=== PATIENT | male | born 1970 | race Caucasian/White ===

== ENCOUNTER 2018-01-17 14:01 | Outpatient (REF) | payer MEDICARE, MEDICAID, SELFPAY ==
[2018-01-17 21:27] LABS: HCT 41.9 % (40.0-50.0); HGB 14.5 g/dL (13.5-17.5); Mean Corp. HGB Concentration 34.6 g/dL (32.0-36.0); Mean Corpuscular Hemoglobin 31.3 pg (27.0-33.0); Mean Corpuscular Volume 90.5 fL (80-95); Mean Platelet Volume 11.3 fL (8.0-11.0); RBC 4.63 m/cumm (4.50-6.00); RBC Distribution Width 14.4 % (11.8-14.1)
[2018-01-17 21:39] LABS: ALT 39 U/L (12-78); AST 28 U/L (15-37); Albumin 3.8 g/dL (3.4-5.0); Alkaline Phosphatase 84 U/L (46-116); Anion Gap 8.8 mmol/L (3-11); BUN 12 mg/dL (7-18); Bilirubin, Total 0.7 mg/dL (0.2-1.0); CO2 27.2 mmol/L (21.0-32.0); CREATININE 0.74 mg/dL (0.70-1.30); Calcium 8.6 mg/dL (8.5-10.1); Chloride 101 mmol/L (98-107); Glucose 116 mg/dL (70-100); Potassium 3.8 mmol/L (3.5-5.1); Sodium 137 mmol/L (136-145); TSH (W/Ref FT4) 3.82 uIU/mL (0.358-3.74); Total Protein 7.3 g/dL (6.4-8.2)
[2018-01-17 21:53] LABS: Platelet Count 34 x1000/uL (130-400)
[2018-01-17 21:56] LABS: FREE T4 0.81 ng/dL (0.76-1.46)
[2018-01-21 11:59] LABS: Hepatitis C Ab w Rflx HCV PCR Reactive (NEGAT)
[2018-01-22 13:52] LABS: HCV RNA Detection Quantitative Undetected IU/mL (UNDECT)
== END 2018-01-17 14:21 ==
LOC: NCHCN 14:01
PROVIDERS: PCP Family Medicine; Visit Provider Family Medicine
DX: E03.9 Hypothyroidism, unspecified (principal); E11.9 Type 2 diabetes mellitus without complications; I10 Essential (primary) hypertension; K74.60 Unspecified cirrhosis of liver; B19.20 Unspecified viral hepatitis C without hepatic coma
CPT/HCPCS: 80053; 85027; 86803; 84439; 84443; 87522

== ENCOUNTER 2018-07-11 15:41 | Outpatient (CLI) | payer MEDICARE, MEDICAID, SELFPAY ==
[2018-07-11 15:59] LABS: Abs Immature Grans 0.01 k/cumm (0.0-0.09); Absolute Basophil Count 0.02 k/cumm (0.0-0.2); Absolute Eosinophil Count 0.09 k/cumm (0.0-0.7); Absolute Lymphocyte Count 0.63 k/cumm (1.2-3.4); Absolute Monocyte Count 0.34 k/cumm (0.11-0.7); Basophils % 0.4; Eosinophils % 1.8; HCT 40.5 % (40.0-50.0); Immature Grans % 0.2; Lymphocytes % 12.6; Mean Corpuscular Hemoglobin 32.6 pg (27.0-33.0); Mean Platelet Volume 10.2 fL (8.0-11.0); Monocytes % 6.8; Neutrophils % 78.2; RBC Distribution Width 13.8 % (11.8-14.1); White Blood Cell Count 4.99 k/cumm (4.4-10.8)
--- NOTE | 2018-07-11 16:06 | DI.RAD_ITS ---
SYMPTOM/DIAGNOSIS: NOCTURNAL DYSPNEA, R06.09 PA AND LATERAL CHEST: Comparison is made with 11/14/16. The heart size is normal. The lungs show mild underlying fibrotic changes. No focal infiltrate, effusion or pulmonary edema is seen. No mass or adenopathy is visible. The spine is unremarkable. IMPRESSION: No acute abnormality.
[2018-07-11 16:19] LABS: Platelet Count 45 x1000/uL (130-400)
[2018-07-11 16:32] LABS: D-Dimer 423 ng/mlFEU (<500)
[2018-07-11 17:13] LABS: NT-proBNP 15 pg/mL
== END 2018-07-11 16:01 ==
PROVIDERS: PCP Family Medicine; Visit Provider Nurse Practitioner
DX: R06.09 Other forms of dyspnea (principal)
CPT/HCPCS: 36415; 71046; 83880; 85025; 85379

== ENCOUNTER 2018-08-15 08:26 | Outpatient (REF) | payer MEDICARE, MEDICAID, SELFPAY ==
[2018-08-15 13:21] LABS: ALT 54 U/L (12-78); AST 35 U/L (15-37); Albumin 3.8 g/dL (3.4-5.0); Alkaline Phosphatase 74 U/L (46-116); Anion Gap 8.4 mmol/L (3-11); BUN 9 mg/dL (7-18); Bilirubin, Total 0.8 mg/dL (0.2-1.0); CO2 29.6 mmol/L (21.0-32.0); CREATININE 0.64 mg/dL (0.70-1.30); Calcium 8.6 mg/dL (8.5-10.1); Chloride 102 mmol/L (98-107); Glucose 124 mg/dL (70-100); Potassium 4.1 mmol/L (3.5-5.1); Sodium 140 mmol/L (136-145); TSH (W/Ref FT4) 1.41 uIU/mL (0.358-3.74); Total Protein 7.4 g/dL (6.4-8.2)
[2018-08-15 13:32] LABS: Cholesterol 131 mg/dL (50-200); HDL Cholesterol 48 mg/dL (40-60); LDL CHOLESTEROL 75 mg/dL (<100); Triglyceride 32 mg/dL (30-150)
[2018-08-15 13:38] LABS: Hemoglobin A1C 5.1 % (4.5-6.2)
== END 2018-08-15 08:46 ==
LOC: NCHCN 08:26
PROVIDERS: PCP Family Medicine; Visit Provider Family Medicine
DX: E78.5 Hyperlipidemia, unspecified (principal); E11.9 Type 2 diabetes mellitus without complications; D69.6 Thrombocytopenia, unspecified; I10 Essential (primary) hypertension; B19.20 Unspecified viral hepatitis C without hepatic coma; E03.9 Hypothyroidism, unspecified
CPT/HCPCS: 80053; 80061; 83721; 83036; 84443

== ENCOUNTER 2018-11-23 19:37 | Inpatient (IN) | payer MEDICARE, MEDICAID, SELFPAY ==
[2018-11-23] VITALS (19 sets, daily range): BP systolic 117–168; BP diastolic 75–98; PULSE 60–78; RESP 11–35; TEMP 36.8; O2SAT 90–97
--- NOTE | 2018-11-23 19:41 | NUR.NOTE ---
Nursing Note: pt states that im here for schizophrenia pt is visibly intoxicated and states that he is currently having hallucinations states that he has thought about killing himself however currently has no plan
--- NOTE | 2018-11-23 20:07 | W.ED.GENAD ---
Discharge Plan Disposition Patient Disposition: [facility] INPATIENT Condition: Stable Discharge Details Chief Complaint: Suicide-Atempt Clinical Impression: Alcoholic ketoacidosis, Suicidal ideations, Alcohol intoxication Admit Date/Time: 11/23/18 23:17 Admit Provider: Elvin Ríos Attending Provider: Elvin Ríos Primary Care Provider: Soraya Tomas ED Provider: Camila Sandoval Discharge Data Discharge Date/Time-TO BE ENTERED AT DEPARTURE: 11/24/18 00:40 Medical Decision Making 48yo M w/ a h/o depression, previous suicidal ideation, schizophrenia presents intoxicated with suicidal ideation and hallucinations. CPSO ordered. D/w Khadijah from [facility] who evaluated pt at bedside - pt clearly intoxicated but able to answer questions - will reassess after more sober. Pt denies suicidal ideation upon my evaluation but is clearly intoxicated and while reassess once more sober. 2200 --patient complained of chest pain and cramping in his right hand. Appears likely consistent with anxiety as he is nervous about his right hand cramping. Denies any weakness or numbness more complaining of pain, appears likely consistent with a muscle cramp. EKG done at bedside and unremarkable. Stat chest x-ray negative. Stat troponin done and negative. Patient placed on the monitor and hemodynamically stable. Labs reviewed and note stable platelet count at 67, which is much improved compared to baseline. Sodium 127. Bicarb 17.8. Anion gap 15.2. Glucose 116. UDS notes benzos. Alcohol 319. Appears likely c/w alcoholic ketoacidosis. Will give liter of D5 NS at 125cc/hr. Discussed with mental health and they will likely not reevaluate until patient alcohol level is 0. Discussed that patient could likely be evaluated once under the legal limit which would be approximately 9 hours which is approximately at 0530am. Will admit pt to floor overnight for reassessment of labs and reevaluation by mental health in the am. 2310 -- d/w hospitalist - accepts pt for admission. Pt hemodynamically stable and no acute complaints. Medical Records Medical records reviewed: Yes I reviewed the patient's medical records. Imaging Data Radiologic Study: Radiologist's impression: XR Chest, 1 View EXAM DATE/TIME: 11/23/2018 9:42 PM CLINICAL HISTORY: 48 years old, male; Chest pain; Type not specified; Additional info: R/O acute disease TECHNIQUE: Imaging protocol: XR of the chest, 1 view. COMPARISON: CR XR CHEST 2V PA LATERAL 11/07/2018 15:58 FINDINGS: Lungs: Unremarkable. No consolidation. Pleural space: Unremarkable. No pleural effusion. No pneumothorax. Heart/Mediastinum: Unremarkable. No cardiomegaly. Bones/joints: Unremarkable. Other findings: EKG wires overlie the chest. IMPRESSION: No acute cardiopulmonary findings. Lab Data Lab results reviewed: Yes I reviewed the patient's lab results. Laboratory Tests Range/Units 11/23/18 11/23/18 11/23/18 20:25 20:25 20:25 WBC (4.4-10.8) k/cumm 9.57 RBC (4.50-6.00) m/cumm 5.43 Hgb (13.5-17.5) g/dL 17.6 H Hct (40.0-50.0) % 46.6 MCV (80-95) fL 85.8 MCH (27.0-33.0) pg 32.4 MCHC (32.0-36.0) g/dL 37.8 H RDW (11.8-14.1) % 13.5 Plt Count (130-400) x1000/uL 67 L MPV (8.0-11.0) fL 9.6 Immature Gran % 0.2 Neutrophils % 83.4 Lymphocytes % 9.3 Monocytes % 5.0 Eosinophils % 2.0 Basophils % 0.1 Absolute Neutrophils (1.2-6.7) k/cumm 7.98 H Absolute Lymphocytes (1.2-3.4) k/cumm 0.89 L Absolute Monocytes (0.11-0.7) k/cumm 0.48 Absolute Eosinophils (0.0-0.7) k/cumm 0.19 Absolute Basophils (0.0-0.2) k/cumm 0.01 Sodium (136-145) mmol/L 127 L Potassium (3.5-5.1) mmol/L 4.0 Chloride (98-107) mmol/L 94 L Carbon Dioxide (21.0-32.0) mmol/L 17.8 L Anion Gap (3-11) mmol/L 15.2 H BUN (7-18) mg/dL 8 Creatinine (0.70-1.30) mg/dL 0.48 L Estimated GFR/1.73 m2 (mL/min/1.73m2) >= 60.00 Glucose (70-100) mg/dL 116 H Calcium (8.5-10.1) mg/dL 8.2 L Troponin I (0.00-0.06) ng/mL < 0.05 Urine Opiates Screen (Negative) Urine Methadone Screen (Negative) Ur Barbiturates Screen (Negative) Ur Tricyclics Screen (Negative) Ur Amphetamines Screen (Negative) U Benzodiazepines Scrn (Negative) Urine Cocaine Screen (Negative) Ur THC Screen (Negative) Ethyl Alcohol (<3) mg/dL 319.2 Range/Units 11/23/18 21:05 WBC (4.4-10.8) k/cumm RBC (4.50-6.00) m/cumm Hgb (13.5-17.5) g/dL Hct (40.0-50.0) % MCV (80-95) fL MCH (27.0-33.0) pg MCHC (32.0-36.0) g/dL RDW (11.8-14.1) % Plt Count (130-400) x1000/uL MPV (8.0-11.0) fL Immature Gran % Neutrophils % Lymphocytes % Monocytes % Eosinophils % Basophils % Absolute Neutrophils (1.2-6.7) k/cumm Absolute Lymphocytes (1.2-3.4) k/cumm Absolute Monocytes (0.11-0.7) k/cumm Absolute Eosinophils (0.0-0.7) k/cumm Absolute Basophils (0.0-0.2) k/cumm Sodium (136-145) mmol/L Potassium (3.5-5.1) mmol/L Chloride (98-107) mmol/L Carbon Dioxide (21.0-32.0) mmol/L Anion Gap (3-11) mmol/L BUN (7-18) mg/dL Creatinine (0.70-1.30) mg/dL Estimated GFR/1.73 m2 (mL/min/1.73m2) Glucose (70-100) mg/dL Calcium (8.5-10.1) mg/dL Troponin I (0.00-0.06) ng/mL Urine Opiates Screen (Negative) Negative Urine Methadone Screen (Negative) Negative Ur Barbiturates Screen (Negative) Negative Ur Tricyclics Screen (Negative) Negative Ur Amphetamines Screen (Negative) Negative U Benzodiazepines Scrn (Negative) Positive Urine Cocaine Screen (Negative) Negative Ur THC Screen (Negative) Negative Ethyl Alcohol (<3) mg/dL ECG Data Attestation: I personally reviewed and interpreted this ECG (s) as follows: Interpretation: Rate of 70, sinus, no acute ST-T wave ischemic changes. QTc 412. QRS 95. HPI General Mode of arrival: ambulatory. Date/Time Provider Initiated Documentation: 11/23/18 19:59. Limitations to Documentation: no limitations. Information obtained by: patient. HPI Narrative: Pt is a 48yo M w/ a h/o schizophrenia, diabetes, hypothyroidism, anxiety, depression, previous suicide attempt who presents with suicidal ideation. Pt states he has felt depressed for the past 3 years which has been becoming progressively worse. Pt does not answer all my questions and has significant delays in answering. When asked if he is still suicidal, he nods his head no. He states his previous suicide attempt was when he thought about injecting clorox in his veins. He has a h/o previous heroin abuse but has not used for several years. He states he drank four 24 oz beers today. He denies a h/o regular alcohol use and states he last drank years ago. Triage note also stated pt was having hallucinations of voices telling him how to kill himself but he will not talk about this to me. He will not talk about whether he had a plan. Per staff, pt's bag had several knives in it. Pt denies any acute medical complaints. Related Data Home Medications Medication Instructions Recorded Confirmed bupropion HCl [Wellbutrin SR] 200 mg PO BID 07/22/16 10/16/16 cholecalciferol (vitamin D3) 1,000 units PO DAILY 07/22/16 11/24/18 fluticasone propion-salmeterol 1 ea INHALATION BID 07/22/16 11/24/18 [Advair Diskus] levothyroxine 50 mcg PO DAILY 07/22/16 11/24/18 metformin [Glucophage] 1,000 mg PO BID 07/22/16 10/16/16 omeprazole 20 mg PO DAILY 07/22/16 10/16/16 propranolol 20 mg PO BID 07/22/16 11/24/18 trazodone 300 mg PO HS PRN 07/22/16 11/24/18 fluoride (sodium) [Prevident 5000] 100 ml DENTAL DAILY script 05/29/17 07/11/17 lurasidone [Latuda] 80 mg PO DAILY 05/29/17 alprazolam [Xanax] 1 mg PO BID PRN MDD 2 07/11/17 11/24/18 diclofenac sodium 4 gm TOPICAL QID PRN 30 Days #100 07/30/17 gm lidocaine 1 adh.patch TOPICAL DAILY PRN 30 08/29/17 11/24/18 Days #30 patch vilazodone [Viibryd] 20 mg PO DAILY 11/24/18 11/24/18 zolpidem [Ambien] 10 mg PO QHS PRN 11/24/18 11/24/18 Allergies Allergy/AdvReac Type Severity Reaction Status Date / Time No Known Allergies Allergy Unverified 11/23/18 19:51 General Stated Complaint: Suicide-Atempt MANISH: 3 Review of Systems Review of Systems All systems reviewed & are unremarkable except as noted in HPI and below Constitutional Reports as per HPI, Denies chills and Denies fever(s) Eyes Denies blurry vision ENT Denies dizziness, Denies sore throat and Denies throat swelling Cardiovascular Denies chest pain and Denies dyspnea Respiratory Denies cough and Denies dyspnea Gastrointestinal Denies abdominal pain, Denies diarrhea and Denies vomiting Genitourinary Denies hematuria and Denies dysuria Musculoskeletal Denies back pain and Denies numbness Integumentary/Breasts Denies lesions and Denies rash Neurologic Denies dizziness, Denies focal weakness and Denies numbness Psychiatric Reports suicidal ideation Allergic/Immunologic Denies throat swelling [facility] Medical History (Updated 11/24/18 @ 04:51 by Elvin Ríos) Cirrhosis Depression Diabetes Esophageal varices HCV infection (Chronic) Heroin addiction Hypothyroid Lumbar spondylosis Sleep apnea Suicidal ideations Surgical History EGD - MAC Social History Smoking/Tobacco Use Status: Current every day Tobacco Type: cigarettes Alcohol Intake: current Alcohol Intake frequency: 3 or more drinks per day Alcohol type: beer Drug use: Never Exam Const General: cooperative, no acute distress and intoxicated appearing [facility] Head: normal to inspection Face and sinus: normal facial exam Eyes General: appearance normal, both eyes and all related structures Pupils: PERRL EOM: EOM intact bilaterally Neck Neck: normal visual inspection and No submandibular swelling Lymphatic: no lymphadenopathy noted Chest Chest: normal inspection of the chest and no tenderness Resp Effort & Inspection: normal respiratory effort and able to speak in complete sentences Auscultation: clear to auscultation bilaterally Cardio Rate: regular rate Rhythm: regular rhythm GI Inspection: normal to inspection Palpation: soft, not firm, not rigid and nontender Auscultation: normal bowel sounds Skin General skin exam: no rashes or lesions noted Neuro General: awake, oriented x3, moves all extremities and no focal motor deficits Cognition: normal cognition Speech: speech normal Motor: muscle tone normal throughout Sensory Exam: no sensory deficits noted Extrem General: normal to inspection, full ROM, normal capillary refill, no calf tenderness bilaterally and no edema Psych Appearance: grossly normal Mental Status: mental status grossly normal Speech and Movement: speech and movement normal and slurred speech (c/w alcohol intoxication) Affect: indifferent Course Vital Signs Temperature 98.2 F 11/23/18 19:43 Pulse 78 11/23/18 19:43 Respiratory Rate 17 11/23/18 19:43 Blood Pressure 168/98 H 11/23/18 19:43 Pulse Oximetry 95 11/23/18 19:43 Temperature 98.2 F 11/23/18 19:43 Temperature Source Skin 11/23/18 19:43 Pulse 78 11/23/18 19:43 Respiratory Rate 17 11/23/18 19:43 Respiratory Effort 11/23/18 19:47 Blood Pressure 168/98 H 11/23/18 19:43 Blood Pressure Position Sitting 11/23/18 19:43 Pulse Oximetry 95 11/23/18 19:43 Oxygen Delivery Method Room Air 11/23/18 19:43 Oxygen Flow Rate 0 11/23/18 19:43 Pain Level 0 11/23/18 19:43
--- NOTE | 2018-11-23 20:48 | NUR.NOTE ---
Nursing Note: report and patient hand off given to maxine WESTBROOK
[2018-11-23 20:49] LABS: Abs Immature Grans 0.02 k/cumm (0.0-0.09); Absolute Basophil Count 0.01 k/cumm (0.0-0.2); Absolute Eosinophil Count 0.19 k/cumm (0.0-0.7); Absolute Lymphocyte Count 0.89 k/cumm (1.2-3.4); Absolute Monocyte Count 0.48 k/cumm (0.11-0.7); Absolute Neutrophil Count 7.98 k/cumm (1.2-6.7); Basophils % 0.1; HCT 46.6 % (40.0-50.0); HGB 17.6 g/dL (13.5-17.5); Immature Grans % 0.2; Lymphocytes % 9.3; Mean Corp. HGB Concentration 37.8 g/dL (32.0-36.0); Mean Corpuscular Volume 85.8 fL (80-95); Mean Platelet Volume 9.6 fL (8.0-11.0); Neutrophils % 83.4; RBC 5.43 m/cumm (4.50-6.00); RBC Distribution Width 13.5 % (11.8-14.1); White Blood Cell Count 9.57 k/cumm (4.4-10.8)
[2018-11-23 21:07] LABS: Anion Gap 15.2 mmol/L (3-11); BUN 8 mg/dL (7-18); CO2 17.8 mmol/L (21.0-32.0); CREATININE 0.48 mg/dL (0.70-1.30); Calcium 8.2 mg/dL (8.5-10.1); Chloride 94 mmol/L (98-107); ETHANOL BLOOD 319.2 mg/dL (<3); Glucose 116 mg/dL (70-100); Sodium 127 mmol/L (136-145)
[2018-11-23 21:25] LABS: Mean Corpuscular Hemoglobin 32.4 pg (27.0-33.0)
[2018-11-23 21:26] LABS: Platelet Count 67 x1000/uL (130-400)
[2018-11-23 21:39] LABS: *AMPHETAMINES SCREEN URINE Negative (Negative); *BARBITURATES SCREEN URINE Negative (Negative); *BENZODIAZEPINES SCREEN URINE POSITIVE (Negative); Cannabinoids THC Negative (Negative); Cocaine Screen,Urine Negative (Negative); METHADONE URINE SCREEN Negative (Negative); OPIATES URINE SCREEN Negative (Negative)
[2018-11-23 21:40] LABS: Tricyclic Antidepressants Negative (Negative)
--- NOTE | 2018-11-23 21:42 | DI.RAD_ITS ---
SYMPTOM/DIAGNOSIS: CHEST PAIN, R/O ACUTE DISEASE CHEST X-RAY: Portable AP view. Comparison is 07/11/18 Heart size and pulmonary vasculature are within normal limits. The lungs are clear. No effusions or pneumothoraces are identified. No acute osseous abnormalities identified. IMPRESSION: No acute pulmonary process.
[2018-11-23 22:08] LABS: Troponin I < 0.05 ng/mL (0.00-0.06)
--- NOTE | 2018-11-23 22:41 | DI.VRAD_ITS ---
EXAM: XR Chest, 1 View EXAM DATE/TIME: 11/23/2018 9:42 PM CLINICAL HISTORY: 48 years old, male; Chest pain; Type not specified; Additional info: R/O acute disease TECHNIQUE: Imaging protocol: XR of the chest, 1 view. COMPARISON: CR XR CHEST 2V PA LATERAL 11/07/2018 15:58 FINDINGS: Lungs: Unremarkable. No consolidation. Pleural space: Unremarkable. No pleural effusion. No pneumothorax. Heart/Mediastinum: Unremarkable. No cardiomegaly. Bones/joints: Unremarkable. Other findings: EKG wires overlie the chest. IMPRESSION: No acute cardiopulmonary findings. Dictated and Authenticated by: Kaitlyn Kline MD. Ordering:MONICA Jensen MD
--- NOTE | 2018-11-23 23:13 | PDOC.MHCN ---
Date of service: 11/23/18 Time of Service: 20:18 Mental Health Crisis Note Presenting Issue How did you arrive at the ED and why did you come: Client called mom (Graciela), earlier in the day, he stated that he had bought a gun, and was going to end his own life, then he hung up the phone. Mom called [employer]EARCH ASSISTANT PROFESSOR and the state police were notified. Mom notified RESEARCH ASSISTANT PROFESSOR that client was found, and that he was going to stay in a hotel room ([facility], room 205). mom also shred that a family friend (Martin) was going to keep an eye on him. Later this evening client was brought into the ER, with police escort. During client's assessment they shared that they wanted to end it. Precipitating Factors Client shared their suicidal thoughts, explaining that he puts a smile on his face so, everyone thinks he is fine but, he is not fine. Client shared that they have been experiencing visual hallucinations, that make it difficult to function effectively as if they feel that they're always being watched. Client reported that the people in his hallucinations approach him with the intent to scare him. Shortly after scaring him they pop out of his view. Client stated that he believes there is a spider (scary tarantula) in the fely, that is trying to control his mind. He shared that in large groups he feels that the people are trying to control him. He stated that with everything going on for him, coupled with his dad's insistence to help him work, it's too much, and he cant take it anymore. Disposition BEHAVIOR: When this process description writer entered the ER room, client appeared to smell of alcohol and had slurred speech. Client was willing to engage in assessment and did so, appropriately. Client immediately shared that they were not above the legal drinking limit (.08) and that they could test him if they wanted to (Test me, I drank but, I am under the minimal levels. When questions around medication adherence, last administration of medication, or drinking was the topic, client refused to engage. EYE CONTACT: Client engaged in direct eye contact but, several times, stared at the floor when the questions appeared to over whelm him or when client shared information about his hallucinations being present. MOOD: Client was cooperative when explaining what was going on for him but, appeared to be overwhelmed and significantly depressed. Client made hand gestures signifying he wanted to kill himself. Examples: he used his right hand in the formation of a gun, pointed into his neck, as well as, using his right hand in the formation of a knife, waving it over his left wrist, mimicking cutting his wrist. AFFECT: Client appeared reserved and shared that they felt helpless, worried and scared. APPETITE: Client did not share. SLEEP(trouble falling/staying asleep: Client shared that last night he had 4 hours of sleep, as he is always worried about his hallucinations (people watching him and behind him). He stated that he hasn't slept much recently. Plan Client had significantly high blood alcohol levels (.30), when client's blood alcohol levels reach 0, he will be reassessed. Client will be monitored by medical staff and reassessed in the morning, at 7:30 AM, by RESEARCH ASSISTANT PROFESSOR. Provisional Diagnosis Depression Signature Clinician's Name/Title: Khadijah Camilo
[2018-11-23] MEDS: DEXTROSE 5%-0.9% SALINE 1,000 ML 125 ML IV (23:38)
--- NOTE | 2018-11-23 23:47 | W.PM.HP.N ---
Date of service: 11/23/18 Time of Service: 23:47 Assessment and Plan (1) Suicidal ideations: Current visit: No Status: Acute This is a 48-year-old gentleman with chronic psychiatric disease, questionable medical compliance and polysubstance abuse who came to the ED because of suicidal ideation. He is intoxicated and had some electrolyte abnormalities associated with acute alcohol intoxication. This will be treated with IV fluid resuscitation with patient be placed on CIWA protocol and mental health consultation in the morning when the patient can be interviewed with psychiatric reevaluation when he is not intoxicated. He does have a history of depression, which is ill-defined and schizophrenia. We will continue his chronic psychiatric medications as best we can ascertain from the most recent list. (2) Depression: Current visit: No Status: None Continue psychiatric medications as ascertained from the most recent list brought in by mental health. Follow-up with mental health consultation in the morning to hopefully review and update medication list and make safe plan for suicidal ideation. Patient is not actively admitting to suicidal ideation but is chaotic. He is having complaints of atypical chest discomfort this will be followed up with trending troponins and observe with telemetry during his hospital stay. This most likely is associate with anxiety which is part of his depression. He has no complaints of chest pain when I examined him. Qualifiers: Depression Type: other depression Qualified Code(s): F32.89 - Other specified depressive episodes (3) Alcohol intoxication: Current visit: Yes Status: Acute IV hydration and CIWA protocol while in the hospital. Patient will be continued on her usual dose of Xanax 1 mg twice a day. Qualifiers: Complication of substance-induced condition: with unspecified complication Qualified Code(s): F10.929 - Alcohol use, unspecified with intoxication, unspecified (4) Electrolyte and fluid disorder: Current visit: Yes Status: Acute Secondary to alcohol intoxication with IV hydration and supplement as needed. Watch for alcohol withdrawal. Patient has a protuberant abdomen but does not appear to have ascites associated with his cirrhosis at this time. He is seeing GI for this problem. (5) Cirrhosis: Current visit: No Status: None Continue propranolol and observe for complications during this hospital stay. Patient chronically does see GI and is on propanolol twice a day from the specialist. This will be continued. There are function will be followed up in the morning. Qualifiers: Ascites presence: without ascites Hepatic cirrhosis type: unspecified hepatic cirrhosis Qualified Code(s): K74.60 - Unspecified cirrhosis of liver History of Present Illness Chief Complaint: Suicidal ideation with acute alcoholic intoxication, chest pain Narrative: This 48-year-old gentleman who has chronic psychological and medical problems with questionable compliance with medical therapy. He does see GI and is prescribed propanolol with a history of chronic hep C and probable alcoholic cirrhosis. He also sees psychiatry with double Haldol being given along with more recent medication list found and updated. He chronically does take Xanax and sleeping aids with Ambien and trazodone. He appears to be on new regimen of antidepressants recently. Once again compliance is questionable with patient not supposed to be on alcohol and presenting intoxicated. He stated that he was having suicidal ideation but when requested he denied suicidal ideation. With his acute alcohol intoxication mental health could not evaluate him and will do this in the morning. Because of his alcohol intake he appears to have mild alcoholic ketoacidosis and will be IV hydrated overnight. He does have a history of diabetes but is not on treatment for this with this we monitored while in the hospital. He is a smoker and is requesting NicoDerm which will be given. He also will be given nebulizer treatments in the hospital with chronic inhalers prescribed as an outpatient but questionably taken. Patient in conversation is loud, has tangential thought processes but is not actively hallucinating by history. He does seem to give a fairly accurate history and general but not with details. Review of systems obtained as allowed with the patient once again scattered in conversation. Pertinent review of systems negative for any GI complaints though he is gaining weight over the abdomen and he does not have any peripheral edema. He does have a cough with his continued smoking. He is having chest discomfort but with no radiation or associated symptoms. He will have his troponins trended and be kept on telemetry while in the hospital though this chest pain appears atypical and mostly associate with anxiety. During interview and review the patient with physical he did have slightly slurred speech and smell of alcohol. He is a full code. Review of Systems Review of Systems 13 point review of systems otherwise unrevealing or as per HPI and stable with patient being questionable historian. FORMERLY [facility], [facility] Medical History (Updated 11/24/18 @ 04:51 by Elvin Ríos) Cirrhosis Depression Diabetes Esophageal varices HCV infection (Chronic) Heroin addiction Hypothyroid Lumbar spondylosis Sleep apnea Suicidal ideations Surgical History EGD - MAC Social History Smoking/Tobacco Use Status: Current every day Tobacco Type: cigarettes Alcohol Intake: current Alcohol Intake frequency: 3 or more drinks per day Alcohol type: beer Drug use: Never Meds Home Medications Medication Instructions Recorded Confirmed Type bupropion HCl [Wellbutrin SR] 200 mg PO BID 07/22/16 10/16/16 History cholecalciferol (vitamin D3) 1,000 units PO DAILY 07/22/16 11/24/18 History fluticasone propion-salmeterol 1 ea INHALATION BID 07/22/16 11/24/18 History [Advair Diskus] levothyroxine 50 mcg PO DAILY 07/22/16 11/24/18 History metformin [Glucophage] 1,000 mg PO BID 07/22/16 10/16/16 History omeprazole 20 mg PO DAILY 07/22/16 10/16/16 History propranolol 20 mg PO BID 07/22/16 11/24/18 History trazodone 300 mg PO HS 07/22/16 11/24/18 History fluoride (sodium) [Prevident 5000] 100 ml DENTAL DAILY script 05/29/17 07/11/17 History lurasidone [Latuda] 80 mg PO DAILY 05/29/17 History Oxygen 2 l NS 07/04/17 Clinic alprazolam [Xanax] 1 mg PO HS 07/11/17 11/24/18 History diclofenac sodium 4 gm TOPICAL QID PRN 30 Days #100 07/30/17 History gm lidocaine 1 adh.patch TOPICAL DAILY PRN 30 08/29/17 11/24/18 History Days #30 patch vilazodone [Viibryd] 20 mg PO DAILY 11/24/18 11/24/18 History zolpidem [Ambien] 10 mg PO QHS PRN 11/24/18 11/24/18 History Allergies Allergy/AdvReac Type Severity Reaction Status Date / Time No Known Allergies Allergy Unverified 11/23/18 19:51 Exam Narrative Exam Narrative: General: Patient appears appropriate for age, appears intoxicated with strong smell of alcohol and rapid/pressured speech with wandering of conversation. He appears to be alert and oriented at least to person and place. He is in no acute distress. HEENT: Normocephalic with eyes revealing pupils equal reactive light symmetrically, extraocular movement intact and sclera anicteric. External ears and nose normal. Oropharynx with dry oral mucosa, strong alcohol smell of breath and fair dentition. Neck: Supple without JVD. Lungs: Fair aeration with bronchovesicular breath sounds bilaterally and no focalizing rales or rhonchi. No increased expiratory phase or expiratory wheeze. Heart: Regular rate and rhythm without murmurs or gallops appreciated. Back: Stooped posture with no CVA tenderness. Abdomen: Obese contour, soft and tender to palpation over right upper quadrant with palpable firm sharp liver edge 7 cm below right costal margin. No palpable splenomegaly. No other focal palpable tenderness or masses. No rebound or tympany. Bowel sounds positive in all quadrants. Genitalia/Rectal: Not examined. Extremities: Trace, nonpitting edema lower extremities with no clubbing or cyanosis. Peripheral pulses intact with good capillary refill. Skin: Pale, warm and dry. No rashes. Neuro: Cranial nerves II through XII grossly intact. No focalizing motor deficits. No tremor. Sensory grossly intact. No Babinski's. No asterixis. Reflexes are physiologic and symmetrical. Results Imaging Imaging Studies: EXAM: XR Chest, 1 View EXAM DATE/TIME: 11/23/2018 9:42 PM CLINICAL HISTORY: 48 years old, male; Chest pain; Type not specified; Additional info: R/O acute disease TECHNIQUE: Imaging protocol: XR of the chest, 1 view. COMPARISON: CR XR CHEST 2V PA LATERAL 11/07/2018 15:58 FINDINGS: Lungs: Unremarkable. No consolidation. Pleural space: Unremarkable. No pleural effusion. No pneumothorax. Heart/Mediastinum: Unremarkable. No cardiomegaly. Bones/joints: Unremarkable. Other findings: EKG wires overlie the chest. IMPRESSION: No acute cardiopulmonary findings. Dictated and Authenticated by: Kaitlyn Kline MD. Labs : 11/23/18 20:25 11/23/18 20:25 Laboratory Results - last 24 hr 11/23/18 11/23/18 11/23/18 20:25 20:25 20:25 WBC 9.57 RBC 5.43 Hgb 17.6 H Hct 46.6 MCV 85.8 MCH 32.4 MCHC 37.8 H RDW 13.5 Plt Count 67 L MPV 9.6 Immature Gran % 0.2 Neutrophils % 83.4 Lymphocytes % 9.3 Monocytes % 5.0 Eosinophils % 2.0 Basophils % 0.1 Absolute Neutrophils 7.98 H Absolute Lymphocytes 0.89 L Absolute Monocytes 0.48 Absolute Eosinophils 0.19 Absolute Basophils 0.01 Sodium 127 L Potassium 4.0 Chloride 94 L Carbon Dioxide 17.8 L Anion Gap 15.2 H BUN 8 Creatinine 0.48 L Estimated GFR/1.73 m2 >= 60.00 Glucose 116 H Calcium 8.2 L Troponin I < 0.05 Urine Opiates Screen Urine Methadone Screen Ur Barbiturates Screen Ur Tricyclics Screen Ur Amphetamines Screen U Benzodiazepines Scrn Urine Cocaine Screen Ur THC Screen Ethyl Alcohol 319.2 11/23/18 21:05 WBC RBC Hgb Hct MCV MCH MCHC RDW Plt Count MPV Immature Gran % Neutrophils % Lymphocytes % Monocytes % Eosinophils % Basophils % Absolute Neutrophils Absolute Lymphocytes Absolute Monocytes Absolute Eosinophils Absolute Basophils Sodium Potassium Chloride Carbon Dioxide Anion Gap BUN Creatinine Estimated GFR/1.73 m2 Glucose Calcium Troponin I Urine Opiates Screen Negative Urine Methadone Screen Negative Ur Barbiturates Screen Negative Ur Tricyclics Screen Negative Ur Amphetamines Screen Negative U Benzodiazepines Scrn Positive Urine Cocaine Screen Negative Ur THC Screen Negative Ethyl Alcohol Last Vital Signs Temp 36.8 C 11/23/18 19:43 Pulse 62 11/23/18 23:30 Resp 18 11/23/18 23:30 BP 118/80 11/23/18 23:30 Pulse Ox 90 L 11/23/18 23:30
[2018-11-24] VITALS (19 sets, daily range): BP systolic 121–145; BP diastolic 67–85; PULSE 60–78; RESP 1–21; TEMP 35.9–37.6; O2SAT 93–97
[2018-11-24] MEDS: Normal Saline 1,000 ML 150 ML IV ×2 (00:50→07:32)
[2018-11-24] MEDS: Pantoprazole 40 MG VIAL IVP ×2 (01:59→08:06)
[2018-11-24] MEDS: LORazepam 1 MG TAB PO/SL ×3 (02:00→14:19)
[2018-11-24] MEDS: Normal Saline Flush 10 ML SYR IVP ×3 (02:07→14:54)
[2018-11-24] MEDS: ALPRAZolam 0.5 MG TAB 1 MG PO ×2 (03:29→08:06)
[2018-11-24 03:59] LABS: Troponin I < 0.05 ng/mL (0.00-0.06)
[2018-11-24] MEDS: Albuterol/Ipratropium 3 ML UPD VIAL UPD ×2 (07:04→12:45)
[2018-11-24] MEDS: Levothyroxine 50 MCG TAB PO (07:20)
[2018-11-24] MEDS: Propranolol 40 MG TAB 20 MG PO (08:06)
[2018-11-24] MEDS: Folic Acid 1 MG TAB PO (08:07)
[2018-11-24] MEDS: Thiamine 100 MG TAB PO (08:07)
[2018-11-24] MEDS: Multivitamin TAB 1 TAB PO (08:07)
[2018-11-24 08:08] LABS: ALT 38 U/L (12-78); AST 27 U/L (15-37); Albumin 3.4 g/dL (3.4-5.0); Alkaline Phosphatase 69 U/L (46-116); Anion Gap 14.9 mmol/L (3-11); BUN 6 mg/dL (7-18); Bilirubin, Total 1.3 mg/dL (0.2-1.0); CO2 20.1 mmol/L (21.0-32.0); CREATININE 0.59 mg/dL (0.70-1.30); Chloride 96 mmol/L (98-107); Glucose 216 mg/dL (70-100); Potassium 3.8 mmol/L (3.5-5.1); Sodium 131 mmol/L (136-145); Total Protein 7.1 g/dL (6.4-8.2)
[2018-11-24 08:18] LABS: HCT 41.5 % (40.0-50.0); HGB 15.3 g/dL (13.5-17.5); Mean Corp. HGB Concentration 36.9 g/dL (32.0-36.0); Mean Corpuscular Hemoglobin 32.3 pg (27.0-33.0); Mean Corpuscular Volume 87.7 fL (80-95); Mean Platelet Volume 10.3 fL (8.0-11.0); RBC 4.73 m/cumm (4.50-6.00); RBC Distribution Width 13.6 % (11.8-14.1); White Blood Cell Count 4.24 k/cumm (4.4-10.8)
[2018-11-24 08:23] LABS: PHOSPHORUS 3.2 mg/dL (2.6-4.7); Platelet Count 49 x1000/uL (130-400)
[2018-11-24 08:32] LABS: Magnesium 1.6 mg/dL (1.8-2.4); TSH (W/Ref FT4) 1.95 uIU/mL (0.36-3.74)
[2018-11-24 08:33] LABS: Troponin I < 0.05 ng/mL (0.00-0.06)
--- NOTE | 2018-11-24 08:38 | PDOC.MHCN ---
Date of service: 11/24/18 Time of Service: 07:30 Mental Health Crisis Note Presenting Issue How did you arrive at the ED and why did you come: Client arrived via police transport. Client reported to Graciela Dove (mom) earlier in the day, that he had bought a gun and was going to kill him self. Upon arrival, client presented with slurred speech and smelled of alcohol. Client's blood alcohol levels were .3, which is over the legal limit. Client continued to state that he wanted to end it all. Client also shared that he was having hallucinations. Precipitating Factors Client stated that he doesn't want to harm himself, that he was just overwhelmed last night, with his parents demands to help out around the house. Client shared that he doesn't want to go home, as he feels that this is cyclical situation and living with his parents, makes things much worse, it triggers him. Client shared that he still experiences hallucinations but, that they are easier to cope with this morning, after his blood alcohol levels have gone down. Client would prefer to go to a place where he can stabilize his current situation, as he has not been taking his medication as prescribed. He shared that he has not been taking his Viibryd 20mg, in a while, and was concerned that having that dose might adversely affect him. He has asked that this dose be reduced so that he can slowly build back up to the previous dose. Disposition BEHAVIOR: Client appeared to be tired and calm and he was cooperative. EYE CONTACT: Client maintained appropriate eye contact. MOOD: Client appeared to be calm, cooperative and prepared for the next steps to help him getting better -goal directed. AFFECT: Normal expansive. APPETITE: He shared that he was hungry and prepared to eat breakfast. SLEEP(trouble falling/staying asleep: Client shared that he slept little and was still tired. Plan Client would like to find a bed, that will help support him in getting back on track, and find an alternative living arrangement, as he shared that he felt the current living arrangement is triggering. Provisional Diagnosis Alcohol intoxication, HCV infection, Depression, Cirrhosis, Electrolyte and fluid disorder, Spondylosis of lumbar region without myelopathy or radiculopathy, Depression, Suicidal ideation, Diabetes mellitus type 2 in obese. Signature Clinician's Name/Title: Khadijah Mckee-Bolivar -LOOPING MACHINE OPERATOR nurse case management/on-call
[2018-11-24] MEDS: Acetaminophen 325 MG TAB PO (08:43)
[2018-11-24] MEDS: Insulin Aspart 300 UNITS/3 ML PEN SC (08:44)
[2018-11-24] MEDS: MAGNESIUM SULFATE 2 GM/50 ML BAG IVPB (12:12)
--- NOTE | 2018-11-24 12:41 | PDOC.MHCN_ITS ---
Date of service: 11/24/18 Time of Service: 11:30 Mental Health Crisis Note Presenting Issue How did you arrive at the ED and why did you come: Client arrived at the ER after stating, to his mom over the phone, that he had bought a gun, and was going to kill himself. Client arrived at [facility] via police escort. Client's blood work revealed a alcohol level of .3. Client shared that he was experiencing hallucinations during the assessment and wanted to end it all. Precipitating Factors Client stated that he is not feeling suicidal, today. He shared that he was just overwhelmed with family dynamics, coupled with his mental health. That he has no intent to harm himself and that he is ready to get the help he needs to make himself better. He doesn't want to return to his parent's home. Disposition BEHAVIOR: Conscientious, logical, and cooperative. EYE CONTACT: Maintained appropriate eye contact. MOOD: Calm, friendly, and hopeful. AFFECT: Normal Expansive SLEEP(trouble falling/staying asleep: Tired having trouble sleeping for longer durations but, has been napping intermittently. Plan Client is to be discharged to a hospital diversion crisis bed ([facility]), in [place], [place]. Provisional Diagnosis Alcohol intoxication, HCV infection, Depression, Cirrhosis, Electrolyte and fluid disorder, Spondylosis of lumbar region without myelopathy or radiculopathy, Depression, Suicidal ideation, Diabetes mellitus type 2 in obese. Signature Clinician's Name/Title: Khadijah Cullen employment evaluator/case manager/ Crisis on-call
--- NOTE | 2018-11-24 13:10 | W.PM.DS.N ---
Date of service: 11/24/18 Time of Service: 13:11 DS: Diagnosis Discharge Diagnosis (1) Suicidal ideations: Status: Acute (2) Depression: Status: None (3) Alcohol intoxication: Start date: 11/24/18 Start time: 13:11 Status: Acute Asessment and Plan: Will be transported to Care bed. [facility] is here and they have a bed available (4) Electrolyte and fluid disorder: Start date: 11/24/18 Start time: 13:11 Status: Acute Asessment and Plan: Mag of 1.6 repleted. (5) Cirrhosis: Status: None Discharge Plan Disposition Patient Disposition: OTHER Condition: Stable Discharge Details Chief Complaint: Suicide-Atempt Clinical Impression: Alcoholic ketoacidosis, Suicidal ideations, Alcohol intoxication Reason For Visit: SUICIDE IDEATION, ACUTE INTOXICATION, CIRRHOSIS AL Admit Date/Time: 11/23/18 23:17 Admit Provider: Elvin Ríos Attending Provider: Elvin Ríos Primary Care Provider: Soraya Tomas ED Provider: Camila Sandoval Hospital Course Hospital Course: This 48-year-old gentleman who has chronic psychological and medical problems with questionable compliance with medical therapy. He does see GI and is prescribed propanolol with a history of chronic hep C and probable alcoholic cirrhosis. He also sees psychiatry with double Haldol being given along with more recent medication list found and updated. He chronically does take Xanax and sleeping aids with Ambien and trazodone. He appears to be on new regimen of antidepressants recently. Once again compliance is questionable with patient is not supposed to be on alcohol and presenting intoxicated. He stated that he was having suicidal ideation but when requested he denied suicidal ideation. With his acute alcohol intoxication mental health could not evaluate him and will do this in the morning. Because of his alcohol intake he appears to have mild alcoholic ketoacidosis and will be IV hydrated overnight. He does have a history of diabetes but is not on treatment for this with this we monitored while in the hospital. He is a smoker and is requesting NicoDerm which will be given. He also will be given nebulizer treatments in the hospital with chronic inhalers prescribed as an outpatient but questionably taken. Patient in conversation is loud, has tangential thought processes but is not actively hallucinating by history. He does seem to give a fairly accurate history and general but not with details. Review of systems obtained as allowed with the patient once again scattered in conversation. Pertinent review of systems negative for any GI complaints though he is gaining weight over the abdomen and he does not have any peripheral edema. He does have a cough with his continued smoking. During interview and review the patient with physical he did have slightly slurred speech and smell of alcohol. He is a full code. During hospital course he was evaluated by mental health and is not having any thoughts of SI or HI. He will be transported to care bed. His mag was low at 1.6 and repleted with 2 grams only recieving half the infusion, so then received 800 mg po. He is compliant with care. Denies CP, SOB, n/v/d. Home Meds and New Rx's Prescriptions: New Viibryd 40 mg Tablet 10 mg PO DAILY Qty: 30 RF: 0 Continued fluoride (sodium) [PreviDent 5000 Dry Mouth] 100 ML gel 100 ml Dental DAILY RF: 0 Latuda 80 MG tablet 80 mg PO DAILY RF: 0 diclofenac sodium 100 GM gel 4 gm Topical QID PRN30 Days Qty: 100 RF: 11 lidocaine 1 EACH adhesive patch,medicated 1 adh.patch Topical DAILY PRN30 Days Qty: 30 RF: 11 alprazolam [Xanax] 1 MG tablet 1 mg PO BID MDD 2 PRN (Reason: anxiety) RF: 0 fluticasone propion-salmeterol [Advair Diskus] 1 EACH blister with device 1 ea Inhalation BID RF: 0 trazodone 50 MG tablet 300 mg PO HS PRNRF: 0 propranolol 40 MG tablet 20 mg PO BID RF: 0 metformin [Glucophage] 1,000 MG tablet 1,000 mg PO BID RF: 0 levothyroxine 125 MCG tablet 50 mcg PO DAILY RF: 0 omeprazole 20 MG capsule,delayed release(DR/EC) 20 mg PO DAILY RF: 0 bupropion HCl [Wellbutrin SR] 200 MG tablet extended release 12 hr 200 mg PO BID RF: 0 cholecalciferol (vitamin D3) 1,000 UNITS tablet 1,000 units PO DAILY RF: 0 zolpidem [Ambien] 10 mg Tablet 10 mg PO QHS PRNRF: 0 Discontinued Viibryd 20 mg Tablet 20 mg PO DAILY RF: 0 No Action oxygen 2 l NS RF: 0 Discharge Instructions Instructions: Depression (GEN), Suicide Prevention for Adults (GEN) Additional Instructions: STOP DRINKING ALCOHOL. It is not safe to consume with many of your medications. Follow up with your PCP in 1 week If you have any thoughts of harming yourself seek medical attention immediately Seek medical attention if you have Shortness of breath, chest pain, hallucinations. Activity:: Activity as Tolerated Equipment/Supplies:: No Equipment Needed Diet:: As Tolerated Discharge Orders Discharge Orders: Discharge Order (Routine); Ordered 11/24/18 Ordered By: Elise Sy Exam [facility] Head: normal to inspection Face and sinus: normal facial exam Eyes Sclera: sclerae normal Pupils: PERRL Neck Neck: normal visual inspection Lymphatic: no lymphadenopathy noted and no lymphedema noted Chest Chest: normal inspection of the chest Resp Effort & Inspection: normal respiratory effort Auscultation: clear to auscultation bilaterally Cardio Jugular venous pressure: no JVD Rate: regular rate Rhythm: regular rhythm Heart Sounds: S1 normal and S2 normal GI Inspection: normal to inspection Auscultation: normal bowel sounds Back/Spine/Pelvis Back: no CVA tenderness Skin General skin exam: no rashes or lesions noted Lesions: no lesions Hair: normal Nails: normal Neuro General: alert, awake and oriented x3 Extrem General: normal to inspection and full ROM DS: Data Vitals/I&O Vitals and I&O: Vital Signs Temperature 36.7 C 11/24/18 12:00 Temperature Source Tympanic 11/24/18 12:00 Pulse 64 11/24/18 12:00 Pulse Rhythm Regular 11/24/18 00:55 Pulse 65 11/24/18 00:10 Respiratory Rate 18 11/24/18 12:00 Respiratory Effort 11/24/18 00:55 Respiratory Depth Normal 11/24/18 00:55 Respiratory Pattern Normal 11/24/18 00:55 Blood Pressure 137/82 11/24/18 12:00 Blood Pressure Mean 92 11/24/18 00:00 Blood Pressure Position Sitting 11/23/18 19:43 Pulse Oximetry 94 L 11/24/18 12:00 Oxygen Delivery Method Room Air 11/24/18 12:00 Oxygen Flow Rate 0 11/24/18 12:00 Pain Level 2 11/24/18 12:00 Intake & Output 11/23/18 11/24/18 11/24/18 23:59 11:59 23:59 Intake Total 2850 / 2850 Balance 2850 / 2850 Weight 220 kg 220 kg Intake: IV 1150 / 1150 Oral 1700 / 1700 Other: Comment very large void x 1 Voiding Methods Toilet Completed studies during hospitalization [Text1]: EXAM: XR Chest, 1 View EXAM DATE/TIME: 11/23/2018 9:42 PM CLINICAL HISTORY: 48 years old, male; Chest pain; Type not specified; Additional info: R/O acute disease TECHNIQUE: Imaging protocol: XR of the chest, 1 view. COMPARISON: CR XR CHEST 2V PA LATERAL 11/07/2018 15:58 FINDINGS: Lungs: Unremarkable. No consolidation. Pleural space: Unremarkable. No pleural effusion. No pneumothorax. Heart/Mediastinum: Unremarkable. No cardiomegaly. Bones/joints: Unremarkable. Other findings: EKG wires overlie the chest. IMPRESSION: No acute cardiopulmonary findings. Dictated and Authenticated by: Kaitlyn Kline MD. Ordering:MONICA Jensen MD Labs on day of discharge: Labs from last 24 hours 11/24/18 11/24/18 11/24/18 07:15 07:15 07:15 WBC 4.24 L D RBC 4.73 Hgb 15.3 D Hct 41.5 MCV 87.7 MCH 32.3 MCHC 36.9 H RDW 13.6 Plt Count 49 L MPV 10.3 Immature Gran % Neutrophils % Lymphocytes % Monocytes % Eosinophils % Basophils % Absolute Neutrophils Absolute Lymphocytes Absolute Monocytes Absolute Eosinophils Absolute Basophils Sodium Potassium Chloride Carbon Dioxide Anion Gap BUN Creatinine Estimated GFR/1.73 m2 Glucose Calcium Phosphorus 3.2 Magnesium 1.6 L Total Bilirubin AST ALT Alkaline Phosphatase Troponin I < 0.05 Total Protein Albumin TSH 1.95 Urine Opiates Screen Urine Methadone Screen Ur Barbiturates Screen Ur Tricyclics Screen Ur Amphetamines Screen U Benzodiazepines Scrn Urine Cocaine Screen Ur THC Screen Ethyl Alcohol 11/24/18 11/24/18 11/23/18 06:15 03:30 21:05 WBC RBC Hgb Hct MCV MCH MCHC RDW Plt Count MPV Immature Gran % Neutrophils % Lymphocytes % Monocytes % Eosinophils % Basophils % Absolute Neutrophils Absolute Lymphocytes Absolute Monocytes Absolute Eosinophils Absolute Basophils Sodium 131 L Potassium 3.8 Chloride 96 L Carbon Dioxide 20.1 L Anion Gap 14.9 H BUN 6 L Creatinine 0.59 L Estimated GFR/1.73 m2 >= 60.00 Glucose 216 H D Calcium 8.0 L Phosphorus Magnesium Total Bilirubin 1.3 H AST 27 ALT 38 Alkaline Phosphatase 69 Troponin I < 0.05 Total Protein 7.1 Albumin 3.4 TSH Urine Opiates Screen Negative Urine Methadone Screen Negative Ur Barbiturates Screen Negative Ur Tricyclics Screen Negative Ur Amphetamines Screen Negative U Benzodiazepines Scrn Positive Urine Cocaine Screen Negative Ur THC Screen Negative Ethyl Alcohol 11/23/18 11/23/18 11/23/18 20:25 20:25 20:25 WBC 9.57 RBC 5.43 Hgb 17.6 H Hct 46.6 MCV 85.8 MCH 32.4 MCHC 37.8 H RDW 13.5 Plt Count 67 L MPV 9.6 Immature Gran % 0.2 Neutrophils % 83.4 Lymphocytes % 9.3 Monocytes % 5.0 Eosinophils % 2.0 Basophils % 0.1 Absolute Neutrophils 7.98 H Absolute Lymphocytes 0.89 L Absolute Monocytes 0.48 Absolute Eosinophils 0.19 Absolute Basophils 0.01 Sodium 127 L Potassium 4.0 Chloride 94 L Carbon Dioxide 17.8 L Anion Gap 15.2 H BUN 8 Creatinine 0.48 L Estimated GFR/1.73 m2 >= 60.00 Glucose 116 H Calcium 8.2 L Phosphorus Magnesium Total Bilirubin AST ALT Alkaline Phosphatase Troponin I < 0.05 Total Protein Albumin TSH Urine Opiates Screen Urine Methadone Screen Ur Barbiturates Screen Ur Tricyclics Screen Ur Amphetamines Screen U Benzodiazepines Scrn Urine Cocaine Screen Ur THC Screen Ethyl Alcohol 319.2 PFSH Medical History (Updated 11/24/18 @ 04:51 by Elvin Ríos) Cirrhosis Depression Diabetes Esophageal varices HCV infection (Chronic) Heroin addiction Hypothyroid Lumbar spondylosis Sleep apnea Suicidal ideations Surgical History EGD - MAC Social History Smoking/Tobacco Use Status: Current every day Tobacco Type: cigarettes Alcohol Intake: current Alcohol Intake frequency: 3 or more drinks per day Alcohol type: beer Drug use: Never
[2018-11-24] MEDS: Budesonide/Formoterol 160/4.5 6 GM 60 PUFF INH IH (13:13)
[2018-11-24] MEDS: Magnesium Oxide 400 MG TAB 800 MG PO (13:31)
--- NOTE | 2018-11-24 19:17 | PDOC.CMDIS ---
- If Service Date Differs Date of service: 11/24/18 Time of Service: 19:17 LACE Index Scoring Tool - Questions: Length of Stay (in days): 1 Acuity (Admit via E.D.?): Yes Comorbidities: Diabetes w/o Complication, Liver or Renal Disease E.D. Visits: 1 - Answers: Total Score: 10 Risk of Readmission: High Risk Care Management Discharge Reason for Hospitalization: suicidal ideation Discharge Plan: Won will be discharged to a hospital diversion crisis bed (Care bed) in [place], [place]He will follow up with his [employer] supports in the community. Patient/Family Education Needs: Discharge plan, limitations, follow up plan. - MH Services (Omit if N/A) Current MH Services: [employer] [facility] Referred to Internal [facility] (ED embedded) showcase maker?: Yes
== END 2018-11-24 16:00 | disposition other institution (70) | DRG 881 ==
LOC: ER 23:36 → MS 11-24 00:45
PROVIDERS: Admitting Provider Family Medicine; Emergency Provider Physician Assistant; PCP Family Medicine; Visit Provider Internal Medicine
DX: F32.9 Major depressive disorder, single episode, unspecified (principal); R45.851 Suicidal ideations; F10.220 Alcohol dependence with intoxication, uncomplicated; K70.30 Alcoholic cirrhosis of liver without ascites; F19.10 Other psychoactive substance abuse, uncomplicated; Y90.8 Blood alcohol level of 240 mg/100 ml or more; E87.8 Other disorders of electrolyte and fluid balance, not elsewhere classified; B19.20 Unspecified viral hepatitis C without hepatic coma; F17.210 Nicotine dependence, cigarettes, uncomplicated; F20.9 Schizophrenia, unspecified; E03.9 Hypothyroidism, unspecified
CPT/HCPCS: 36415; 80048; 80053; 80307; 85027; 93005; 94640; 96360; 99223; 99239; 99285; 71045; 80320; 83735; 84100; 84443; 84484; 85025; 93010; J7042; J7620

== ENCOUNTER 2019-03-30 12:44 | Emergency (ER) | payer MEDICARE, MEDICAID, SELFPAY ==
[2019-03-30 12:47] VITALS: BP 137/88; PULSE 70; RESP 16; TEMP 36.3; O2SAT 98
--- NOTE | 2019-03-30 12:54 | ED.GENADUL_ITS ---
Discharge Plan Disposition Patient Disposition: HOME Condition: Improving Discharge Details Chief Complaint: RespSymp Clinical Impression: Acute bronchitis, Conjunctivitis Primary Care Provider: Soraya Tomas ED Provider: Camila Sandoval Home Meds and New Rx's Prescriptions: New prednisone 50 mg tablet 50 mg PO DAILY 5 Days Qty: 5 RF: 0 amoxicillin-pot clavulanate [Augmentin] 875-125 mg tablet 1 tab PO BID 7 Days Qty: 14 RF: 0 benzonatate [Tessalon Perles] 100 mg capsule 100 mg PO BID PRN (Reason: cough) Qty: 10 RF: 0 Continued fluoride (sodium) [PreviDent 5000 Dry Mouth] 100 ML gel 10 ml Dental DAILY RF: 0 Latuda 80 MG tablet 80 mg PO DAILY RF: 0 alprazolam [Xanax] 1 MG tablet 1 mg PO BID MDD 2 PRN (Reason: anxiety) RF: 0 propranolol 40 MG tablet 40 mg PO BID RF: 0 cholecalciferol (vitamin D3) 1,000 UNITS tablet 1,000 units PO DAILY RF: 0 zolpidem [Ambien] 10 mg Tablet 10 mg PO QHS PRNRF: 0 trazodone 300 mg Tablet 600 mg PO QHS PRNRF: 0 albuterol sulfate [Ventolin HFA] 90 mcg/actuation Hfa Aerosol Inhaler 2 puff INHALATION QID PRNRF: 0 Atrovent HFA 17 mcg/actuation Hfa Aerosol Inhaler 2 puff INHALATION QID PRNRF: 0 Symbicort 160-4.5 mcg/actuation Hfa Aerosol Inhaler 2 puff INHALATION BID RF: 0 levothyroxine 50 mcg Capsule 50 mcg PO DAILY RF: 0 benzonatate [Tessalon Perles] 100 mg Capsule 100 mg PO TID PRNRF: 0 Discharge Instructions Instructions: Acute Bronchitis (ED), Conjunctivitis (ED) Additional Instructions: Use your albuterol inhaler as needed and directed. Take the Tessalon Perles as needed directed for cough. Use the erythromycin ointment both eyes 4 times daily for the next 4 days. Drink plenty fluids get plenty of rest. Take the steroids until finished. If you have no relief or worsening of symptoms in the next few days, start the antibiotics. Follow-up with your primary care doctor within the next week for reevaluation. Return to the emergency department if you develop any worsening or new concerning symptoms. Discharge Data Discharge Date/Time-TO BE ENTERED AT DEPARTURE: 03/30/19 14:45 Discharge Physician: Camila Sandoval Medical Decision Making [id number] -- 48-year-old male with a history of cirrhosis, alcohol abuse, hepatitis C, depression, diabetes, former heroin addiction, esophageal varices, schizophrenia presents with dry cough, sore throat, chest tightness, and shortness of breath for the past 6 days. Patient states he has not taken any treatment for this because he does not have any money. Patient does smoke cigarettes but states he has not smoked for the past few days. His chart states that he drinks greater than 3 alcoholic drinks daily but states he has not had a drink in the past 6 months. His medication list notes that he had a prescription for Tessalon Perles filled on 03/25 but he did not initially disclose this. He also stated that he did not have an albuterol inhaler but he has a prescription for Ventolin filled on 03/06 with 3 refills. He also complained of bilateral eye redness now with yellow crusting for the past few days. Denies any known injury. Does not wear contacts. Afebrile. Patient appears nontoxic. Normal vitals. Bilateral yellow crusting to the eyes with minimal conjunctival injection. Normal ENT exam. Expiratory and expiratory wheezing. Presentation likely consistent with acute bronchitis. As patient has no complaint of fever, no tachycardia, and no localized area of diminished breath sounds, do not see an indication for chest x-ray to rule out pneumonia patient is agreeable. We will give a DuoNeb, p.o. prednisone and erythromycin ointment for eyes. 1340 -- Pt admits to some relief but is requesting another neb treatment. Breath sounds improved. Will give another neb. Discussed with patient that his symptoms are likely viral due to acute bronchitis but due to his history of smoking, can evolve into a bacterial infection. Patient has 3 refills on his Ventolin inhalers. 1430 --patient symptoms significantly improved after second neb treatment and he is requesting to go home. He is advised to follow-up with his primary care doctor for reevaluation and to return here with any concerns. We will send with a prescription for steroids as well as the erythromycin ointment. Advised that if his symptoms do not improve over the next 2 days, to start the antibiotics. HPI General Mode of arrival: ambulatory . Date/Time Provider Initiated Documentation: 03/30/19 12:50 . Limitations to Documentation: no limitations . Information obtained by: patient . History of Present Illness 48 year old M presents to the emergency department with the chief complaint of cough, sore throat, chest tightness, shortness of breath, Patient started experiencing this day(s) (6) and it has been constant. No relieving factors improve symptom(s), No exacerbating factors reported . Patient notes cough and shortness of breath; denies fever/chills, loss of appetite, rash, seizure, syncope and weakness. Patient did receive the following treatments prior to arrival, none Related Data Home Medications Medication Instructions Recorded Confirmed cholecalciferol (vitamin D3) 1,000 units PO DAILY 07/22/16 03/30/19 propranolol 40 mg PO BID 07/22/16 03/30/19 Latuda 80 mg PO DAILY 05/29/17 03/30/19 fluoride (sodium) [PreviDent 5000 10 ml DENTAL DAILY script 05/29/17 03/30/19 Dry Mouth] alprazolam [Xanax] 1 mg PO BID PRN MDD 2 07/11/17 03/30/19 zolpidem [Ambien] 10 mg PO QHS PRN 11/24/18 03/30/19 Atrovent HFA 2 puff INHALATION QID PRN 03/30/19 03/30/19 Symbicort 2 puff INHALATION BID 03/30/19 03/30/19 albuterol sulfate [Ventolin HFA] 2 puff INHALATION QID PRN 03/30/19 03/30/19 amoxicillin-pot clavulanate 1 tab PO BID 7 Days #14 tab 03/30/19 [Augmentin] benzonatate [Tessalon Perles] 100 mg PO BID PRN #10 cap 03/30/19 benzonatate [Tessalon Perles] 100 mg PO TID PRN 03/30/19 03/30/19 levothyroxine 50 mcg PO DAILY 03/30/19 03/30/19 prednisone 50 mg PO DAILY 5 Days #5 tab 03/30/19 trazodone 600 mg PO QHS PRN 03/30/19 03/30/19 Previous Rx's Medication Instructions Recorded amoxicillin-pot clavulanate 1 tab PO BID 7 Days #14 tab 03/30/19 [Augmentin] benzonatate [Tessalon Perles] 100 mg PO BID PRN #10 cap 03/30/19 prednisone 50 mg PO DAILY 5 Days #5 tab 03/30/19 Allergies Allergy/AdvReac Type Severity Reaction Status Date / Time No Known Allergies Allergy Unverified 03/30/19 12:49 General Stated Complaint: RespSymp MANISH: 3 Review of Systems All systems reviewed & are unremarkable except as noted in HPI and below Constitutional Constitutional: Reports as per HPI, Denies chills and Denies fever(s) Eyes Eyes: Denies blurry vision ENT Ears, Nose, Mouth, and Throat: Denies dizziness, Denies sore throat and Denies throat swelling Cardiovascular Cardiovascular: Reports chest pain and Reports dyspnea Respiratory Respiratory: Reports cough and Reports dyspnea Gastrointestinal Gastrointestinal: Denies abdominal pain, Denies diarrhea and Denies vomiting Genitourinary Genitourinary: Denies hematuria and Denies dysuria Musculoskeletal Musculoskeletal: Denies back pain and Denies numbness Integumentary/Breasts Skin/Breast: Denies lesions and Denies rash Neurologic Neurologic: Denies dizziness, Denies focal weakness and Denies numbness Allergic/Immunologic Allergic/Immunologic: Denies throat swelling PFSH Medical History Cirrhosis Depression Diabetes Esophageal varices HCV infection (Chronic) Heroin addiction Hypothyroid Lumbar spondylosis Sleep apnea Suicidal ideations Surgical History EGD - MAC Social History Smoking/Tobacco Use Status: Current-Occasional Tobacco Type: cigarettes Alcohol Intake: current Alcohol Intake frequency: 3 or more drinks per day Alcohol type: beer Drug use: Current Sobriety Do you feel safe at home: Yes Do you feel safe in your relationship?: Yes Exam Const General: cooperative and no acute distress HENMT Head: normal to inspection Ears: hearing grossly normal bilaterally, external ears normal and TM's normal bilaterally General nose exam: external nose normal Mouth: oral mucosae normal Throat: posterior oropharynx normal Eyes General: appearance normal, both eyes and all related structures Neck Neck: normal visual inspection Resp Effort & Inspection: normal respiratory effort and able to speak in complete sentences Auscultation: rhonchi upper bilaterally and lower bilaterally and wheezes expiratory wheezes and inspiratory wheezes Cardio Rate: regular rate Rhythm: regular rhythm Skin General skin exam: no rashes or lesions noted Neuro General: alert, awake and oriented x3 Motor: muscle tone normal throughout Extrem General: normal to inspection and full ROM Psych Appearance: grossly normal Affect: normal affect Course Vital Signs Vital signs: Vital Signs Temperature 97.3 F L 03/30/19 12:47 Pulse 70 03/30/19 12:47 Respiratory Rate 16 03/30/19 12:47 Blood Pressure 137/88 03/30/19 12:47 Pulse Oximetry 98 03/30/19 12:47 Temperature 97.3 F L 03/30/19 12:47 Temperature Source Skin 03/30/19 12:47 Pulse 70 03/30/19 12:47 Respiratory Rate 16 03/30/19 12:47 Respiratory Effort Non-Labored 03/30/19 12:51 Blood Pressure 137/88 03/30/19 12:47 Pulse Oximetry 98 03/30/19 12:47 Pain Level 8 03/30/19 12:47
[2019-03-30 13:14] VITALS: RESP 4
[2019-03-30] MEDS: predniSONE 20 MG TAB 60 MG PO (13:14)
[2019-03-30] MEDS: Albuterol/Ipratropium 3 ML UPD VIAL UPD ×2 (13:14→14:03)
[2019-03-30] MEDS: Erythromycin Ophth Oint 3.5 GM TUBE OU (13:15)
[2019-03-30 13:44] VITALS: PULSE 80; RESP 15; RESP 4; O2SAT 98
[2019-03-30 14:03] VITALS: RESP 4
[2019-03-30 14:25] VITALS: PULSE 70; RESP 15; RESP 4; O2SAT 96
[2019-03-30 14:47] VITALS: BP 132/55; PULSE 70; RESP 15; TEMP 36.3; O2SAT 96
== END 2019-03-30 14:45 | disposition home or self-care (01) ==
PROVIDERS: Emergency Provider Physician Assistant; PCP Family Medicine
DX: J20.9 Acute bronchitis, unspecified (principal); H10.33 Unspecified acute conjunctivitis, bilateral; E11.9 Type 2 diabetes mellitus without complications; F17.210 Nicotine dependence, cigarettes, uncomplicated
CPT/HCPCS: 94640; 99284; 99283; J7512; J7620

== ENCOUNTER 2019-06-04 09:35 | Outpatient (REF) | payer MEDICARE, MEDICAID, SELFPAY ==
[2019-06-04 12:14] LABS: Abs Immature Grans 0.01 k/cumm (0.0-0.09); Absolute Basophil Count 0.02 k/cumm (0.0-0.2); Absolute Eosinophil Count 0.07 k/cumm (0.0-0.7); Absolute Lymphocyte Count 0.35 k/cumm (1.2-3.4); Absolute Neutrophil Count 3.84 k/cumm (1.2-6.7); Basophils % 0.4; Eosinophils % 1.5; HCT 43.8 % (40.0-50.0); HGB 15.2 g/dL (13.5-17.5); Immature Grans % 0.2 %; Lymphocytes % 7.5; Mean Corp. HGB Concentration 34.7 g/dL (32.0-36.0); Mean Corpuscular Hemoglobin 33.3 pg (27.0-33.0); Mean Corpuscular Volume 96.1 fL (80-95); Mean Platelet Volume 11.4 fL (8.0-11.0); Monocytes % 8.5; Neutrophils % 81.9; RBC 4.56 m/cumm (4.50-6.00); RBC Distribution Width 14.5 % (11.8-14.1); White Blood Cell Count 4.69 k/cumm (4.4-10.8)
[2019-06-04 12:34] LABS: ALT 253 U/L (16-63); AST 144 U/L (15-37); Albumin 3.7 g/dL (3.4-5.0); Alkaline Phosphatase 91 U/L (46-116); Anion Gap 7.9 mmol/L (3-11); BUN 8 mg/dL (7-18); CO2 30.1 mmol/L (21.0-32.0); CREATININE 0.65 mg/dL (0.70-1.30); Calcium 8.8 mg/dL (8.5-10.1); Calculated LDL 75 mg/dL (<100); Chloride 101 mmol/L (98-107); Cholesterol 144 mg/dL (<200); Glucose 130 mg/dL (74-106); HDL Cholesterol 58 mg/dL (40-60); Potassium 4.2 mmol/L (3.5-5.1); Sodium 139 mmol/L (136-145); TSH (W/Ref FT4) 1.71 uIU/mL (0.36-3.74); Total Protein 7.6 g/dL (6.4-8.2); Triglyceride 59 mg/dL (<150)
[2019-06-04 12:44] LABS: Platelet Count 61 x1000/uL (130-400)
[2019-06-04 12:45] LABS: Anisocytosis 1+
[2019-06-04 12:46] LABS: Poikilocytes 1+; Polychromasia Present
[2019-06-04 13:22] LABS: Hemoglobin A1C 5.2 % (3.8-5.6)
== END 2019-06-04 09:55 ==
LOC: NCHCN 09:35
PROVIDERS: PCP Family Medicine; Visit Provider Family Medicine
DX: E03.9 Hypothyroidism, unspecified (principal); D69.6 Thrombocytopenia, unspecified; I10 Essential (primary) hypertension; E78.5 Hyperlipidemia, unspecified; E11.9 Type 2 diabetes mellitus without complications
CPT/HCPCS: 80053; 80061; 83036; 84443; 85025

== ENCOUNTER 2019-06-13 08:54 | Outpatient (CLI) | payer MEDICARE, MEDICAID, SELFPAY ==
[2019-06-13 09:39] LABS: Abs Immature Grans 0.02 k/cumm (0.0-0.09); Absolute Basophil Count 0.01 k/cumm (0.0-0.2); Absolute Eosinophil Count 0.06 k/cumm (0.0-0.7); Absolute Lymphocyte Count 0.46 k/cumm (1.2-3.4); Absolute Monocyte Count 0.33 k/cumm (0.11-0.7); Absolute Neutrophil Count 4.73 k/cumm (1.2-6.7); Basophils % 0.2; Eosinophils % 1.1; HCT 45.5 % (40.0-50.0); HGB 16.1 g/dL (13.5-17.5); Immature Grans % 0.4 %; Lymphocytes % 8.2; Mean Corp. HGB Concentration 35.4 g/dL (32.0-36.0); Mean Corpuscular Hemoglobin 32.8 pg (27.0-33.0); Mean Corpuscular Volume 92.7 fL (80-95); Mean Platelet Volume 10.2 fL (8.0-11.0); Monocytes % 5.9; Neutrophils % 84.2; RBC 4.91 m/cumm (4.50-6.00); RBC Distribution Width 14.4 % (11.8-14.1); White Blood Cell Count 5.61 k/cumm (4.4-10.8)
[2019-06-13 09:45] LABS: INR 1.2 (0.9-1.1); Prothrombin Time 11.8 sec (9.3-11.0)
[2019-06-13 10:37] LABS: ALT 284 U/L (16-63); AST 182 U/L (15-37); Albumin 3.5 g/dL (3.4-5.0); Alkaline Phosphatase 106 U/L (46-116); Anion Gap 12.1 mmol/L (3-11); BUN 7 mg/dL (7-18); Bilirubin, Direct 0.39 mg/dL (0.00-0.20); Bilirubin, Total 0.7 mg/dL (0.2-1.0); CO2 21.9 mmol/L (21.0-32.0); CREATININE 0.61 mg/dL (0.70-1.30); Calcium 7.9 mg/dL (8.5-10.1); Chloride 106 mmol/L (98-107); Glucose 124 mg/dL (74-106); Potassium 3.8 mmol/L (3.5-5.1); Sodium 140 mmol/L (136-145); Total Protein 7.2 g/dL (6.4-8.2)
[2019-06-13 11:15] LABS: Platelet Count 80 x1000/uL (130-400)
[2019-06-16 09:20] LABS: HBs Antibody, Quant <3.1 mIU/mL (See Note); Hepatitis B Surface Ab Negative (See Note); Hepatitis B Surface Ag Negative (Negative)
[2019-06-16 11:23] LABS: AFP Tumor Marker 2.7 ng/mL (<8.1)
[2019-06-16 11:24] LABS: Hepatitis C Ab w Rflx HCV PCR Reactive (Negative)
[2019-06-16 11:25] LABS: Hep A Total Ab w Rflx IgM Positive (Negative)
[2019-06-18 09:10] LABS: Hep A Antibody IgM Negative (Negative)
== END 2019-06-13 09:14 ==
PROVIDERS: PCP Family Medicine; Visit Provider Internal Medicine Gastroenterology
DX: B18.2 Chronic viral hepatitis C (principal); K74.60 Unspecified cirrhosis of liver
CPT/HCPCS: 36415; 80053; 80076; 86706; 86709; 86803; 87340; 82105; 85025; 85610; 87522

== ENCOUNTER 2019-07-15 02:14 | Outpatient (CLI) | payer MEDICARE, MEDICAID, SELFPAY ==
[2019-07-15 12:05] LABS: ALT 140 U/L (16-63); AST 108 U/L (15-37); Albumin 3.7 g/dL (3.4-5.0); Alkaline Phosphatase 84 U/L (46-116); Bilirubin, Direct 0.78 mg/dL (0.00-0.20); Bilirubin, Total 2.3 mg/dL (0.2-1.0); Total Protein 7.7 g/dL (6.4-8.2)
[2019-07-17 10:07] LABS: HCV Genotype 3 (Undetected)
== END 2019-07-15 02:34 ==
PROVIDERS: PCP Family Medicine; Visit Provider Internal Medicine Gastroenterology
DX: B18.2 Chronic viral hepatitis C (principal)
CPT/HCPCS: 36415; 80076; 87521; 87522

== ENCOUNTER 2019-09-19 07:28 | Outpatient (CLI) | payer MEDICARE, MEDICAID, SELFPAY ==
[2019-09-19 11:32] LABS: Abs Immature Grans 0.02 k/cumm (0.0-0.09); Absolute Basophil Count 0.02 k/cumm (0.0-0.2); Absolute Eosinophil Count 0.07 k/cumm (0.0-0.7); Absolute Lymphocyte Count 0.66 k/cumm (1.2-3.4); Absolute Monocyte Count 0.47 k/cumm (0.11-0.7); Absolute Neutrophil Count 5.41 k/cumm (1.2-6.7); Basophils % 0.3; Eosinophils % 1.1; HCT 44.6 % (40.0-50.0); Immature Grans % 0.3 %; Lymphocytes % 9.9; Mean Corp. HGB Concentration 35.9 g/dL (32.0-36.0); Mean Corpuscular Hemoglobin 32.8 pg (27.0-33.0); Mean Corpuscular Volume 91.4 fL (80-95); Mean Platelet Volume 10.3 fL (8.0-11.0); Monocytes % 7.1; Neutrophils % 81.3; RBC 4.88 m/cumm (4.50-6.00); RBC Distribution Width 13.5 % (11.8-14.1); White Blood Cell Count 6.65 k/cumm (4.4-10.8)
[2019-09-19 12:12] LABS: Platelet Count 82 x1000/uL (130-400)
[2019-09-19 12:19] LABS: ALT 49 U/L (16-63); AST 32 U/L (15-37); Albumin 3.6 g/dL (3.4-5.0); Alkaline Phosphatase 89 U/L (46-116); Anion Gap 7.1 mmol/L (3-11); BUN 9 mg/dL (7-18); Bilirubin, Total 1.5 mg/dL (0.2-1.0); CO2 26.9 mmol/L (21.0-32.0); CREATININE 0.67 mg/dL (0.70-1.30); Calcium 8.7 mg/dL (8.5-10.1); Chloride 97 mmol/L (98-107); Glucose 131 mg/dL (74-106); Potassium 4.1 mmol/L (3.5-5.1); Sodium 131 mmol/L (136-145); Total Protein 7.6 g/dL (6.4-8.2)
[2019-09-22 11:56] LABS: Hepatitis C Ab w Rflx HCV PCR Reactive (Negative)
[2019-09-25 14:54] LABS: HCV RNA Qualitative Undetected (Undetected)
== END 2019-09-19 07:48 ==
PROVIDERS: PCP Family Medicine; Visit Provider Nurse Practitioner Adult Health
DX: B18.2 Chronic viral hepatitis C (principal)
CPT/HCPCS: 36415; 80053; 86803; 87522; 85025

== ENCOUNTER 2019-11-14 03:02 | Outpatient (CLI) | payer MEDICARE, MEDICAID, SELFPAY ==
[2019-11-14 16:03] LABS: Abs Immature Grans 0.02 k/cumm (0.0-0.09); Absolute Basophil Count 0.01 k/cumm (0.0-0.2); Absolute Eosinophil Count 0.07 k/cumm (0.0-0.7); Absolute Lymphocyte Count 0.46 k/cumm (1.2-3.4); Absolute Monocyte Count 0.45 k/cumm (0.11-0.7); Absolute Neutrophil Count 4.26 k/cumm (1.2-6.7); Basophils % 0.2; Eosinophils % 1.3; HCT 44.1 % (40.0-50.0); HGB 15.6 g/dL (13.5-17.5); Immature Grans % 0.4 %; Lymphocytes % 8.7; Mean Corp. HGB Concentration 35.4 g/dL (32.0-36.0); Mean Corpuscular Hemoglobin 32.6 pg (27.0-33.0); Mean Corpuscular Volume 92.3 fL (80-95); Monocytes % 8.5; Neutrophils % 80.9; RBC 4.78 m/cumm (4.50-6.00); RBC Distribution Width 13.9 % (11.8-14.1)
[2019-11-14 16:09] LABS: Diff Comment PLT Morph Reviewed
[2019-11-14 16:17] LABS: White Blood Cell Count 5.27 k/cumm (4.4-10.8)
[2019-11-14 16:18] LABS: Platelet Count 50 x1000/uL (130-400)
[2019-11-14 16:49] LABS: ALT 38 U/L (16-63); AST 28 U/L (15-37); Albumin 3.6 g/dL (3.4-5.0); Alkaline Phosphatase 83 U/L (46-116); Anion Gap 9.6 mmol/L (3-11); BUN 9 mg/dL (7-18); Bilirubin, Total 0.7 mg/dL (0.2-1.0); CO2 26.4 mmol/L (21.0-32.0); Calcium 8.6 mg/dL (8.5-10.1); Chloride 102 mmol/L (98-107); Glucose 184 mg/dL (74-106); Potassium 3.9 mmol/L (3.5-5.1); Sodium 138 mmol/L (136-145); Total Protein 7.1 g/dL (6.4-8.2)
[2019-11-17 14:07] LABS: HCV RNA Qualitative Undetected (Undetected)
== END 2019-11-14 03:22 ==
PROVIDERS: PCP Family Medicine; Visit Provider Nurse Practitioner Adult Health
DX: B18.2 Chronic viral hepatitis C (principal)
CPT/HCPCS: 36415; 80053; 87522; 85025

== ENCOUNTER 2020-05-05 04:25 | Outpatient (CLI) | payer MEDICARE, MEDICAID, SELFPAY ==
[2020-05-05 11:08] LABS: Abs Immature Grans 0.02 10^3/uL (0.0-0.06); Absolute Basophil Count 0.03 10^3/uL (0.0-0.2); Absolute Eosinophil Count 0.09 10^3/uL (0.0-0.7); Absolute Lymphocyte Count 0.48 10^3/uL (1.2-3.4); Absolute Monocyte Count 0.54 10^3/uL (0.1-0.8); Absolute Neutrophil Count 4.33 10^3/uL (1.2-6.7); Basophils % 0.5; Eosinophils % 1.6; HCT 47.8 % (40.0-50.0); HGB 16.2 g/dL (13.5-17.5); Immature Grans % 0.4; Lymphocytes % 8.7; MCH 32.2 pg (27.0-33.0); MCHC 33.9 % (32.0-36.0); MPV 9.8 fL (8.0-11.0); Monocytes % 9.8; Nucleated RBC 0 %; RBC 5.03 10^6/uL (4.36-5.78); RDW-SD 48.7 fL; WBC 5.49 10^3/uL (4.4-10.8)
[2020-05-05 11:23] LABS: Diff Comment Diff Reviewed; Platelet Count 45 10^3/uL (130-400); RBC Morphology Normal
[2020-05-05 11:56] LABS: ALT 38 U/L (16-63); AST 23 U/L (15-37); Albumin 3.7 g/dL (3.4-5.0); Alkaline Phosphatase 75 U/L (46-116); Anion Gap 8.2 mmol/L (3-11); BUN 9 mg/dL (7-18); Bilirubin, Total 1.4 mg/dL (0.2-1.0); CO2 28.8 mmol/L (21.0-32.0); CREATININE 0.85 mg/dL (0.70-1.30); Calcium 8.7 mg/dL (8.5-10.1); Chloride 103 mmol/L (98-107); Glucose 135 mg/dL (74-106); Sodium 140 mmol/L (136-145); Total Protein 7.5 g/dL (6.4-8.2)
[2020-05-06 14:08] LABS: HCV RNA Detection Quantitative <15 IU/mL (Undetected); HCV RNA Qualitative Detected (Undetected)
== END 2020-05-05 04:45 ==
PROVIDERS: PCP Family Medicine; Visit Provider Nurse Practitioner Adult Health
DX: B18.2 Chronic viral hepatitis C (principal)
CPT/HCPCS: 36415; 80053; 87522; 85025

== ENCOUNTER 2020-05-27 08:27 | Outpatient (CLI) | payer MEDICARE, MEDICAID, SELFPAY ==
[2020-05-27 12:32] LABS: Abs Immature Grans 0.02 10^3/uL (0.0-0.06); Absolute Basophil Count 0.02 10^3/uL (0.0-0.2); Absolute Eosinophil Count 0.05 10^3/uL (0.0-0.7); Absolute Lymphocyte Count 0.29 10^3/uL (1.2-3.4); Absolute Monocyte Count 0.42 10^3/uL (0.1-0.8); Absolute Neutrophil Count 3.83 10^3/uL (1.2-6.7); Basophils % 0.4; Eosinophils % 1.1; HCT 47.5 % (40.0-50.0); HGB 16.2 g/dL (13.5-17.5); Immature Grans % 0.4; Lymphocytes % 6.3; MCH 31.5 pg (27.0-33.0); MCHC 34.1 % (32.0-36.0); MCV 92.4 fL (80-95); MPV 10.4 fL (8.0-11.0); Monocytes % 9.1; Neutrophils % 82.7; Nucleated RBC 0 %; RBC 5.14 10^6/uL (4.36-5.78); RDW 13.3 % (11.8-14.1); RDW-SD 45.5 fL; WBC 4.63 10^3/uL (4.4-10.8)
[2020-05-27 12:42] LABS: INR 1.3 (0.9-1.1); Prothrombin Time 12.6 sec (9.3-11.0)
[2020-05-27 13:01] LABS: Diff Comment PLT Morph Reviewed; Platelet Count 44 10^3/uL (130-400)
[2020-05-27 13:02] LABS: RBC Morphology Normal
[2020-05-27 13:33] LABS: ALT 45 U/L (16-63); AST 35 U/L (15-37); Albumin 3.9 g/dL (3.4-5.0); Alkaline Phosphatase 85 U/L (46-116); Anion Gap 8.2 mmol/L (3-11); BUN 9 mg/dL (7-18); Bilirubin, Total 1.4 mg/dL (0.2-1.0); CO2 24.8 mmol/L (21.0-32.0); CREATININE 0.9 mg/dL (0.70-1.30); Calcium 8.8 mg/dL (8.5-10.1); Chloride 102 mmol/L (98-107); Glucose 120 mg/dL (74-106); Potassium 3.8 mmol/L (3.5-5.1); Sodium 135 mmol/L (136-145); Total Protein 7.6 g/dL (6.4-8.2)
[2020-05-28 13:05] LABS: HCV RNA Detection Quantitative 7651 IU/mL (Undetected); HCV RNA Qualitative Detected (Undetected)
== END 2020-05-27 08:47 ==
PROVIDERS: PCP Family Medicine; Visit Provider Internal Medicine Gastroenterology
DX: I81 Portal vein thrombosis (principal); B18.2 Chronic viral hepatitis C
CPT/HCPCS: 36415; 80053; 87522; 85025; 85610

== ENCOUNTER 2020-06-04 21:49 | Outpatient (CLI) | payer MEDICARE, MEDICAID, SELFPAY ==
--- NOTE | 2020-06-04 | DI.RAD_ITS ---
EXAM: XR CHEST 2V PA LATERAL CLINICAL HISTORY: CHRONIC COUGH, R05 TECHNIQUE: 2D digital imaging was performed. COMPARISON: CR XR CHEST 2V PA LATERAL from 07/11/2018 CR XR PORTABLE CHEST AP from 11/23/2018 FINDINGS: MEDIASTINUM: Normal. HEART: Normal. PULMONARY VASCULATURE: Normal. LUNGS: There is a nodular density to the left of the heart. This may represent a nipple shadow but a pulmonary nodule cannot be excluded. There are mild underlying fibrotic changes in the lungs. No f ocal consolidating infiltrate is seen. PLEURAL SPACE: No pleural effusion or pneumothorax. BONE:Within normal limits for the patient's age. OTHER FINDINGS:Normal. IMPRESSION: 1. No acute pulmonary process. 2. Rounded soft tissue nodule to the left of the heart. This may represent a nipple shadow. A repea t PA view of the chest with nipple markers should be obtained to exclude a pulmonary nodule. DATA REPOSITORY: RADIATION DOSE DELIVERED:
== END 2020-06-04 21:50 | disposition home or self-care (01) ==
LOC: DI 06-07 21:52
PROVIDERS: PCP Family Medicine; Visit Provider Family Medicine
DX: R05 Cough (principal); R91.8 Other nonspecific abnormal finding of lung field
CPT/HCPCS: 71046

== ENCOUNTER 2020-06-07 03:28 | Outpatient (CLI) | payer MEDICARE, MEDICAID, SELFPAY ==
[2020-06-07 09:20] LABS: Abs Immature Grans 0.01 10^3/uL (0.0-0.06); Absolute Basophil Count 0.02 10^3/uL (0.0-0.2); Absolute Eosinophil Count 0.05 10^3/uL (0.0-0.7); Absolute Lymphocyte Count 0.34 10^3/uL (1.2-3.4); Absolute Monocyte Count 0.33 10^3/uL (0.1-0.8); Absolute Neutrophil Count 4.01 10^3/uL (1.2-6.7); Basophils % 0.4; Eosinophils % 1.1; HCT 40.5 % (40.0-50.0); Immature Grans % 0.2; Lymphocytes % 7.1; MCH 31.7 pg (27.0-33.0); MCHC 34.6 % (32.0-36.0); MCV 91.8 fL (80-95); MPV 11.6 fL (8.0-11.0); Monocytes % 6.9; Neutrophils % 84.3; Nucleated RBC 0 %; RBC 4.41 10^6/uL (4.36-5.78); RDW 13.7 % (11.8-14.1); RDW-SD 46.1 fL; WBC 4.76 10^3/uL (4.4-10.8)
[2020-06-07 09:41] LABS: Diff Comment PLT Morph Reviewed; Platelet Count 41 10^3/uL (130-400); RBC Morphology Normal
[2020-06-07 09:59] LABS: ALT 60 U/L (16-63); AST 34 U/L (15-37); Albumin 3.2 g/dL (3.4-5.0); Alkaline Phosphatase 80 U/L (46-116); Anion Gap 10.4 mmol/L (3-11); BUN 6 mg/dL (7-18); CO2 25.6 mmol/L (21.0-32.0); CREATININE 0.6 mg/dL (0.70-1.30); Calcium 8.1 mg/dL (8.5-10.1); Chloride 101 mmol/L (98-107); Glucose 178 mg/dL (74-106); Potassium 3.5 mmol/L (3.5-5.1); Sodium 137 mmol/L (136-145); Total Protein 6.7 g/dL (6.4-8.2)
[2020-06-08 10:25] LABS: Hepatitis C Ab w Rflx HCV PCR Reactive (Negative)
[2020-06-09 14:16] LABS: HCV RNA Detection Quantitative 1140 IU/mL (Undetected); HCV RNA Qualitative Detected (Undetected)
[2020-06-09 21:58] LABS: HCV Genotype 3 (Undetected)
== END 2020-06-07 03:29 | disposition home or self-care (01) ==
LOC: LBO 03:28
PROVIDERS: PCP Family Medicine; Visit Provider Physician Assistant Medical
DX: B18.2 Chronic viral hepatitis C (principal)
CPT/HCPCS: 36415; 80053; 86803; 87522; 85025; 87521

== ENCOUNTER 2020-07-16 09:02 | Emergency (ER) | payer MEDICARE, MEDICAID, SELFPAY ==
[2020-07-16 09:05] VITALS: BP 151/98; PULSE 87; RESP 18; TEMP 36.4; O2SAT 100
--- NOTE | 2020-07-16 09:15 | DI.CT_ITS ---
EXAM: CT ABDOMEN PELVIS W CLINICAL HISTORY: abdomen distention, nausea. TECHNIQUE: Imaging Protocol: Axial computed tomography images with coronal and sagittal reformatted images were created and reviewed CONTRAST MATERIAL: Intravenous: Omnipaque 350 Contrast volume:100 ml Oral: / no COMPARISON: CT CHEST WITH CONTRAST from 10/26/2015 MR MRI - LUMBAR SPINE WO CONTRAST from 05/03/2017 MR MRI - LUMBAR SPINE WO CONTRAST from 05/03/2017 CR XR CHEST 2V PA LATERAL from 06/04/2020 FINDINGS: ABDOMEN: Lung Bases: Normal where visualized. Liver: Severely nodular and shrunken. Enlargement of the caudate and left lobe consistent with cirrh osis. The findings appear worse when compared with the most recent CT from 2016. Portal vein promin ent but patent. Gallbladder and biliary tract: Gallstones are again noted. There is no biliary dilatation. Pancreas: Normal density, no abnormal calcifications or inflammatory process. Spleen: Normal. Kidneys: Normal size, contour and axis. No radiodense stones or obstructive uropathy. No masses seen. Adrenal glands: No masses seen. Abdominal Aorta: Abdominal portion non-dilated. Mild calcification. Dilated splenic varices. Recannulated umbilical vein. Mild lower esophageal varices. PELVIS: Bladder: Moderately distended. Mild wall thickening. Bowel: Not well evaluated due to lack of oral contrast and surrounding ascites. No obstruction or rosie wel wall thickening. Normal quantity of stool. Peritoneal cavity: There is ascites around the liver, spleen and gallbladder as well as extending int o the pelvis bilaterally. Bones: Degenerative disc changes at L5-S1. Reproductive organs: Within normal limits. Lymph nodes: Unremarkable. Soft tissues: Bilateral fatty containing inguinal hernias. Fluid seen in the left inguinal canal. Impression: Severe hepatic cirrhosis. Moderate quantity of ascites. Splenomegaly. Cholelithiasis. No evidence of acute cholecystitis. RADIATION DOSE DELIVERED: 1,748.16mGy.cm Total DLP DATA REPOSITORY: All CT scans at this facility are submitted to the National Radiology Data Registry (NRDR) Dose Index Registry (DIR) with the [employer] ([employer]). RADIATION OPTIMIZATION: All CT scans at this facility use at least one of these dose optimization te chniques: automated exposure control; mA and/or kV adjustment per patient size (includes targeted exa ms where dose is matched to clinical indication); or iterative reconstruction.
--- NOTE | 2020-07-16 09:26 | W.ED.GENAD ---
Discharge Plan Disposition Patient Disposition: HOME Condition: Stable Discharge Details Clinical Impression: Cirrhosis, Abdominal pain, Ascites Primary Care Provider: Soraya Tomas ED Provider: Fred Funez Home Meds and New Rx's Prescriptions: New spironolactone 50 mg tablet 50 mg PO DAILY Qty: 30 RF: 0 furosemide 20 mg tablet 20 mg PO DAILY Qty: 30 RF: 0 Continued fluoride (sodium) [PreviDent 5000 Dry Mouth] 100 ML gel 10 ml Dental DAILY RF: 0 Latuda 80 MG tablet 40 mg PO DAILY RF: 0 alprazolam [Xanax] 1 MG tablet 1 mg PO BID MDD 2 PRN (Reason: anxiety) RF: 0 propranolol 40 MG tablet 40 mg PO BID RF: 0 cholecalciferol (vitamin D3) 1,000 UNITS tablet 1,000 units PO DAILY RF: 0 albuterol sulfate [Ventolin HFA] 90 mcg/actuation Hfa Aerosol Inhaler 2 puff INHALATION QID PRNRF: 0 Atrovent HFA 17 mcg/actuation Hfa Aerosol Inhaler 2 puff INHALATION QID PRNRF: 0 budesonide-formoterol [Symbicort] 160-4.5 mcg/actuation Hfa Aerosol Inhaler 2 puff INHALATION BID RF: 0 levothyroxine 50 mcg Capsule 50 mcg PO DAILY RF: 0 benzonatate [Tessalon Perles] 100 mg Capsule 100 mg PO TID PRNRF: 0 Eliquis 2.5 mg tablet 2.5 mg PO BID RF: 0 Discharge Instructions Instructions: Ascites (ED) Additional Instructions: you have fluid in your abdomen as a result of your cirrhosis follow up with your primary care provider within a week if you have worsening pain, fevers or feel more ill return to the emergency department Medical Decision Making 50 yo male with hx of cirrhosis, who comes in with chief complaint of increasing abdominal distention for a month and decreased bowel movements as well as nasusea, denies vomit. Denies fevers, chest pain, bloody bowel movements. STates has not had alcohol in years. He has a distended abdomen with a fluid wave on exam with tenderness to deep palpation that he says is mild in all quadrants, no guarding or rebound, no testicular swelling or pain. Suspect ascites causing his distention, no fevers or other indications to suggest sbo. Will obtain ct to evaluate for possible sbo vs mass that could be causing the distention. He does have ascites on bedside u/s and I recommended diagnostic tap to evaluate for possible sbp though clinical suspicion is low, and after discussing risks/benefits of this he declines to have this procedure done and has capacity to make his own decisions and understands risks of missing sbp and not adequately treating it including potential for and disability. Will continue to monitor. labs unremarkable, ct shows cirrhosis and ascites otherwise no acute findings. HE remains stable with no guarding or rebound. Discussed starting diuretics and he would like to start these, will start spironolactone and furosemide, advised to f/u with pcp, return precuations given Differential Diagnosis Differential Diagnosis: cirrhosis, ascites, sbo Medical Records Medical records reviewed: Yes I reviewed the patient's medical records. Imaging Data Radiologic Study: Attestation: I personally reviewed and interpreted this imaging study as follows: Imaging: CT Scan Radiologist's impression: Impression: Severe hepatic cirrhosis. Moderate quantity of ascites. Splenomegaly. Cholelithiasis. No evidence of acute cholecystitis Lab Data Lab results reviewed: Yes I reviewed the patient's lab results. HPI General Mode of arrival: ambulatory. Date/Time Provider Initiated Documentation: 07/16/20 09:04. Limitations to Documentation: no limitations. Information obtained by: patient. History of Present Illness 50 year old M presents to the emergency department with the chief complaint of abdomen distention, described as moderate, and it has been constant. No relieving factors improve symptom(s), No exacerbating factors reported . Patient notes other (nausea). Patient did receive the following treatments prior to arrival, none Related Data Home Medications Medication Instructions Recorded Confirmed cholecalciferol (vitamin D3) 1,000 units PO DAILY 07/22/16 07/16/20 propranolol 40 mg PO BID 07/22/16 07/16/20 Latuda 40 mg PO DAILY 05/29/17 07/16/20 fluoride (sodium) [PreviDent 5000 10 ml DENTAL DAILY script 05/29/17 07/16/20 Dry Mouth] alprazolam [Xanax] 1 mg PO BID PRN MDD 2 07/11/17 03/30/19 Atrovent HFA 2 puff INHALATION QID PRN 03/30/19 07/16/20 albuterol sulfate [Ventolin HFA] 2 puff INHALATION QID PRN 03/30/19 07/16/20 benzonatate [Tessalon Perles] 100 mg PO TID PRN 03/30/19 07/16/20 budesonide-formoterol [Symbicort] 2 puff INHALATION BID 03/30/19 07/16/20 levothyroxine 50 mcg PO DAILY 03/30/19 07/16/20 Eliquis 2.5 mg PO BID 07/16/20 07/16/20 furosemide 20 mg PO DAILY #30 tab 07/16/20 spironolactone 50 mg PO DAILY #30 tab 07/16/20 Previous Rx's Medication Instructions Recorded furosemide 20 mg PO DAILY #30 tab 07/16/20 spironolactone 50 mg PO DAILY #30 tab 07/16/20 Allergies Allergy/AdvReac Type Severity Reaction Status Date / Time No Known Allergies Allergy Unverified 07/16/20 09:15 General Stated Complaint: Abd Prob MANISH: 3 Review of Systems All systems reviewed & are unremarkable except as noted in HPI and below Constitutional Constitutional: Denies chills, Denies fever(s) and Denies weakness Cardiovascular Cardiovascular: Denies chest pain and Denies dyspnea Respiratory Respiratory: Denies cough and Denies dyspnea Gastrointestinal Gastrointestinal: Denies vomiting Musculoskeletal Musculoskeletal: Denies joint swelling Neurologic Neurologic: Denies weakness Psychiatric Psychiatric: Denies depression [facility] Medical History (Updated 07/16/20 @ 11:01 by Fred Funez MD) Cirrhosis Depression Diabetes Esophageal varices HCV infection Heroin addiction Hypothyroid Lumbar spondylosis Sleep apnea Suicidal ideations Surgical History EGD - MAC Social History Smoking/Tobacco Use Status: Current-Occasional Tobacco Type: cigarettes Smoking risk assessment performed?: Yes Alcohol Intake: former Drug use: Current Sobriety Details: denies drugs or alcohol for several months now Do you feel safe at home: Yes Do you feel safe in your relationship?: Yes Exam Const General: no acute distress Orientation: alert HENMT Head: normal to inspection Ears: external ears normal General nose exam: external nose normal Mouth: moist mucous membranes Eyes General: appearance normal, both eyes and all related structures Neck Neck: normal visual inspection Resp Effort & Inspection: normal respiratory effort and able to speak in complete sentences Cardio Rate: regular rate GI Palpation: soft, not firm, no guarding and tender Skin General skin exam: no rashes or lesions noted Neuro General: patient alert and patient oriented x3 Extrem General: normal to inspection Psych Mental Status: mental status grossly normal Course Vital Signs Vital signs: Vital Signs Temperature 36.4 C L 07/16/20 09:05 Pulse 87 07/16/20 09:05 Respiratory Rate 18 07/16/20 09:05 Blood Pressure 151/98 H 07/16/20 09:05 Pulse Oximetry 100 07/16/20 09:05 Temperature 36.4 C L 07/16/20 09:05 Temperature Source Skin 07/16/20 09:05 Pulse 87 07/16/20 09:05 Respiratory Rate 18 07/16/20 09:05 Respiratory Effort 07/16/20 09:19 Blood Pressure 151/98 H 07/16/20 09:05 Blood Pressure Position Sitting 07/16/20 09:05 Pulse Oximetry 100 07/16/20 09:05 Oxygen Delivery Method Room Air 07/16/20 09:05 Oxygen Flow Rate 0 07/16/20 09:05 Pain Level 8 07/16/20 09:05 Comment tried enema 07/16/20 09:05
[2020-07-16 09:52] LABS: Abs Immature Grans 0.02 10^3/uL (0.0-0.06); Absolute Basophil Count 0.03 10^3/uL (0.0-0.2); Absolute Eosinophil Count 0.07 10^3/uL (0.0-0.7); Absolute Lymphocyte Count 0.38 10^3/uL (1.2-3.4); Absolute Monocyte Count 0.41 10^3/uL (0.1-0.8); Absolute Neutrophil Count 5.53 10^3/uL (1.2-6.7); Basophils % 0.5; Eosinophils % 1.1; HCT 46.5 % (40.0-50.0); Immature Grans % 0.3; Lymphocytes % 5.9; MCH 31.4 pg (27.0-33.0); MCHC 34.4 % (32.0-36.0); MCV 91.4 fL (80-95); MPV 10.7 fL (8.0-11.0); Monocytes % 6.4; Neutrophils % 85.8; Nucleated RBC 0 %; RBC 5.09 10^6/uL (4.36-5.78); RDW 13.4 % (11.8-14.1); RDW-SD 45.4 fL; WBC 6.44 10^3/uL (4.4-10.8)
[2020-07-16 10:11] LABS: Diff Comment Diff Reviewed; INR 1.3 (0.9-1.1); Platelet Count 46 10^3/uL (130-400); Prothrombin Time 12.7 sec (9.3-11.0); RBC Morphology Normal
[2020-07-16 10:12] LABS: Bilirubin Negative (Negative); Blood Negative (Negative); Clarity Clear (Clear); Glucose Negative (Negative); Ketones Negative (Negative); Leukocyte Esterase Negative (Negative); Nitrite Negative (Negative); Urobilinogen 0.2 EU/dL (Up TO 0.2); pH 6.5 (5-8)
[2020-07-16 10:12] LABS: ALT 38 U/L (16-63); AST 24 U/L (15-37); Albumin 3.5 g/dL (3.4-5.0); Alkaline Phosphatase 88 U/L (46-116); Anion Gap 10.8 mmol/L (3-11); BUN 9 mg/dL (7-18); Bilirubin, Total 1.8 mg/dL (0.2-1.0); CO2 24.2 mmol/L (21.0-32.0); CREATININE 0.7 mg/dL (0.70-1.30); Calcium 8.9 mg/dL (8.5-10.1); Chloride 100 mmol/L (98-107); Glucose 111 mg/dL (74-106); Lipase 140 U/L (73-393); Magnesium 1.7 mg/dL (1.8-2.4); Potassium 3.8 mmol/L (3.5-5.1); Sodium 135 mmol/L (136-145); Total Protein 7.7 g/dL (6.4-8.2)
[2020-07-16 10:27] LABS: ETHANOL BLOOD < 3.0 mg/dL (<3)
[2020-07-16] MEDS: Omnipaque 350 MG/ML 100 ML BTL IJ (10:35)
[2020-07-16] MEDS: Normal Saline - Diluent 50 ML VIAL IV (10:36)
[2020-07-16 11:10] VITALS: BP 151/92; PULSE 71; RESP 14; O2SAT 99
--- NOTE | 2020-07-16 11:40 | NUR.NOTE ---
Nursing Note: Referral faxed to PCP for follow up in one week for cirrhosis. Renee Lindsey
== END 2020-07-16 11:10 | disposition home or self-care (01) ==
PROVIDERS: Emergency Provider Emergency Medicine; PCP Family Medicine
DX: K70.31 Alcoholic cirrhosis of liver with ascites (principal); R11.0 Nausea
CPT/HCPCS: 36415; 80053; 83690; 99285; 74177; 80320; 81003; 83735; 85025; 85610; 85730; 99284; J3490

== ENCOUNTER 2020-09-22 03:28 | Outpatient (CLI) | payer MEDICARE, MEDICAID, SELFPAY ==
[2020-09-22 12:10] LABS: Hemoglobin A1C 6.2 % (<5.7)
[2020-09-22 12:30] LABS: Abs Immature Grans 0.02 10^3/uL (0.0-0.06); Absolute Basophil Count 0.03 10^3/uL (0.0-0.2); Absolute Eosinophil Count 0.05 10^3/uL (0.0-0.7); Absolute Lymphocyte Count 0.37 10^3/uL (1.2-3.4); Absolute Monocyte Count 0.45 10^3/uL (0.1-0.8); Basophils % 0.6; Eosinophils % 0.9; HCT 39.1 % (40.0-50.0); HGB 13.5 g/dL (13.5-17.5); Immature Grans % 0.4; Lymphocytes % 6.8; MCH 30.9 pg (27.0-33.0); MCHC 34.5 % (32.0-36.0); MCV 89.5 fL (80-95); MPV 11.8 fL (8.0-11.0); Monocytes % 8.3; Nucleated RBC 0 %; RBC 4.37 10^6/uL (4.36-5.78); RDW 13.8 % (11.8-14.1); RDW-SD 45.4 fL; WBC 5.42 10^3/uL (4.4-10.8)
[2020-09-22 12:55] LABS: Diff Comment Diff Reviewed; Platelet Count 59 10^3/uL (130-400); Polychromasia Present
[2020-09-22 13:00] LABS: ALT 31 U/L (16-63); AST 22 U/L (15-37); Albumin 3.4 g/dL (3.4-5.0); Alkaline Phosphatase 118 U/L (46-116); Anion Gap 9.6 mmol/L (3-11); BUN 9 mg/dL (7-18); Bilirubin, Total 1.4 mg/dL (0.2-1.0); CO2 24.4 mmol/L (21.0-32.0); CREATININE 0.6 mg/dL (0.70-1.30); Calcium 8.4 mg/dL (8.5-10.1); Chloride 102 mmol/L (98-107); FREE T4 0.97 ng/dL (0.76-1.46); Glucose 129 mg/dL (74-106); Potassium 3.7 mmol/L (3.5-5.1); Sodium 136 mmol/L (136-145); TSH 1.47 uIU/mL (0.36-3.74); Total Protein 6.8 g/dL (6.4-8.2)
[2020-09-24 14:22] LABS: HCV RNA Qualitative Undetected (Undetected)
== END 2020-09-22 03:29 | disposition home or self-care (01) ==
LOC: LBO 03:29
PROVIDERS: PCP Family Medicine; Visit Provider Family Medicine
DX: B18.2 Chronic viral hepatitis C; I10 Essential (primary) hypertension; D69.6 Thrombocytopenia, unspecified; E03.9 Hypothyroidism, unspecified; E11.9 Type 2 diabetes mellitus without complications
CPT/HCPCS: 36415; 80053; 86803; 87522; 83036; 84439; 84443; 85025

== ENCOUNTER 2020-10-20 13:54 | Emergency (ER) | payer MEDICARE, MEDICAID, SELFPAY ==
[2020-10-20 14:26] VITALS: BP 127/67; PULSE 69; RESP 16; TEMP 37.2; O2SAT 98
--- NOTE | 2020-10-20 14:30 | DI.RAD_ITS ---
Exam(s) XR RIBS LT W PA LAT CHEST EXAM: XR RIBS LT W PA LAT CHEST CLINICAL HISTORY: Fall, R/O Rib Fracture. TECHNIQUE: 2D digital imaging was performed. COMPARISON: CR XR CHEST 2V PA LATERAL from 06/04/2020 FINDINGS: There is very subtle evidence of a possible nondisplaced fracture of the left 5th rib. Lungs are alisha ar. No pneumothorax. No pleural effusion. Heart size is normal. No mediastinal widening. IMPRESSION: Subtle possible nondisplaced fracture of the left 5th rib. No pulmonary findings. DATA REPOSITORY: RADIATION DOSE DELIVERED:
[2020-10-20] MEDS: Ibuprofen 800 MG TAB PO (16:42)
--- NOTE | 2020-10-21 08:14 | ED.GENADUL_ITS ---
Discharge Plan Disposition Patient Disposition: HOME Condition: Stable Discharge Details Clinical Impression: Fracture of rib Primary Care Provider: Soraya Tomas ED Provider: Ermelinda Stephens Home Meds and New Rx's Prescriptions: No Action fluoride (sodium) [PreviDent 5000 Dry Mouth] 100 ML gel 10 ml Dental DAILY RF: 0 Latuda 80 MG tablet 40 mg PO DAILY RF: 0 alprazolam [Xanax] 1 MG tablet 1 mg PO BID MDD 2 PRN (Reason: anxiety) RF: 0 propranolol 40 MG tablet 40 mg PO BID RF: 0 cholecalciferol (vitamin D3) 1,000 UNITS tablet 1,000 units PO DAILY RF: 0 albuterol sulfate [Ventolin HFA] 90 mcg/actuation Hfa Aerosol Inhaler 2 puff INHALATION QID PRNRF: 0 Atrovent HFA 17 mcg/actuation Hfa Aerosol Inhaler 2 puff INHALATION QID PRNRF: 0 budesonide-formoterol [Symbicort] 160-4.5 mcg/actuation Hfa Aerosol Inhaler 2 puff INHALATION BID RF: 0 levothyroxine 50 mcg Capsule 50 mcg PO DAILY RF: 0 benzonatate [Tessalon Perles] 100 mg Capsule 100 mg PO TID PRNRF: 0 Eliquis 2.5 mg tablet 2.5 mg PO BID RF: 0 spironolactone 50 mg tablet 50 mg PO DAILY Qty: 30 RF: 0 furosemide 20 mg tablet 20 mg PO DAILY Qty: 30 RF: 0 Discharge Instructions Instructions: Rib Fracture (ED) Additional Instructions: You have a subtle nondisplaced left fifth rib fracture noted on x-ray. Please take Tylenol or ibuprofen as needed every 4-6 hours for pain and swelling. Splint with a pillow when coughing or deep breathing. please take tramadol as directed for severe pain. /Return to the ED if any fever, worsening shortness of breath, productive cough or any Stand Alone Forms: Work Release Referrals: Soraya Tomas [Primary Care Provider] - Discharge Data Discharge Date/Time-TO BE ENTERED AT DEPARTURE: 10/20/20 16:45 Medical Decision Making 50-year-old male presents to the ER with chief complaint of left anterior rib pain around his left breast status post a mechanical fall landing on a stool. Reports increased pain with deep breathing. He denies any fever, worsening shortness of breath, head pain no LOC no midline C-spine no T-spine tenderness crepitus step-off. He is alert and oriented x4. He has a past medical history of diabetes mellitus type 2, depression, cirrhosis, hypothyroidism, hypertension, sleep apnea. He reports taking Tylenol ibuprofen this weekend but none today prior to arrival. He states that does not work for him. No other signs of trauma X-rays obtained show left fifth rib fracture nondisplaced anteriorly. Patient given 800 mg ibuprofen here in department and sent home with tramadol 2 tablets. Discussed strict return instructions including to return for any worsening shortness of breath, productive cough, fever or any concerns. HPI General Mode of arrival: ambulatory . Date/Time Provider Initiated Documentation: 10/20/20 14:39 . Limitations to Documentation: no limitations . Information obtained by: patient and RN notes reviewed . HPI Narrative: 50-year-old male presents to the ER with chief complaint of left anterior rib pain around his left breast status post a mechanical fall landing on a stool. Reports increased pain with deep breathing. He denies any fever, worsening shortness of breath, head pain no LOC no midline C-spine no T-spine tenderness crepitus step-off. He is alert and oriented x4. He has a past medical history of diabetes mellitus type 2, depression, cirrhosis, hypothyroidism, hypertensi on, sleep apnea. He reports taking Tylenol ibuprofen this weekend but none today prior to arrival. He states that does not work for him. No other signs of trauma Related Data Home Medications Medication Instructions Recorded Confirmed cholecalciferol (vitamin D3) 1,000 units PO DAILY 07/22/16 07/16/20 propranolol 40 mg PO BID 07/22/16 07/16/20 Latuda 40 mg PO DAILY 05/29/17 07/16/20 fluoride (sodium) [PreviDent 5000 10 ml DENTAL DAILY script 05/29/17 07/16/20 Dry Mouth] alprazolam [Xanax] 1 mg PO BID PRN MDD 2 07/11/17 03/30/19 Atrovent HFA 2 puff INHALATION QID PRN 03/30/19 07/16/20 albuterol sulfate [Ventolin HFA] 2 puff INHALATION QID PRN 03/30/19 07/16/20 benzonatate [Tessalon Perles] 100 mg PO TID PRN 03/30/19 07/16/20 budesonide-formoterol [Symbicort] 2 puff INHALATION BID 03/30/19 07/16/20 levothyroxine 50 mcg PO DAILY 03/30/19 07/16/20 Eliquis 2.5 mg PO BID 07/16/20 07/16/20 furosemide 20 mg PO DAILY #30 tab 07/16/20 spironolactone 50 mg PO DAILY #30 tab 07/16/20 Previous Rx's Medication Instructions Recorded furosemide 20 mg PO DAILY #30 tab 07/16/20 spironolactone 50 mg PO DAILY #30 tab 07/16/20 Allergies Allergy/AdvReac Type Severity Reaction Status Date / Time No Known Allergies Allergy Unverified 10/20/20 14:35 General Stated Complaint: Chest/Rib MANISH: 3 Review of Systems Narrative: Constitutional: Negative for weight loss, alert and oriented, well groomed, normal body habitus, appears comfortable. HEENT: Denies trauma, headaches, blurry vision, nasal discharge, sore throat, trouble swallowing. Chest: Denies palpitations, irregular rhythm, hypertension. Reports left anterior chest wall pain status post mechanical fall. Respiratory: Denies Shortness of breath, cough, hemoptysis. Pain with deep breathing. GI: Denies abdominal pain, nausea, vomiting, diarrhea, constipation. : Denies dysuria, hematuria, flank pain, rectal bleeding. Neuro: Denies dizziness, blurry vision, weakness, syncope, headache or facial numbness. Hematologic: Denies easy bruising, intolerance to heat or cold, hair loss. [facility] Medical History Cirrhosis Depression Diabetes Esophageal varices HCV infection Heroin addiction Hypothyroid Lumbar spondylosis Sleep apnea Suicidal ideations Surgical History EGD - MAC Social History Smoking/Tobacco Use Status: Former Tobacco Use Smoking risk assessment performed?: Yes Alcohol Intake: former Drug use: Current Sobriety Details: denies drugs or alcohol for several months now Do you feel safe at home: Yes Do you feel safe in your relationship?: Yes Exam Narrative Exam Narrative: General: Well Developed, Awake and Alert, conversant. Skin: Warm and Dry HEENT: Head: No palpable deformities, Normocephalic Eyes: Pupils PERRLA, EOM's intact. No periorbital eccymosis or step off Ears: Canal patent. Tympanic membranes are clear . No sanchez's sign, no hemptympanum. Nose/Face: Atraumatic. Facial bones nontender to palpation and stable with manipulation. Mouth/Throat: No intraoral trauma. Teeth and mandible are intact. Neck: No midline tenderness, no step off, no deformity to palpation of C-spine. Trachea midline. Chest: No surface trauma.without crepitus or deformity. No ecchymosis no surface trauma, tenderness noted anteriorly to her left breast. Lungs clear to ausculatation bilaterally. Heart: RRR, no rubs, murmurs or gallop. Abdomen: No abrasions, ecchymosis, or surface trauma. Nondistended. Nontender to palpation no guarding, rebound, or rigidity. Pelvis: Nontender to palpation and stable to compression. Femoral pulses strong and equal Extremities no surface trauma. Sensation intact. Peripheral pulses intact and equal. Neuro: ANO x4, GCS 15, cranial nerves II through XII intact. Motor and sensory exam nonfocal. Reflexes are symmetric. Course Vital Signs Vital signs: Vital Signs Temperature 37.2 C 10/20/20 14:26 Pulse 69 10/20/20 14:26 Respiratory Rate 16 10/20/20 14:26 Blood Pressure 127/67 10/20/20 14:26 Pulse Oximetry 98 10/20/20 14:26 Temperature 37.2 C 10/20/20 14:26 Temperature Source Skin 10/20/20 14:26 Pulse 69 10/20/20 14:26 Respiratory Rate 16 10/20/20 14:26 Respiratory Effort 10/20/20 14:36 Blood Pressure 127/67 10/20/20 14:26 Blood Pressure Position Sitting 10/20/20 14:26 Pulse Oximetry 98 10/20/20 14:26 Oxygen Delivery Method Room Air 10/20/20 14:26 Oxygen Flow Rate 0 10/20/20 14:26 Pain Level 10 10/20/20 14:26 Comment 10/20/20 14:26
== END 2020-10-20 16:45 | disposition home or self-care (01) ==
PROVIDERS: Emergency Provider Registered Nurse Emergency; PCP Family Medicine
DX: S22.32XA Fracture of one rib, left side, initial encounter for closed fracture (principal); W08.XXXA Fall from other furniture, initial encounter
CPT/HCPCS: 99283; 71046; 71100

== ENCOUNTER 2020-11-09 15:38 | Emergency (ER) | payer MEDICARE, MEDICAID, SELFPAY ==
[2020-11-09 15:44] VITALS: BP 125/83; PULSE 66; RESP 16; TEMP 36.8; O2SAT 98
--- NOTE | 2020-11-09 15:58 | ED.GENADUL_ITS ---
Discharge Plan Disposition Patient Disposition: HOME Condition: Stable Discharge Details Clinical Impression: Abdominal ascites, Thrombocytopenia Primary Care Provider: Soraya Tomas ED Provider: Jaimie Phelps Home Meds and New Rx's Prescriptions: Continued fluoride (sodium) [PreviDent 5000 Dry Mouth] 100 ML gel 10 ml Dental DAILY RF: 0 Latuda 80 MG tablet 40 mg PO DAILY RF: 0 alprazolam [Xanax] 1 MG tablet 1 mg PO BID MDD 2 PRN (Reason: anxiety) RF: 0 propranolol 40 MG tablet 40 mg PO BID RF: 0 cholecalciferol (vitamin D3) 1,000 UNITS tablet 5,000 units PO DAILY RF: 0 albuterol sulfate [Ventolin HFA] 90 mcg/actuation Hfa Aerosol Inhaler 2 puff INHALATION QID PRNRF: 0 Atrovent HFA 17 mcg/actuation Hfa Aerosol Inhaler 2 puff INHALATION QID PRNRF: 0 budesonide-formoterol [Symbicort] 160-4.5 mcg/actuation Hfa Aerosol Inhaler 2 puff INHALATION BID RF: 0 levothyroxine 50 mcg Capsule 50 mcg PO DAILY RF: 0 benzonatate [Tessalon Perles] 100 mg Capsule 100 mg PO TID PRNRF: 0 Eliquis 2.5 mg tablet 2.5 mg PO BID RF: 0 furosemide 20 mg tablet 40 mg PO DAILY RF: 0 spironolactone 50 mg tablet 100 mg PO DAILY RF: 0 haloperidol decanoate 100 mg/mL solution See Rx Instructions .ROUTE .COMPLEX RF: 0 glipizide 5 mg tablet extended release 24hr 5 mg PO DAILY RF: 0 Discharge Instructions Instructions: Ascites (ED) Additional Instructions: Imaging and exam are concerning for increased ascites. However, the amount that is formed too small to be able to draw off at this time. Instead, gastroenterology recommended increasing your medications temporarily. Please take 100 mg spironolactone daily and 40 mg of Lasix daily. Please call your primary care and gastroenterology tomorrow. I would like for you to follow-up to be reevaluated at the end of the week to see if this dosing should continue or you should cut back once again. If you develop fever/chills, increased pain or other new/worsening symptoms please seek care urgently once again. Referrals: Soraya Tomas [Primary Care Provider] - Discharge Data Discharge Date/Time-TO BE ENTERED AT DEPARTURE: 11/09/20 20:20 Medical Decision Making Patient is a pleasant 50-year-old gentleman presenting today with chief complaint of abdominal discomfort and bloating. States pain has been increasing over the past 3 to 4 days. Reports a 20 pound weight gain in the past 2 days. Patient reports he has a history of cirrhosis. States he is followed at [facility]. Reports he was recently diagnosed with a blood clot in his liver. Is anticoagulated on Eliquis. Reports he has been taking this as prescribed. States he is also on a diuretic which she has been taking normally. He denies any fevers or chills. He is currently on antibiotics for a known dental infection, believes this is amoxicillin. States that his dental infection is clearing well, has 2 more days of antibiotics. Denies nausea vomiting. Endorses diminished appetite. No change in bowel or bladder habits. On exam, patient appears nontoxic. He is notably distended abdomen that does have fluid wave suggestive of ascites. He does have prominent veins over the extra aspect of his abdomen, patient does report that these are new. Patient is also to have a petechial rash of bilateral forearms which she reports waxes and wanes, states that he does have a history of thrombocytopenia. Lungs are clear, no lower extremity edema. Vital signs are stable. Lungs are clear, no lower extremity swelling. Patient was last seen by [facility] on 11/02/2020. Reviewed notes from [facility]. At that time, they noted the patient to be treated for symptomatic portal SMV thrombosis which did appear to be improving on the MRI at that time. Cirrhosis is noted to be due to EtOH and HCV. Labs reviewed. White count 3.22. Hemoglobin 11.2. Platelets 43. This is down from 69 in August. Lactate normal. Magnesium low at 1.6. Albumin 2.8. Lipase within normal limits. Reevaluated the patient. I am concerned at this time for thrombocytopenia the risks associated with a. However, I do remain concerned for potential SBP. Will obtain imaging of the abdomen and consult with gastroenterology at [facility]. Have pushed image to [facility], consult requested. Contacted by radiologist. She advised that yaritza has known portal vein clot. She advised that this is likely contributing to ascites. No acute change in marisela clot from previous imaging. Has collateral circulation. Large amount of ascites. She advises that the amount of ascites is unchanged from June. She does not see the imaging from [facility] last month. Bad cirrhosis. Consulted with GI at [facility]. She reviewed the imaging, does not feel that there is enough to tap safely. She reviewed previous imaging and advised that most recent showed, trace ascites. She states some increase. We discussed management. She advised to hold off on tap. Spironolactone 50mg, Lasix 20mg QD. Advised increasing Lasix to 40 and Spironolactone to 100mg. Discussed these recommendations with [facility] patient. He agrees with this plan. He will plan to f/u with GI or his PCP this week. GI advised that htey will call the patient to schedule appointment. However, in the event they cannot see him to evaluate his fluid status this week, he will see his PCP. Patient does not have fevers/chills, or leukocytosis. I did ask about SBP with GI, patient does not have indication at this time. All of the patients questions and concerns were addressed, he is in agreement with this plan. HPI General Mode of arrival: ambulatory . Date/Time Provider Initiated Documentation: 11/09/20 15:58 . Limitations to Documentation: no limitations . Information obtained by: patient, RN notes reviewed and old records reviewed . History of Present Illness 50 year old M presents to the emergency department with the chief complaint of abdominal distention and discomfort, described as severe, with intensity rated at 8. Quality is described as aching, and is localized to the abdomen. Patient reports no radiation. Patient started experiencing this day(s) and it has been constant. No relieving factors improve symptom(s), No exacerbating factors reported . Patient notes denies chest pain, cough, fever/chills, loss of appetite, nausea/vomiting, rash and shortness of breath. Patient did receive the following treatments prior to arrival, none Related Data Home Medications Medication Instructions Recorded Confirmed cholecalciferol (vitamin D3) 5,000 units PO DAILY 07/22/16 11/09/20 propranolol 40 mg PO BID 07/22/16 07/16/20 Latuda 40 mg PO DAILY 05/29/17 11/09/20 fluoride (sodium) [PreviDent 5000 10 ml DENTAL DAILY script 05/29/17 11/09/20 Dry Mouth] alprazolam [Xanax] 1 mg PO BID PRN MDD 2 07/11/17 11/09/20 Atrovent HFA 2 puff INHALATION QID PRN 03/30/19 11/09/20 albuterol sulfate [Ventolin HFA] 2 puff INHALATION QID PRN 03/30/19 11/09/20 benzonatate [Tessalon Perles] 100 mg PO TID PRN 03/30/19 11/09/20 budesonide-formoterol [Symbicort] 2 puff INHALATION BID 03/30/19 11/09/20 levothyroxine 50 mcg PO DAILY 03/30/19 11/09/20 Eliquis 2.5 mg PO BID 07/16/20 11/09/20 furosemide 40 mg PO DAILY 11/09/20 11/09/20 glipizide 5 mg PO DAILY 11/09/20 11/09/20 haloperidol decanoate See Rx Instructions .ROUTE .COMPLEX 11/09/20 11/09/20 spironolactone 100 mg PO DAILY 11/09/20 11/09/20 Allergies Allergy/AdvReac Type Severity Reaction Status Date / Time No Known Allergies Allergy Unverified 11/09/20 15:48 General Stated Complaint: Abd Prob MANISH: 3 Review of Systems Constitutional Constitutional: Reports as per HPI, Denies chills, Denies fatigue, Denies fever(s) and Denies headache(s) ENT Ears, Nose, Mouth, and Throat: Denies headache(s) Cardiovascular Cardiovascular: Reports as per HPI, Denies chest pain and Denies dyspnea Respiratory Respiratory: Reports as per HPI, Denies cough and Denies dyspnea Gastrointestinal Gastrointestinal: Reports as per HPI Genitourinary Genitourinary: Denies system reviewed and no additional complaints, except as documented (patient denies any change in urinary habits) Musculoskeletal Musculoskeletal: Reports as per HPI and Denies back pain Integumentary/Breasts Skin/Breast: Reports as per HPI and Denies rash Neurologic Neurologic: Reports as per HPI and Denies headache(s) Endocrine Endocrine: Denies fatigue [facility] Medical History (Updated 11/09/20 @ 19:54 by KEN Laughlin) Cirrhosis Depression Diabetes Esophageal varices HCV infection Heroin addiction Hypothyroid Lumbar spondylosis Sleep apnea Suicidal ideations Surgical History EGD - MAC Social History Smoking/Tobacco Use Status: Former Tobacco Use Smoking risk assessment performed?: Yes Alcohol Intake: former Drug use: Current Sobriety Details: denies drugs or alcohol for several months now Do you feel safe at home: Yes Do you feel safe in your relationship?: Yes Exam Const General: cooperative, healthy appearing, comfortable, no acute distress and well developed Nutritional Appearance: average body habitus and well nourished Orientation: alert and awake HENWI Head: normal to inspection Mouth: moist mucous membranes Resp Effort & Inspection: normal respiratory effort, able to speak in complete sentences and no respiratory distress Auscultation: clear to auscultation bilaterally, no rales, no rhonchi and no wheezes Cardio Rate: regular rate Rhythm: regular rhythm Heart Sounds: S1 normal and S2 normal GI Inspection: distended and caput medusae present Palpation: firm, no guarding, hepatomegaly, no hernias, no masses, no pulsatile masses, not rigid, no splenomegaly and nontender Percussion: fluid wave Auscultation: normal bowel sounds Back/Spine/Pelvis Back: no CVA tenderness Skin General skin exam: no rashes or lesions noted Trauma: no lacerations or abrasions Neuro General: patient alert and patient awake Cognition: normal cognition Speech: speech normal Gait: normal gait Psych Appearance: grossly normal and well kempt Mental Status: mental status grossly normal Speech and Movement: speech and movement normal Course Vital Signs Vital signs: Vital Signs Temperature 36.8 C 11/09/20 15:44 Pulse 66 11/09/20 15:44 Respiratory Rate 16 11/09/20 15:44 Blood Pressure 125/83 11/09/20 15:44 Pulse Oximetry 98 11/09/20 15:44 Temperature 36.8 C 11/09/20 15:44 Temperature Source Skin 11/09/20 15:44 Pulse 66 11/09/20 15:44 Respiratory Rate 16 11/09/20 15:44 Respiratory Effort Non-Labored 11/09/20 15:53 Blood Pressure 125/83 11/09/20 15:44 Blood Pressure Position Sitting 11/09/20 15:44 Pulse Oximetry 98 11/09/20 15:44 Oxygen Delivery Method Room Air 11/09/20 15:44 Oxygen Flow Rate 0 11/09/20 15:44 Pain Level 8 11/09/20 15:44
--- NOTE | 2020-11-09 16:00 | RT.EKG_ITS ---
APPROVED REPORT Exam: Resting ECG Reason for Exam: abdominal suma Patient Location: E HR:63 bpm ECG Measurements Heart Rate 63 AXIS NE 221 P -4 QRSd 81 QRS 19 QT 386 T 44 QTc 395 Conclusion Sinus rhythm...normal P axis, V-rate 60- 99 Prolonged NE interval...NE >210, V-rate 50- 90
[2020-11-09 16:29] LABS: Abs Immature Grans 0.02 10^3/uL (0.0-0.06); Absolute Basophil Count 0.02 10^3/uL (0.0-0.2); Absolute Eosinophil Count 0.08 10^3/uL (0.0-0.7); Absolute Lymphocyte Count 0.21 10^3/uL (1.2-3.4); Absolute Monocyte Count 0.46 10^3/uL (0.1-0.8); Absolute Neutrophil Count 2.43 10^3/uL (1.2-6.7); Basophils % 0.6; Eosinophils % 2.5; HCT 32.6 % (40.0-50.0); HGB 11.2 g/dL (13.5-17.5); Immature Grans % 0.6; Lymphocytes % 6.5; MCH 30.6 pg (27.0-33.0); MCHC 34.4 % (32.0-36.0); MCV 89.1 fL (80-95); MPV 10.5 fL (8.0-11.0); Monocytes % 14.3; Neutrophils % 75.5; Nucleated RBC 0 %; RBC 3.66 10^6/uL (4.36-5.78); RDW 13.9 % (11.8-14.1); RDW-SD 45.1 fL; WBC 3.22 10^3/uL (4.4-10.8)
[2020-11-09 16:40] LABS: INR 1.3 (0.9-1.1); Prothrombin Time 12.8 sec (9.3-11.0)
[2020-11-09 16:41] LABS: Diff Comment Diff Reviewed; Platelet Count 43 10^3/uL (130-400); RBC Morphology Normal
[2020-11-09 16:47] LABS: ALT 26 U/L (16-63); AST 19 U/L (15-37); Albumin 2.8 g/dL (3.4-5.0); Alkaline Phosphatase 111 U/L (46-116); Anion Gap 8.6 mmol/L (3-11); BUN 10 mg/dL (7-18); Bilirubin, Total 0.6 mg/dL (0.2-1.0); CO2 25.4 mmol/L (21.0-32.0); CREATININE 0.7 mg/dL (0.70-1.30); Chloride 99 mmol/L (98-107); Glucose 126 mg/dL (74-106); Lipase 63 U/L (73-393); Magnesium 1.6 mg/dL (1.8-2.4); Potassium 4.1 mmol/L (3.5-5.1); Sodium 133 mmol/L (136-145)
--- NOTE | 2020-11-09 17:00 | DI.CT_ITS ---
Exam(s) CT ABDOMEN PELVIS W EXAM: CT ABDOMEN PELVIS W CLINICAL HISTORY: distention, ascites. TECHNIQUE: Imaging Protocol: Axial computed tomography images with coronal and sagittal reformatted images were created and reviewed CONTRAST MATERIAL: Intravenous: Omnipaque 100cc Oral: None COMPARISON: CT CT ABDOMEN PELVIS W from 07/16/2020 FINDINGS: VISUALIZED LUNG BASES: No nodules nor pleural effusions evident. ABDOMEN: Ascites again noted, similar in amount to the previous study. LIVER: Very cirrhotic appearing liver is again noted GALLBLADDER/BILIARY: Multiple gallstones in the gallbladder lumen are again noted. No evidence of ob vious acute cholecystitis. However, there appears to be a small calculus in the mid-lower CBD measur ing 4-5 millimeters. PANCREAS: No evidence of pancreatic mass nor dilatation of the pancreatic duct. SPLEEN: Splenomegaly is again noted, unchanged. Enlarged venous collaterals are again noted. There is again noted partial thrombosis of the main portal vein as well as thrombosis of the superior mesen teric vein. Collaterals are again noted, including recruitment of venous collaterals off the left re nal vein. ADRENALS: There are no significant adrenal masses. KIDNEYS:No cysts evident. No solid renal masses. No calculi nor hydronephrosis.. ABDOMINAL AORTA: Abdominal aorta is not enlarged. LYMPH NODES:There is no retroperitineal nor paraaortic adenopathy. ABDOMINAL WALL: No evidence of significant anterior abdominal wall hernia. GI: There is no evidence of bowel obstruction, free air, nor abscess. PELVIS: Amount of ascites in the pelvis is similar to the previous study. Ascites again noted to ext end into the left inguinal canal, as was previously present. Does not extend into the right inguinal canal. GI: Appendix is not well seen on this study. No obvious evidence of acute appendicitis.No evidence o f sigmoid diverticulitis. LYMPH NODES: There is no intrapelvic nor inguinal adenopathy. REPRODUCTIVE: Prostate not enlarged. URINARY BLADDER: No calculi nor obvious masses evident OSSEOUS: No significant osseous lesions. IMPRESSION: 1. Compared to the prior study there is again noted advanced hepatic cirrhosis with splenomegaly and upper abdominal varices consistent with portal hypertension. There is significant amount of ascites in all 4 quadrants again noted, similar in amount to the previous. The ascites again noted to extend into the left inguinal canal, as was previously present. 2. Again noted is partial thrombosis of the main portal vein and there is also thrombosis of the supe rior mesenteric vein. Collaterals evident. 3. Cholelithiasis. Although the gallbladder wall does not appear edematous, there appears to be a po ssible calculus in the lower CBD on present study This study 1st read by [facility] Final report called by myself to ER provider 11/10/2020 8:45 a.m. RADIATION DOSE DELIVERED: 1,221.09mGy.cm Total DLP DATA REPOSITORY: All CT scans at this facility are submitted to the National Radiology Data Registry (NRDR) Dose Index Registry (DIR) with the [employer] (ACR). RADIATION OPTIMIZATION: All CT scans at this facility use at least one of these dose optimization te chniques: automated exposure control; mA and/or kV adjustment per patient size (includes targeted exa ms where dose is matched to clinical indication); or iterative reconstruction.
[2020-11-09] MEDS: Omnipaque 350 MG/ML 100 ML BTL IV (17:36)
[2020-11-09] MEDS: Normal Saline Flush 10 ML SYR IVP (17:54)
[2020-11-09] MEDS: Normal Saline - Diluent 50 ML VIAL IV (17:56)
[2020-11-09 19:05] VITALS: BP 127/74; PULSE 62; RESP 17; O2SAT 99
--- NOTE | 2020-11-09 19:05 | NUR.NOTE ---
voided in urinal, spec taken to lab. resting quietly on stretcher in no acute distress. resp even and unlabored
--- NOTE | 2020-11-09 19:06 | DI.VRAD_ITS ---
PROCEDURE INFORMATION: Exam: CT Abdomen And Pelvis With Contrast Exam date and time: 11/09/2020 5:04 PM Age: 50 years old Clinical indication: Distention, ascites TECHNIQUE: Imaging protocol: Computed tomography of the abdomen and pelvis with contrast. Radiation optimization: All CT scans at this facility use at least one of these dose optimization techniques: automated exposure control; mA and/or kV adjustment per patient size (includes targeted exams where dose is matched to clinical indication); or iterative reconstruction. Contrast material: OMNIPAQUE 350; Contrast volume: 100 ml; Contrast route: INTRAVENOUS (IV); COMPARISON: CT ABDOMEN PELVIS W 07/16/2020 10:18 AM FINDINGS: Liver: Extensive hepatic cirrhosis noted with lobulated liver contour, enlargement of the caudate lobe and fibrotic changes. A focus of calcification again noted in the right hepatic lobe. Gallbladder and bile ducts: Multiple calcified gallstones again noted. Pancreas: No ductal dilation. Spleen: There is significant splenomegaly again noted, with the spleen measuring up to 22 cm in craniocaudal dimension. Adrenal glands: No mass. Kidneys and ureters: The bilateral kidneys appear grossly unremarkable. No hydronephrosis. Stomach and bowel: No obstruction. No mucosal thickening. Appendix: No evidence of appendicitis. Intraperitoneal space: There is diffuse ascites noted throughout the abdomen and pelvis. A small amount of ascites extends into the left inguinal canal. Vasculature: There is redemonstration of partial thrombus within the main portal vein and complete thrombosis of the superior mesenteric vein. Upper abdominal varices again noted with a mesenteric- left renal venous shunt. No abdominal aortic aneurysm. Lymph nodes: No enlarged lymph nodes. Urinary bladder: There is mild urinary bladder wall thickening again noted. Reproductive: Unremarkable as visualized. Bones/joints: No acute fracture. Healing left rib fractures are partially visualized. Soft tissues: There is a left inguinal hernia again noted, containing fat and fluid. IMPRESSION: 1. Redemonstration of significant hepatic cirrhosis with splenomegaly and upper abdominal varices, suggestive of portal hypertension. 2. 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 3. Diffuse ascites throughout the abdomen and pelvis, likely related to hepatic cirrhotic disease. 4. Cholelithiasis without evidence of acute cholecystitis. THIS REPORT CONTAINS FINDINGS THAT MAY BE CRITICAL TO PATIENT CARE. The findings were verbally communicated via telephone conference with JOSE MANUEL DYSON at 6:56 PM EDT on 11/09/2020. The findings were acknowledged and understood. Dictated and Authenticated by: Nanci Chacon MD. Ordering:TAMMY Etienne MD
[2020-11-09 19:13] LABS: Bilirubin Negative (Negative); Blood Negative (Negative); Clarity Clear (Clear); Glucose Negative (Negative); Ketones Negative (Negative); Leukocyte Esterase Negative (Negative); Nitrite Negative (Negative); pH 7.5 (5-8)
[2020-11-09 19:56] VITALS: BP 110/69; PULSE 55; RESP 16; O2SAT 98
[2020-11-09] MEDS: Furosemide 20 MG TAB PO (20:02)
[2020-11-09] MEDS: Spironolactone 50 MG TAB PO (20:19)
--- NOTE | 2020-11-10 10:04 | ED.FU.B_ITS ---
I spoke with Dr. Perdomo this morning regarding a stone in the CBD on CT abdomen and pelvis that was over read, consulted with [facility], Dr. Gramajo he will follow up on the CT scan with patient's director of advertising sales and then they will follow up with patient [facility] at 10:05 AM on 10 November 2020
--- NOTE | 2020-11-10 10:04 | W.ED.FU ---
I spoke with Dr. Perdomo this morning regarding a stone in the CBD on CT abdomen and pelvis that was over read, consulted with [facility], Dr. Gramajo he will follow up on the CT scan with patient's psych tech and then they will follow up with patient I spoke with [facility] at 10:05 AM on 10 November 2020
== END 2020-11-09 20:20 | disposition home or self-care (01) ==
PROVIDERS: Emergency Provider Physician Assistant; PCP Family Medicine
DX: R18.8 Other ascites (principal); D69.6 Thrombocytopenia, unspecified
CPT/HCPCS: 36410; 36415; 80053; 83690; 87040; 93005; 99285; 74177; 81003; 83605; 83735; 85025; 85610; 93010; 99284; J3490

== ENCOUNTER 2020-12-07 04:02 | Outpatient (CLI) | payer MEDICARE, MEDICAID, SELFPAY ==
[2020-12-07 11:21] LABS: Abs Immature Grans 0.01 10^3/uL (0.0-0.06); Absolute Basophil Count 0.03 10^3/uL (0.0-0.2); Absolute Eosinophil Count 0.06 10^3/uL (0.0-0.7); Absolute Lymphocyte Count 0.34 10^3/uL (1.2-3.4); Absolute Monocyte Count 0.46 10^3/uL (0.1-0.8); Absolute Neutrophil Count 5.19 10^3/uL (1.2-6.7); Basophils % 0.5; HCT 37.9 % (40.0-50.0); HGB 12.7 g/dL (13.5-17.5); Immature Grans % 0.2; Lymphocytes % 5.6; MCHC 33.5 % (32.0-36.0); MCV 86.5 fL (80-95); MPV 11.3 fL (8.0-11.0); Monocytes % 7.6; Neutrophils % 85.1; Nucleated RBC 0 %; RBC 4.38 10^6/uL (4.36-5.78); RDW 13.7 % (11.8-14.1); RDW-SD 43.3 fL; WBC 6.09 10^3/uL (4.4-10.8)
[2020-12-07 11:29] LABS: Hemoglobin A1C 5.6 % (<5.7)
[2020-12-07 11:31] LABS: INR 1.3 (0.9-1.1); Prothrombin Time 12.7 sec (9.3-11.0)
[2020-12-07 11:40] LABS: Diff Comment Diff Reviewed; Platelet Count 64 10^3/uL (130-400); RBC Morphology Normal
[2020-12-07 12:10] LABS: ALT 35 U/L (16-63); AST 29 U/L (15-37); Albumin 3.6 g/dL (3.4-5.0); Alkaline Phosphatase 98 U/L (46-116); Anion Gap 10.3 mmol/L (3-11); BUN 9 mg/dL (7-18); Bilirubin, Total 1.3 mg/dL (0.2-1.0); CO2 23.7 mmol/L (21.0-32.0); CREATININE 0.9 mg/dL (0.70-1.30); Calcium 8.4 mg/dL (8.5-10.1); Chloride 98 mmol/L (98-107); Glucose 124 mg/dL (74-106); Potassium 4.5 mmol/L (3.5-5.1); Sodium 132 mmol/L (136-145); Total Protein 7.1 g/dL (6.4-8.2)
[2020-12-07 12:37] LABS: Calculated LDL 71 mg/dL (<100); Cholesterol 139 mg/dL (<200); Ferritin 34 ng/mL (26-388); HDL Cholesterol 61 mg/dL (40-60); Magnesium 1.6 mg/dL (1.8-2.4); Triglyceride 38 mg/dL (<150); Vitamin B12 411 pg/mL (193-986)
[2020-12-07 12:59] LABS: C-Reactive Protein 0.21 mg/dL (0.0-0.3); FREE T4 0.91 ng/dL (0.76-1.46)
[2020-12-08 09:49] LABS: AFP Tumor Marker <2.5 ng/mL (<8.1)
[2020-12-09 01:25] LABS: Vitamin D 25 Total 61.5 ng/mL (30-100)
== END 2020-12-07 04:03 | disposition home or self-care (01) ==
PROVIDERS: Psychiatry & Neurology Psychiatry; PCP Family Medicine; Visit Provider Internal Medicine Gastroenterology
DX: C22.0 Liver cell carcinoma (principal); F25.0 Schizoaffective disorder, bipolar type; Z79.899 Other long term (current) drug therapy
CPT/HCPCS: 36415; 80053; 80061; 82306; 82105; 82607; 82728; 83036; 83735; 84439; 84443; 85025; 85610; 86140

== ENCOUNTER 2021-07-22 07:21 | Outpatient (CLI) | payer MEDICARE, MEDICAID, SELFPAY ==
[2021-07-22 11:37] LABS: Source Nasal/Nares
[2021-07-22 14:14] LABS: COVID-19 PCR Negative (Negative)
== END 2021-07-22 07:22 | disposition home or self-care (01) ==
PROVIDERS: PCP Family Medicine; Visit Provider Surgery
DX: Z20.822 Contact with and (suspected) exposure to COVID-19 (principal)
CPT/HCPCS: 87635; U0005

== ENCOUNTER 2021-08-20 11:34 | Emergency (ER) | payer MEDICARE, MEDICAID, SELFPAY ==
[2021-08-20 11:37] VITALS: BP 143/86; PULSE 95; RESP 18; TEMP 36.9; O2SAT 99
--- NOTE | 2021-08-20 12:00 | DI.RAD_ITS ---
Exam(s) XR HUMERUS RT XR SHOULDER RT COMPLETE 2+V EXAM: XR SHOULDER RT COMPLETE 2+V CLINICAL HISTORY: pain TECHNIQUE: COMPARISON: CR,XR XR HUMERUS RT from 08/20/2021 FINDINGS: Five views of the shoulder and 2 additional views of the humerus were obtained. There is no evidence of an acute fracture or dislocation. IMPRESSION: RADIATION DOSE DELIVERED: Total DLP
--- NOTE | 2021-08-20 12:12 | ED.GENADUL_ITS ---
Discharge Plan Disposition Patient Disposition: HOME Condition: Stable Discharge Details Clinical Impression: Arm pain, right Primary Care Provider: Soraya Tomas ED Provider: Clayton Evans Home Meds and New Rx's Prescriptions: New tramadol 50 mg tablet 50 mg PO Q8H PRN (Reason: pain) Qty: 4 0RF Continued fluoride (sodium) [PreviDent 5000 Dry Mouth] 100 ML gel 10 ml Dental DAILY 0RF Latuda 80 MG tablet 40 mg PO DAILY 0RF Label Comments: states not taking alprazolam [Xanax] 1 MG tablet 1 mg PO BID MDD 2 PRN (Reason: anxiety) 0RF propranolol 40 MG tablet 40 mg PO BID 0RF Rx Instructions: DOSE IS 20MG ONE TABLET TWICE A DAY PER MED BOTTLE FILLED 10/28/18 cholecalciferol (vitamin D3) 1,000 UNITS tablet 5,000 units PO DAILY 0RF albuterol sulfate [Ventolin HFA] 90 mcg/actuation Hfa Aerosol Inhaler 2 puff INHALATION QID PRN0RF Atrovent HFA 17 mcg/actuation Hfa Aerosol Inhaler 2 puff INHALATION QID PRN0RF budesonide-formoterol [Symbicort] 160-4.5 mcg/actuation Hfa Aerosol Inhaler 2 puff INHALATION BID 0RF levothyroxine 50 mcg Capsule 50 mcg PO DAILY 0RF benzonatate [Tessalon Perles] 100 mg Capsule 100 mg PO TID PRN0RF Eliquis 2.5 mg tablet 2.5 mg PO BID 0RF Label Comments: TAKE ONE TABLET BY MOUTH TWICE A DAY furosemide 20 mg tablet 40 mg PO DAILY 0RF spironolactone 50 mg tablet 100 mg PO DAILY 0RF haloperidol decanoate 100 mg/mL solution See Rx Instructions .ROUTE .COMPLEX 0RF Rx Instructions: 150 mg intramuscularly one a month glipizide 5 mg tablet extended release 24hr 5 mg PO DAILY 0RF Label Comments: states not taking Discharge Instructions Instructions: Arm Pain (ED) Additional Instructions: An outpatient order has been placed for ultrasound of your right upper extremity. You will need to call the radiology department on Sunday morning for arrangement of this test. Until then you may continue to use [id number] lidocaine patches as directed on packaging, you have been given a limited supply of opioid pain medication so please use sparingly and only for severe pain. If you have any new or significant worsening of symptoms or change in your symptoms feel free to return to the emergency department for reassessment. If no worrisome findings are found on Sunday's ultrasound please follow-up with your primary care provider if not improving in the next week. Referrals: Soraya Tomas [Primary Care Provider] - 1 week Medical Decision Making Patient presenting to the emergency department for chief complaint of right arm pain. Patient denies any known injury or trauma but does state that he had surgery almost 1 month ago and has history of clot and is concerned for possible clot. Physical exam shows discomfort mainly to the lateral aspect of the shoulder including the deltoid and the proximal lateral humerus. Patient does have mild tenderness to the medial aspect of the arm. Exam is otherwise unremarkable for any swelling, redness, or obvious signs of injury or trauma. Plan to perform plain film radiological imaging to observe for any signs of occult trauma. Otherwise will attempt to see if ultrasound is available for rule out of DVT. Review of radiological imaging shows no acute findings. Unfortunately we were not able to obtain weekend ultrasound so patient was given an order for ultrasound on Sunday. Patient is already on Eliquis which I feel is reassuring and lower suspicion for DVT but we will still perform outpatient ultrasound given history. Patient given limited prescription of tramadol for pain given that he has cirrhosis and cannot take acetaminophen and is on a blood thinner so cannot take NSAIDs. Patient has been on this medication in the past and discussed risk versus benefit which patient was agreeable to this. After discus miya of diagnosis and plan of care patient has no further needs, questions, or concerns and states clear understanding to return to the emergency department for any worsening symptoms. Medical Records Medical records reviewed: Yes I reviewed the patient's medical records. HPI General Mode of arrival: ambulatory . Date/Time Provider Initiated Documentation: 08/20/21 11:37 . Limitations to Documentation: no limitations . Information obtained by: patient, RN notes reviewed and old records reviewed . History of Present Illness 51 year old M presents to the emergency department with the chief complaint of right arm pain, described as moderate, with intensity rated at 8. Quality is described as aching and sharp, and is localized to the right and upper extremity. Patient reports no radiation. Patient started experiencing this day(s) (3-4) and it has been constant. improves with No relieving factors improve symptom(s), Movement worsens symptoms . Patient notes no other symptoms.. Patient did receive the following treatments prior to arrival, none Related Data Home Medications Medication Instructions Recorded Confirmed cholecalciferol (vitamin D3) 25 5,000 units PO DAILY 07/22/16 08/20/21 mcg (1,000 unit) tablet propranolol 40 mg tablet 40 mg PO BID 07/22/16 08/20/21 fluoride (sodium) 1.1 % dental gel 10 ml DENTAL DAILY script 05/29/17 11/09/20 (PreviDent 5000 Dry Mouth) lurasidone 80 mg tablet (Latuda) 40 mg PO DAILY 05/29/17 11/09/20 alprazolam 1 mg tablet (Xanax) 1 mg PO BID PRN MDD 2 07/11/17 08/20/21 albuterol sulfate 90 mcg/actuation 2 puff INHALATION QID PRN 03/30/19 08/20/21 aerosol inhaler (Ventolin HFA) benzonatate 100 mg capsule 100 mg PO TID PRN 03/30/19 08/20/21 (Tesmarisol Mosher) budesonide-formoterol HFA 160 2 puff INHALATION BID 03/30/19 08/20/21 mcg-4.5 mcg/actuation aerosol inhaler (Symbicort) ipratropium bromide 17 2 puff INHALATION QID PRN 03/30/19 08/20/21 mcg/actuation HFA aerosol inhaler (Atrovent HFA) levothyroxine 50 mcg capsule 50 mcg PO DAILY 03/30/19 08/20/21 apixaban 2.5 mg tablet (Eliquis) 2.5 mg PO BID 07/16/20 08/20/21 furosemide 20 mg tablet 40 mg PO DAILY 11/09/20 08/20/21 glipizide 5 mg tablet, extended 5 mg PO DAILY 11/09/20 11/09/20 release 24 hr haloperidol decanoate 100 mg/mL See Rx Instructions .ROUTE .COMPLEX 11/09/20 08/20/21 intramuscular solution spironolactone 50 mg tablet 100 mg PO DAILY 11/09/20 08/20/21 tramadol 50 mg tablet 50 mg PO Q8H PRN #4 tab 08/20/21 Previous Rx's Medication Instructions Recorded tramadol 50 mg tablet 50 mg PO Q8H PRN #4 tab 08/20/21 Allergies Allergy/AdvReac Type Severity Reaction Status Date / Time No Known Allergies Allergy Unverified 08/20/21 11:42 General Stated Complaint: Vascular MANISH: 3 Review of Systems Constitutional Constitutional: Denies chills, Denies fever(s) and Denies headache(s) ENT Ears, Nose, Mouth, and Throat: Denies headache(s) Cardiovascular Cardiovascular: Denies chest pain, Denies irregular heart rhythm, Denies lightheadedness and Denies dyspnea Respiratory Respiratory: Denies cough and Denies dyspnea Musculoskeletal Musculoskeletal: Reports as per HPI, Denies joint swelling, Denies muscle weakness, Denies numbness and Denies radiating pain into limb Integumentary/Breasts Skin/Breast: Denies rash, Denies skin pain and Denies skin swelling Neurologic Neurologic: Denies headache(s), Denies numbness and Denies sensory deficit PFSH All Active Problems (Updated 08/20/21 @ 13:07 by Clayton Evans NP) Abdominal pain (Acute) Ascites (Acute) Fracture of rib (Acute) Abdominal ascites (Acute) Thrombocytopenia (Chronic) Arm pain, right (Acute) Alcohol intoxication (Acute) HCV infection (Chronic) Cirrhosis (Acute) Electrolyte and fluid disorder (Acute) Spondylosis of lumbar region without myelopathy or radiculopathy (Chronic) Depression (Acute) Suicidal ideations (Acute) Diabetes mellitus type 2 in obese (Acute) Medical History (Updated 08/20/21 @ 13:07 by Clayton Evans NP) Diabetes Esophageal varices Heroin addiction Hypothyroid Lumbar spondylosis Sleep apnea Suicidal ideations Surgical History EGD - MAC Social History Smoking/Tobacco Use Status: Former Tobacco Use Smoking risk assessment performed?: Yes Alcohol Intake: former Drug use: Current Sobriety Substance use type: does not use Details: denies drugs or alcohol for several months now Do you feel safe at home: Yes Do you feel safe in your relationship?: Yes Exam Const General: cooperative, healthy appearing, comfortable and no acute distress Orientation: alert, awake and oriented x3 Resp Effort & Inspection: normal respiratory effort and able to speak in complete sentences Auscultation: clear to auscultation bilaterally Cardio Rate: regular rate Rhythm: regular rhythm Heart Sounds: S1 normal and S2 normal Pulses: normal peripheral pulses Neuro General: patient alert, patient awake, patient oriented x3, moves all extremities and no focal motor deficits Extrem General: normal exam except as noted Right upper extremity: shoulder/upper arm Details: tenderness Location: of the proximal humerus and over the deltoid bursa and abnormal ROM Details: pain with active ROM, pain with passive ROM and with range as follows (full); Negative for no abrasions, no lacerations, no ecchymosis and no deformity, elbow/forearm Details: normal to inspection and normal ROM; Negative for no tenderness, wrist Details: normal to inspection and normal ROM; Negative for no tenderness and hand Details: normal to inspection, normal capillary refill, neuromotor exam normal and neurosensory exam normal Course Vital Signs Vital signs: Vital Signs Temperature 36.9 C 08/20/21 11:37 Pulse 95 H 08/20/21 11:37 Respiratory Rate 18 08/20/21 11:37 Blood Pressure 143/86 H 08/20/21 11:37 Pulse Oximetry 99 08/20/21 11:37 Temperature 36.9 C 08/20/21 11:37 Temperature Source Skin 08/20/21 11:37 Pulse 95 H 08/20/21 11:37 Respiratory Rate 18 08/20/21 11:37 Respiratory Effort 08/20/21 11:56 Respiratory Depth Normal 08/20/21 11:56 Respiratory Pattern Normal 08/20/21 11:56 Blood Pressure 143/86 H 08/20/21 11:37 Blood Pressure Position Sitting 08/20/21 11:37 Pulse Oximetry 99 08/20/21 11:37 Oxygen Delivery Method Room Air 08/20/21 11:37 Oxygen Flow Rate 0 08/20/21 11:37 Pain Level 10 08/20/21 11:37 Comment 08/20/21 11:37
[2021-08-20] MEDS: Lidocaine 5% Patch 1 PATCH TP (12:15)
[2021-08-20] MEDS: oxyCODONE 5 MG TAB PO (12:15)
--- NOTE | 2021-08-20 12:57 | DI.VRAD_ITS ---
PROCEDURE INFORMATION: Exam: XR Right Shoulder Exam date and time: 08/20/2021 12:29 PM Age: 51 years old Clinical indication: Pain; Shoulder; Right TECHNIQUE: Imaging protocol: XR Right shoulder. Views: 2 or more views. COMPARISON: CR XR HUMERUS RT 08/20/2021 12:25 PM FINDINGS: Bones/joints: Normal. Soft tissues: Normal. IMPRESSION: No acute findings. Dictated and Authenticated by: Won Buckner MD. Ordering:YARIEL Arnold MD
--- NOTE | 2021-08-20 12:57 | DI.VRAD_ITS ---
PROCEDURE INFORMATION: Exam: XR Right Humerus Exam date and time: 08/20/2021 12:25 PM Age: 51 years old Clinical indication: Pain; Upper arm; Right TECHNIQUE: Imaging protocol: XR Right humerus. Views: 2 or more views. COMPARISON: CR XR CHEST 2V PA LATERAL 06/04/2020 2:24 PM FINDINGS: Bones/joints: Normal. Soft tissues: Normal. IMPRESSION: No acute findings. Dictated and Authenticated by: Won Buckner MD. Ordering:YARIEL Arnold MD
[2021-08-20 13:10] VITALS: PULSE 78; RESP 22; TEMP 36.9; O2SAT 97
--- NOTE | 2021-08-20 22:07 | NUR.NOTE ---
[facility] req faxed to [facility] for RUE-?DVTNursing Note:
== END 2021-08-20 13:28 | disposition home or self-care (01) ==
PROVIDERS: Emergency Provider Nurse Practitioner Family; PCP Family Medicine
DX: M79.601 Pain in right arm (principal); Z86.718 Personal history of other venous thrombosis and embolism; Z79.01 Long term (current) use of anticoagulants; E11.9 Type 2 diabetes mellitus without complications
CPT/HCPCS: 99284; 73030; 73060; 99283

== ENCOUNTER → 2021-08-23 04:01 | Outpatient (CLI) | payer MEDICARE, MEDICAID, SELFPAY ==
--- NOTE | 2021-08-23 10:00 | DI.US_ITS ---
Exam(s) US UPPER EXTREMITY VENOUS RT EXAM: US UPPER EXTREMITY VENOUS RT CLINICAL HISTORY: RT ARM PAIN, M79.601. TECHNIQUE: Ultrasound examination of the right upper extremity venous system(s) is performed using g rayscale, color-flow, and spectral Doppler analysis. COMPARISON: No exams were available for comparison FINDINGS: The right internal jugular, axillary, subclavian, cephalic, basilic, brachial, radial, and ulnar vein s are patent without evidence of thrombosis. IMPRESSION: No DVT. DATA REPOSITORY:
== END ==
PROVIDERS: PCP Family Medicine; Visit Provider Nurse Practitioner Family
DX: M79.601 Pain in right arm (principal)
CPT/HCPCS: 99282; 93971

== ENCOUNTER 2021-08-23 10:34 | Emergency (ER) | payer MEDICARE, MEDICAID, SELFPAY ==
[2021-08-23 10:36] VITALS: BP 142/72; PULSE 82; RESP 16; TEMP 36.6; O2SAT 98
--- NOTE | 2021-08-23 10:40 | W.ED.GENAD ---
Discharge Plan Disposition Patient Disposition: HOME Condition: Improving Discharge Details Clinical Impression: Pain of right deltoid Primary Care Provider: Soraya Tomas ED Provider: Helder Aguirre Home Meds and New Rx's Prescriptions: Continued fluoride (sodium) [PreviDent 5000 Dry Mouth] 100 ML gel 10 ml Dental DAILY 0RF Latuda 80 MG tablet 40 mg PO DAILY 0RF Label Comments: states not taking alprazolam [Xanax] 1 MG tablet 1 mg PO BID MDD 2 PRN (Reason: anxiety) 0RF propranolol 40 MG tablet 40 mg PO BID 0RF Rx Instructions: DOSE IS 20MG ONE TABLET TWICE A DAY PER MED BOTTLE FILLED 10/28/18 cholecalciferol (vitamin D3) 1,000 UNITS tablet 5,000 units PO DAILY 0RF albuterol sulfate [Ventolin HFA] 90 mcg/actuation Hfa Aerosol Inhaler 2 puff INHALATION QID PRN0RF Atrovent HFA 17 mcg/actuation Hfa Aerosol Inhaler 2 puff INHALATION QID PRN0RF budesonide-formoterol [Symbicort] 160-4.5 mcg/actuation Hfa Aerosol Inhaler 2 puff INHALATION BID 0RF levothyroxine 50 mcg Capsule 50 mcg PO DAILY 0RF benzonatate [Tessalon Perles] 100 mg Capsule 100 mg PO TID PRN0RF Eliquis 2.5 mg tablet 2.5 mg PO BID 0RF Label Comments: TAKE ONE TABLET BY MOUTH TWICE A DAY furosemide 20 mg tablet 40 mg PO DAILY 0RF spironolactone 50 mg tablet 100 mg PO DAILY 0RF haloperidol decanoate 100 mg/mL solution See Rx Instructions .ROUTE .COMPLEX 0RF Rx Instructions: 150 mg intramuscularly one a month glipizide 5 mg tablet extended release 24hr 5 mg PO DAILY 0RF Label Comments: states not taking tramadol 50 mg tablet 50 mg PO Q8H PRN (Reason: pain) Qty: 4 0RF Discharge Instructions Instructions: Shoulder Pain (ED) Additional Instructions: Apply ice to area 20 minutes at a time 4-6 times a day. Wear sling as needed 3 to 5 days time. May remove for bathing and for bedtime. Follow-up with Dr. Chapman as previously planned. May use tramadol, sparingly, as needed for pain. Your Haldol injection should be given in the other arm, your left arm, or in the buttock or lateral thigh. Return for any acute concerns. Medical Decision Making This is a 51-year-old male who presents with his mother. He has a history of schizophrenia, hepatitis and esophageal varices. He is followed by at [facility] and is on long-term anticoagulation. He was seen on Sunday for right shoulder pain with site in which he receives his Haldol injections. Unremarkable x-ray was referred for follow-up ultrasound today. Ultrasound was negative. Patient has reproducible right deltoid muscular pain. He has not taken the previously prescribed tramadol and we will trial a small number given his liver disease. He was placed in a sling. We will ask that he receive his Haldol injections in the contralateral extremity. HPI General Date/Time Provider Initiated Documentation: 08/23/21 10:34. Limitations to Documentation: no limitations. Information obtained by: patient. History of Present Illness 51 year old M presents to the emergency department with the chief complaint of Followup after USN RUE, Quality is described as dull and constant, and is localized to the right and upper extremity. Patient reports no radiation. Patient started experiencing this week(s) and it has been constant. improves with No relieving factors improve symptom(s), No exacerbating factors reported . Patient notes denies chest pain and shortness of breath. Patient did receive the following treatments prior to arrival, none Related Data Home Medications Medication Instructions Recorded Confirmed cholecalciferol (vitamin D3) 25 5,000 units PO DAILY 07/22/16 08/23/21 mcg (1,000 unit) tablet propranolol 40 mg tablet 40 mg PO BID 07/22/16 08/23/21 fluoride (sodium) 1.1 % dental gel 10 ml DENTAL DAILY script 05/29/17 11/09/20 (PreviDent 5000 Dry Mouth) lurasidone 80 mg tablet (Latuda) 40 mg PO DAILY 05/29/17 08/23/21 alprazolam 1 mg tablet (Xanax) 1 mg PO BID PRN MDD 2 07/11/17 08/23/21 albuterol sulfate 90 mcg/actuation 2 puff INHALATION QID PRN 03/30/19 08/23/21 aerosol inhaler (Ventolin HFA) benzonatate 100 mg capsule 100 mg PO TID PRN 03/30/19 08/20/21 (Tessalon Perles) budesonide-formoterol HFA 160 2 puff INHALATION BID 03/30/19 08/23/21 mcg-4.5 mcg/actuation aerosol inhaler (Symbicort) ipratropium bromide 17 2 puff INHALATION QID PRN 03/30/19 08/23/21 mcg/actuation HFA aerosol inhaler (Atrovent HFA) levothyroxine 50 mcg capsule 50 mcg PO DAILY 03/30/19 08/23/21 apixaban 2.5 mg tablet (Eliquis) 2.5 mg PO BID 07/16/20 08/23/21 furosemide 20 mg tablet 40 mg PO DAILY 11/09/20 08/23/21 glipizide 5 mg tablet, extended 5 mg PO DAILY 11/09/20 08/23/21 release 24 hr haloperidol decanoate 100 mg/mL See Rx Instructions .ROUTE .COMPLEX 11/09/20 08/23/21 intramuscular solution spironolactone 50 mg tablet 100 mg PO DAILY 11/09/20 08/23/21 tramadol 50 mg tablet 50 mg PO Q8H PRN #4 tab 08/23/21 Previous Rx's Medication Instructions Recorded tramadol 50 mg tablet 50 mg PO Q8H PRN #4 tab 08/23/21 Allergies Allergy/AdvReac Type Severity Reaction Status Date / Time No Known Allergies Allergy Unverified 08/23/21 10:41 General MANISH: 3 Review of Systems Narrative: denies other complaint, 4 systems reviewed PFSH All Active Problems (Updated 08/23/21 @ 10:56 by Helder Aguirre MD) Abdominal pain (Acute) Ascites (Acute) Fracture of rib (Acute) Abdominal ascites (Acute) Thrombocytopenia (Chronic) Arm pain, right (Acute) Pain of right deltoid (Acute) Alcohol intoxication (Acute) HCV infection (Chronic) Cirrhosis (Acute) Electrolyte and fluid disorder (Acute) Spondylosis of lumbar region without myelopathy or radiculopathy (Chronic) Depression (Acute) Suicidal ideations (Acute) Diabetes mellitus type 2 in obese (Acute) Medical History (Updated 08/23/21 @ 10:56 by Helder Aguirre MD) Diabetes Esophageal varices Heroin addiction Hypothyroid Lumbar spondylosis Sleep apnea Suicidal ideations Surgical History EGD - MAC Social History Smoking/Tobacco Use Status: Former Tobacco Use Smoking risk assessment performed?: Yes Alcohol Intake: former Drug use: Current Sobriety Substance use type: does not use Details: denies drugs or alcohol for several months now Do you feel safe at home: Yes Do you feel safe in your relationship?: Yes Exam Narrative Exam Narrative: GEN: awake, alert, oriented 3. Pleasant, well groomed, interactive. HEAD: Normocephalic, atraumatic ENT: Mucous membranes moist, oropharynx unremarkable, External ear exam unremarkable EYES: PERRL, EOMI NECK: Full ROM, no PHILIPPE, no menigismus CHEST/RESP: Nontender, clear to auscultation bilateral, no wheeze/rhonchi/rales CARDIOVASCULAR: RRR, no murmur, rub kimo. 2+ Rad pulse bilateral ABDOMEN: Soft, distended, nontender, no mass. +Bowel sounds EXT: Full ROM, no edema, no rash. Right lateral deltoid is tender to palpation. Range of motion, sensation and motor are within normal limits. Neuro: Grossly normal neurologic exam, conversant, interactive. Psych: Speech fluent, thoughts congruent, affect flat
[2021-08-23] MEDS: Lidocaine 5% Patch 1 PATCH TP (10:59)
== END 2021-08-23 11:09 | disposition home or self-care (01) ==
LOC: ER 13:16
PROVIDERS: Emergency Provider Emergency Medicine; PCP Family Medicine
DX: M25.511 Pain in right shoulder (principal); M79.18 Myalgia, other site
CPT/HCPCS: 99282

== ENCOUNTER → 2021-11-01 01:06 | Outpatient (CLI) | payer MEDICARE, MEDICAID, SELFPAY ==
--- NOTE | 2021-11-01 | DI.US_ITS ---
APPROVED REPORT EXAM: Comprehensive 2D, Doppler, and color-flow Echocardiogram Patient Location: Out-Patient Slip Box Changer: Ana Lilia Xavier RDCS (AE) Indications: Ascites, SOB, Hepatic cirrhosis Other Information Study Quality: Adequate. Technically limited study due to body habitus. Conclusion Normal left ventricular wall thickness and chamber size. Estimated ejection fraction is 60%. Wall m otion is normal Normal right ventricular size and systolic function Both atria are normal in size There is no structural or hemodynamically significant valvular disease Estimated right ventricular systolic pressure is 15.5 mmHg Wall motion Left Ventricle The left ventricle is normal size. The left ventricular systolic function is normal. The left ventric ular ejection fraction is within the normal range. There is normal left ventricular wall thickness. T here is normal LV segmental wall motion. There is no ventricular septal defect visualized. LVEF is 60 %. Right Ventricle The right ventricle is normal size. The right ventricular systolic function is normal. The RVSP is 15 .5 mmHg. Atria The left atrium size is normal. The right atrium size is normal. The interatrial septum is intact wit h no evidence for an atrial septal defect. Aortic Valve The aortic valve is normal in structure. Aortic valve is trileaflet. There is no aortic valvular sten osis. No aortic regurgitation is present. Mitral Valve The mitral valve is normal in structure. No evidence of mitral valve stenosis. Trace mitral regurgita tion. Tricuspid Valve The tricuspid valve is normal in structure. There is no tricuspid valve stenosis. Trace tricuspid reg urgitation. Pulmonic Valve The pulmonary valve is normal in structure. There is no pulmonic valvular stenosis. There is no pulmo gisella valvular regurgitation. Great Vessels The aortic root is normal in size. The ascending aorta is normal in size. Aortic arch is normal in ca liber. IVC is normal in size and collapses >50% with inspiration. Pericardium There is no pericardial effusion. 2D Dimensions IVSD d PLAX 1.15 cm M: 0.6-1.2 LV Vol A2C d MOD 93.7 mL LVPW d PLAX 1.11 cm M: 0.6 - 1.2 LV Vol A4C d MOD 142.8 mL LVID d PLAX 4.61 cm M: 4.2 - 5.8 LA vol/ BSA A2C s A-L 26.8 mL/m2 LVDs 3.00 cm M: 2.5 - 4.0 LA vol/ BSA A4C s A-L 25.4 mL/m2 Ao Root d 3.01 cm M: 3.1 - 3.7 LA Vol/ BSA Biplane s A-L 26.8 mL/m2 RA Area A4C 12.95 cm2 LA Area A4C s MOD 19.10 cm2 RA Vol/ BSA A4C s A-L 14.2 mL/m2 LA Area A2C s MOD 20.11 cm2 Ao Asc Diam d 3.11 cm M: 2.6 - 3.4 LV EF A4C MOD 60.3 % LV EF Teichholz 63.2 % LV EF A2C MOD 59.8 % LVEF (Gaspar's) 59.85 % M: 52 - 72 LV EF Biplane MOD 59.9 % LV Volume 84.81 mL M: 62 - 150 SV 69.55 mL LV Volume Index 39.08 mL/m2 M: 34 - 74 SV Index 31.98 mL/m2 LV Vol Biplane MOD 116.2 mL FS 34.15 % M-Mode TAPSE 2.84 cm (M/F) >1.7 LV Diastology MV E' medial 0.080 (>0.07 m/s) E/A Ratio 1.0 LV E/e MED 8.95 (<14) MV E Vmax 0.72 (0.4-1.3 m/s) MV E' lateral 0.148 (>0.1 m/s) MV A Vmax 0.70 (0.4-1.3 m/s) LV E/e LAT 4.85 (<14) MV E/A Ratio 1.01 MV E/E' medial 8.97 MV E/E' lateral 4.87 Aortic Valve LVOT Area 3.02 cm2 AoV Area Vmax 2.74 cm2 LVOT Vmax 1.45 m/s AoV Area/ BSA (Vmax) 1.26 cm2/m2 LVOT Mean Jesus. 0.94 m/s ARLEN Mean Jesus. 2.63 cm2 LVOT Peak Grad 8.4 mmHg ARLEN Mean Jesus. Index 1.21 cm2/m2 LVOT Mean Grad 4.2 mmHg LVOT VTI 0.277 m LVOT Diam s 1.95 cm AoV Vmax 1.60 m/s Velocity Ratio 0.90 AoV Mean Jesus. 1.08 m/s AoV Peak Grad 10.2 mmHg LVOT SV 83.73 mL AoV Mean Grad 5.4 mmHg AoV VTI 0.292 m AoV Area VTI 2.87 cm2 AoV Area/ BSA (VTI) 1.32 cm/m2 Mitral Valve MV DT 229 (160-240 msec) MV PHT 66 msec MV Area PHT 3.31 cm2 MV VTI 0.224 m MV Area VTI 3.74 (4.0-6.0 cm2) Pulmonary Valve PV Vmax 1.03 (0.5-1.5 m/s) RVOT Peak Gr. 1.04 mmHg PV Peak Grad 4.2 mmHg RVOT Mean Gr. 0.70 mmHg PV Mean Grad 2.4 mmHg RVOT VTI 0.103 m PV VTI 0.204 m RVOT Vmax 0.51 m/s Tricuspid Valve TR Peak Grad 12.5 mmHg TR Vmax 1.77 m/s RA Pressure 3.00 mmHg RVSP (TR) 15.5 mmHg
== END ==
PROVIDERS: PCP Family Medicine; Visit Provider Internal Medicine Gastroenterology
DX: R06.02 Shortness of breath (principal)
CPT/HCPCS: 93306

== ENCOUNTER 2022-02-02 02:31 | Outpatient (CLI) | payer MEDICARE, MEDICAID, SELFPAY ==
[2022-02-02 12:24] LABS: HCT 33.4 % (40.0-50.0); HGB 11.1 g/dL (13.5-17.5); MCH 27.8 pg (27.0-33.0); MCHC 33.2 % (32.0-36.0); MCV 84 fL (80-95); MPV 11.2 fL (8.0-11.0); RDW 16.8 % (11.8-14.1); RDW-SD 51.4 fL; WBC 2.53 10^3/uL (4.4-10.8)
[2022-02-02 12:36] LABS: Platelet Count 32 10^3/uL (130-400)
[2022-02-02 13:03] LABS: *AMPHETAMINES SCREEN URINE Negative (Negative); *BARBITURATES SCREEN URINE Negative (Negative); *BENZODIAZEPINES SCREEN URINE Negative (Negative); Cannabinoids THC Negative (Negative); Cocaine Screen,Urine Negative (Negative); METHADONE URINE SCREEN Negative (Negative); OPIATES URINE SCREEN Negative (Negative); Tricyclic Antidepressants Negative (Negative)
[2022-02-02 13:41] LABS: Vitamin D 25 Total 42.6 ng/mL (30-100)
[2022-02-02 13:46] LABS: ALT 33 U/L (16-63); AST 24 U/L (15-37); Albumin 3.8 g/dL (3.4-5.0); Alkaline Phosphatase 108 U/L (46-116); Anion Gap 9.9 mmol/L (3-11); BUN 9 mg/dL (7-18); CO2 23.1 mmol/L (21.0-32.0); CREATININE 0.8 mg/dL (0.70-1.30); Calcium 8.7 mg/dL (8.5-10.1); Calculated LDL 69 mg/dL (<100); Chloride 94 mmol/L (98-107); Cholesterol 141 mg/dL (<200); Estimated GFR 107.82 (mL/min/1.73m2); Ferritin 41 ng/mL (26-388); Folate 18.4 ng/mL (8.6-20.0); Glucose 229 mg/dL (74-106); HDL Cholesterol 59 mg/dL (40-60); Magnesium 1.4 mg/dL (1.8-2.4); Potassium 4.3 mmol/L (3.5-5.1); Sodium 127 mmol/L (136-145); TSH 1.91 uIU/mL (0.36-3.74); Total Protein 7.5 g/dL (6.4-8.2); Triglyceride 69 mg/dL (<150); Vitamin B12 389 pg/mL (193-986)
[2022-02-02 14:05] LABS: FREE T4 0.95 ng/dL (0.76-1.46)
[2022-02-02 22:08] LABS: T3,Free 3.7 pg/mL (2.8-5.3)
[2022-02-03 08:17] LABS: Homocysteine 10.9 umol/L (5.0-13.9)
[2022-02-03 20:27] LABS: Copper, Serum 106 mcg/dL (73-129)
[2022-02-03 23:45] LABS: Zinc, S 51 mcg/dL (60-106)
[2022-02-07 09:06] LABS: 2-OH-Ethyl-Flurazepam Negative ng/mL (Cutoff: 10); 7-NH-Clonazepam Negative ng/mL (Cutoff: 10); 7-NH-Flunitrazepam Negative ng/mL (Cutoff: 10); Alpha OH-Alprazolam Negative ng/mL (Cutoff: 10); Alpha-OH Midazolam Negative ng/mL (Cutoff: 10); Alpha-OH-Triazolam Negative ng/mL (Cutoff: 10); Alprazolam Negative ng/mL (Cutoff: 10); Benzodiazepines Interpretation Negative.; Chlordiazepoxide Negative ng/mL (Cutoff: 10); Clobazam Negative ng/mL (Cutoff: 10); Clonazepam Negative ng/mL (Cutoff: 10); Diazepam Negative ng/mL (Cutoff: 10); Flurazepam Negative ng/mL (Cutoff: 10); Lorazepam Negative ng/mL (Cutoff: 10); Midazolam Negative ng/mL (Cutoff: 10); N-Desmethylclobazam Negative ng/mL (Cutoff: 10); Prazepam Negative ng/mL (Cutoff: 10); Temazepam Negative ng/mL (Cutoff: 10); Triazolam Negative ng/mL (Cutoff: 10); Zolpidem Carboxylic acid Negative ng/mL (Cutoff: 10)
[2022-02-07 12:29] LABS: Methylphenidate Negative ng/mL (Cutoff: 10); Ritalinic Acid Negative ng/mL (Cutoff: 50)
[2022-02-09 11:38] LABS: Fentanyl Interpretation Negative.; Fentanyl by LC-MS/MS Negative; Norfentanyl by LC-MS/MS Negative
== END 2022-02-02 02:32 | disposition home or self-care (01) ==
LOC: LBO 02:31
PROVIDERS: PCP Family Medicine; Visit Provider Psychiatry & Neurology Psychiatry
DX: F25.0 Schizoaffective disorder, bipolar type (principal); E11.9 Type 2 diabetes mellitus without complications; Z79.899 Other long term (current) drug therapy; R06.02 Shortness of breath
CPT/HCPCS: 36415; 80053; 80061; 80307; 80360; 82306; 82525; 83090; 84630; 85027; 80346; 80354; 82607; 82728; 82746; 83036; 83735; 84439; 84443; 84481

== ENCOUNTER 2022-10-02 01:22 | Outpatient (CLI) | payer MEDICARE, MEDICAID, SELFPAY ==
--- NOTE | 2022-10-02 | DI.CTLCSR_ITS ---
Exam(s) CT CHEST LUNG CANCER SCREEN EXAM: CT CHEST LUNG CANCER SCREEN CLINICAL HISTORY: FORMER SMOKER Z87.891 SCREENING FOR LUNG CANCER TECHNIQUE: Imaging Protocol: Axial computed tomography images with coronal and sagittal reformatted images were created and reviewed COMPARISON: CT CHEST WITH CONTRAST from 10/26/[address] ABDOMEN PELVIS W from 11/09/2020 FINDINGS: Tracheobronchial tree: Patent where visualized. Pulmonary parenchyma: No consolidation or dominant measurable mass. There is unchanged scarring in th e lingula. There is linear scarring or atelectasis in the lower lobes bilaterally. No focal consoli dating infiltrates are seen. Mild paraseptal emphysematous changes are present. Lung Nodules: None. Mediastinum and Herlinda: No dominant adenopathy or fluid collection. The esophagus is unremarkable. Thyroid gland: Unremarkable. Lymph nodes: Unremarkable. Pleura: No effusion or pneumothorax. Heart: The heart is not dilated. Coronary artery calcification and/or stents are present. No pericar dial effusion. Aorta: Thoracic aorta non-dilated.Atherosclerosis. Upper abdomen: There are findings most suggestive of hepatic cirrhosis with a lobulated heterogeneou s liver, splenomegaly and ascites. Recanalization of the umbilical vein is noted. There is cholelit hiasis. Soft Tissues: Bilateral gynecomastia. Bones: Within normal limits. IMPRESSION: 1. No pulmonary nodules. 2. Findings of hepatic cirrhosis and portal venous hypertension. Lung RADS Cat 1 - Negative: No nodules and definitely benign nodules Lung-RADS 1.0 CATEGORIES: Category 0 - Prior chest CT exam(s) being located for comparison. Category 1 - Annual screening in 12 months. No nodules or definitely benign nodules. Category 2 - Annual screening in 12 months. Benign appearance. Nodules with low likelihood of becomin g active cancer. Category 3 - 6-month follow-up. Probably benign. Short-term follow-up suggested. Nodules with low lik elihood of becoming active cancer. Category 4A - 3-month follow-up and CT/PET if >8 mm in size. Suspicious finding. Findings which requi re additional testing. Category 4B - Findings which require additional testing and tissue sampling. Suspicious finding. Category 4X - Category 3 or 4 nodules with additional features or imaging findings that increases the suspicion of malignancy. Modifier S- Potentially clinically significant finding. (Non lung cancer) RADIATION DOSE DELIVERED: 97.23mGy.cm Total DLP 97.23mGy.cmTotal DLP DATA REPOSITORY: All CT scans at this facility are submitted to the National Radiology Data Registry (NRDR) Dose Index Registry (DIR) with the [employer] (ACR). RADIATION OPTIMIZATION: All CT scans at this facility use at least one of these dose optimization te chniques: automated exposure control; mA and/or kV adjustment per patient size (includes targeted exa ms where dose is matched to clinical indication); or iterative reconstruction.
== END 2022-10-02 01:42 ==
LOC: DI 01:23
PROVIDERS: PCP Family Medicine; Visit Provider Family Medicine
DX: Z87.891 Personal history of nicotine dependence (principal); Z12.2 Encounter for screening for malignant neoplasm of respiratory organs; K74.60 Unspecified cirrhosis of liver; K76.6 Portal hypertension
CPT/HCPCS: 71271

== ENCOUNTER 2022-10-17 16:08 | Inpatient (IN) | payer MEDICARE, MEDICAID, SELFPAY ==
[2022-10-17] VITALS (8 sets, daily range): BP systolic 125–174; BP diastolic 65–84; PULSE 64–103; RESP 18–20; TEMP 36.5–36.8; O2SAT 97–99
--- NOTE | 2022-10-17 16:00 | RT.EKG_ITS ---
APPROVED REPORT Exam: Resting ECG Reason for Exam: syncope Patient Location: E HR:78 bpm ECG Measurements Heart Rate 78 AXIS IN [id number] P 8 QRSd 91 QRS 22 QT 394 T 35 QTc 450 Conclusion AV dissociation...IN variation>15% Probable anterior infarct, old...Q >40mS, V2-V5
--- NOTE | 2022-10-17 16:15 | DI.CT_ITS ---
Exam(s) CT HEAD CERVICAL SPINE WO EXAM: CT HEAD CERVICAL SPINE WO CLINICAL HISTORY: fall, neck pain. TECHNIQUE: Imaging Protocol: Axial computed tomography images with coronal and sagittal reformatted images were created and reviewed COMPARISON: No exams were available for comparison FINDINGS: CT Head: Ventricles and Extra axial spaces: Normal in size and morphology for the patient's age. Hemorrhage: None. Cerebral parenchyma: Normal. Midline shift: None. Brainstem/Cerebellum: Normal. Calvarium: Normal. Visualized Paranasal sinuses/Mastoids: Clear. Soft Tissues: Unremarkable. CT Cervical Spine: Bones: No acute fracture or subluxation. Degenerative changes are seen in the spine. There is straig htening of the normal cervical lordosis which may be due to muscle spasm or patient positioning. Soft Tissues: Unremarkable. Lung Apices: Visualized lung apices are unremarkable. IMPRESSION: 1. No acute intracranial process. 2. No acute fracture or subluxation in the cervical spine. RADIATION DOSE DELIVERED: 1,654.14mGy.cm Total DLP DATA REPOSITORY: All CT scans at this facility are submitted to the National Radiology Data Registry (NRDR) Dose Index Registry (DIR) with the [employer] (ACR). RADIATION OPTIMIZATION: All CT scans at this facility use at least one of these dose optimization te chniques: automated exposure control; mA and/or kV adjustment per patient size (includes targeted exa ms where dose is matched to clinical indication); or iterative reconstruction.
--- NOTE | 2022-10-17 16:22 | ED.GENADUL_ITS ---
Discharge Plan Disposition Patient Disposition: Admit to [facility] Condition: Serious Discharge Details Chief Complaint: AMS/LOC Clinical Impression: Syncope, Blunt head trauma, Blunt trauma of multiple sites of trunk, Increased ammonia level Primary Care Provider: Soraya Tomas ED Provider: Fred Funez Home Meds and New Rx's Prescriptions: No Action bupropion HCl [Wellbutrin] PO alprazolam [Xanax] 1 MG tablet 1 mg PO BID MDD 2 PRN (Reason: anxiety) cholecalciferol (vitamin D3) 1,000 UNITS tablet 5,000 units PO DAILY levothyroxine 50 mcg Capsule 50 mcg PO DAILY Eliquis 2.5 mg tablet 2.5 mg PO BID Patient Comments: TAKE ONE TABLET BY MOUTH TWICE A DAY furosemide 20 mg tablet 40 mg PO DAILY haloperidol decanoate 100 mg/mL solution See Rx Instructions .ROUTE .COMPLEX Rx Instructions: 150 mg intramuscularly one a month glipizide 5 mg tablet extended release 24hr 5 mg PO DAILY Patient Comments: states not taking Medical Decision Making 52 yo male with hx of prior alcohol abuse and cirrhosis, former smoker, DM, who comes in with ems after syncope. HE states he felt well all day then tonight was eating pizza then reportedly lost consciousness and landed on the ground. His parents called ems and when ems arrived he was awake and alert. HE is hemodynamically stable, speaking clearly though he is speaking slowly. HE is oriented x4, is moving all his extremities. HE is complaining of posterior mid neck pain, left sided chest pain since the fall and right sided abdomen pain along with left posterior shoulder pain. NO fevers, no chills. NO signs of trauma to the head, perrl. He has tenderness over the left lateral chest and right lower abdomen, no guarding rebound. Given the syncope and now pain will proceed with ct head, c spine, chest/abd/pelvis along with t/l spine recons. Will also obtain ecg/troponin, cbc, cmp, tox screen and monitor on tele. labs show ammonia level over 100, will order lacutlose, no acute findings ct head/c spine, ct chest shows left 3-7 ribs anteriorly and he is tender here so question that these could be acute. NO other significant acute findings on imaging, no midline c spine tenderness. His mother reports she was upstairs and heard him fall, came down stairs and it seemed like he was having seizure like activity with his arms tensing for a minute or so. Unclear if this was seizure or myclonic jerks from possible syncope. Will discuss with hospitalist about admission for syncope vs seizure and elevated ammonia level though patient overall is oriented x4 anddoesn't seem encephalopathic. Differential Diagnosis Differential Diagnosis: tbi, electrolyte abnormality, arrythmia Medical Records Medical records reviewed: Yes I reviewed the patient's medical records. Imaging Data Radiologic Study: Attestation: I personally reviewed and interpreted this imaging study as follows: Imaging: CT Scan Radiologist's impression: IMPRESSION: No acute intracranial abnormality. IMPRESSION: 1. No acute cervical spine fracture. 2. Straightening of cervical lordosis. 3. Degenerative changes of the cervical spine at C5-C6. Radiologic Study #2: Attestation: I personally reviewed and interpreted this imaging study as follows: Imaging: CT Scan Radiologist's impression: PROCEDURE INFORMATION: Exam: CT Chest With Contrast; Diagnostic Exam date and time: 10/17/2022 5:12 PM Age: 52 years old Clinical indication: Injury or trauma; Fall; Upper; Blunt trauma (contusions or hematomas) TECHNIQUE: Imaging protocol: Diagnostic computed tomography of the chest with contrast. COMPARISON: CT CHEST LUNG CANCER SCREEN 10/02/2022 8:39 AM FINDINGS: Lungs: Unremarkable. No consolidation. No masses. Pleural spaces: Unremarkable. No pneumothorax. No pleural effusion. Heart: Coronary calcifications. No cardiomegaly. No pericardial effusion. Lymph nodes: Unremarkable. No enlarged lymph nodes. Vasculature: Unremarkable. No aortic aneurysm. Bones/joints: Minimal deformities of the anterior left 3rd through 7th ribs of indeterminate age Soft tissues: Moderate gynecomastia IMPRESSION: Minimal deformities of the anterior left 3rd through 7th ribs of indeterminate age No pneumothorax or acute traumatic aortic injury COMPARISON: CT ABDOMEN PELVIS W 11/09/2020 5:32 PM FINDINGS: Liver: Extensive cirrhosis. Calcification along the dome of the liver No mass. Main portal vein demonstrates peripheral calcifications and mild attenuation. The right portal vein is attenuated. Left portal vein is grossly patent Gallbladder and bile ducts: Extensive calcified gallstone. No ductal dilation. Pancreas: No ductal dilation. Spleen: Severe splenomegaly with mass effect on the left kidney. Perisplenic collaterals noted. Adrenal glands: Normal. No mass. Kidneys and ureters: Normal. No hydronephrosis. Stomach and bowel: Unremarkable. No obstruction. No mucosal thickening. Appendix: No evidence of appendicitis. Intraperitoneal space: Moderate ascites. No free air. No significant fluid collection. Vasculature: Unremarkable. No abdominal aortic aneurysm. Lymph nodes: Unremarkable. No enlarged lymph nodes. Urinary bladder: Unremarkable as visualized. Reproductive: Unremarkable as visualized. Bones/joints: Unremarkable. No acute fracture. Soft tissues: Unremarkable. IMPRESSION: No solid organ injury Cirrhosis and severe splenomegaly as noted. Moderate ascites Extensive gallstones Radiologic Study #3: Attestation: I personally reviewed and interpreted this imaging study as follows: Imaging: CT Scan Radiologist's impression: ROCEDURE INFORMATION: Exam: CT Thoracic Spine Without Contrast Exam date and time: 10/17/2022 5:12 PM Age: 52 years old Clinical indication: Injury or trauma; Fall; Blunt trauma (contusions or hematomas) TECHNIQUE: Imaging protocol: Computed tomography of the thoracic spine without contrast. COMPARISON: CT HEAD CERVICAL SPINE WO 10/17/2022 5:07 PM FINDINGS: Bones/joints: No acute fracture. Normal alignment. No significant disc bulge or herniation. No severe spinal canal stenosis. No significant neural foraminal narrowing. Soft tissues: U nremarkable. IMPRESSION: Unremarkable CT Spine. IMPRESSION: No acute findings. Degenerative changes at the lumbosacral junction as noted Lab Data Lab results reviewed: Yes I reviewed the patient's lab results. ECG Data Attestation: I personally reviewed and interpreted this ECG (s) as follows: Prior ECG tracings: available for review Interpretation: junctional rhythm, rate of 78, qtc 450, no stemi HPI General Mode of arrival: EMS . Date/Time Provider Initiated Documentation: 10/17/22 16:14 . Limitations to Documentation: no limitations . Information obtained by: patient . History of Present Illness 52 year old M presents to the emergency department with the chief complaint of syncope, described as moderate, Patient started experiencing this hour(s) (1) and it has been constant. No relieving factors improve symptom(s), No exacerbating factors reported . Patient notes denies diaphoresis and fever/chills. Patient did receive the following treatments prior to arrival, none Related Data Home Medications Medication Instructions Recorded Confirmed cholecalciferol (vitamin D3) 25 5,000 units PO DAILY 07/22/16 10/17/22 mcg (1,000 unit) tablet alprazolam 1 mg tablet (Xanax) 1 mg PO BID PRN anxiety 07/11/17 10/17/22 levothyroxine 50 mcg capsule 50 mcg PO DAILY 03/30/19 10/17/22 apixaban 2.5 mg tablet (Eliquis) 2.5 mg PO BID 07/16/20 10/17/22 furosemide 20 mg tablet 40 mg PO DAILY 11/09/20 10/17/22 glipizide 5 mg tablet, extended 5 mg PO DAILY 11/09/20 10/17/22 release 24 hr haloperidol decanoate 100 mg/mL See Rx Instructions .Route .COMPLEX 11/09/20 10/17/22 intramuscular solution bupropion HCl [Wellbutrin] PO 08/24/22 09/20/22 Allergies Allergy/AdvReac Type Severity Reaction Status Date / Time No Known Allergies Allergy Unverified 09/20/22 09:01 General Stated Complaint: AMS/LOC MANISH: 3 Review of Systems All systems reviewed & are unremarkable except as noted in HPI and below Constitutional Constitutional: Denies chills, Denies fever(s) and Denies weakness Cardiovascular Cardiovascular: Denies dyspnea Respiratory Respiratory: Denies cough and Denies dyspnea Gastrointestinal Gastrointestinal: Denies nausea and Denies vomiting Integumentary/Breasts Skin/Breast: Denies rash Neurologic Neurologic: Denies weakness Endocrine Endocrine: Denies cold intolerance PFSH All Active Problems (Updated 10/17/22 @ 18:10 by Fred Funez MD) Syncope (Chronic) Blunt head trauma (Acute) Blunt trauma of multiple sites of trunk (Acute) Increased ammonia level (Acute) Foreign body of ear, left (Acute) Abdominal pain (Acute) Ascites (Acute) Fracture of rib (Acute) Abdominal ascites (Acute) Thrombocytopenia (Chronic) Alcohol intoxication (Acute) HCV infection (Chronic) Cirrhosis (Acute) Electrolyte and fluid disorder (Acute) Spondylosis of lumbar region without myelopathy or radiculopathy (Chronic) Depression (Acute) Suicidal ideations (Acute) Diabetes mellitus type 2 in obese (Acute) Medical History (Updated 10/17/22 @ 18:10 by Fred Funez MD) Acute upper respiratory infection Alcohol abuse, in remission Chronic cough Chronic insomnia Constipation COPD (chronic obstructive pulmonary disease) Diabetes Discontinued smoking Esophageal varices Hearing loss Heroin addiction Hip pain, left History of appendicitis History of substance abuse Hyperlipidemia Hypertension Hypothyroid Impacted cerumen, left ear Inguinal hernia Lumbar spondylosis Muscle cramps Nocturnal hypoxemia Other specified disorders of teeth and supporting structures Petechiae Rhinorrhea Rib pain on left side Schizophrenia Sleep apnea Suicidal ideations Tinea pedis Unspecified cirrhosis of liver Surgical History EGD - MAC Social History Smoking/Tobacco Use Status: Former Tobacco Use Smoking risk assessment performed?: Yes Alcohol Intake: former Drug use: Current Sobriety Substance use type: does not use Details: denies drugs or alcohol for several months now Do you feel safe at home: Yes Do you feel safe in your relationship?: Yes Exam Const General: no acute distress Orientation: alert HENMT Head: normal to inspection Ears: external ears normal General nose exam: external nose normal Mouth: moist mucous membranes Eyes General: appearance normal, both eyes and all related structures Neck Neck: normal visual inspection Resp Effort & Inspection: normal respiratory effort and able to speak in complete sentences Auscultation: clear to auscultation bilaterally Cardio Jugular venous pressure: no JVD Rate: regular rate Heart Sounds: no murmurs GI Palpation: soft and tender Skin General skin exam: no rashes or lesions noted Neuro General: patient alert and patient oriented x3 Extrem General: normal to inspection Psych Mental Status: mental status grossly normal Course Vital Signs Vital signs: Vital Signs Temperature 36.8 C 10/17/22 16:09 Pulse 81 10/17/22 16:09 Respiratory Rate 18 10/17/22 16:09 Blood Pressure 125/69 10/17/22 16:09 Pulse Oximetry 97 10/17/22 16:09 Temperature 36.8 C 10/17/22 16:09 Temperature Source Oral 10/17/22 16:09 Pulse 81 10/17/22 16:09 Respiratory Rate 18 10/17/22 16:09 Respiratory Effort Normal, Non-Labored 10/17/22 16:20 Blood Pressure 125/69 10/17/22 16:09 Blood Pressure Position Sitting 10/17/22 16:09 Pulse Oximetry 97 10/17/22 16:09 Oxygen Delivery Method Room Air 10/17/22 16:09 Oxygen Flow Rate 0 10/17/22 16:09 Pain Level 8 10/17/22 16:09
[2022-10-17 16:25] LABS: BE (Venous) -2 mmol/L (-2-3); HCO3 (Venous) 23 mmol/L (23-28); O2 Sat (Venous) 47 %; TCO2 (Venous) 21 mmol/L (24-29); pCO2 (Venous) 37 mmHg (41-51); pO2 (Venous) 26 mmHg
[2022-10-17 16:28] LABS: Abs Immature Grans 0.02 10^3/uL (0.0-0.06); Absolute Basophil Count 0.02 10^3/uL (0.0-0.2); Absolute Eosinophil Count 0.09 10^3/uL (0.0-0.7); Absolute Lymphocyte Count 0.47 10^3/uL (1.2-3.4); Absolute Monocyte Count 0.26 10^3/uL (0.1-0.8); Absolute Neutrophil Count 2.29 10^3/uL (1.2-6.7); Basophils % 0.6; Eosinophils % 2.9; HCT 34.6 % (40.0-50.0); HGB 12.2 g/dL (13.5-17.5); Immature Grans % 0.6; Lymphocytes % 14.9; MCH 30.6 pg (27.0-33.0); MCHC 35.3 % (32.0-36.0); MCV 87 fL (80-95); MPV 10.5 fL (8.0-11.0); Monocytes % 8.3; Neutrophils % 72.7; RBC 3.99 10^6/uL (4.36-5.78); RDW 14.4 % (11.8-14.1); RDW-SD 46.4 fL; WBC 3.15 10^3/uL (4.4-10.8)
--- NOTE | 2022-10-17 16:29 | DI.CT_ITS ---
Exam(s) CT CHEST/ABD/PEL W CT THORACIC LUMBAR SPINE REC EXAM: CT CHEST/ABD/PEL W and CT thoracic and lumbar spine recons CLINICAL HISTORY: pain L sided chest pain, right sided abd pn TECHNIQUE: Imaging Protocol: Axial computed tomography images with coronal and sagittal reformatted images were created and reviewed CONTRAST MATERIAL: Intravenous: Omnipaque 350 contrast volume:100 mL Oral: No COMPARISON: CT CT ABDOMEN PELVIS W from 11/09/2020 FINDINGS: CHEST: Tracheobronchial tree: Patent where visualized. Pulmonary parenchyma: No consolidation or dominant measurable mass. Paraseptal cysts are present. Th ere is mild dependent atelectasis. Visualized thyroid gland: Unremarkable. Mediastinum and Herlinda: No dominant adenopathy or fluid collection. The esophagus is unremarkable. Pleura: No effusion or pneumothorax. Heart: The heart is not dilated. Coronary artery calcification is present. No pericardial effusion. Pulmonary arteries: The pulmonary arteries are inadequately opacified for evaluation of pulmonary emb sly. Aorta: Thoracic aorta non-dilated. Atherosclerosis. Lymph nodes: Within normal limits. Soft tissues: Bilateral gynecomastia. Bones:Within normal limits for the patient's age. There are no displaced rib fractures. There is so me deformity of the anterolateral aspects of the left 3rd through 7th ribs. These are of indetermina te age. Thoracic spine recons:. No acute fractures or subluxations are present. ABDOMEN: Liver: The liver is heterogeneous with a lobulated contour consistent with hepatic cirrhosis. This i s unchanged compared to the prior examination. No measurable mass. Portal, Superior Mesenteric, and Splenic Veins: There is decreased attenuation in the superior mesent elle vein just proximal to its confluence with the splenic vein. This may represent thrombus. This is unchanged. The collateral vessels are seen in the abdomen. Gallbladder and Biliary Tract: Cholelithiasis. No biliary ductal dilatation. Pancreas: Normal density, no abnormal calcifications or inflammatory process. Spleen: Marked splenomegaly. Adrenals: No masses seen. Kidneys: Normal size, contour and axis. No radiodense stones or obstructive uropathy. No masses seen. Abdominal Aorta: Abdominal portion non-dilated. Atherosclerosis. Bowel: No obstruction or bowel wall thickening. No evidence of appendicitis. There is a moderate darius unt of stool in the colon. Peritoneal Cavity: There is a small amount of perihepatic and perisplenic ascites. There is a small amount of pelvic ascites. No free air. Lymph Nodes: Within normal limits. Bones: Within normal limits for the patient's age. Soft Tissues: There is a small fat containing umbilical hernia. Lumbar spine recons: No acute fracture or subluxation is present. Minimal degenerative changes are p resent. PELVIS: Bladder: Symmetric distention, no gross wall thickening. Reproductive Organs: Unremarkable as visualized. Lymph Nodes: Within normal limits. Bones: Within normal limits. IMPRESSION: 1. Mild deformity of the anterior lateral left 3rd through 7th ribs of indeterminate age. Please cor relate with patient's clinical exam. 2. No other acute pulmonary process. 3. No acute abdominal or pelvic organ injury. 4. Findings of hepatic cirrhosis and portal hypertension. Small to moderate amount of abdominal asci fabian. 5. Cholelithiasis. No biliary ductal dilatation. RADIATION DOSE DELIVERED: 1580.18 mGy.cm Total DLP DATA REPOSITORY: All CT scans at this facility are submitted to the National Radiology Data Registry (NRDR) Dose Index Registry (DIR) with the [employer] (ACR). RADIATION OPTIMIZATION: All CT scans at this facility use at least one of these dose optimization te chniques: automated exposure control; mA and/or kV adjustment per patient size (includes targeted exa ms where dose is matched to clinical indication); or iterative reconstruction.
[2022-10-17] MEDS: HYDROmorphone 2 MG/ML SYR 1 MG IVP ×2 (16:33→18:23)
[2022-10-17 16:40] LABS: INR 1.4 (0.9-1.1); PTT Activated 27.9 sec (21.5-31.9); Prothrombin Time 14.4 sec (9.3-11.0)
[2022-10-17 16:43] LABS: Platelet Count 43 10^3/uL (130-400)
[2022-10-17 16:47] LABS: Troponin I < 50 ng/L (<or=60)
[2022-10-17 16:50] LABS: ALT 31 U/L (16-63); AST 26 U/L (15-37); Albumin 3.3 g/dL (3.4-5.0); Alkaline Phosphatase 122 U/L (46-116); Anion Gap 11.6 mmol/L (3-11); BUN 6 mg/dL (7-18); Bilirubin, Total 1.5 mg/dL (0.2-1.0); CO2 23.4 mmol/L (21.0-32.0); CREATININE 0.8 mg/dL (0.70-1.30); Chloride 103 mmol/L (98-107); Estimated GFR 107.15 (mL/min/1.73m2); Glucose 237 mg/dL (74-106); Magnesium 1.7 mg/dL (1.8-2.4); Potassium 3.8 mmol/L (3.5-5.1); Sodium 138 mmol/L (136-145); TSH (W/Ref FT4) 3.77 uIU/mL (0.36-3.74); Total Protein 6.9 g/dL (6.4-8.2)
[2022-10-17 16:50] LABS: Ammonia 100 umol/L (11-32)
[2022-10-17 16:51] LABS: ETHANOL BLOOD < 3.0 mg/dL (<10)
[2022-10-17 17:00] LABS: Acetaminophen < 2 ug/mL (10-30); Salicylate < 2.8 mg/dL (<2.8)
[2022-10-17] MEDS: Normal Saline - Diluent 50 ML VIAL IJ (17:04)
[2022-10-17] MEDS: Omnipaque 350 MG/ML 100 ML BTL IJ (17:04)
[2022-10-17 17:07] LABS: FREE T4 0.78 ng/dL (0.76-1.46)
--- NOTE | 2022-10-17 17:37 | DI.VRAD_ITS ---
PROCEDURE INFORMATION: Exam: CT Head Without Contrast Exam date and time: 10/17/2022 5:07 PM Age: 52 years old Clinical indication: Injury or trauma; Fall; Blunt trauma (contusions or hematomas) TECHNIQUE: Imaging protocol: Computed tomography of the head without contrast. COMPARISON: No relevant prior studies available. FINDINGS: Brain: No hemorrhage. No acute large territorial infarct. No mass effect. Cerebral ventricles: No ventriculomegaly. Paranasal sinuses: Visualized sinuses are unremarkable. No fluid levels. Mastoid air cells: Visualized mastoid air cells are well aerated. Bones/joints: No calvarial fracture. Soft tissues: Unremarkable. IMPRESSION: No acute intracranial abnormality. PROCEDURE INFORMATION: Exam: CT Cervical Spine Without Contrast Exam date and time: 10/17/2022 5:07 PM Age: 52 years old Clinical indication: Injury or trauma; Fall; Blunt trauma (contusions or hematomas) TECHNIQUE: Imaging protocol: Computed tomography of the cervical spine without contrast. COMPARISON: CT CHEST LUNG CANCER SCREEN 10/02/2022 8:39 AM FINDINGS: Bones/joints: No acute fracture. Straightening of cervical lordosis, possibly from positioning or related to muscle spasm. Vertebral body heights are within normal limits. Degenerative changes of the cervical spine, worse at C5-C6 with posterior disc osteophyte complex causing [id number] spinal canal stenosis. No high-grade neural foraminal stenosis. Lungs: The visualized lung apex is unremarkable. Vasculature: Vascular calcifications of the carotid bifurcations. Soft tissues: Unremarkable. IMPRESSION: 1. No acute cervical spine fracture. 2. Straightening of cervical lordosis. 3. Degenerative changes of the cervical spine at C5-C6. Dictated and Authenticated by: Sally Mcpherson MD. Ordering:JADA Ibarra MD
--- NOTE | 2022-10-17 17:46 | DI.VRAD_ITS ---
PROCEDURE INFORMATION: Exam: CT Chest With Contrast; Diagnostic Exam date and time: 10/17/2022 5:12 PM Age: 52 years old Clinical indication: Injury or trauma; Fall; Upper; Blunt trauma (contusions or hematomas) TECHNIQUE: Imaging protocol: Diagnostic computed tomography of the chest with contrast. COMPARISON: CT CHEST LUNG CANCER SCREEN 10/02/2022 8:39 AM FINDINGS: Lungs: Unremarkable. No consolidation. No masses. Pleural spaces: Unremarkable. No pneumothorax. No pleural effusion. Heart: Coronary calcifications. No cardiomegaly. No pericardial effusion. Lymph nodes: Unremarkable. No enlarged lymph nodes. Vasculature: Unremarkable. No aortic aneurysm. Bones/joints: Minimal deformities of the anterior left 3rd through 7th ribs of indeterminate age Soft tissues: Moderate gynecomastia IMPRESSION: Minimal deformities of the anterior left 3rd through 7th ribs of indeterminate age No pneumothorax or acute traumatic aortic injury PROCEDURE INFORMATION: Exam: CT Abdomen And Pelvis With Contrast Exam date and time: 10/17/2022 5:12 PM Age: 52 years old Clinical indication: Injury or trauma; Fall; Upper; Blunt trauma (contusions or hematomas) TECHNIQUE: Imaging protocol: Computed tomography of the abdomen and pelvis with contrast. COMPARISON: CT ABDOMEN PELVIS W 11/09/2020 5:32 PM FINDINGS: Liver: Extensive cirrhosis. Calcification along the dome of the liver No mass. Main portal vein demonstrates peripheral calcifications and mild attenuation. The right portal vein is attenuated. Left portal vein is grossly patent Gallbladder and bile ducts: Extensive calcified gallstone. No ductal dilation. Pancreas: No ductal dilation. Spleen: Severe splenomegaly with mass effect on the left kidney. Perisplenic collaterals noted. Adrenal glands: Normal. No mass. Kidneys and ureters: Normal. No hydronephrosis. Stomach and bowel: Unremarkable. No obstruction. No mucosal thickening. Appendix: No evidence of appendicitis. Intraperitoneal space: Moderate ascites. No free air. No significant fluid collection. Vasculature: Unremarkable. No abdominal aortic aneurysm. Lymph nodes: Unremarkable. No enlarged lymph nodes. Urinary bladder: Unremarkable as visualized. Reproductive: Unremarkable as visualized. Bones/joints: Unremarkable. No acute fracture. Soft tissues: Unremarkable. IMPRESSION: No solid organ injury Cirrhosis and severe splenomegaly as noted. Moderate ascites Extensive gallstones Dictated and Authenticated by: Kip Jones MD. Ordering:JADA Ibarra MD
--- NOTE | 2022-10-17 17:48 | DI.VRAD_ITS ---
PROCEDURE INFORMATION: Exam: CT Thoracic Spine Without Contrast Exam date and time: 10/17/2022 5:12 PM Age: 52 years old Clinical indication: Injury or trauma; Fall; Blunt trauma (contusions or hematomas) TECHNIQUE: Imaging protocol: Computed tomography of the thoracic spine without contrast. COMPARISON: CT HEAD CERVICAL SPINE WO 10/17/2022 5:07 PM FINDINGS: Bones/joints: No acute fracture. Normal alignment. No significant disc bulge or herniation. No severe spinal canal stenosis. No significant neural foraminal narrowing. Soft tissues: Unremarkable. IMPRESSION: Unremarkable CT Spine. PROCEDURE INFORMATION: Exam: CT Lumbar Spine Without Contrast Exam date and time: 10/17/2022 5:12 PM Age: 52 years old Clinical indication: Injury or trauma; Fall; Blunt trauma (contusions or hematomas) TECHNIQUE: Imaging protocol: Computed tomography of the lumbar spine without contrast. COMPARISON: MRI - LUMBAR SPINE WO CONTRAST 05/03/2017 1:21 PM FINDINGS: Bones/joints: No acute fracture. Chronic loss of height at L5-S1 and mild lordosis straightening. No significant disc bulge or herniation. No severe spinal canal stenosis. Moderate to severe neural foraminal narrowing at L5-S1. Soft tissues: Unremarkable. IMPRESSION: No acute findings. Degenerative changes at the lumbosacral junction as noted Dictated and Authenticated by: Kip Jones MD. Ordering:JADA Ibarra MD
[2022-10-17 17:59] LABS: Bilirubin Negative (Negative); Blood Negative (Negative); Clarity Clear (Clear); Glucose 250 mg/dL (Negative); Ketones Negative (Negative); Leukocyte Esterase Negative (Negative); Nitrite Negative (Negative); Urobilinogen 0.2 mg/dL (Up to 0.2)
[2022-10-17 18:16] LABS: *AMPHETAMINES SCREEN URINE Negative (Negative); *BARBITURATES SCREEN URINE Negative (Negative); *BENZODIAZEPINES SCREEN URINE Negative (Negative); Cannabinoids THC Negative (Negative); Cocaine Screen,Urine Negative (Negative); METHADONE URINE SCREEN Negative (Negative); OPIATES URINE SCREEN Negative (Negative); Tricyclic Antidepressants Negative (Negative)
--- NOTE | 2022-10-17 18:18 | W.PM.HP.N ---
Date of service: 10/17/22 Time of Service: 18:18 Assessment and Plan Assessment and plan (1) Syncope: Start date: 10/17/22 Status: Chronic Assessment and plan: This is a 52-year-old gentleman with chronic medical diseases which are fairly advanced who is a full code and had a syncopal episode at home which appears to have qualities of a seizure with patient biting his right tongue. He had a repeat tonic-clonic type seizure here at the hospital and now been loaded with Keppra and placed on phenobarbital alcohol withdrawal protocol. In the hospital he did not bite his tongue or have incontinence. He should be seeing neurology with EEG and to determine whether he needs to stay on antiseizure medications. Avoid benzodiazepine with the patient taken Xanax in the past but now on phenobarbital protocol which has been loaded. He is a full code. (2) Hyperammonemia: Start date: 10/17/22 Status: Acute Assessment and plan: Patient's ammonia level is elevated and he will be placed on lactulose with follow-up ammonia level in the morning. This most likely secondary to his chronic alcoholic cirrhosis with no recent alcohol intake by history with repeated questioning. His family members do drink and there is alcohol in the house. (3) Seizure: Start date: 10/17/22 Status: Acute Assessment and plan: Patient had witnessed tonic-clonic seizure in the hospital and did bite his tongue with a seizure activity at home and he syncopized. He was low with Keppra 1000 mg IV will be placed on oral Keppra 5 mg twice daily with phenobarbital being given IV per [facility] protocol. Neurology consultation and consider EEG. MRI of the brain in the morning. (4) Fracture of rib: Start date: 10/17/22 Status: Acute Assessment and plan: Left ribs at multiple levels appear to be variable ages of fracture but there is a component of an acute rib fracture with patient having the discomfort. Pain management avoiding narcotics. (5) Cirrhosis: Status: Chronic Assessment and plan: Continue outpatient medical therapy. Patient also has gallbladder stones and splenomegaly with low platelet count and evidence of chronic liver failure which appears stable but will be monitored. 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 Long-term he should be seeing hepatology and GI for his cirrhosis and gallstones but it does appear that he has seen specialty care in the past and his PCP can follow-up on these issues. These problems appear to be stable. Qualifiers: Ascites presence: without ascites Hepatic cirrhosis type: unspecified hepatic cirrhosis Qualified Code(s): K74.60 - Unspecified cirrhosis of liver (6) HCV infection: Status: Chronic Assessment and plan: No evidence of active viral load with routine retesting and no recent high risk exposure such as IV drug use or snorting. He is status post treatment for his acute disease in 2016. Continue to follow-up GI if engaged and at least monitor with PCP. (7) Diabetes mellitus type 2 in obese: Status: Chronic Assessment and plan: Patient will have glucometer measurements before meals and at bedtime with sliding scale short acting insulin coverage while in the hospital. Chronically he is on oral therapy. He does have truncal obesity but also as a recovered alcoholic he may have some insulin-dependent component if he had pancreatitis in the past. Continue to monitor at an outpatient considering advancing therapy such as GLP-1 agonist and insulin if needed. Check hemoglobin A1c in the morning. History of Present Illness History of Present Illness Chief Complaint: Tonic-clonic seizure at home biting right tongue. Narrative: This is a 52-year-old male patient who has not drunk alcohol for years though his family does drink around him and he does live with family. He is a former smoker who has diabetes on oral therapy and is on treatment for chronic ascites with alcoholic and hep C cirrhosis. His hepatitis C has been treated and cured having contracted the disease in 2016 with probable exposure from IV drug use and snorting which he admits to in the past. He was eating pizza at home at that time he appeared to syncopized and was having tonic-clonic type seizures biting his right tongue. He was not incontinent of urine or stool. He was slightly postictal after the event and in the ED had no further seizures. Once he was on MedSurg he did have a recurrent seizure lasting 2 minutes which did not require treatment. He was on CIWA protocol with Ativan orally as needed and this was switched to phenobarbital protocol with patient loaded with Keppra and neurology consultation was placed. He is admitted for inpatient care with his new onset seizure activity. I questioned him several times about his last alcoholic drink with this appearing to be a late alcohol withdrawal seizure with his history and continues exposure but he adamantly denies any recent alcohol use. Patient was found to have an increased ammonia level which may be causing some of his slurred speech and slowed mentation and is on lactulose. He is a full code. He does have poor insight into his chronic diseases. Review of Systems Narrative: 13 point review of systems positive for weight loss overall though he continues to have truncal weight with ascites. He denies any headache or focal weaknesses after his event. He does have chronic back pain which was worsened by his event. He states that he takes Xanax for pain. [facility] All Active Problems (Updated 10/18/22 @ 01:46 by Elvin Ríos) Hyperammonemia (Acute) Seizure (Acute) Syncope (Chronic) Blunt head trauma (Acute) Blunt trauma of multiple sites of trunk (Acute) Increased ammonia level (Acute) Foreign body of ear, left (Acute) Abdominal pain (Acute) Ascites (Acute) Fracture of rib (Acute) Abdominal ascites (Acute) Thrombocytopenia (Chronic) Alcohol intoxication (Acute) HCV infection (Chronic) Cirrhosis (Chronic) Electrolyte and fluid disorder (Acute) Spondylosis of lumbar region without myelopathy or radiculopathy (Chronic) Depression (Acute) Suicidal ideations (Acute) Diabetes mellitus type 2 in obese (Chronic) Medical History Acute upper respiratory infection Alcohol abuse, in remission Chronic cough Chronic insomnia Constipation COPD (chronic obstructive pulmonary disease) Diabetes Discontinued smoking Esophageal varices Hearing loss Heroin addiction Hip pain, left History of appendicitis History of substance abuse Hyperlipidemia Hypertension Hypothyroid Impacted cerumen, left ear Inguinal hernia Lumbar spondylosis Muscle cramps Nocturnal hypoxemia Other specified disorders of teeth and supporting structures Petechiae Rhinorrhea Rib pain on left side Schizophrenia Sleep apnea Suicidal ideations Tinea pedis Unspecified cirrhosis of liver Surgical History EGD - MAC Social History Smoking/Tobacco Use Status: Former Tobacco Use Smoking risk assessment performed?: Yes Alcohol Intake: former Drug use: Current Sobriety Substance use type: does not use Details: denies drugs or alcohol for several months now Do you feel safe at home: Yes Do you feel safe in your relationship?: Yes Meds Allergies and Home Medications Allergies Allergy/AdvReac Type Severity Reaction Status Date / Time No Known Allergies Allergy Unverified 09/20/22 09:01 Home Medications Medication Instructions Recorded Confirmed Type cholecalciferol (vitamin D3) 25 5,000 units PO DAILY 07/22/16 10/17/22 History mcg (1,000 unit) tablet alprazolam 1 mg tablet (Xanax) 1 mg PO BID PRN anxiety 07/11/17 10/17/22 History levothyroxine 50 mcg capsule 50 mcg PO DAILY 03/30/19 10/17/22 History apixaban 2.5 mg tablet (Eliquis) 2.5 mg PO BID 07/16/20 10/17/22 History furosemide 20 mg tablet 40 mg PO DAILY 11/09/20 10/17/22 History glipizide 5 mg tablet, extended 5 mg PO DAILY 11/09/20 10/17/22 History release 24 hr haloperidol decanoate 100 mg/mL See Rx Instructions .Route .COMPLEX 11/09/20 10/17/22 History intramuscular solution bupropion HCl [Wellbutrin] PO 08/24/22 09/20/22 History Exam Narrative Exam Narrative: General: Patient peers older than stated age, moderately obese especially of the trunk, alert and oriented to person, place and time. He is in no acute distress and speaking with slightly slurred speech. He did receive his loading dose of phenobarbital. HEENT: Normocephalic, eyes with pupils equal and react to light symmetrically, extraocular movement tact and sclera anicteric. Oropharynx with moist mucosa and poor dentition. His right tongue is bruised and slightly swollen but no lacerations. Neck: Supple without JVD. Back: Kyphotic without CVA tenderness but decreased range of motion and loss of lumbar lordotic curve. Lungs: Clear to auscultation and percussion with fair aeration. Heart: Regular rate and rhythm with no murmurs or gallops appreciated. Abdomen: Slightly obese contour, protuberant with no palpable fluid wave, no palpable hepatomegaly and palpable spleen. Bowel sounds positive all quadrants. No focalizing tenderness or rebound. Soft to palpation. Genitalia/rectal: Exam deferred. Extremities: Without clubbing, cyanosis or pitting edema with nonpitting edema lower extremities. Fair capillary refill. Neuro: Cranial nerves II through XII gross intact, no focal motor deficits. No tremor. Skin: Pale, warm and dry with fair turgor. Psych: Flattened affect with depressed mood. No abnormal thought processes. Remote and recent memory appears grossly intact though patient is a poor historian. He seems to have poor insight into his chronic medical problems and appropriate medical therapy. Results Imaging Imaging Studies: Exam: CT Head Without Contrast Exam date and time: 10/17/2022 5:07 PM Age: 52 years old Clinical indication: Injury or trauma; Fall; Blunt trauma (contusions or hematomas) TECHNIQUE: Imaging protocol: Computed tomography of the head without contrast. COMPARISON: No relevant prior studies available. FINDINGS: Brain: No hemorrhage. No acute large territorial infarct. No mass effect. Cerebral ventricles: No ventriculomegaly. Paranasal sinuses: Visualized sinuses are unremarkable. No fluid levels. Mastoid air cells: Visualized mastoid air cells are well aerated. Bones/joints: No calvarial fracture.? Soft tissues: Unremarkable. IMPRESSION: No acute intracranial abnormality. PROCEDURE INFORMATION: Exam: CT Cervical Spine Without Contrast Exam date and time: 10/17/2022 5:07 PM Age: 52 years old Clinical indication: Injury or trauma; Fall; Blunt trauma (contusions or hematomas) TECHNIQUE: Imaging protocol: Computed tomography of the cervical spine without contrast. COMPARISON: CT CHEST LUNG CANCER SCREEN 10/02/2022 8:39 AM FINDINGS: Bones/joints: No acute fracture. Straightening of cervical lordosis, possibly from positioning or related to muscle spasm. Vertebral body heights are within normal limits. Degenerative changes of the cervical spine, worse at C5-C6 with posterior disc osteophyte complex causing [id number] spinal canal stenosis. No high-grade neural foraminal stenosis. Lungs: The visualized lung apex is unremarkable. Vasculature: Vascular calcifications of the carotid bifurcations. Soft tissues: Unremarkable. IMPRESSION: 1. ? No acute cervical spine fracture. 2. ? Straightening of cervical lordosis. 3. ? Degenerative changes of the cervical spine at C5-C6. Exam: CT Thoracic Spine Without Contrast Exam date and time: 10/17/2022 5:12 PM Age: 52 years old Clinical indication: Injury or trauma; Fall; Blunt trauma (contusions or hematomas) TECHNIQUE: Imaging protocol: Computed tomography of the thoracic spine without contrast. COMPARISON: CT HEAD CERVICAL SPINE WO 10/17/2022 5:07 PM FINDINGS: Bones/joints: No acute fracture. Normal alignment. No significant disc bulge or herniation. No severe spinal canal stenosis. No significant neural foraminal narrowing. Soft tissues: Unremarkable. IMPRESSION: Unremarkable CT Spine. PROCEDURE INFORMATION: Exam: CT Lumbar Spine Without Contrast Exam date and time: 10/17/2022 5:12 PM Age: 52 years old Clinical indication: Injury or trauma; Fall; Blunt trauma (contusions or hematomas) TECHNIQUE: Imaging protocol: Computed tomography of the lumbar spine without contrast. COMPARISON: MRI - LUMBAR SPINE WO CONTRAST 05/03/2017 1:21 PM FINDINGS: Bones/joints: No acute fracture.? Chronic loss of height at L5-S1 and mild lordosis straightening.? No significant disc bulge or herniation. No severe spinal canal stenosis.? Moderate to severe neural foraminal narrowing at L5-S1. Soft tissues: Unremarkable. IMPRESSION: No acute findings. Exam: CT Chest With Contrast; Diagnostic Exam date and time: 10/17/2022 5:12 PM Age: 52 years old Clinical indication: Injury or trauma; Fall; Upper; Blunt trauma (contusions or hematomas) TECHNIQUE: Imaging protocol: Diagnostic computed tomography of the chest with contrast. COMPARISON: CT CHEST LUNG CANCER SCREEN 10/02/2022 8:39 AM FINDINGS: Lungs: Unremarkable. No consolidation. No masses. Pleural spaces: Unremarkable. No pneumothorax. No pleural effusion. Heart:? Coronary calcifications. No cardiomegaly. No pericardial effusion. Lymph nodes: Unremarkable. No enlarged lymph nodes. Vasculature: Unremarkable. No aortic aneurysm.? Bones/joints:? Minimal deformities of the anterior left 3rd through 7th ribs of indeterminate age Soft tissues:? Moderate gynecomastia IMPRESSION: Minimal deformities of the anterior left 3rd through 7th ribs of indeterminate age No pneumothorax or acute traumatic aortic injury PROCEDURE INFORMATION: Exam: CT Abdomen And Pelvis With Contrast Exam date and time: 10/17/2022 5:12 PM Age: 52 years old Clinical indication: Injury or trauma; Fall; Upper; Blunt trauma (contusions or hematomas) TECHNIQUE: Imaging protocol: Computed tomography of the abdomen and pelvis with contrast. COMPARISON: CT ABDOMEN PELVIS W 11/09/2020 5:32 PM FINDINGS: Liver:? Extensive cirrhosis.? Calcification along the dome of the liver No mass. Main portal vein demonstrates peripheral calcifications and mild attenuation. The right portal vein is attenuated. Left portal vein is grossly patent Gallbladder and bile ducts:? Extensive calcified gallstone. No ductal dilation. Pancreas: No ductal dilation. Spleen:? Severe splenomegaly with mass effect on the left kidney.? Perisplenic collaterals noted. Adrenal glands: Normal. No mass. Kidneys and ureters: Normal. No hydronephrosis. Stomach and bowel: Unremarkable. No obstruction. No mucosal thickening. Appendix: No evidence of appendicitis. Intraperitoneal space:? Moderate ascites. No free air. No significant fluid collection. Vasculature: Unremarkable. No abdominal aortic aneurysm. Lymph nodes: Unremarkable. No enlarged lymph nodes. Urinary bladder: Unremarkable as visualized. Reproductive: Unremarkable as visualized. Bones/joints: Unremarkable. No acute fracture. Soft tissues: Unremarkable. IMPRESSION: No solid organ injury Cirrhosis and severe splenomegaly as noted. Moderate ascites Extensive gallstones Labs 10/17/22 16:15 10/17/22 16:15 Labs: Laboratory Results - last 24 hr 10/17/22 10/17/22 10/17/22 16:15 16:15 16:15 WBC 3.15 L RBC 3.99 L Hgb 12.2 L Hct 34.6 L MCV 87 MCH 30.6 MCHC 35.3 RDW 14.4 H Plt Count 43 L MPV 10.5 Immature Gran % 0.6 Neutrophils % 72.7 Lymphocytes % 14.9 Monocytes % 8.3 Eosinophils % 2.9 Basophils % 0.6 Nucleated RBC % 0.0 Absolute Neutrophils 2.29 Absolute Lymphocytes 0.47 L Absolute Monocytes 0.26 Absolute Eosinophils 0.09 Absolute Basophils 0.02 PT INR APTT VBG pH VBG pCO2 VBG pO2 VBG HCO3 VBG Total CO2 VBG O2 Saturation VBG Base Excess Sodium 138 Potassium 3.8 Chloride 103 Carbon Dioxide 23.4 Anion Gap 11.6 H BUN 6 L Creatinine 0.8 Est GFR (CKD-EPI 2020) 107.15 Glucose 237 H Calcium 8.0 L Magnesium 1.7 L Total Bilirubin 1.5 H AST 26 ALT 31 Alkaline Phosphatase 122 H Ammonia Troponin I Total Protein 6.9 Albumin 3.3 L TSH 3.77 H Free T4 0.78 Urine Color Urine Clarity Urine pH Ur Specific [place] Urine Protein Urine Ketones Urine Blood Urine Nitrite Urine Bilirubin Urine Urobilinogen Ur Leukocyte Esterase Urine Glucose Salicylates < 2.8 Urine Opiates Screen Urine Methadone Screen Acetaminophen < 2 Ur Barbiturates Screen Ur Tricyclics Screen Ur Amphetamines Screen U Benzodiazepines Scrn Urine Cocaine Screen Ur THC Screen Ethyl Alcohol < 3.0 10/17/22 10/17/22 10/17/22 16:15 16:15 16:15 WBC RBC Hgb Hct MCV MCH MCHC RDW Plt Count MPV Immature Gran % Neutrophils % Lymphocytes % Monocytes % Eosinophils % Basophils % Nucleated RBC % Absolute Neutrophils Absolute Lymphocytes Absolute Monocytes Absolute Eosinophils Absolute Basophils PT 14.4 H INR 1.4 H APTT 27.9 VBG pH 7.40 VBG pCO2 37 L VBG pO2 26 VBG HCO3 23 VBG Total CO2 21 L VBG O2 Saturation 47 VBG Base Excess -2 Sodium Potassium Chloride Carbon Dioxide Anion Gap BUN Creatinine Est GFR (CKD-EPI 2020) Glucose Calcium Magnesium Total Bilirubin AST ALT Alkaline Phosphatase Ammonia Troponin I < 50 Total Protein Albumin TSH Free T4 Urine Color Urine Clarity Urine pH Ur Specific [place] Urine Protein Urine Ketones Urine Blood Urine Nitrite Urine Bilirubin Urine Urobilinogen Ur Leukocyte Esterase Urine Glucose Salicylates Urine Opiates Screen Urine Methadone Screen Acetaminophen Ur Barbiturates Screen Ur Tricyclics Screen Ur Amphetamines Screen U Benzodiazepines Scrn Urine Cocaine Screen Ur THC Screen Ethyl Alcohol 10/17/22 10/17/22 10/17/22 16:34 17:45 17:45 WBC RBC Hgb Hct MCV MCH MCHC RDW Plt Count MPV Immature Gran % Neutrophils % Lymphocytes % Monocytes % Eosinophils % Basophils % Nucleated RBC % Absolute Neutrophils Absolute Lymphocytes Absolute Monocytes Absolute Eosinophils Absolute Basophils PT INR APTT VBG pH VBG pCO2 VBG pO2 VBG HCO3 VBG Total CO2 VBG O2 Saturation VBG Base Excess Sodium Potassium Chloride Carbon Dioxide Anion Gap BUN Creatinine Est GFR (CKD-EPI 2020) Glucose Calcium Magnesium Total Bilirubin AST ALT Alkaline Phosphatase Ammonia 100 H Troponin I Total Protein Albumin TSH Free T4 Urine Color Yellow Urine Clarity Clear Urine pH 7.0 Ur Specific [place] 1.010 Urine Protein Negative Urine Ketones Negative Urine Blood Negative Urine Nitrite Negative Urine Bilirubin Negative Urine Urobilinogen 0.2 Ur Leukocyte Esterase Negative Urine Glucose 250 H Salicylates Urine Opiates Screen Negative Urine Methadone Screen Negative Acetaminophen Ur Barbiturates Screen Negative Ur Tricyclics Screen Negative Ur Amphetamines Screen Negative U Benzodiazepines Scrn Negative Urine Cocaine Screen Negative Ur THC Screen Negative Ethyl Alcohol Last Vital Signs Temp 36.8 C 10/17/22 16:09 Pulse 85 10/17/22 17:36 Resp 18 10/17/22 17:36 BP 136/72 10/17/22 17:36 Pulse Ox 99 10/17/22 17:36 Time Spent Time spent with Patient: >75 minutes Time was spent: preparing to see the patient(eg.review tests), obtaining and/or reviewing separately otained hiistory, ordering medications,tests, procedures, indepentently interpreting results, counseling the patient and care coordination
--- NOTE | 2022-10-17 18:40 | NUR.NOTE ---
Nursing Note: Pt updated with plan of care. Pt has commode and wipes close by. Call light within reach and pt demonstrated use. Pt thanked this RN for care.
[2022-10-17] MEDS: Lactulose 20 GM/30 ML CUP 30 GM PO (19:22)
[2022-10-17 19:56] LABS: Troponin I < 50 ng/L (<or=60)
[2022-10-17] MEDS: PHENobarbital 250 MG in Normal Saline 50 ML 100 MG IVPB (22:54)
[2022-10-17] MEDS: MAGNESIUM SULFATE 2 GM/50 ML BAG IVPB (23:46)
[2022-10-17] MEDS: Acetaminophen 325 MG TAB PO (23:52)
[2022-10-18] VITALS (13 sets, daily range): BP systolic 109–131; BP diastolic 66–78; PULSE 65–81; RESP 13–19; TEMP 36.9–37.6; O2SAT 94–97
--- NOTE | 2022-10-18 | DI.CT_ITS ---
Exam(s) CT UPPER EXTREMITY LT WO EXAM: CT UPPER EXTREMITY LT WO CLINICAL HISTORY: Left glenoid fracture TECHNIQUE: Imaging Protocol: Axial computed tomography images with coronal and sagittal reformatted images were created and reviewed. CONTRAST MATERIAL: Noncontrast COMPARISON: CR XR SHOULDER LT COMPLETE 2+V from 10/18/2022 FINDINGS: There is a mild impaction fracture of the anterosuperior humeral head. There is a comminuted but not significantly displaced fracture involving the mid through inferior glenoid. There is mild impaction and minimal separation at the articular surface infero posteriorly. A joint effusion is present. The visualized portions of the lungs are clear. IMPRESSION: Comminuted minimally displaced fracture of the mid to inferior glenoid. Mild impaction fracture of th e anterior superior humeral head.. RADIATION DOSE DELIVERED: 851.11mGy.cm Total DLP DATA REPOSITORY: All CT scans at this facility are submitted to the National Radiology Data Registry (NRDR) Dose Index Registry (DIR) with the [employer] (ACR). RADIATION OPTIMIZATION: All CT scans at this facility use at least one of these dose optimization te chniques: automated exposure control; mA and/or kV adjustment per patient size (includes targeted exa ms where dose is matched to clinical indication); or iterative reconstruction.
--- NOTE | 2022-10-18 | DI.RAD_ITS ---
Exam(s) XR SHOULDER LT COMPLETE 2+V EXAM: XR SHOULDER LT COMPLETE 2+V CLINICAL HISTORY: left shoulder pain post fall. TECHNIQUE: 2D digital imaging was performed of the left shoulder. Four images were obtained. AP, G rashey, Y-view and axillary views were obtained. COMPARISON: CR,XR XR SHOULDER RT COMPLETE 2+V from 08/20/[address] THORACIC LUMBAR SPINE REC from 10/17/[address] CHEST/ABD/PEL W from 10/17/2022 FINDINGS: BONES: There is a nondisplaced oblique fracture through the anterior aspect of the left glenoid. No bony destructive lesion is seen. JOINTS: No dislocation present. The acromioclavicular joint is unremarkable. SOFT TISSUE: Normal. IMPRESSION: Nondisplaced fracture of the anterior aspect of the left glenoid. DATA REPOSITORY: RADIATION DOSE DELIVERED:
[2022-10-18] MEDS: PHENobarbital 150 MG in Normal Saline 50 ML 100 MG IVPB ×2 (02:04→04:42)
[2022-10-18] MEDS: Insulin Aspart 300 UNITS/3 ML PEN SC ×4 (02:56→21:41)
[2022-10-18] MEDS: levETIRAcetam 1,000 MG in Normal Saline 100 ML 400 MG IVPB (03:40)
[2022-10-18] MEDS: Acetaminophen 325 MG TAB PO ×4 (04:51→21:42)
--- NOTE | 2022-10-18 05:10 | NUR.NOTE ---
220 Event Note 10/17/20 Shortly after completing some admission tasks, upon my return to the room LAST TURNER asked for immediate nurse assistance. Pt did appear to be having an active seizure. Pt was moved from supine to right side lying, and oral suctioning performed with a Yaunker. pts seizure seemed to last for at least 5 min, before pt began snoring loudly. no visible vomiting present. at about 2210. the patient was awake enough to answer correctly report his name and birthday, current state and current year. The pony trimmer hospitalist was then notified and patient was later started on phenobarbital, and keppra. end note. Nursing Note:
[2022-10-18] MEDS: Levothyroxine 50 MCG TAB PO (06:17)
--- NOTE | 2022-10-18 07:00 | DI.MRI_ITS ---
Exam(s) MR BRAIN WO EXAM: MR BRAIN WO CLINICAL HISTORY: New Onset Seizures TECHNIQUE: Multiplanar multisequence MRI of the brain was performed. COMPARISON: CT CT HEAD CERVICAL SPINE WO from 10/17/2022 FINDINGS: VENTRICLES AND EXTRA AXIAL SPACES: Normal in size and morphology for the patient's age. MIDLINE SHIFT: None. CEREBRAL PARENCHYMA: No focus of restricted diffusion to suggest acute infarct. No space-occupying le miya identified. The temporal lobes appear symmetric and of normal signal. HEMORRHAGE: None. BRAINSTEM/CEREBELLUM: Normal. CALVARIUM: Normal. VISUALIZED PARANASAL SINUSES/MASTOIDS:Clear. ALATNA OF GUERRIER: Normal flow void. PITUITARY GLAND: Unremarkable. OTHER FINDINGS: None. IMPRESSION: 1. No evidence of an intracranial mass or infarct. 2. Normal and symmetric appearance of the temporal lobes. DATA REPOSITORY:
[2022-10-18 07:38] LABS: HCT 32.1 % (40.0-50.0); HGB 11.3 g/dL (13.5-17.5); MCH 30.6 pg (27.0-33.0); MCHC 35.2 % (32.0-36.0); MCV 87 fL (80-95); MPV 11.1 fL (8.0-11.0); RBC 3.69 10^6/uL (4.36-5.78); RDW 14.2 % (11.8-14.1); RDW-SD 45.1 fL; WBC 4.87 10^3/uL (4.4-10.8)
[2022-10-18 07:40] LABS: INR 1.3 (0.9-1.1); Prothrombin Time 13.6 sec (9.3-11.0)
[2022-10-18 07:42] LABS: Hemoglobin A1C 6.9 % (<5.7)
[2022-10-18 08:12] LABS: Platelet Count 39 10^3/uL (130-400)
[2022-10-18 08:16] LABS: ALT 30 U/L (16-63); AST 29 U/L (15-37); Alkaline Phosphatase 103 U/L (46-116); Anion Gap 9.5 mmol/L (3-11); BUN 5 mg/dL (7-18); Bilirubin, Total 1.6 mg/dL (0.2-1.0); CO2 24.5 mmol/L (21.0-32.0); CREATININE 0.6 mg/dL (0.70-1.30); Calcium 7.7 mg/dL (8.5-10.1); Chloride 102 mmol/L (98-107); Estimated GFR 116.87 (mL/min/1.73m2); Glucose 101 mg/dL (74-106); Magnesium 1.9 mg/dL (1.8-2.4); Potassium 3.3 mmol/L (3.5-5.1); Sodium 136 mmol/L (136-145); Total Protein 6.3 g/dL (6.4-8.2)
[2022-10-18 08:18] LABS: PHOSPHORUS 3.7 mg/dL (2.6-4.7)
[2022-10-18] MEDS: Folic Acid 1 MG TAB PO (08:29)
[2022-10-18] MEDS: Furosemide 20 MG TAB 40 MG PO (08:29)
[2022-10-18] MEDS: Lactulose 20 GM/30 ML CUP 30 GM PO ×2 (08:30→21:41)
[2022-10-18] MEDS: levETIRAcetam 500 MG TAB PO ×2 (08:31→21:42)
[2022-10-18] MEDS: Multivitamin TAB 1 TAB PO (08:31)
[2022-10-18] MEDS: Thiamine 100 MG TAB PO (08:31)
[2022-10-18] MEDS: Normal Saline Flush 10 ML SYR IVP ×3 (08:32→21:43)
[2022-10-18 08:39] LABS: Ammonia 62 umol/L (11-32)
[2022-10-18 09:30] LABS: Creatine Kinase 261 U/L (39-308)
--- NOTE | 2022-10-18 10:09 | OT.INNT ---
Occupational Therapy Notes 10/18/22 OT consult received and pts chart was reviewed. OT attempted to consult with pt today who was working with another provider. OT will attempt on another day. Ramona Oliver OTR/L
--- NOTE | 2022-10-18 10:13 | INITIAL_ITS ---
Date of service: 10/18/22 Time of Service: 10:13 Care Management Initial Assmt Initial Assessment REASON FOR HOSPITALIZATION:: syncope and seizure PREVIOUS FUNCTIONAL STATUS/SOCIAL/FAMILY SUPPORTS:: Won lives in a single family home in [place], [place] with his mother Graciela and father Maximiliano. He is an only child. Marek receives social security disability. 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 He reported that his parents moved to [place] about 4 years ago and he has lived with them since. 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 He is independent with ADLs and receives [employer]. CURRENT FUNCTIONAL STATUS:: Marek was sitting up in bed when CM met with him. His manner was pleasant and agreeable and he engaged well with CM. Marek talked a bit about living in [place] and some of the jobs he had while there. He is now with his parents and pays them rent from his social security check. 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 ADVANCE DIRECTIVES:: On file. Mother Graciela Monroy is listed as HCA. Maximiliano Monroy listed as alternate Has patient been provided with info about the portal/API?: Yes Did the patient sign up for the portal?: No CODE STATUS:: Full Code INSURANCE COVERAGE / FINANCIAL ISSUES:: Medicare and Medicaid CURRENT HOME/COMMUNITY SERVICES/EQUIPMENT:: [employer] PRIMARY CARE PHYSICIAN:: Soraya Tomas POTENTIAL DISCHARGE NEEDS:: Follow up with PCP and plan of care PATIENT/FAMILY EDUCATION NEEDS:: Review of discharge instructions, limitations, activity, follow up plan, discuss [employer] TRANSPORTATION:: via private vehicle with family PLAN:: Anticipate Won will be discharged home possibly with new home health services. He will follow up with his community providers and plan of care and transport with family. CM will support Won and his discharge planning needs. PFSH All Active Problems (Updated 10/18/22 @ 17:13 by Maricel Valentine MD) Open wound of tongue due to bite (Acute) Discharge planning issues (Acute) DVT prophylaxis (Acute) Fracture of glenoid process of left scapula (Acute) Hyperammonemia (Acute) Seizure (Acute) Syncope (Chronic) Blunt head trauma (Acute) Blunt trauma of multiple sites of trunk (Acute) Increased ammonia level (Acute) Foreign body of ear, left (Acute) Abdominal pain (Acute) Ascites (Acute) Fracture of rib (Acute) Abdominal ascites (Acute) Thrombocytopenia (Chronic) Alcohol intoxication (Acute) HCV infection (Chronic) Cirrhosis (Chronic) Electrolyte and fluid disorder (Acute) Spondylosis of lumbar region without myelopathy or radiculopathy (Chronic) Depression (Acute) Suicidal ideations (Acute) Diabetes mellitus type 2 in obese (Chronic) Medical History Acute upper respiratory infection Alcohol abuse, in remission Chronic cough Chronic insomnia Constipation COPD (chronic obstructive pulmonary disease) Diabetes Discontinued smoking Esophageal varices Hearing loss Heroin addiction Hip pain, left History of appendicitis History of substance abuse Hyperlipidemia Hypertension Hypothyroid Impacted cerumen, left ear Inguinal hernia Lumbar spondylosis Muscle cramps Nocturnal hypoxemia Other specified disorders of teeth and supporting structures Petechiae Rhinorrhea Rib pain on left side Schizophrenia Sleep apnea Suicidal ideations Tinea pedis Unspecified cirrhosis of liver Surgical History EGD - MAC Social History Smoking/Tobacco Use Status: Former Tobacco Use Smoking risk assessment performed?: Yes Alcohol Intake: former Drug use: Current Sobriety Substance use type: does not use Details: denies drugs or alcohol for several months now Do you feel safe at home: Yes Do you feel safe in your relationship?: Yes
--- NOTE | 2022-10-18 10:47 | PT.INIE ---
PT Notes Visit Reasons: Syncope,Seizure,Hyperammonemia,Alcoholic Chirrosis Physical Therapy Inpatient Initial Evaluation Date: 10/18/22 Referring Doctor: Elvin Ríos MD PT Orders: PT CONSULT: Limited Ability Precautions: Fall. Standard. Seizure history Patient Profile/Admitting Diagnosis: Won is 52 yo male that presented to the ER on 10/17/22 after losing consciousness while eating and falling to the ground. He lives with parents and they called EMS. Patient did have a seizure while at the hospital. PMHX: See EMR Social History/Home Situation: Lives with parents upstairs, reports independent at baseline. Equipment Owned/DME: None Subjective: Cleared by nursing to see patient and patient is agreeable to PT. Patient is resting in bed at time of consult and connected to telemetry. Objective: General Observation: Pleasant, mildly impulsive Mental Status: A&O x3 Pain: 9/10 left shoulder ROM: Right Upper Extremity: Shoulder Flexion WFL. Shoulder abduction WFL. Elbow flexion WFL. Wrist flexion WFL. Opening and closing of hand WFL. Left Upper Extremity: Shoulder Flexion significantly impaired. Shoulder abduction significantly impaired. Elbow flexion WFL. Wrist flexion WFL. Opening and closing of hand WFL. Right Lower Extremity: Hip flexion WFL. Hip abduction WFL. Knee flexion WFL. Ankle dorsiflexion WFL. Ankle plantarflexion WFL. Left Lower Extremity: Hip flexion WFL. Hip abduction WFL. Knee flexion WFL. Ankle dorsiflexion WFL. Ankle plantarflexion WFL. Strength: Right Upper Extremity: Shoulder flexors 5/5. Shoulder abductors 5/5. Elbow flexors 5/5. Elbow extensors 5/5. Mobile Home Installer strong. Left Upper Extremity: Shoulder flexors 3/5. Shoulder abductors 3/5. Elbow flexors 4+/5. Elbow extensors 5/5. Mobile Home Installer strong. Right Lower Extremity: Hip flexors 5/5. Knee flexors 5/5. Knee extensors 5/5. Ankle dorsiflexors 5/5. Ankle plantarflexors 5/5. Left Lower Extremity: Hip flexors 5/5. Knee flexors 5/5. Knee extensors 5/5. Ankle dorsiflexors 5/5. Ankle plantarflexors 5/5. Sensation: Intact as to pain and pressure on bilateral lower extremities. Bed Mobility/Transfers: Rolling: Independent Supine to sit: Independent Sit to supine: Independent Sit to stand: Independent Stand to sit: Independent Gait: Ambulated 20 ft with SBA - unsteady on feet with path deviation, decreased stabilization Stairs: Not assessed Balance: Static Sitting: Normal Dynamic Sitting: Good Static Standing: Good Dynamic Standing: Poor Special Tests: Mobility Limitations Standardized Measure [facility] AM-PAC 6 clicks Basic Mobility Inpatient Short Form: Raw Score: 22 CMS Score: 20.91% Informed Consent/Education: Patient instructed in purpose of PT consult and plan of care. Assessment: Patient presents with clinical signs and symptoms consistent with current/admitting diagnoses that have resulted to mobility limitations, gait instability, generalized weakness, and impairment of motor control as demonstrated by the following impairment level findings: 1. Decreased strength to left shoulder major muscle groups 2. Impaired standing balance 3. Impaired activity tolerance 4. Limitation of joint range of motion in left shoulder Impairments are contributing to the following functional limitations: 1. Inability to safely ambulate without assistive device or physical assistance 2. Increased fall risk 3. Inability to negotiate steps alone safely Patient is assessed as a low complexity based on the following: History: 52 year old male with impairment level findings, functional limitations, and past medical history as indicated above Examination: Demonstrable impairment in strength, balance, and mobility level with underlying impairments and functional limitations as documented above Presentation: Evolving Decision Making: Low complexity Poor standing balance and patient is mildly impulsive. May need assistive device for reduced fall risk with ambulation. Patient was left in bed with bed alarm in place, rails up, and rail pads in place. Goals: Goals x1 week 1. Independent gait on level surface with use of least restrictive device for at least 300 feet without report of pain nor dyspnea 2. Good static and dynamic standing balance/tolerance 3. Independent stair negotiation while holding onto bilateral rails for at least 10 steps without report of pain nor dyspnea Plan of Care/Treatment Plan: 1x/day, 7 days/week x1 week. Plan of care has been reviewed with the LAY UP OPERATOR providing the service under Physical Therapy direction. Initiate Physical Therapy intervention for strengthening, bed mobility, transfers, gait, stairs, balance training, and use of assistive device. Discharge Plan DISCHARGE RECOMMENDATIONS: Home with outpatient PT TREATMENT CODE/TIME: 8:47-9:12 (25 minutes), [id number] Thank you for the opportunity to participate in the care of this patient. Yue Costello, PT, DPT, [facility], [place]
[2022-10-18] MEDS: Cholecalciferol (Vitamin D3) 1,000 UNIT TAB 5000 UNITS PO (12:00)
[2022-10-18] MEDS: Potassium Chloride 20 MEQ TABCR 40 MEQ PO (12:01)
[2022-10-18 12:12] LABS: Lab Add On Test DONE
--- NOTE | 2022-10-18 14:12 | NUR.NOTE ---
Nursing Note: Report given to Kelsie in the ICU, pt transferred to ICU with all belongings per order.
[2022-10-18] MEDS: THIAMINE 500 MG in Normal Saline 100 ML 200 MG IVPB ×2 (14:46→21:42)
--- NOTE | 2022-10-18 16:55 | W.PM.PROGNOT ---
Date of Service Date of service: 10/18/22 Time of Service: 16:55 Assessment and Plan Assessment and plan (1) Seizure: Start date: 10/17/22 Status: Acute Assessment and plan: Transferred to the ICU for closer monitoring as he did have a seizure last night. This is not thought to be an alcohol withdrawal seizure. Discussed with Dr Phan. Will obtain an EEG. continue Keppra. Anticipate discharge home tomorrow if no seizures recur. (2) Hyperammonemia: Start date: 10/17/22 Status: Acute Assessment and plan: Continue lactulose. (3) Fracture of rib: Start date: 10/17/22 Status: Acute Assessment and plan: I Have added toradol to tylenol. Will rx lidocaine patches. (4) Cirrhosis: Status: Chronic Assessment and plan: Continue outpatient medications. Lactulose added. Qualifiers: Hepatic cirrhosis type: unspecified hepatic cirrhosis Ascites presence: without ascites Qualified Code(s): K74.60 - Unspecified cirrhosis of liver (5) HCV infection: Status: Chronic Assessment and plan: F/u as outpatient (6) Diabetes mellitus type 2 in obese: Status: Chronic Assessment and plan: Continue SSI. (7) Fracture of glenoid process of left scapula: Status: Acute Assessment and plan: C/s ortho. Sling when out of bed (8) Open wound of tongue due to bite: Status: Acute Assessment and plan: Trial magic mouth wash, popsicles. (9) DVT prophylaxis: Status: Acute Assessment and plan: SCDs I am not sure about the patient's variceal status, and he is ambulatory. Additionally, he has thrombocytopenia. Will avoid chemical DVT ppx (10) Discharge planning issues: Status: Acute Assessment and plan: Full code Transferred to the ICU for closer monitoring. Anticipate discharge home tomorrow if no further seizures. Subjective Subjective Interval history since last seen: Mr Katz reports tongue pain, but does not want his diet downgraded, even though it is a little bit difficult to swallow. Denies dizziness, CP, SOB, n/v. He states his last drink was 2 years ago. He was evaluated by Dr Phan who recommends continuing keppra. The patient could be discahrged home tomorrow whether or not he can get the EEG done here. Exam Narrative Exam Narrative: General: Pleasant middle-aged male who is A&Ox3, appears to be slurring words HEENT: EOMI, MMM, swollen blue-discovered tongue from tongue bite Heart: RRR, no m/r/g Lungs: CTAB Abdomen: soft, nontender, nondistended Extremities: no edema BLEs; L shoulder painful - guarding Objective Last Vital Signs Temp 37.4 C 10/18/22 16:30 Pulse 71 10/18/22 16:30 Resp 16 10/18/22 16:30 BP 113/71 10/18/22 16:30 Pulse Ox 96 10/18/22 16:30 Laboratory Results - last 24 hr 10/17/22 10/17/22 10/17/22 16:15 16:15 17:45 WBC RBC Hgb Hct MCV MCH MCHC RDW Plt Count MPV PT INR Sodium Potassium Chloride Carbon Dioxide Anion Gap BUN Creatinine Est GFR (CKD-EPI 2020) Glucose Hemoglobin A1c Calcium Phosphorus Magnesium Total Bilirubin AST ALT Alkaline Phosphatase Ammonia Creatine Kinase Troponin I Total Protein Albumin Free T4 0.78 Urine Color Urine Clarity Urine pH Ur Specific Casanova Urine Protein Urine Ketones Urine Blood Urine Nitrite Urine Bilirubin Urine Urobilinogen Ur Leukocyte Esterase Urine Glucose Salicylates < 2.8 Urine Opiates Screen Negative Urine Methadone Screen Negative Acetaminophen < 2 Ur Barbiturates Screen Negative Ur Tricyclics Screen Negative Ur Amphetamines Screen Negative U Benzodiazepines Scrn Negative Urine Cocaine Screen Negative Ur THC Screen Negative Add-On Test Request 10/17/22 10/17/22 10/18/22 17:45 19:30 06:45 WBC RBC Hgb Hct MCV MCH MCHC RDW Plt Count MPV PT INR Sodium 136 Potassium 3.3 L Chloride 102 Carbon Dioxide 24.5 Anion Gap 9.5 BUN 5 L Creatinine 0.6 L Est GFR (CKD-EPI 2020) 116.87 Glucose 101 Hemoglobin A1c Calcium 7.7 L Phosphorus Magnesium 1.9 Total Bilirubin 1.6 H AST 29 ALT 30 Alkaline Phosphatase 103 Ammonia Creatine Kinase Troponin I < 50 Total Protein 6.3 L Albumin 3.0 L Free T4 Urine Color Yellow Urine Clarity Clear Urine pH 7.0 Ur Specific Casanova 1.010 Urine Protein Negative Urine Ketones Negative Urine Blood Negative Urine Nitrite Negative Urine Bilirubin Negative Urine Urobilinogen 0.2 Ur Leukocyte Esterase Negative Urine Glucose 250 H Salicylates Urine Opiates Screen Urine Methadone Screen Acetaminophen Ur Barbiturates Screen Ur Tricyclics Screen Ur Amphetamines Screen U Benzodiazepines Scrn Urine Cocaine Screen Ur THC Screen Add-On Test Request 10/18/22 10/18/22 10/18/22 06:45 06:45 06:45 WBC 4.87 RBC 3.69 L Hgb 11.3 L Hct 32.1 L MCV 87 MCH 30.6 MCHC 35.2 RDW 14.2 H Plt Count 39 L MPV 11.1 H PT 13.6 H INR 1.3 H Sodium Potassium Chloride Carbon Dioxide Anion Gap BUN Creatinine Est GFR (CKD-EPI 2020) Glucose Hemoglobin A1c Calcium Phosphorus 3.7 Magnesium Total Bilirubin AST ALT Alkaline Phosphatase Ammonia Creatine Kinase Troponin I Total Protein Albumin Free T4 Urine Color Urine Clarity Urine pH Ur Specific Casanova Urine Protein Urine Ketones Urine Blood Urine Nitrite Urine Bilirubin Urine Urobilinogen Ur Leukocyte Esterase Urine Glucose Salicylates Urine Opiates Screen Urine Methadone Screen Acetaminophen Ur Barbiturates Screen Ur Tricyclics Screen Ur Amphetamines Screen U Benzodiazepines Scrn Urine Cocaine Screen Ur THC Screen Add-On Test Request 10/18/22 10/18/22 10/18/22 06:45 07:53 08:20 WBC RBC Hgb Hct MCV MCH MCHC RDW Plt Count MPV PT INR Sodium Potassium Chloride Carbon Dioxide Anion Gap BUN Creatinine Est GFR (CKD-EPI 2020) Glucose Hemoglobin A1c 6.9 H Calcium Phosphorus Magnesium Total Bilirubin AST ALT Alkaline Phosphatase Ammonia 62 H Creatine Kinase Troponin I Total Protein Albumin Free T4 Urine Color Urine Clarity Urine pH Ur Specific Casanova Urine Protein Urine Ketones Urine Blood Urine Nitrite Urine Bilirubin Urine Urobilinogen Ur Leukocyte Esterase Urine Glucose Salicylates Urine Opiates Screen Urine Methadone Screen Acetaminophen Ur Barbiturates Screen Ur Tricyclics Screen Ur Amphetamines Screen U Benzodiazepines Scrn Urine Cocaine Screen Ur THC Screen Add-On Test Request DONE 10/18/22 08:20 WBC RBC Hgb Hct MCV MCH MCHC RDW Plt Count MPV PT INR Sodium Potassium Chloride Carbon Dioxide Anion Gap BUN Creatinine Est GFR (CKD-EPI 2020) Glucose Hemoglobin A1c Calcium Phosphorus Magnesium Total Bilirubin AST ALT Alkaline Phosphatase Ammonia Creatine Kinase 261 Troponin I Total Protein Albumin Free T4 Urine Color Urine Clarity Urine pH Ur Specific Casanova Urine Protein Urine Ketones Urine Blood Urine Nitrite Urine Bilirubin Urine Urobilinogen Ur Leukocyte Esterase Urine Glucose Salicylates Urine Opiates Screen Urine Methadone Screen Acetaminophen Ur Barbiturates Screen Ur Tricyclics Screen Ur Amphetamines Screen U Benzodiazepines Scrn Urine Cocaine Screen Ur THC Screen Add-On Test Request Time Spent with Patient Time Spent with Patient: 25-34 minutes Time was spent: preparing to see the patient(eg.review tests), obtaining and/or reviewing separately otained hiistory, ordering medications,tests, procedures, referring, communicating with other health health care analyst, indepentently interpreting results, counseling the patient and care coordination
--- NOTE | 2022-10-18 17:21 | W.NEUROCONSU ---
Date of service: 10/18/22 Time of Service: 17:21 Assessment and Plan Assessment and plan (1) Seizure: Status: Acute Assessment and plan: Mr. Monroy is admitted with new onset seizures. No etiology/explanation found for his seizures at this time. Agree with EEG as further work-up - outpatient ok if not able to do inpatient. Given the fact that he had 2 seemingly unprovoked seizures, I think reasonable to continue antiseizure medication levetiracetam 500mg BID. We discussed seizure precautions including no driving. Viscous lidocaine prn for tongue bite. History of Present Illness History of Present Illness Chief Complaint: seizure Narrative: Handedness: LEFT (only one in family) HPI: Mr. Monroy is a 52 year-old with prior ETOH abuse and Hep C s/p treatment with liver cirrhosis and coagulopathy, on apixaban for previous portal vein thrombosis, hypertension, hyperlipidemia, NIC intolerant of CPAP, DM2, COPD, hypothyroidism, and mood disorder - ?schizophrenia, depression, previous SI. Mr. Monroy was eating dinner yesterday evening when he apparently fell to the ground with LOC. His mother was upstairs and after hearing him hit the ground, came downstairs to see him with whole body tensing. He bit his tongue, no B/B. He has left shoulder pain following this. EMS was called at which time he was awake but talking slowly. He underwent the work-up as below and was admitted for observation. Upon arrival to his room upstairs, he had an apparent 2min GTC. He was subsequently given 150mg phenobarbital as part of [place] protocol as there was concern for ETOH withdrawal though he denies any recent ETOH use. He was also loaded with levetiracetam 1000mg which has been continued 500mg BID. He has no prior history of seizures and no FHx of seizures. He has no history of [employer] infection or TBI. He notes a normal and development. Work-up: -Labs (10/17/22): ammonia 100, WBC 3.15, Hgb 12.2, Plt 43, INR 1.4, NA 138, Cr 0.8, glucose 237, Ca 8, Mg 17., Tbili 1.5, AlkP 122, tropx2 neg, Alb 3.3, TSH 3.77, FT4 0.78, UA neg, ETOH neg, UDS neg, APAP/salicyliates neg -CTH (10/17/22): No acute findings. I reviewed these images personally and this is my personal interpretation. -MRI brain w/o (10/18/22): unremarkable. I reviewed these images personally and this is my personal interpretation. Review of Systems All systems reviewed & are unremarkable except as noted in HPI and below PFSH All Active Problems Bankart lesion of left shoulder (Acute 10/18/22) Open wound of tongue due to bite (Acute) Discharge planning issues (Acute) DVT prophylaxis (Acute) Fracture of glenoid process of left scapula (Acute) Hyperammonemia (Acute) Seizure (Acute) Syncope (Chronic) Blunt head trauma (Acute) Blunt trauma of multiple sites of trunk (Acute) Increased ammonia level (Acute) Foreign body of ear, left (Acute) Abdominal pain (Acute) Ascites (Acute) Fracture of rib (Acute) Abdominal ascites (Acute) Thrombocytopenia (Chronic) Alcohol intoxication (Acute) HCV infection (Chronic) Cirrhosis (Chronic) Electrolyte and fluid disorder (Acute) Spondylosis of lumbar region without myelopathy or radiculopathy (Chronic) Depression (Acute) Suicidal ideations (Acute) Diabetes mellitus type 2 in obese (Chronic) Medical History Acute upper respiratory infection Alcohol abuse, in remission Chronic cough Chronic insomnia Constipation COPD (chronic obstructive pulmonary disease) Diabetes Discontinued smoking Esophageal varices Hearing loss Heroin addiction Hip pain, left History of appendicitis History of substance abuse Hyperlipidemia Hypertension Hypothyroid Impacted cerumen, left ear Inguinal hernia Lumbar spondylosis Muscle cramps Nocturnal hypoxemia Other specified disorders of teeth and supporting structures Petechiae Rhinorrhea Rib pain on left side Schizophrenia Sleep apnea Suicidal ideations Tinea pedis Unspecified cirrhosis of liver Surgical History EGD - MAC Social History Smoking/Tobacco Use Status: Former Tobacco Use Smoking risk assessment performed?: Yes Alcohol Intake: former Drug use: Current Sobriety Substance use type: does not use Details: denies drugs or alcohol for several months now Do you feel safe at home: Yes Do you feel safe in your relationship?: Yes Visit Medication and Allergies Active Medications Generic Name Dose Route Start Last Admin Trade Name Mono PRN Reason Stop Dose Admin Acetaminophen 325 - 650 mg 10/17/22 18:29 10/18/22 16:53 Acetaminophen 325 Mg Tab PO 650 mg Q4H PRN PRN Administration Al Hydrox/Mg Hydrox/Simethicone 30 ml 10/17/22 18:29 Mylanta Suspension 30 Ml Cup PO Q2H PRN PRN Alprazolam 2 mg 10/19/22 08:30 Alprazolam 0.5 Mg Tab PO DAILY ELIA Cholecalciferol 5,000 units 10/18/22 08:30 10/18/22 12:00 Cholecalciferol (Vitamin D3) 1,000 Unit Tab PO 5,000 units DAILY ELIA Administration Dextrose 0 gm 10/17/22 18:31 Glucose Oral Gel 15 Gm/37.5 Gm Tube PO DIRECTED PRN Dextrose/Water 0 gm 10/17/22 18:31 Dextrose 50%-Water 25 Gm/50 Ml Syr IVP DIRECTED PRN Dimethicone/Zinc Oxide 0 gm 10/17/22 18:24 Sancho Protect Cream 142 Gm Tube TP PRN PRN Docusate Sodium 100 mg 10/17/22 18:29 Docusate Sodium 100 Mg Cap PO TID PRN PRN Folic Acid 1 mg 10/18/22 08:30 10/18/22 08:29 Folic Acid 1 Mg Tab PO 10/24/22 08:31 1 mg QAM ELIA Administration Furosemide 40 mg 10/18/22 08:30 10/18/22 08:29 Furosemide 20 Mg Tab PO 40 mg DAILY ELIA Administration Thiamine HCl 500 mg/ Sodium 105 mls @ 200 mls/hr 10/18/22 14:00 10/18/22 15:29 Chloride IVPB 10/21/22 06:32 Infused Q8H ELIA Infusion IV Miscellaneous Supplies 1 each 10/17/22 16:15 Iv Access IV DIRECTED ELIA Insulin Aspart 0 - 18 units 10/17/22 22:00 10/18/22 12:01 Insulin Aspart 300 Units/3 Ml Pen SC 2 units AC & HS ELIA Administration Protocol Ketorolac Tromethamine 15 mg 10/18/22 17:04 Ketorolac 15 Mg/Ml Vial IVP 06/26/23 17:03 Q6H PRN PRN Lactulose 30 gm 10/18/22 08:30 10/18/22 08:30 Lactulose 20 Gm/30 Ml Cup PO 30 gm BID ELIA Administration Levetiracetam 500 mg 10/18/22 08:30 10/18/22 08:31 Levetiracetam 500 Mg Tab PO 500 mg BID ELIA Administration Levothyroxine Sodium 50 mcg 10/18/22 06:00 10/18/22 06:17 Levothyroxine 50 Mcg Tab PO 50 mcg 0600 ELIA Administration Lidocaine 1 patch 10/18/22 18:00 Lidocaine 5% Patch TP Q24H ELIA Lidocaine/Diphenhydr/Alum/Mg/Simeth 10 ml 10/18/22 16:47 Magic Mouthwash 119 Ml Btl MM Q6H PRN PRN Magnesium Hydroxide 30 ml 10/17/22 18:29 Milk Of Magnesia 30 Ml Cup PO DAILY PRN PRN Miscellaneous 1 each 10/19/22 06:00 Patch Removal (Lidocaine) TP DAILY@0600 [facility] Multivitamins 1 tab 10/18/22 08:30 10/18/22 08:31 Multivitamin Tab PO 10/24/22 08:31 1 tab QAM [facility] Administration Phenobarbital Sodium 130 mg 10/17/22 22:21 Phenobarbital 130 Mg/Ml Vial IVP DIRECTED PRN for mild anxiety/agitation Polyethylene Glycol 17 gm 10/17/22 18:24 Polyethylene Glycol 3350 17 Gm Packet PO DAILY PRN PRN Constipation Sodium Chloride 0 ml 10/17/22 16:08 10/18/22 08:32 Normal Saline Flush 10 Ml Syr IVP 10 ml PRN PRN Administration Allergies No Known Allergies Allergy (Unverified 09/20/22 09:01) Exam Narrative Exam Narrative: Physical Exam: Gen: Patient of apparent stated age, NAD, mildly jaundiced Head and face: no facial or cranial abnormalities Neck: Supple, no meningismus, no occipital tenderness CV: + S1, S2, RRR, no murmur Resp: CTA B/L Abd: soft, nontender, nondistended, +BS Ext: No edema. No clubbing or cyanosis. No bony deformity. Neuro Exam: Language: fluency, naming, repetition, and comprehension intact; Mental Status: AAOx3, current events and, fund of knowledge somewhat intact; Speech: no dysarthria Cranial nerves: Funduscopy: not performed CN II: visual borja intact CN III, IV, : extraocular movements intact, no nystagmus, pupils symmetric and reactive to light CN V: face sensation intact to LT and temp CN VII: no facial asymmetry noted CN VIII: hearing intact bilaterally CN IX, X: palate rises symmetrically CN XI: trapezius/SCM 5/5 bilaterally CN XII: protrudes tongue symmetrically Sensory: intact to LT, temp, vibration, and joint position in all extremities Motor: bulk and tone intact. Fine motor movements intact bilaterally. No pronator drift. Strength 5/5 throughout including the deltoids, biceps, triceps, wrist extensors, hip flexors, knee flexors, knee extensors, ankle flexors, and ankle extensors. Reflexes: 2+ at the biceps, triceps, brachioradialis, patella, and achilles tendons bilaterally; toes down going bilaterally; Coordination: FTN and HTS intact bilaterally Gait: not seen Results Last Vital Signs Temp 99.3 F 10/18/22 16:30 Pulse 71 10/18/22 16:30 Resp 16 10/18/22 16:30 BP 113/71 10/18/22 16:30 Pulse Ox 96 10/18/22 16:30 Labs 10/18/22 06:45 10/18/22 06:45 Labs: Laboratory Results - last 24 hr 10/17/22 10/17/22 10/17/22 17:45 17:45 19:30 WBC RBC Hgb Hct MCV MCH MCHC RDW Plt Count MPV PT INR Sodium Potassium Chloride Carbon Dioxide Anion Gap BUN Creatinine Est GFR (CKD-EPI 2020) Glucose Hemoglobin A1c Calcium Phosphorus Magnesium Total Bilirubin AST ALT Alkaline Phosphatase Ammonia Creatine Kinase Troponin I < 50 Total Protein Albumin Urine Color Yellow Urine Clarity Clear Urine pH 7.0 Ur Specific [place] 1.010 Urine Protein Negative Urine Ketones Negative Urine Blood Negative Urine Nitrite Negative Urine Bilirubin Negative Urine Urobilinogen 0.2 Ur Leukocyte Esterase Negative Urine Glucose 250 H Urine Opiates Screen Negative Urine Methadone Screen Negative Ur Barbiturates Screen Negative Ur Tricyclics Screen Negative Ur Amphetamines Screen Negative U Benzodiazepines Scrn Negative Urine Cocaine Screen Negative Ur THC Screen Negative Add-On Test Request 10/18/22 10/18/22 10/18/22 06:45 06:45 06:45 WBC 4.87 RBC 3.69 L Hgb 11.3 L Hct 32.1 L MCV 87 MCH 30.6 MCHC 35.2 RDW 14.2 H Plt Count 39 L MPV 11.1 H PT 13.6 H INR 1.3 H Sodium 136 Potassium 3.3 L Chloride 102 Carbon Dioxide 24.5 Anion Gap 9.5 BUN 5 L Creatinine 0.6 L Est GFR (CKD-EPI 2020) 116.87 Glucose 101 Hemoglobin A1c Calcium 7.7 L Phosphorus Magnesium 1.9 Total Bilirubin 1.6 H AST 29 ALT 30 Alkaline Phosphatase 103 Ammonia Creatine Kinase Troponin I Total Protein 6.3 L Albumin 3.0 L Urine Color Urine Clarity Urine pH Ur Specific [place] Urine Protein Urine Ketones Urine Blood Urine Nitrite Urine Bilirubin Urine Urobilinogen Ur Leukocyte Esterase Urine Glucose Urine Opiates Screen Urine Methadone Screen Ur Barbiturates Screen Ur Tricyclics Screen Ur Amphetamines Screen U Benzodiazepines Scrn Urine Cocaine Screen Ur THC Screen Add-On Test Request 10/18/22 10/18/22 10/18/22 06:45 06:45 07:53 WBC RBC Hgb Hct MCV MCH MCHC RDW Plt Count MPV PT INR Sodium Potassium Chloride Carbon Dioxide Anion Gap BUN Creatinine Est GFR (CKD-EPI 2020) Glucose Hemoglobin A1c 6.9 H Calcium Phosphorus 3.7 Magnesium Total Bilirubin AST ALT Alkaline Phosphatase Ammonia Creatine Kinase Troponin I Total Protein Albumin Urine Color Urine Clarity Urine pH Ur Specific [place] Urine Protein Urine Ketones Urine Blood Urine Nitrite Urine Bilirubin Urine Urobilinogen Ur Leukocyte Esterase Urine Glucose Urine Opiates Screen Urine Methadone Screen Ur Barbiturates Screen Ur Tricyclics Screen Ur Amphetamines Screen U Benzodiazepines Scrn Urine Cocaine Screen Ur THC Screen Add-On Test Request DONE 10/18/22 10/18/22 08:20 08:20 WBC RBC Hgb Hct MCV MCH MCHC RDW Plt Count MPV PT INR Sodium Potassium Chloride Carbon Dioxide Anion Gap BUN Creatinine Est GFR (CKD-EPI 2020) Glucose Hemoglobin A1c Calcium Phosphorus Magnesium Total Bilirubin AST ALT Alkaline Phosphatase Ammonia 62 H Creatine Kinase 261 Troponin I Total Protein Albumin Urine Color Urine Clarity Urine pH Ur Specific [place] Urine Protein Urine Ketones Urine Blood Urine Nitrite Urine Bilirubin Urine Urobilinogen Ur Leukocyte Esterase Urine Glucose Urine Opiates Screen Urine Methadone Screen Ur Barbiturates Screen Ur Tricyclics Screen Ur Amphetamines Screen U Benzodiazepines Scrn Urine Cocaine Screen Ur THC Screen Add-On Test Request
[2022-10-18] MEDS: Lidocaine 5% Patch 1 PATCH TP (17:28)
[2022-10-18] MEDS: Ketorolac 15 MG/ML VIAL IVP (17:29)
--- NOTE | 2022-10-18 17:53 | OCONE_ITS ---
Date of service: 10/19/22 Time of Service: 09:00 History of Present Illness Narrative: 52 year old male with a history of diabetes and alcoholic cirrhosis 2 days status post nondisplaced left glenoid fracture on 10/17/22. Patient reports that injury occurred when he lost consciousness and fell. He reports immediate pain in his left shoulder when he came to. He reports that he does not have much shoulder pain at rest but has moderate discomfort with motion. Denies any previous shoulder injuries or dislocations. Denies any numbness or tingling. Denies frequent falls. Denies current drug or alcohol use. NKDA. He reports that he is disabled due to schizophrenia from alcoholism. Lives with both parents. Assessment and Plan Assessment and plan (1) Bankart lesion of left shoulder: Status: Acute Assessment and plan: 52 year old male with Left shoulder bony Bankart injury from ?seizure & fall Protect shoulder, sling when out of bed, CT left shoulder confirms minimal displacement appropriate for nonoperative management Gentle passive-only motion for 6 weeks, demonstrated pendulum swings Follow-up outpatient 2 weeks PFS All Active Problems Bankart lesion of left shoulder (Acute 10/18/22) Open wound of tongue due to bite (Acute) Discharge planning issues (Acute) DVT prophylaxis (Acute) Fracture of glenoid process of left scapula (Acute) Hyperammonemia (Acute) Seizure (Acute) Syncope (Chronic) Blunt head trauma (Acute) Blunt trauma of multiple sites of trunk (Acute) Increased ammonia level (Acute) Foreign body of ear, left (Acute) Abdominal pain (Acute) Ascites (Acute) Fracture of rib (Acute) Abdominal ascites (Acute) Thrombocytopenia (Chronic) Alcohol intoxication (Acute) HCV infection (Chronic) Cirrhosis (Chronic) Electrolyte and fluid disorder (Acute) Spondylosis of lumbar region without myelopathy or radiculopathy (Chronic) Depression (Acute) Suicidal ideations (Acute) Diabetes mellitus type 2 in obese (Chronic) Medical History Acute upper respiratory infection Alcohol abuse, in remission Chronic cough Chronic insomnia Constipation COPD (chronic obstructive pulmonary disease) Diabetes Discontinued smoking Esophageal varices Hearing loss Heroin addiction Hip pain, left History of appendicitis History of substance abuse Hyperlipidemia Hypertension Hypothyroid Impacted cerumen, left ear Inguinal hernia Lumbar spondylosis Muscle cramps Nocturnal hypoxemia Other specified disorders of teeth and supporting structures Petechiae Rhinorrhea Rib pain on left side Schizophrenia Sleep apnea Suicidal ideations Tinea pedis Unspecified cirrhosis of liver Surgical History EGD - MAC Social History Smoking/Tobacco Use Status: Former Tobacco Use Smoking risk assessment performed?: Yes Alcohol Intake: former Drug use: Current Sobriety Substance use type: does not use Details: denies drugs or alcohol for several months now Do you feel safe at home: Yes Do you feel safe in your relationship?: Yes Exam Narrative Exam Narrative: Patient resting comfortably in bed. Left upper extremity with no lesions, deformity, or ecchymosis. Generalized shoulder tenderness. Demonstrates active flexion and extension of the wrist and elbow. Motor function of the median, radial, and ulnar nerves intact. Sensation intact to light touch in the axillary nerve distrubution. Results Last Vital Signs Temp 99.3 F 10/18/22 16:30 Pulse 71 10/18/22 16:30 Resp 16 10/18/22 16:30 BP 113/71 10/18/22 16:30 Pulse Ox 96 10/18/22 16:30 Labs 10/19/22 05:55 10/19/22 05:55 Labs: Laboratory Results - last 24 hr 10/17/22 10/17/22 10/17/22 17:45 17:45 19:30 WBC RBC Hgb Hct MCV MCH MCHC RDW Plt Count MPV PT INR Sodium Potassium Chloride Carbon Dioxide Anion Gap BUN Creatinine Est GFR (CKD-EPI 2020) Glucose Hemoglobin A1c Calcium Phosphorus Magnesium Total Bilirubin AST ALT Alkaline Phosphatase Ammonia Creatine Kinase Troponin I < 50 Total Protein Albumin Urine Color Yellow Urine Clarity Clear Urine pH 7.0 Ur Specific [place] 1.010 Urine Protein Negative Urine Ketones Negative Urine Blood Negative Urine Nitrite Negative Urine Bilirubin Negative Urine Urobilinogen 0.2 Ur Leukocyte Esterase Negative Urine Glucose 250 H Urine Opiates Screen Negative Urine Methadone Screen Negative Ur Barbiturates Screen Negative Ur Tricyclics Screen Negative Ur Amphetamines Screen Negative U Benzodiazepines Scrn Negative Urine Cocaine Screen Negative Ur THC Screen Negative Add-On Test Request 10/18/22 10/18/22 10/18/22 06:45 06:45 06:45 WBC 4.87 RBC 3.69 L Hgb 11.3 L Hct 32.1 L MCV 87 MCH 30.6 MCHC 35.2 RDW 14.2 H Plt Count 39 L MPV 11.1 H PT 13.6 H INR 1.3 H Sodium 136 Potassium 3.3 L Chloride 102 Carbon Dioxide 24.5 Anion Gap 9.5 BUN 5 L Creatinine 0.6 L Est GFR (CKD-EPI 2020) 116.87 Glucose 101 Hemoglobin A1c Calcium 7.7 L Phosphorus Magnesium 1.9 Total Bilirubin 1.6 H AST 29 ALT 30 Alkaline Phosphatase 103 Ammonia Creatine Kinase Troponin I Total Protein 6.3 L Albumin 3.0 L Urine Color Urine Clarity Urine pH Ur Specific [place] Urine Protein Urine Ketones Urine Blood Urine Nitrite Urine Bilirubin Urine Urobilinogen Ur Leukocyte Esterase Urine Glucose Urine Opiates Screen Urine Methadone Screen Ur Barbiturates Screen Ur Tricyclics Screen Ur Amphetamines Screen U Benzodiazepines Scrn Urine Cocaine Screen Ur THC Screen Add-On Test Request 10/18/22 10/18/22 10/18/22 06:45 06:45 07:53 WBC RBC Hgb Hct MCV MCH MCHC RDW Plt Count MPV PT INR Sodium Potassium Chloride Carbon Dioxide Anion Gap BUN Creatinine Est GFR (CKD-EPI 2020) Glucose Hemoglobin A1c 6.9 H Calcium Phosphorus 3.7 Magnesium Total Bilirubin AST ALT Alkaline Phosphatase Ammonia Creatine Kinase Troponin I Total Protein Albumin Urine Color Urine Clarity Urine pH Ur Specific [place] Urine Protein Urine Ketones Urine Blood Urine Nitrite Urine Bilirubin Urine Urobilinogen Ur Leukocyte Esterase Urine Glucose Urine Opiates Screen Urine Methadone Screen Ur Barbiturates Screen Ur Tricyclics Screen Ur Amphetamines Screen U Benzodiazepines Scrn Urine Cocaine Screen Ur THC Screen Add-On Test Request DONE 10/18/22 10/18/22 08:20 08:20 WBC RBC Hgb Hct MCV MCH MCHC RDW Plt Count MPV PT INR Sodium Potassium Chloride Carbon Dioxide Anion Gap BUN Creatinine Est GFR (CKD-EPI 2020) Glucose Hemoglobin A1c Calcium Phosphorus Magnesium Total Bilirubin AST ALT Alkaline Phosphatase Ammonia 62 H Creatine Kinase 261 Troponin I Total Protein Albumin Urine Color Urine Clarity Urine pH Ur Specific [place] Urine Protein Urine Ketones Urine Blood Urine Nitrite Urine Bilirubin Urine Urobilinogen Ur Leukocyte Esterase Urine Glucose Urine Opiates Screen Urine Methadone Screen Ur Barbiturates Screen Ur Tricyclics Screen Ur Amphetamines Screen U Benzodiazepines Scrn Urine Cocaine Screen Ur THC Screen Add-On Test Request
--- NOTE | 2022-10-18 18:47 | TELEP.MEDR_ITS ---
Date of service: 10/18/22 Time of Service: 18:[facility] Allergies Allergies: No Known Allergies Allergy (Unverified 09/20/22 09:01) Interview Person Interviewed: * patient Quality Quality of Interview/Accuracy of Medication List: Good Sources Sources used to compile medication list: [employer] Medication List and Patient List Changes made to Home Medication List: ADDITIONS: * none DELETIONS: * Omeprazole * Glipizide ER CHANGES: * none Additional Notes Additional Notes: * patient says he's no longer diabetic due to losing more than 100lbs, therefore he's not on glipizide Recommended Changes Recommended Changes(reason for recommendation): * none Attestation: The home medication list is now updated to the best of my knowledge and is ready to be reconciled by the provider. Please contact the [facility] Med[facility] Pharmacist at for any questions.
--- NOTE | 2022-10-18 18:47 | TELEP.MEDREC ---
Date of service: 10/18/22 Time of Service: 18:50 Telepharmacy Home Med Rec Allergies Allergies: No Known Allergies Allergy (Unverified 09/20/22 09:01) Interview Person Interviewed: patient Quality Quality of Interview/Accuracy of Medication List: Good Sources Sources used to compile medication list: [employer] Medication List and Patient List Changes made to Home Medication List: ADDITIONS: none DELETIONS: Omeprazole Glipizide ER CHANGES: none Additional Notes Additional Notes: patient says he's no longer diabetic due to losing more than 100lbs, therefore he's not on glipizide Recommended Changes Recommended Changes(reason for recommendation): none Attestation: The home medication list is now updated to the best of my knowledge and is ready to be reconciled by the provider. [facility] at for any questions.
--- NOTE | 2022-10-18 19:33 | DI.VRAD_ITS ---
PROCEDURE INFORMATION: Exam: CT Left Upper Extremity Without Contrast, Shoulder Exam date and time: 10/18/2022 6:50 PM Age: 52 years old Clinical indication: Other: Left glenoid fracture TECHNIQUE: Imaging protocol: Computed tomography of the left upper extremity without contrast. Exam focused on the shoulder. COMPARISON: CR XR SHOULDER LT COMPLETE 2+V 10/18/2022 1:12 PM FINDINGS: Bones/joints: There is a comminuted fracture through the anterior half and inferior rim of the glenoid process of the scapula with minimal diastasis of fragments along the inferior posterior glenoid rim. No other acute fracture. Acromioclavicular and glenohumeral joints otherwise appear normal. No significant arthritic change. Moderate amount of joint fluid is noted Soft tissues: Normal. IMPRESSION: Bony glenoid fracture as described. Dictated and Authenticated by: Pavel Fontanez MD. Ordering:JACQUES Joyner MD
[2022-10-18] MEDS: ALPRAZolam 0.5 MG TAB 1 MG PO (21:42)
[2022-10-19] VITALS (15 sets, daily range): BP systolic 97–111; BP diastolic 49–69; PULSE 64–72; RESP 12–26; TEMP 36.6–37.1; O2SAT 92–94
[2022-10-19 06:10] LABS: Abs Immature Grans 0.01 10^3/uL (0.0-0.06); Absolute Basophil Count 0.03 10^3/uL (0.0-0.2); Absolute Eosinophil Count 0.13 10^3/uL (0.0-0.7); Absolute Monocyte Count 0.38 10^3/uL (0.1-0.8); Absolute Neutrophil Count 2.22 10^3/uL (1.2-6.7); Basophils % 0.9; HCT 33.1 % (40.0-50.0); HGB 11.3 g/dL (13.5-17.5); Immature Grans % 0.3; Lymphocytes % 15.3; MCHC 34.1 % (32.0-36.0); MCV 88 fL (80-95); MPV 11.3 fL (8.0-11.0); Monocytes % 11.6; Neutrophils % 67.9; RBC 3.77 10^6/uL (4.36-5.78); RDW 14.2 % (11.8-14.1); RDW-SD 45.3 fL; WBC 3.27 10^3/uL (4.4-10.8)
[2022-10-19] MEDS: THIAMINE 500 MG in Normal Saline 100 ML 200 MG IVPB (06:16)
[2022-10-19] MEDS: Levothyroxine 50 MCG TAB PO (06:16)
[2022-10-19 06:23] LABS: Ammonia 98 umol/L (11-32)
[2022-10-19 06:40] LABS: Diff Comment Diff Reviewed; Platelet Count 36 10^3/uL (130-400); RBC Morphology Normal
[2022-10-19 08:00] LABS: ALT 25 U/L (16-63); AST 22 U/L (15-37); Albumin 2.8 g/dL (3.4-5.0); Alkaline Phosphatase 98 U/L (46-116); Anion Gap 7.7 mmol/L (3-11); BUN 10 mg/dL (7-18); Bilirubin, Direct 0.4 mg/dL (0.0-0.2); Bilirubin, Total 1.1 mg/dL (0.2-1.0); CO2 23.3 mmol/L (21.0-32.0); CREATININE 0.7 mg/dL (0.70-1.30); Calcium 7.9 mg/dL (8.5-10.1); Chloride 107 mmol/L (98-107); Estimated GFR 111.56 (mL/min/1.73m2); Glucose 155 mg/dL (74-106); Magnesium 1.8 mg/dL (1.8-2.4); Potassium 3.9 mmol/L (3.5-5.1); Sodium 138 mmol/L (136-145); Total Protein 6.1 g/dL (6.4-8.2)
[2022-10-19] MEDS: ALPRAZolam 0.5 MG TAB 1 MG PO (08:35)
[2022-10-19] MEDS: Cholecalciferol (Vitamin D3) 1,000 UNIT TAB 5000 UNITS PO (08:35)
[2022-10-19] MEDS: Multivitamin TAB 1 TAB PO (08:37)
[2022-10-19] MEDS: Furosemide 20 MG TAB 40 MG PO (08:37)
[2022-10-19] MEDS: levETIRAcetam 500 MG TAB PO (08:37)
[2022-10-19] MEDS: Folic Acid 1 MG TAB PO (08:37)
[2022-10-19] MEDS: Insulin Aspart 300 UNITS/3 ML PEN SC (08:38)
[2022-10-19] MEDS: Lactulose 20 GM/30 ML CUP 30 GM PO (08:38)
--- NOTE | 2022-10-19 09:40 | DSE_ITS ---
Date of service: 10/19/22 Time of Service: 09:40 DS: Diagnosis Discharge Diagnosis (1) Bankart lesion of left shoulder: Status: Acute Asessment and Plan: Sling to Left shoulder. Gentle passive exercises demonstrated to patient by ortho. F/U with ortho in 2 weeks. PRN acetaminophen. (2) Seizure: Status: Acute Asessment and Plan: No known previous history. Neurology was consulted. EEG being scheduled as outpt. Neurology f/u as outpt. Keppra 500mg BID. (3) Cirrhosis: Status: Chronic Asessment and Plan: Lactulose 30 gram BID. + hyerammonemia. Previous Etoh abuse disorder. (4) Increased ammonia level: Status: Acute Asessment and Plan: As above. (5) Diabetes mellitus type 2 in obese: Status: Chronic Asessment and Plan: On glipizide. A1c 6.9 Add metformin 500mg BID. PCP to continue to follow. (6) Alcohol abuse, in remission: Asessment and Plan: Not the etiology of seizure. He is adamant that he has been drinking alcohol. (7) Discharge planning issues: Status: Acute Asessment and Plan: Home Health nursing to assist with monitoring for medication compliance, new medications. Discharge Plan Disposition Patient Disposition: Home W/Home Health Services Condition: Good Discharge Details Reason For Visit: Syncope,Seizure,Hyperammonemia,Alcoholic Chirrosis Admit Date/Time: 10/17/22 18:24 Admit Provider: Elvin Ríos Attending Provider: Elvin Ríos Primary Care Provider: GenovevaSoraya montero [facility] Hospital Course: This is a 52-year-old male patient who has not had alcohol for years though his family does drink around him and he does live with family.? He is a former smoker who has diabetes on oral therapy and is on treatment for chronic ascites with alcoholic and hep C cirrhosis.? His hepatitis C has been treated and cured having contracted the disease in 2016 with probable exposure from IV drug use and snorting which he admits to in the past.? He was eating pizza at home at that time he appeared to have had a syncope event and was noted to have a tonic- clonic type seizures biting his right tongue.? He was not incontinent of urine or stool.? He was slightly postictal after the event and in the ED had no further seizures.? Once he was admitted he did have a recurrent seizure lasting 2 minutes which did not require treatment.? He was on CIWA protocol with Ativan orally as needed and this was switched to phenobarbital protocol. He was loaded with Keppra and neurology consultation was placed.? He is admitted for inpatient care with his new onset seizure activity.? He was questioned several times about his last alcoholic drink with this appearing to be a potential late alcohol wit hdrawal seizure with his history and continues exposure. He adamantly denied any recent alcohol use. Patient was found to have an increased ammonia level which may be causing some of his slurred speech and slowed mentation and is on lactulose. He is a full code.? He does have poor insight into his chronic diseases. See Diagnosis PCP f/u in 1-2 weeks. Home Meds and New Rx's Prescriptions: New multivitamin [Multiple Vitamins] Tablet 1 tab PO QAM Qty: 0 0RF levetiracetam 500 mg Tablet 500 mg PO BID Qty: 60 0RF lidocaine 5 % Adhesive Patch,Medicated 1 patch topical Q24H Qty: 14 0RF lactulose 20 gram/30 mL Solution 30 g PO BID Qty: 1500 0RF metformin 500 mg tablet 500 mg PO BID Qty: 60 0RF Continued alprazolam 2 mg Tablet Extended Release 24 Hr 2 mg PO DAILY bupropion HCl 300 mg Tablet Extended Release 24 Hr 300 mg PO DAILY levothyroxine 50 mcg Tablet 50 mcg PO DAILY furosemide 20 mg tablet 20 mg PO DAILY spironolactone 50 mg Tablet 50 mg PO DAILY cholecalciferol (vitamin D3) 1,000 UNITS tablet 5,000 units PO DAILY Eliquis 2.5 mg tablet 2.5 mg PO BID Patient Comments: TAKE ONE TABLET BY MOUTH TWICE A DAY haloperidol decanoate 100 mg/mL solution See Rx Instructions .ROUTE .COMPLEX Rx Instructions: 150 mg intramuscularly one a month Discharge Instructions Additional Instructions: Orthopedic recommendations: Gentle passive motion only for 6 weeks, demonstrated pendulum swings Follow up in the office in 2 weeks Referrals: Ar Diaz MD [ [facility] STAFF PHYSICIAN] - (Follow up in 2 weeks for re- eval of shoulder injury) Mayte Phan MD [ [facility] STAFF PHYSICIAN] - (follow up in 4-6 weeks for seizure) Activity:: Activity as Tolerated Equipment/Supplies:: No Equipment Needed Diet:: low carb Discharge Orders Discharge Orders: Discharge Order (Routine); Ordered 10/19/22 Ordered By: Lester Anthony Other Ambulatory Orders: EEG(Regular) (Routine) Location: None Selected Ordered By: Lester Anthony EEG(Regular) (Routine) Location: None Selected Ordered By: Lester Anthony DS: Summary Time Spent with Patient providing and/or coordinating discharge services: Greater than 30 minutes Status at Discharge Functional status at discharge: independent ambulation Overall status at discharge: patient is progressing back to baseline Mental Status: mental status grossly normal Speech and Movement: speech clear (mild slurring d/t swelling of tongue) Mood: congruent mood Affect: normal affect Exam Narrative Exam Narrative: General: Pleasant middle-aged male lying in bed. Cooperative and interactive. States he feels well. HEENT: MMM, swollen blue-discovered tongue from tongue bite Heart: RRR, no murmur Lungs: CTAB Abdomen: soft, nontender, nondistended Extremities: no edema BLEs; L shoulder in sling. Psych Mental Status: mental status grossly normal Speech and Movement: speech clear (mild slurring d/t swelling of tongue) Mood: congruent mood Affect: normal affect DS: Data Vitals/I&O Vitals and I&O: Vital Signs Temperature 36.6 C 10/19/22 07:30 Temperature Source Temporal Artery Scan 10/19/22 07:30 Pulse 68 10/19/22 08:00 Pulse Rhythm Regular 10/18/22 07:30 Pulse 70 10/19/22 08:01 Respiratory Rate 12 10/19/22 08:01 Respiratory Effort Normal, Non-Labored 10/19/22 07:30 Respiratory Depth Normal 10/19/22 07:30 Respiratory Pattern Normal 10/19/22 07:30 Blood Pressure 104/69 10/19/22 08:00 Blood Pressure Mean 77 10/19/22 08:00 Blood Pressure Position Supine 10/19/22 00:00 Pulse Oximetry 93 10/19/22 07:30 Oxygen Delivery Method Room Air 10/19/22 07:30 Oxygen Flow Rate 0 10/19/22 07:30 Pain Level 0 10/19/22 07:30 Intake & Output 10/18/22 10/18/22 10/19/22 11:59 23:59 11:59 Intake Total 262.3076 / 777.3076 410 / 777.3076 2109 Output Total 450 / 2325 1874 / 2325 Balance -187.6924 / -1547.6924 -1465 / -1547.6924 2109 Weight 102.8 kg 91.3 kg 81 kg Intake: IV 262.3076 / 577.3076 210 / 577.3076 210 / 210 Oral 200 / 200 1899 Output: Urine 450 / 2325 1874 Other: Urine Color Yellow Yellow Urine Appearance Clear Clear Urine Odor Normal Comment pt states he went a lot in the toilet and flushed it unsure of amount Voided 500cc into urinal. Stool Size Moderate Stool Characteristics Soft Brown Voiding Methods Toilet Urinal Data Completed and Pending Labs on day of discharge: Labs from last 24 hours 10/19/22 10/19/22 10/19/22 05:55 05:55 05:55 WBC 3.27 L RBC 3.77 L Hgb 11.3 L Hct 33.1 L MCV 88 MCH 30.0 MCHC 34.1 RDW 14.2 H Plt Count 36 L MPV 11.3 H Immature Gran % 0.3 Neutrophils % 67.9 Lymphocytes % 15.3 Monocytes % 11.6 Eosinophils % 4.0 Basophils % 0.9 Nucleated RBC % 0.0 Absolute Neutrophils 2.22 Absolute Lymphocytes 0.50 L Absolute Monocytes 0.38 Absolute Eosinophils 0.13 Absolute Basophils 0.03 RBC Morphology Normal Sodium 138 Potassium 3.9 Chloride 107 Carbon Dioxide 23.3 Anion Gap 7.7 BUN 10 Creatinine 0.7 Est GFR (CKD-EPI 2020) 111.56 Glucose 155 H Calcium 7.9 L Magnesium 1.8 Total Bilirubin 1.1 H Conjugated Bilirubin 0.4 H AST 22 ALT 25 Alkaline Phosphatase 98 Ammonia 98 H Total Protein 6.1 L Albumin 2.8 L Add-On Test Request 10/18/22 07:53 WBC RBC Hgb Hct MCV MCH MCHC RDW Plt Count MPV Immature Gran % Neutrophils % Lymphocytes % Monocytes % Eosinophils % Basophils % Nucleated RBC % Absolute Neutrophils Absolute Lymphocytes Absolute Monocytes Absolute Eosinophils Absolute Basophils RBC Morphology Sodium Potassium Chloride Carbon Dioxide Anion Gap BUN Creatinine Est GFR (CKD-EPI 2020) Glucose Calcium Magnesium Total Bilirubin Conjugated Bilirubin AST ALT Alkaline Phosphatase Ammonia Total Protein Albumin Add-On Test Request DONE PFSH All Active Problems Bankart lesion of left shoulder (Acute 10/18/22) Open wound of tongue due to bite (Acute) Discharge planning issues (Acute) DVT prophylaxis (Acute) Fracture of glenoid process of left scapula (Acute) Hyperammonemia (Acute) Seizure (Acute) Syncope (Chronic) Blunt head trauma (Acute) Blunt trauma of multiple sites of trunk (Acute) Increased ammonia level (Acute) Foreign body of ear, left (Acute) Abdominal pain (Acute) Ascites (Acute) Fracture of rib (Acute) Abdominal ascites (Acute) Thrombocytopenia (Chronic) Alcohol intoxication (Acute) HCV infection (Chronic) Cirrhosis (Chronic) Electrolyte and fluid disorder (Acute) Spondylosis of lumbar region without myelopathy or radiculopathy (Chronic) Depression (Acute) Suicidal ideations (Acute) Diabetes mellitus type 2 in obese (Chronic) Medical History Acute upper respiratory infection Alcohol abuse, in remission Chronic cough Chronic insomnia Constipation COPD (chronic obstructive pulmonary disease) Diabetes Discontinued smoking Esophageal varices Hearing loss Heroin addiction Hip pain, left History of appendicitis History of substance abuse Hyperlipidemia Hypertension Hypothyroid Impacted cerumen, left ear Inguinal hernia Lumbar spondylosis Muscle cramps Nocturnal hypoxemia Other specified disorders of teeth and supporting structures Petechiae Rhinorrhea Rib pain on left side Schizophrenia Sleep apnea Suicidal ideations Tinea pedis Unspecified cirrhosis of liver Surgical History EGD - MAC Social History Smoking/Tobacco Use Status: Former Tobacco Use Smoking risk assessment performed?: Yes Alcohol Intake: former Drug use: Current Sobriety Substance use type: does not use Details: denies drugs or alcohol for several months now Do you feel safe at home: Yes Do you feel safe in your relationship?: Yes Time Spent with Patient Time Spent with Patient: 45-69 minutes Time was spent: preparing to see the patient(eg.review tests), obtaining and/or reviewing separately otained hiistory, referring, communicating with other health lead care manager, indepentently interpreting results, counseling the patient and care coordination
--- NOTE | 2022-10-19 10:18 | PDOC.HHF2F ---
Home Health Referral Home Health Orders Clinical synopsis of why skilled professionals are needed: Pt with schizophrenia, previous ETOH abuse disorder, cirrhosis. New onset seizure. He has new medications that will require monitoring for compliance and ability to take properly. Medical diagnosis necessitation home health referral: New onset seizure. Registered Nurse: Check all that apply Instruct on new or changed medication(s)/assess compliance: Ordered Home Bound Status Assistance of another person (Describe assistance and medical necessity): New onset seizure that requires another person to be present when out of the home for safety. Describe why leaving home would require a considerable and taxing effort: Safety Concerns: describe (New onset of seizures.) Encounter Date and Reason: I certify that a FTF encounter for this patient was performed on October 19, 2022 and that such encounter was related to the primary reason the patient requires home health services. The encounter was conducted in the following manner: By me as the certifying physician, PORTRAIT PHOTOGRAPHER, PA or By an inpatient physician, PORTRAIT PHOTOGRAPHER or PA during an inpatient stay who communicated findings to me, Certification And Authentication I certify that I composed the above information based on my clinical judgment relating to this patient's medical condition and, if applicable, clinical findings communicated to me by the NPP or inpatient physician who performed the FTF encounter. Name of Provider that will be monitoring home health services: Lester Anthony
--- NOTE | 2022-10-19 11:47 | PDOC.CMDIS ---
Date of service: 10/19/22 Time of Service: 11:47 LACE Index Scoring Tool Questions: Length of Stay (in days): 2 Was the patient admitted via the E.D.?: Yes Comorbidities: Diabetes w/o Complication, Chronic Pulmonary Disease and Liver or Renal Disease E.D. Visits: 3 Answers: Total Score: 13 Risk of Readmission: High Risk Care Management Discharge Plan Reason for Hospitalization: syncope and seizure Discharge Plan: Won will be discharged home with new home health services for nursing. He will follow up with his community providers and plan of care and transport with family. Patient/Family Education Needs: Review of discharge instructions, limitations, activity, follow up plan, discuss Ask Me Three Services Needed at Discharge: Home Health Care Services
--- NOTE | 2022-10-26 13:59 | PT.INDS ---
PT Notes Visit Reasons: Syncope,Seizure,Hyperammonemia,Alcoholic Chirrosis Physical Therapy Inpatient Discharge Summary Date: 10/19/22 Dates of Service: This is a clinical summary of care provided for the duration of dates listed above. No charge was made in the completion of this documentation. Referring Doctor: Elvin Ríos MD PT Orders: PT CONSULT: Limited Ability Precautions: Fall. Standard. Seizure history Patient Profile/Admitting Diagnosis:? Won is 52-year-old male who presented to the ED on 10/17/22 after losing consciousness while eating and falling to the ground. He lives with parents and they called EMS. Patient did have a seizure while at the hospital.? PMHX: See EMR Social History/Home Situation: Lives with parents upstairs, reports independent at baseline. Equipment Owned/DME: None Subjective:? NT. See most recent ELEMENTARY LIBRARIAN notes. Objective:? General Observation: NT. See most recent ELEMENTARY LIBRARIAN notes. Mental Status: NT. See most recent ELEMENTARY LIBRARIAN notes. Pain: NT. See most recent ELEMENTARY LIBRARIAN notes. Previously her dad is was at high risk for ROM: Right Upper Extremity: Shoulder Flexion WFL. Shoulder abduction WFL. Elbow flexion WFL. Wrist flexion WFL. Opening and closing of hand WFL. Left Upper Extremity: Shoulder Flexion significantly impaired. Shoulder abduction significantly impaired. Elbow flexion WFL. Wrist flexion WFL. Opening and closing of hand WFL. Right Lower Extremity: Hip flexion WFL. Hip abduction WFL. Knee flexion WFL. Ankle dorsiflexion WFL. Ankle plantarflexion WFL. Left Lower Extremity: Hip flexion WFL. Hip abduction WFL. Knee flexion WFL. Ankle dorsiflexion WFL. Ankle plantarflexion WFL. Strength: Right Upper Extremity: Shoulder flexors 5/5. Shoulder abductors 5/5. Elbow flexors 5/5. Elbow extensors 5/5. Commercial Credit Reviewer strong. Left Upper Extremity: Shoulder flexors 3/5. Shoulder abductors 3/5. Elbow flexors 4+/5. Elbow extensors 5/5. Commercial Credit Reviewer strong. Right Lower Extremity: Hip flexors 5/5. Knee flexors 5/5. Knee extensors 5/5. Ankle dorsiflexors 5/5. Ankle plantarflexors 5/5. Left Lower Extremity: Hip flexors 5/5. Knee flexors 5/5. Knee extensors 5/5. Ankle dorsiflexors 5/5. Ankle plantarflexors 5/5. Sensation:? Intact as to pain and pressure on bilateral lower extremities. Bed Mobility/Transfers: Rolling: Independent Supine to sit: Independent Sit to supine: Independent Sit to stand: Independent Stand to sit: Independent Gait:? Ambulated 20 ft with SBA - unsteady on feet with path deviation, decreased stabilization Stairs:? Not assessed Balance:? Static Sitting: Normal Dynamic Sitting: Good Static Standing: Good Dynamic Standing: Fair Assessment: Patient presents with clinical signs and symptoms consistent with current/admitting diagnoses that have resulted to mobility limitations, gait instability, generalized weakness, and impairment of motor control as demonstrated by the following impairment level findings: 1. Decreased strength to left shoulder major muscle groups 2. Impaired standing balance 3. Impaired activity tolerance 4. Limitation of joint range of motion in left shoulder Impairments are contributing to the following functional limitations: 1. Inability to safely ambulate without assistive device or physical assistance 2. Increased fall risk 3. Inability to negotiate steps alone safely Goals: Goals x1 week 1. Independent gait on level surface with use of least restrictive device for at least 300 feet without report of pain nor dyspnea NOT MET 2. Good static and dynamic standing balance/tolerance NOT MET 3. Independent stair negotiation while holding onto bilateral rails for at least 10 steps without report of pain nor dyspnea NOT MET DISCHARGE RECOMMENDATIONS: Home with outpatient PT TREATMENT CODE/TIME: NC Thank you for the opportunity to participate in the care of this patient. Padmini Foster PT, DPT, CLT [facility] [place], [place]
== END 2022-10-19 10:55 | disposition home health service (06) | DRG 101 ==
LOC: ER 18:51 → MS 21:38 → ICU 10-18 14:09
PROVIDERS: Internal Medicine; Admitting Provider Family Medicine; Emergency Provider Emergency Medicine; PCP Family Medicine; Visit Provider Family Medicine
DX: R56.9 Unspecified convulsions (principal); S22.42XA Multiple fractures of ribs, left side, initial encounter for closed fracture; E72.20 Disorder of urea cycle metabolism, unspecified; I85.10 Secondary esophageal varices without bleeding; S42.142A Displaced fracture of glenoid cavity of scapula, left shoulder, initial encounter for closed fracture; R55 Syncope and collapse; Z79.84 Long term (current) use of oral hypoglycemic drugs; F10.11 Alcohol abuse, in remission; Z87.891 Personal history of nicotine dependence; E11.9 Type 2 diabetes mellitus without complications; W18.39XA Other fall on same level, initial encounter; M54.2 Cervicalgia; K70.31 Alcoholic cirrhosis of liver with ascites; D69.6 Thrombocytopenia, unspecified; S01.552A Open bite of oral cavity, initial encounter; F32.A Depression, unspecified; M47.816 Spondylosis without myelopathy or radiculopathy, lumbar region; K59.00 Constipation, unspecified; F51.04 Psychophysiologic insomnia; F11.21 Opioid dependence, in remission; I10 Essential (primary) hypertension; E03.9 Hypothyroidism, unspecified; E78.5 Hyperlipidemia, unspecified; F20.9 Schizophrenia, unspecified; K80.20 Calculus of gallbladder without cholecystitis without obstruction; D73.2 Chronic congestive splenomegaly; Z86.19 Personal history of other infectious and parasitic diseases; G89.29 Other chronic pain; F19.11 Other psychoactive substance abuse, in remission; Z86.718 Personal history of other venous thrombosis and embolism; G47.33 Obstructive sleep apnea (adult) (pediatric)
CPT/HCPCS: 36415; 74177; 80048; 80053; 80076; 80307; 82550; 82805; 85027; 93005; 97161; 99223; 70450; 70551; 71260; 72125; 73030; 73200; 80320; 80329; 81003; 82140; 83036; 83735; 84100; 84439; 84443; 84484; 85025; 85610; 85730; 93010; 99233; 99239; J1170; J1885; J1953; J2560; J3490

== ENCOUNTER → 2022-10-18 07:05 | Outpatient (BNVA) | payer MEDICARE, MEDICAID, SELFPAY | PROVIDERS: PCP Family Medicine; Referring Provider Family Medicine; Visit Provider Psychiatry & Neurology Neurology ==

== ENCOUNTER 2022-10-26 04:29 | Outpatient (CLI) | payer MEDICARE, MEDICAID, SELFPAY ==
--- NOTE | 2022-10-26 16:40 | PDOC.EEG_ITS ---
Neurology EEG EEG: [facility] Department of Neurology EEG REPORT Date of Recordin10/26/22 Interpreting Physician: Dr. Mayte Phan PCP/Referring Provider: Dr. Soraya Tomas Reason for study: Ms. Monroy is a 52 year-old with recent unprovoked seizure x2. Current Medications: Home Medications Medication Instructions Recorded Confirmed Type cholecalciferol (vitamin D3) 25 5,000 units PO DAILY 07/22/16 10/18/22 History mcg (1,000 unit) tablet apixaban 2.5 mg tablet (Eliquis) 2.5 mg PO BID 07/16/20 10/18/22 History haloperidol decanoate 100 mg/mL See Rx Instructions .Route .COMPLEX 11/09/20 10/18/22 History intramuscular solution alprazolam 2 mg tablet,extended 2 mg PO DAILY 10/18/22 10/18/22 History release 24 hr bupropion HCl 300 mg 24 hr tablet, 300 mg PO DAILY 10/18/22 10/18/22 History extended release furosemide 20 mg tablet 20 mg PO DAILY 10/18/22 10/18/22 History levothyroxine 50 mcg tablet 50 mcg PO DAILY 10/18/22 10/18/22 History spironolactone 50 mg tablet 50 mg PO DAILY 10/18/22 10/18/22 History lactulose 20 gram/30 mL oral 30 g (45 mL) PO BID #1,500 mL 10/19/22 Rx solution levetiracetam 500 mg tablet 500 mg PO BID #60 tabs 10/19/22 Rx lidocaine 5 % topical patch 1 patch topical Q24H #14 ea 10/19/22 Rx metformin 500 mg tablet 500 mg PO BID #60 tabs 10/19/22 Rx multivitamin (Multiple Vitamins 1 tab PO QAM #0 tabs 10/19/22 Rx tablet) METHODS: A 21 channel digitized electroencephalogram was performed in the [facility]. The 10/20 international system of electrode placement was used and bipolar and referential electrode montages were recorded. In addition to EEG the patient was monitored for EKG and lateral/vertical eye movements. Activation procedures of photic stimulation and hyperventilation were performed if applicable. Video was used during activation procedures and during events where applicable. The duration of the recording was 30 minutes. DESCRIPTION OF EEG: The patient was noted to be awake only during the recording. During maximal wakefulness a 9-Hz posterior background rhythm was present which was well- modulated, symmetrical, reactive to eye opening, and of moderate voltage. With eye opening the background activity changed to a low voltage mixture of alpha, beta, and occasional theta range frequencies. Faster frequencies were present in the bilateral anterior head regions. There was a normal anterior-posterior voltage gradient. No drowsiness or stage II sleep was recorded. Activating Procedures: Photic stimulation was performed which produced a symmetrical posterior driving response at various flash frequencies. Hyperventilation was not performed. EKG: EKG revealed normal sinus rhythm. INTERPRETATION: This EEG is normal during the awake states a well as during photic stimulation. PRIOR EEG: none CLINICAL CORRELATION: No focal regions of cerebral dysfunction or epileptiform activity was present. No sleep was recorded during the study which reduces the sensitivity of the exam. If seizure remains a part of the differential, consider a repeat sleep- deprived EEG or overnight ambulatory EEG. Epilepsy remains a clinical diagnosis and a normal EEG does not rule out epilepsy. Clinical correlation is advised. Mayte Phan MD
== END 2022-10-26 04:30 | disposition home or self-care (01) ==
LOC: RT 04:29
PROVIDERS: PCP Family Medicine; Visit Provider Family Medicine
DX: R56.9 Unspecified convulsions (principal)
CPT/HCPCS: 95816

== ENCOUNTER 2022-11-01 10:31 | Outpatient (CLI) | payer MEDICARE, MEDICAID, SELFPAY ==
--- NOTE | 2022-11-01 09:15 | DI.RAD_ITS ---
Exam(s) XR SHOULDER LT COMPLETE 2+V EXAM: XR SHOULDER LT COMPLETE 2+V CLINICAL HISTORY: shoulder f/u. TECHNIQUE: 2D digital imaging was performed. Three views. COMPARISON: CT CT UPPER EXTREMITY LT WO from 10/18/2022 CR XR SHOULDER LT COMPLETE 2+V from 10/18/2022 FINDINGS: There has been no change in the alignment of the fracture at the inferior glenoid which is less visib le on the current exam. The a mild impaction fracture of the superior humeral head is also less appa rent. No new abnormalities. DATA REPOSITORY: RADIATION DOSE DELIVERED:
== END 2022-11-01 10:32 | disposition home or self-care (01) ==
LOC: DIORS 10:32
PROVIDERS: PCP Family Medicine; Referring Provider Family Medicine; Visit Provider Student in an Organized Health Care Education/Training Program
DX: S43.492D Other sprain of left shoulder joint, subsequent encounter; X58.XXXD Exposure to other specified factors, subsequent encounter
CPT/HCPCS: 99213; 73030

== ENCOUNTER 2022-11-28 09:14 | Outpatient (CLI) | payer MEDICARE, MEDICAID, SELFPAY ==
--- NOTE | 2022-11-28 09:00 | DI.RAD_ITS ---
Exam(s) XR SHOULDER LT COMPLETE 2+V EXAM: XR SHOULDER LT COMPLETE 2+V CLINICAL HISTORY: f/u frx. TECHNIQUE: 2D digital imaging was performed. Two views. COMPARISON: CR XR SHOULDER LT COMPLETE 2+V from 10/18/2022 CR XR SHOULDER LT COMPLETE 2+V from 11/01/2022 FINDINGS: Slight deformity at the inferior glenoid is visible. There is significant healing of the previously noted glenoid fracture. Visualization of the fracture is limited due to positioning and overlap of t he ribs with the glenoid. No abnormality is visible in the humeral head. No new findings. DATA REPOSITORY: RADIATION DOSE DELIVERED:
== END 2022-11-28 09:15 | disposition home or self-care (01) ==
LOC: DIORS 09:14
PROVIDERS: PCP Family Medicine; Referring Provider Family Medicine; Visit Provider Student in an Organized Health Care Education/Training Program
DX: S42.142D Displaced fracture of glenoid cavity of scapula, left shoulder, subsequent encounter for fracture with routine healing; X58.XXXD Exposure to other specified factors, subsequent encounter
CPT/HCPCS: 99213; 73030

== ENCOUNTER → 2022-12-06 12:16 | Outpatient (BNVA) | payer MEDICARE, MEDICAID, SELFPAY | PROVIDERS: PCP Family Medicine; Referring Provider Family Medicine; Visit Provider Psychiatry & Neurology Neurology | DX: R56.9 Unspecified convulsions (principal) | CPT/HCPCS: 99213 ==

== ENCOUNTER 2023-03-19 20:46 | Outpatient (REF) | payer MEDICARE, MEDICAID, SELFPAY ==
[2023-03-19 21:44] LABS: Abs Immature Grans 0.01 10^3/uL (0.0-0.06); Absolute Basophil Count 0.02 10^3/uL (0.0-0.2); Absolute Eosinophil Count 0.08 10^3/uL (0.0-0.7); Absolute Lymphocyte Count 0.48 10^3/uL (1.2-3.4); Absolute Neutrophil Count 2.96 10^3/uL (1.2-6.7); Basophils % 0.5; HCT 35.5 % (40.0-50.0); HGB 11.6 g/dL (13.5-17.5); Immature Grans % 0.3; Lymphocytes % 12.2; MCH 28.1 pg (27.0-33.0); MCHC 32.7 % (32.0-36.0); MCV 86 fL (80-95); MPV 12.9 fL (8.0-11.0); Monocytes % 10.1; Neutrophils % 74.9; RBC 4.13 10^6/uL (4.36-5.78); RDW 15.9 % (11.8-14.1); RDW-SD 49.8 fL; WBC 3.95 10^3/uL (4.4-10.8)
[2023-03-19 22:02] LABS: Diff Comment PLT Morph Reviewed; Platelet Count 49 10^3/uL (130-400); RBC Morphology Normal
[2023-03-19 22:03] LABS: ALT 43 U/L (16-63); AST 31 U/L (15-37); Albumin 3.4 g/dL (3.4-5.0); Alkaline Phosphatase 119 U/L (46-116); Anion Gap 6.3 mmol/L (3-11); BUN 9 mg/dL (7-18); Bilirubin, Total 1.8 mg/dL (0.2-1.0); CO2 27.7 mmol/L (21.0-32.0); CREATININE 1.1 mg/dL (0.70-1.30); Chloride 101 mmol/L (98-107); Estimated GFR 81.28 (mL/min/1.73m2); Glucose 281 mg/dL (74-106); Potassium 4.1 mmol/L (3.5-5.1); Sodium 135 mmol/L (136-145); Total Protein 7.6 g/dL (6.4-8.2)
== END 2023-03-19 20:47 | disposition home or self-care (01) ==
LOC: NCHCN 20:46
PROVIDERS: PCP Family Medicine; Visit Provider Family Medicine
DX: K74.60 Unspecified cirrhosis of liver (principal)
CPT/HCPCS: 80053; 85025

== ENCOUNTER 2023-05-31 10:35 | Inpatient (IN) | payer MEDICARE, MEDICAID, SELFPAY ==
[2023-05-31] VITALS (48 sets, daily range): BP systolic 96–196; BP diastolic 49–100; PULSE 74–145; RESP 11–30; TEMP 36.6–37.6; O2SAT 92–100
--- NOTE | 2023-05-31 10:30 | RT.EKG_ITS ---
APPROVED REPORT Exam: Resting ECG Reason for Exam: rapid heart rate Patient Location: I HR:125 bpm ECG Measurements Heart Rate 125 AXIS AL [id number] P [id number] QRSd 79 QRS 15 QT 311 T 9 QTc 457 Conclusion Atrial flutter with predominant 2:1 AV block...A-rate 267, multiple Ps Consider anteroseptal infarct...Q >30mS, dimin R, V1-V2
[2023-05-31 11:07] LABS: Abs Immature Grans 0.03 10^3/uL (0.0-0.06); Absolute Basophil Count 0.04 10^3/uL (0.0-0.2); Absolute Eosinophil Count 0.08 10^3/uL (0.0-0.7); Absolute Lymphocyte Count 0.33 10^3/uL (1.2-3.4); Absolute Monocyte Count 0.45 10^3/uL (0.1-0.8); Absolute Neutrophil Count 5.07 10^3/uL (1.2-6.7); Basophils % 0.7; Eosinophils % 1.3; HCT 35.8 % (40.0-50.0); HGB 11.1 g/dL (13.5-17.5); Immature Grans % 0.5; Lymphocytes % 5.5; MCH 26.7 pg (27.0-33.0); MCV 86 fL (80-95); MPV 11.5 fL (8.0-11.0); Monocytes % 7.5; Neutrophils % 84.5; RBC 4.15 10^6/uL (4.36-5.78); RDW 17.3 % (11.8-14.1); RDW-SD 54.3 fL
--- NOTE | 2023-05-31 11:16 | W.ED.GENAD ---
HPI General Mode of arrival: ambulatory. Date/Time Provider Initiated Documentation: 05/31/23 10:47. Limitations to Documentation: no limitations. Information obtained by: patient. HPI Narrative: 52-year-old male with multiple medical problems including history of cirrhosis of the liver, status post recent TIPS procedure about 2 weeks ago, here at the recommendation of [facility] at bedtime staff who were concerned today that he appeared pale and had a heart rate in the 140s. Patient has no complaints. He denies chest pain or palpitations. He has no shortness of breath. He denies abdominal pain. No melena or bright red blood per rectum. Patient has no history of cardiac arrhythmia. Related Data Home Medications Medication Instructions Recorded Confirmed cholecalciferol (vitamin D3) 25 5,000 units PO DAILY 07/22/16 05/31/23 mcg (1,000 unit) tablet apixaban 2.5 mg tablet (Eliquis) 2.5 mg PO BID 07/16/20 05/31/23 haloperidol decanoate 100 mg/mL See Rx Instructions .Route .COMPLEX 11/09/20 05/31/23 intramuscular solution alprazolam 2 mg tablet,extended 2 mg PO DAILY 10/18/22 05/31/23 release 24 hr bupropion HCl 300 mg 24 hr tablet, 300 mg PO DAILY 10/18/22 05/31/23 extended release furosemide 20 mg tablet 20 mg PO DAILY 10/18/22 05/31/23 levothyroxine 50 mcg tablet 50 mcg PO DAILY 10/18/22 05/31/23 spironolactone 50 mg tablet 50 mg PO DAILY 10/18/22 05/31/23 insulin glargine 14 unit subcut DAILY AM 03/21/23 05/31/23 metformin 500 mg PO TID 03/21/23 05/31/23 Allergies Allergy/AdvReac Type Severity Reaction Status Date / Time No Known Allergies Allergy Unverified 05/31/23 10:45 General Stated Complaint: GenMedical MANISH: 3 Review of Systems All systems reviewed & are unremarkable except as noted in HPI and below Constitutional Constitutional: Denies fever(s) Cardiovascular Cardiovascular: Reports as per HPI and Denies dyspnea Respiratory Respiratory: Denies dyspnea Exam Const General: cooperative and no acute distress HENMT Mouth: moist mucous membranes Eyes Conjunctivae: normal conjunctivae Sclera: normal sclerae Resp Auscultation: clear to auscultation bilaterally, no rales, no rhonchi and no wheezes Cardio Rate: tachycardic Rhythm: abnormal rhythm Heart Sounds: no murmurs GI Palpation: soft, not firm, no guarding, no masses, not rigid and nontender Skin General skin exam: jaundice Neuro General: patient alert, patient awake, patient oriented x3 and tone normal Extrem General: no calf tenderness and no edema Psych Appearance: grossly normal Mental Status: mental status grossly normal Speech and Movement: speech and movement normal Course Vital Signs Vital signs: Vital Signs Temperature 36.6 C 05/31/23 10:41 Pulse 140 H 05/31/23 10:41 Respiratory Rate 18 05/31/23 10:41 Blood Pressure 196/97 H 05/31/23 10:41 Pulse Oximetry 100 05/31/23 10:41 Temperature 36.6 C 05/31/23 10:41 Temperature Source Tympanic 05/31/23 10:41 Pulse 122 H 05/31/23 10:46 Pulse 142 H 05/31/23 10:50 Respiratory Rate 20 05/31/23 10:53 Respiratory Effort Normal, Non-Labored 05/31/23 10:53 Respiratory Depth Normal 05/31/23 10:53 Respiratory Pattern Normal 05/31/23 10:53 Blood Pressure 173/90 H 05/31/23 10:46 Blood Pressure Mean 114 05/31/23 10:46 Blood Pressure Position Sitting 05/31/23 10:41 Pulse Oximetry 99 05/31/23 10:50 Oxygen Delivery Method Room Air 05/31/23 10:41 Oxygen Flow Rate 0 05/31/23 10:41 Pain Level 0 05/31/23 10:41 Medical Decision Making 1115?52-year-old male with history of hepatitis C, esophageal varices, cirrhosis of the liver, status post TIPS procedure 2 weeks ago that was performed without complication, here today at prompting of [facility] chest staff who are concerned about his tachycardia and pale appearance. Patient is asymptomatic with no complaint. Patient is tachycardic and hypertensive. He saturating well in no respiratory distress. Reviewed monitoring engineer which shows irregularly irregular narrow complex rhythm. Concern for atrial fibrillation. EKG was reviewed and interpreted by me: Please report, atrial flutter with 2-1 AV block. Plan to initiate treatment with diltiazem and monitor closely. Consider anemia and significant electrolyte abnormalities. Consider thyroid dysfunction. Initial labs reviewed and unchanged anemia noted with hemoglobin 11. Unchanged thrombocytopenia with platelets of 65. --Patient was given diltiazem 15 mg IV and had improvement in heart rate but remained tachycardic and in atrial fibrillation. Diltiazem infusion was initiated. I called and spoke with the hospitalist, Dr. Mahan, discussed ED presentation course, he will admit the patient. 1205 --I spoke with the patient's parents and updated them at the patient's request. Initial labs reviewed and magnesium is low at 1.6. I will give magnesium [address] Mahan was made aware of this ED order. Lab Data Lab results reviewed: Yes I reviewed the patient's lab results. Labs: Laboratory Tests Range/Units 05/31/23 10:55 WBC (4.4-10.8) 10^3/uL 6.00 RBC (4.36-5.78) 10^6/uL 4.15 L Hgb (13.5-17.5) g/dL 11.1 L Hct (40.0-50.0) % 35.8 L MCV (80-95) fL 86 MCH (27.0-33.0) pg 26.7 L MCHC (32.0-36.0) % 31.0 L RDW (11.8-14.1) % 17.3 H Plt Count (130-400) 10^3/uL 65 L MPV (8.0-11.0) fL 11.5 H Immature Gran % 0.5 Neutrophils % 84.5 Lymphocytes % 5.5 Monocytes % 7.5 Eosinophils % 1.3 Basophils % 0.7 Nucleated RBC % (0.0-0.3) % 0.0 Absolute Neutrophils (1.2-6.7) 10^3/uL 5.07 Absolute Lymphocytes (1.2-3.4) 10^3/uL 0.33 L Absolute Monocytes (0.1-0.8) 10^3/uL 0.45 Absolute Eosinophils (0.0-0.7) 10^3/uL 0.08 Absolute Basophils (0.0-0.2) 10^3/uL 0.04 RBC Morphology Normal Sodium (136-145) mmol/L 137 Potassium (3.5-5.1) mmol/L 4.1 Chloride (98-107) mmol/L 102 Carbon Dioxide (21.0-32.0) mmol/L 22.1 Anion Gap (3-11) mmol/L 12.9 H BUN (7-18) mg/dL 6 L Creatinine (0.70-1.30) mg/dL 0.9 Est GFR (CKD-EPI 2020) (mL/min/1.73m2) 103.40 Glucose (74-106) mg/dL 263 H Calcium (8.5-10.1) mg/dL 8.4 L Magnesium (1.8-2.4) mg/dL 1.6 L Total Bilirubin (0.2-1.0) mg/dL 1.9 H AST (15-37) U/L 41 H ALT (16-63) U/L 51 Alkaline Phosphatase (46-116) U/L 164 H Troponin I (< or =60) ng/L < 50 Total Protein (6.4-8.2) g/dL 7.4 Albumin (3.4-5.0) g/dL 3.1 L Patient ABO/Rh A Positive Antibody Screen NEGATIVE Quality:SDOH Health Related Social Needs: No Data to Display Critical Care Time Critical Care Time Critical Care Time: Yes Total Critical Care Time: 45 Attestation: I spent greater than 45 minutes addressing this patient's immediate life threats. Please see MDM section of note. This time was spent engaged in work directly related to the patient's care, exclusive of separate procedures, and failure to initiate these interventions would have likely resulted in clinically significant or life threatening deterioration in the patient's condition. PFSH All Active Problems (Updated 05/31/23 @ 12:22 by Pedro Horowitz MD) Hypomagnesemia (Acute) Atrial fibrillation with RVR (Acute) Excessive cerumen in both ear canals (Acute) Bankart lesion of left shoulder (Acute 10/18/22) Open wound of tongue due to bite (Acute) Fracture of glenoid process of left scapula (Acute) Hyperammonemia (Acute) Seizure (Acute) Foreign body of ear, left (Acute) Abdominal pain (Acute) Ascites (Acute) Abdominal ascites (Acute) Thrombocytopenia (Chronic) Alcohol intoxication (Acute) Cirrhosis (Chronic) Electrolyte and fluid disorder (Acute) Spondylosis of lumbar region without myelopathy or radiculopathy (Chronic) Depression (Acute) Suicidal ideations (Acute) Diabetes mellitus type 2 in obese (Chronic) Medical History Hypertension Hyperlipidemia History of appendicitis Alcohol abuse, in remission History of substance abuse Unspecified cirrhosis of liver Schizophrenia Hip pain, left COPD (chronic obstructive pulmonary disease) Nocturnal hypoxemia Discontinued smoking Chronic cough Chronic insomnia Constipation Rhinorrhea Petechiae Inguinal hernia Muscle cramps Rib pain on left side Other specified disorders of teeth and supporting structures Acute upper respiratory infection Tinea pedis Impacted cerumen, left ear Hearing loss Fracture of rib HCV infection Lumbar spondylosis Hypothyroid Heroin addiction Esophageal varices Suicidal ideations Diabetes Sleep apnea Surgical History EGD - MAC Social History Smoking/Tobacco Use Status: Former Tobacco Use Smoking risk assessment performed?: Yes Alcohol Intake: former Drug use: Current Sobriety Substance use type: does not use Details: denies drugs or alcohol for several months now Current gender identity: male Do you feel safe at home: Yes Do you feel safe in your relationship?: Yes Discharge Plan Disposition Patient Disposition: Admit to [facility] Condition: Serious Discharge Details Chief Complaint: GenMedical Clinical Impression: Atrial fibrillation with RVR, Hypomagnesemia Primary Care Provider: Soraya Tomas ED Provider: Pedro Horowitz [place] Meds and New Rx's Prescriptions: No Action metformin 500 mg PO TID insulin glargine [Lantus U-100 Insulin] 14 unit subcut DAILY AM alprazolam 2 mg Tablet Extended Release 24 Hr 2 mg PO DAILY bupropion HCl 300 mg Tablet Extended Release 24 Hr 300 mg PO DAILY levothyroxine 50 mcg Tablet 50 mcg PO DAILY furosemide 20 mg tablet 20 mg PO DAILY spironolactone 50 mg Tablet 50 mg PO DAILY cholecalciferol (vitamin D3) 1,000 UNITS tablet 5,000 units PO DAILY Eliquis 2.5 mg tablet 2.5 mg PO BID Patient Comments: TAKE ONE TABLET BY MOUTH TWICE A DAY haloperidol decanoate 100 mg/mL solution See Rx Instructions .ROUTE .COMPLEX Rx Instructions: 150 mg intramuscularly one a month
[2023-05-31 11:17] LABS: Diff Comment Diff Reviewed; Platelet Count 65 10^3/uL (130-400); RBC Morphology Normal
[2023-05-31] MEDS: dilTIAZem 25 MG/5 ML VIAL 15 MG IVP (11:26)
[2023-05-31 11:27] LABS: ALT 51 U/L (16-63); AST 41 U/L (15-37); Albumin 3.1 g/dL (3.4-5.0); Alkaline Phosphatase 164 U/L (46-116); Anion Gap 12.9 mmol/L (3-11); BUN 6 mg/dL (7-18); Bilirubin, Total 1.9 mg/dL (0.2-1.0); CO2 22.1 mmol/L (21.0-32.0); CREATININE 0.9 mg/dL (0.70-1.30); Calcium 8.4 mg/dL (8.5-10.1); Chloride 102 mmol/L (98-107); Glucose 263 mg/dL (74-106); Magnesium 1.6 mg/dL (1.8-2.4); Potassium 4.1 mmol/L (3.5-5.1); Sodium 137 mmol/L (136-145); Total Protein 7.4 g/dL (6.4-8.2); Troponin I < 50 ng/L (< or =60)
--- NOTE | 2023-05-31 11:39 | HPE_ITS ---
Date of service: 05/31/23 Time of Service: 17:19 Assessment and Plan Assessment and plan (1) Atrial fibrillation with RVR: Status: Acute Assessment and plan: - New onset, no known trigger -Initially given Dilt bolus and placed on diltiazem drip -However, EKG confirmed patient converted to normal sinus rhythm earlier in the afternoon -Has been transitioned to p.o. short acting Dilt 30 mg every 6 hours -If patient remains in normal sinus rhythm overnight, will transition to long- acting -Patient already on Eliquis 2.5 mg p.o. twice daily, will continue -Follow-up a.m. echocardiogram (2) Diabetes mellitus type 2 in obese: Status: Chronic Assessment and plan: - Continue home metformin and insulin regimen (3) Cirrhosis: Status: Chronic Assessment and plan: - Currently without ascites -Will continue home Lasix, omeprazole, Xifaxan, spironolactone Qualifiers: Hepatic cirrhosis type: unspecified hepatic cirrhosis Ascites presence: without ascites Qualified Code(s): K74.60 - Unspecified cirrhosis of liver (4) Thrombocytopenia: Status: Chronic Assessment and plan: - Platelets at baseline, 65 on admission -Will monitor a.m. CBC History of Present Illness History of Present Illness Chief Complaint: Sent by [facility] staff return N arrative: 52-year-old male with past medical history of hepatitis C, esophageal varices, cirrhosis of the liver's liver status post TIPS procedure 2 weeks ago without complication presented to the emergency department when he was noted to be tachycardic by [facility] staff. Patient states that he was in his usual state of health, and when he went to his [facility] appointment they noted that he was tachycardic and thought that he was pale looking. He denied any headache, lightheadedness, dizziness, chest pain, shortness of breath, nausea vomiting or diarrhea. In the emergency department the patient was noted as being tachycardic with a heart rate up into the 140s was confirmed to be A-fib RVR and EKG. Remainder of his physical exam was within normal limits, CBC and CMP were also unremarkable, Trop was negative. He was given 15 mg IV diltiazem with mild improvement of his heart rate but he did remain tachycardic. At which time he was started on diltiazem drip. TSH was within normal limits, hemoglobin was 11, and patient noted to have baseline thrombocytopenia with platelets of 65. At which time emergency room physician paged hospitalist for admission for patient with new onset atrial fibrillation with rapid ventricular rate requiring diltiazem drip and admission to the intensive care unit. Review of Systems All systems reviewed & are unremarkable except as noted in HPI and below PFSH All Active Problems (Updated 05/31/23 @ 12:22 by Pedro Horowitz MD) Hypomagnesemia (Acute) Atrial fibrillation with RVR (Acute) Excessive cerumen in both ear canals (Acute) Bankart lesion of left shoulder (Acute 10/18/22) Open wound of tongue due to bite (Acute) Fracture of glenoid process of left scapula (Acute) Hyperammonemia (Acute) Seizure (Acute) Foreign body of ear, left (Acute) Abdominal pain (Acute) Ascites (Acute) Abdominal ascites (Acute) Thrombocytopenia (Chronic) Alcohol intoxication (Acute) Cirrhosis (Chronic) Electrolyte and fluid disorder (Acute) Spondylosis of lumbar region without myelopathy or radiculopathy (Chronic) Depression (Acute) Suicidal ideations (Acute) Diabetes mellitus type 2 in obese (Chronic) Medical History Hypertension Hyperlipidemia History of appendicitis Alcohol abuse, in remission History of substance abuse Unspecified cirrhosis of liver Schizophrenia Hip pain, left COPD (chronic obstructive pulmonary disease) Nocturnal hypoxemia Discontinued smoking Chronic cough Chronic insomnia Constipation Rhinorrhea Petechiae Inguinal hernia Muscle cramps Rib pain on left side Other specified disorders of teeth and supporting structures Acute upper respiratory infection Tinea pedis Impacted cerumen, left ear Hearing loss Fracture of rib HCV infection Lumbar spondylosis Hypothyroid Heroin addiction Esophageal varices Suicidal ideations Diabetes Sleep apnea Surgical History EGD - MAC Social History Smoking/Tobacco Use Status: Former Tobacco Use Smoking risk assessment performed?: Yes Alcohol Intake: former Drug use: Current Sobriety Substance use type: does not use Details: denies drugs or alcohol for several months now Housing: house Current gender identity: male Do you feel safe at home: Yes Do you feel safe in your relationship?: Yes Meds Allergies and Home Medications Allergies Allergy/AdvReac Type Severity Reaction Status Date / Time No Known Allergies Allergy Unverified 05/31/23 10:45 Home Medications Medication Instructions Recorded Confirmed Type cholecalciferol (vitamin D3) 25 5,000 units PO DAILY 07/22/16 05/31/23 History mcg (1,000 unit) tablet apixaban 2.5 mg tablet (Eliquis) 2.5 mg PO BID 07/16/20 05/31/23 History haloperidol decanoate 100 mg/mL See Rx Instructions .Route .COMPLEX 11/09/20 05/31/23 History intramuscular solution alprazolam 2 mg tablet,extended 2 mg PO DAILY 10/18/22 05/31/23 History release 24 hr levothyroxine 50 mcg tablet 50 mcg PO DAILY 10/18/22 05/31/23 History insulin glargine 14 unit subcut DAILY AM 03/21/23 05/31/23 History bupropion HCl 150 mg 24 hr tablet, 150 mg PO DAILY 05/31/23 05/31/23 History extended release furosemide 40 mg tablet 40 mg PO DAILY 05/31/23 05/31/23 History lamotrigine 100 mg tablet 100 mg PO DAILY 05/31/23 05/31/23 History metformin 500 mg tablet 500 mg PO TID 05/31/23 05/31/23 History omeprazole 20 mg capsule,delayed 20 mg PO DAILY 05/31/23 05/31/23 History release rifaximin 550 mg tablet (Xifaxan) 550 mg PO BID 05/31/23 05/31/23 History spironolactone 100 mg tablet 100 mg PO DAILY 05/31/23 05/31/23 History Exam Narrative Exam Narrative: Well-appearing gentleman laying in bed in no acute distress, ANO x 4, heart regular rate rhythm as patient converted to normal sinus rhythm prior to my physical exam, lungs clear to auscultation bilaterally, abdomen soft, nontender, nondistended Results Labs 05/31/23 10:55 05/31/23 10:55 Labs: Laboratory Results - last 24 hr 05/31/23 10:55 WBC 6.00 RBC 4.15 L Hgb 11.1 L Hct 35.8 L MCV 86 MCH 26.7 L MCHC 31.0 L RDW 17.3 H Plt Count 65 L MPV 11.5 H Immature Gran % 0.5 Neutrophils % 84.5 Lymphocytes % 5.5 Monocytes % 7.5 Eosinophils % 1.3 Basophils % 0.7 Nucleated RBC % 0.0 Absolute Neutrophils 5.07 Absolute Lymphocytes 0.33 L Absolute Monocytes 0.45 Absolute Eosinophils 0.08 Absolute Basophils 0.04 RBC Morphology Normal Sodium 137 Potassium 4.1 Chloride 102 Carbon Dioxide 22.1 Anion Gap 12.9 H BUN 6 L Creatinine 0.9 Est GFR (CKD-EPI 2020) 103.40 Glucose 263 H Calcium 8.4 L Magnesium 1.6 L Total Bilirubin 1.9 H AST 41 H ALT 51 Alkaline Phosphatase 164 H Troponin I < 50 Total Protein 7.4 Albumin 3.1 L Last Vital Signs Temp 97.8 F 05/31/23 10:41 Pulse 145 H 05/31/23 11:26 Resp 20 05/31/23 10:53 BP 168/100 H 05/31/23 11:26 Pulse Ox 99 05/31/23 10:50 Time Spent Time spent with Patient: 55-74 minutes (60 minutes spent critical care time to care patient with new onset A-fib, requiring diltiazem drip) Time was spent: preparing to see the patient(eg.review tests), obtaining and/or reviewing separately otained hiistory, ordering medications,tests, procedures, referring, communicating with other health home care consultant, indepentently interpreting results, counseling the patient, care coordination and other
[2023-05-31] MEDS: dilTIAZem 125 MG in Normal Saline 100 ML IV (11:51)
--- NOTE | 2023-05-31 12:29 | W.PCEDHO ---
Registration Status: REG ER Primary Language: Preferred Language: Turkish ED Information & Data Chief Complaint GenMedical 05/31/23 11:22 Triage Note h/o hep c, esophageal 05/31/23 10:41 varices and ascites. Seen recently at [facility] for TIPS who follows him and pt states everything was good at discharge.Today he had a follow up with [facility] and when he arrived he appeared pale to staff and heart rate in the 140's. Pt states he feels fine, denies any pain/ vomiting/dark colored stools /shortness of breath, has no complaints upon arrival. Medical / Surgical History (Last Reviewed 05/31/23 @ 11:18 by Pedro Horowitz MD) Hypertension Hyperlipidemia History of appendicitis Alcohol abuse, in remission History of substance abuse Unspecified cirrhosis of liver Schizophrenia Hip pain, left COPD (chronic obstructive pulmonary disease) Nocturnal hypoxemia Discontinued smoking Chronic cough Chronic insomnia Constipation Rhinorrhea Petechiae Inguinal hernia Muscle cramps Rib pain on left side Other specified disorders of teeth and supporting structures Acute upper respiratory infection Tinea pedis Impacted cerumen, left ear Hearing loss Fracture of rib HCV infection Lumbar spondylosis Hypothyroid Heroin addiction Esophageal varices Suicidal ideations Diabetes Sleep apnea (Last Reviewed 05/31/23 @ 11:18 by Pedro Horowitz MD) EGD - MAC Most Recent Vital Signs Temperature 36.6 C 05/31/23 10:41 Temperature Source Tympanic 05/31/23 10:41 Pulse 102 H 05/31/23 12:01 Pulse 121 H 05/31/23 12:10 Respiratory Rate 11 L 05/31/23 12:10 Respiratory Effort Normal, Non-Labored 05/31/23 10:53 Respiratory Depth Normal 05/31/23 10:53 Respiratory Pattern Normal 05/31/23 10:53 Blood Pressure 136/68 05/31/23 12:01 Blood Pressure Mean 91 05/31/23 12:01 Blood Pressure Position Sitting 05/31/23 10:41 Pulse Oximetry 96 05/31/23 12:10 Oxygen Delivery Method Room Air 05/31/23 10:41 Oxygen Flow Rate 0 05/31/23 10:41 Pain Level 0 05/31/23 10:41 Allergies No Known Allergies Allergy (Unverified 05/31/23 10:45) Precautions Isolation Standard precaution 05/31/23 10:48 Active Medications Generic Name Dose Route Start Last Admin Trade Name Freq PRN Reason Stop Dose Admin Diltiazem HCl 125 mg/ Sodium 125 mls @ 5 mls/hr 05/31/23 11:30 05/31/23 11:51 Chloride IV 5 mg/hr INFUSION ELIA 5 mls/hr Administration Protocol 5 MG/HR IV IV Catheter Type [Right Peripheral IV Forearm] IV Catheter Gauge [Right 20 Forearm] Diagnostics 05/31/23 05/31/23 Range/Units 13:50 10:55 WBC 6.00 (4.4-10.8) 10^3/uL RBC 4.15 L (4.36-5.78) 10^6/uL Hgb 11.1 L (13.5-17.5) g/dL Hct 35.8 L (40.0-50.0) % MCV 86 (80-95) fL MCH 26.7 L (27.0-33.0) pg MCHC 31.0 L (32.0-36.0) % RDW 17.3 H (11.8-14.1) % Plt Count 65 L (130-400) 10^3/uL MPV 11.5 H (8.0-11.0) fL Immature Gran % 0.5 Neutrophils % 84.5 Lymphocytes % 5.5 Monocytes % 7.5 Eosinophils % 1.3 Basophils % 0.7 Nucleated RBC % 0.0 (0.0-0.3) % Absolute Neutrophils 5.07 (1.2-6.7) 10^3/uL Absolute Lymphocytes 0.33 L (1.2-3.4) 10^3/uL Absolute Monocytes 0.45 (0.1-0.8) 10^3/uL Absolute Eosinophils 0.08 (0.0-0.7) 10^3/uL Absolute Basophils 0.04 (0.0-0.2) 10^3/uL RBC Morphology Normal Sodium 137 (136-145) mmol/L Potassium 4.1 (3.5-5.1) mmol/L Chloride 102 (98-107) mmol/L Carbon Dioxide 22.1 (21.0-32.0) mmol/L Anion Gap 12.9 H (3-11) mmol/L BUN 6 L (7-18) mg/dL Creatinine 0.9 (0.70-1.30) mg/dL Est GFR (CKD-EPI 2020) 103.40 (mL/min/1.73m2) Glucose 263 H (74-106) mg/dL Calcium 8.4 L (8.5-10.1) mg/dL Magnesium 1.6 L (1.8-2.4) mg/dL Total Bilirubin 1.9 H (0.2-1.0) mg/dL AST 41 H (15-37) U/L ALT 51 (16-63) U/L Alkaline Phosphatase 164 H (46-116) U/L Troponin I Pending < 50 (< or =60) ng/L Total Protein 7.4 (6.4-8.2) g/dL Albumin 3.1 L (3.4-5.0) g/dL Patient ABO/Rh A Positive Antibody Screen NEGATIVE Intake and Output - 24 Hour Total 05/31/23 10:35 thru 05/31/23 11:02 Intake Total 10 Balance 10 Weight 87.997 kg Intake: IV 10 Falls Risk Assessment History of Falls No History 05/31/23 10:55 Contributing Factors No Factors 05/31/23 10:55 Ambulatory Aids Independent 05/31/23 10:55 Tubes/Lines None 05/31/23 10:55 Gait Evaluation No gait disturbance 05/31/23 10:55 Cognition No cognitive impairment 05/31/23 10:55 Fall Total Score 0 05/31/23 10:55 Level of Risk Standard/Low Risk 05/31/23 10:55 Problems (Last Reviewed 05/31/23 @ 11:18 by Pedro Horowitz MD) Hypomagnesemia (Acute) Atrial fibrillation with RVR (Acute) v v v v v v v v v Sending and/or Receiving Nurses: Please use comment section below to note any information pertinent to the patient hand-off not included above. Information / Comments: Report received from: Lacie Staples RN
[2023-05-31] MEDS: MAGNESIUM SULFATE 1 GM/100 ML BAG IVPB (13:24)
--- NOTE | 2023-05-31 13:45 | RT.EKG_ITS ---
APPROVED REPORT Exam: Resting ECG Reason for Exam: rhythm change Patient Location: I HR:82 bpm ECG Measurements Heart Rate 82 AXIS OH 213 P 64 QRSd 83 QRS 34 QT 413 T 54 QTc 483 Conclusion Sinus rhythm...normal P axis, V-rate 50- 99 Prolonged OH interval...OH >210, V-rate 50- 90 Borderline prolonged QT interval...QTc >475mS I have reviewed and interpreted ECG and agree with software generated interpretation.
[2023-05-31] MEDS: metFORMIN 500 MG TAB PO (13:57)
[2023-05-31] MEDS: dilTIAZem 30 MG TAB PO ×2 (13:58→19:37)
[2023-05-31] MEDS: Acetaminophen 325 MG TAB PO (14:01)
--- NOTE | 2023-05-31 14:36 | PHA.REVIEW2 ---
Pharmacy Admission Review Admission Clinical Review Admission Pharmacy Review: (Updated 05/31/23 @ 12:22 by Pedro Horowitz MD) Hypomagnesemia (Acute) Atrial fibrillation with RVR (Acute) No Known Allergies Allergy (Unverified 05/31/23 10:45) Height 6 ft Weight 87.7 kg Pharmacy Admission Review Renal Dosing Renal Dosing: BUN 6 mg/dL (7-18) L 05/31/23 10:55 Creatinine 0.9 mg/dL (0.70-1.30) 05/31/23 10:55 Medications needing adjustments: Reviewed (CrCl 120 mL/min) Anticoagulation Anticoagulation: Hgb 11.1 g/dL (13.5-17.5) L 05/31/23 10:55 Hct 35.8 % (40.0-50.0) L 05/31/23 10:55 Plt Count 65 10^3/uL (130-400) L 05/31/23 10:55 Creatinine 0.9 mg/dL (0.70-1.30) 05/31/23 10:55 DVT Prophylaxis: Reviewed Medications: Apixaban (2.5mg BID) Relevant Labs Relevant Labs: Sodium 137 mmol/L (136-145) 05/31/23 10:55 Potassium 4.1 mmol/L (3.5-5.1) 05/31/23 10:55 Chloride 102 mmol/L (98-107) 05/31/23 10:55 Magnesium 1.6 mg/dL (1.8-2.4) L 05/31/23 10:55 Electrolytes, C-Reactive P, ESR: Reviewed (Mg 1.6, AST 41, Hgb 11.1) DM Control DM Control: Reviewed Insulin Dosing, Diabetic Medication: Orders for insulin glargine and metformin (home medications), glucose 263 at 1055 Cardiac Review Cardiac Review: Troponin I < 50 ng/L (< or =60) 05/31/23 10:55 BP, HR, EF%: Reviewed (BP/HR WNL (HR was 134 at 1046 in ER this morning, got down to WNL at 1248), troponin pending) QTc Review QTc: Reviewed (Last EKG was from 10/17/22 and QTc was 450. Had EKG done today, results pending) IV to PO Switch IV Medications: Reviewed Home Meds Home Med List reviewed: Intervened Relevent Home Meds Not ordered & why?: Called patients preferred pharmacy ([facility]) to get med rec. Home med list was updated as follows: On home med list but dose changed: Bupropion decreased to 150mg, Furosemide increased to 40mg, and Spironolactone increased to 100mg - orders put in by provider were adjusted to reflect current dose Added to home med list: lamotrigine, omeprazole and Xifaxan. Orders were then added Made provider aware of all changes to home med list and orders Current Meds Current Medication Order Review: Reviewed Comments: diltiazem drip
[2023-05-31] MEDS: ALPRAZolam 0.5 MG TAB 1 MG PO (15:32)
[2023-05-31 16:50] LABS: Troponin I < 50 ng/L (< or =60)
[2023-05-31] MEDS: Apixaban 2.5 MG TAB PO (19:36)
[2023-05-31] MEDS: Rifaximin 550 MG TAB PO (19:37)
[2023-06-01] VITALS (9 sets, daily range): BP systolic 93–124; BP diastolic 49–81; PULSE 68–80; RESP 15–20; TEMP 36.4–36.6; O2SAT 94–98
--- NOTE | 2023-06-01 | DI.US_ITS ---
APPROVED REPORT EXAM: Comprehensive 2D, Doppler, and color-flow Echocardiogram Patient Location: In-Patient Kitchen Bath Designer: Melany Figueroa RDCS Indications: New afib. Other Information Study Quality: Good Conclusion LA moderately dilated,RA/RV upper limits,LV normal size. Normal LV function,EF 65-70%.Normal RV function. Anatomically normal valves. Trace MR/TR.No pulmonary hypertension Small aneurysm of the interatrial septum with right to left bowing,and with color doppler right to le ft shunting.Suggest contrast aided study. Trace pericardial effusion. Wall motion Left Ventricle The left ventricle is normal size. The left ventricular systolic function is normal. The left ventric ular ejection fraction is within the normal range. There is normal left ventricular wall thickness. T here is normal LV segmental wall motion. The left ventricular diastolic function is normal. There is no ventricular septal defect visualized. LVEF is >70%. Right Ventricle Right ventricle is borderline dilated. The right ventricular systolic function is normal. Atria Left atrium is severely dilated. Right atrium is moderately dilated. Trivial PFO is noted with right to left flow, a common variant. Aortic Valve The aortic valve is trileaflet and mobile. It is minimally thickened but opens well. There is a sligh t gradient across the aortic valve due to hyperdynamic left ventricular function. There is no aortic stenosis. No aortic regurgitation is present. Mitral Valve Mitral valve leaflets are mildly thickened. No evidence of mitral valve stenosis. There is trivial mi tral regurgitation. Tricuspid Valve The tricuspid valve is normal in structure. There is no tricuspid valve stenosis. Trace tricuspid reg urgitation. The RVSP is 18 mmHg. Pulmonic Valve The pulmonary valve is normal in structure. There is no pulmonic valvular stenosis. Trace pulmonic re gurgitation. Great Vessels The aortic root is normal in size. The pulmonary artery is normal. The ascending aorta is normal in s ize. Aortic arch is normal in caliber. IVC is normal in size and collapses >50% with inspiration. Pericardium There is no pericardial effusion. Trivial echo free space. 2D Dimensions IVSD d PLAX 1.08 cm M: 0.6-1.2 Ao Root d 2.68 cm M: 3.1 - 3.7 LVPW d PLAX 1.30 cm M: 0.6 - 1.2 Ao Asc Diam d 2.59 cm M: 2.6 - 3.4 LVID d PLAX 5.15 cm M: 4.2 - 5.8 Prox Ao Arch 2.7 cm LVDs 2.54 cm M: 2.5 - 4.0 IVC Diam exp d SLAX 2.0 cm LV EF Teichholz 81.8 % FS 50.82 % LV EDV (Teich) 126.9 mL LV ESV (Teich) 23.1 mL M-Mode TAPSE 3.38 cm (M/F) >1.7 Auto EF LV EDV A4C 171.2 mL LV EDV A2C 147.7 mL LV EDV BP 161.0 mL LV ESV A4C 58.8 mL LV ESV A2C 51.5 mL LV ESV BP 54.6 mL LVEF(%) A4C 65.6 % LVEF(%) A2C 65.1 % LVEF(%) BP 66.1 % LV SV A4C 112.4 ml LV SV A2C 96.2 ml LV SV BP 106.4 ml LV CO A4C 8.3 L/min LV CO A2C 7.0 L/min LV CO BP 7.7 L/min HR A4C 73.78 BPM HR A2C 73.03 BPM LV EDV Index (BP) LV Volumes - Method of Disks (Gaspar's) Single Plane 2D LV Volumes Biplane 2D LV Volumes LV EDV A4C 163.8 mL LV EDV BP 150.03 mL M: 62 - 150 LV ESV A4C 35.6 mL LV ESV BP 34.8 mL LVEF(%) A4C 78.2 % LVEF(%) BP 76.80 % M: 52 - 72 LV EDV A2C 132.7 mL LV EDV BP Index 71.78 mL/m2 M: 34 - 74 LV ESV A2C 34.1 mL SV BP LVEF(%) A2C 74.3 % SV Index LV Strain Long Pk Overal Avg (s) 22.84 LA Volume LA Length A4C 7.4 cm LA Length A2C 6.4 cm LA Area A4C s 33.93 cm2 LA Area A2C s 28.93 cm2 LA Vol A4C A-L 131.98 mL LA Vol A2C A-L 111.51 mL LA Vol Biplane A-L 130.7 mL LA Vol/BSA A4C A-L LA Vol/BSA A2C A-L LA Vol/BSA BP A-L 62.6 mL/m2 LA Vol A4C MOD 126.0 mL LA Vol A2C MOD 107.6 mL LA Vol BP MOD 125.3 mL RA Volume RA Area A4C 26.4 cm2 RA ESV A4C (A-L) RA Vol/BSA A4C A-L LV Diastology MV E' medial 0.081 (>0.07 m/s) MV E Vmax 0.93 (0.4-1.3 m/s) MV E/E' MED 11.84 (<14) MV A Vmax 0.80 (0.4-1.3 m/s) MV E' lateral 0.169 (>0.1 m/s) E/A Ratio 1.2 MV E/E' LAT 5.69 (<14) MV E' Average 0.125 m/s MV E/E'(average) 7.68 Aortic Valve AoV Vmax 2.28 m/s LVOT Vmax 1.32 m/s AoV Peak Grad 20.9 mmHg LVOT Peak Grad 7.0 mmHg AoV Area (Vmax) 1.96 cm2 LVOT VTI 0.305 m AoV VTI 0.502 m LVOT Mean Grad 4.2 mmHg AoV Mean Jesus. 1.66 m/s LVOT SV 103.44 mL AoV Mean Grad 12.3 mmHg LVOT Diam s 2.05 cm AoV Area (VTI) 2.06 cm2 Velocity Ratio 0.58 Mitral Valve MV DT 160 (160-240 msec) MV Vmax TIPS 1.13 m/s MV Mean Grad 2.7 (<2mmHg) MV VTI 0.347 m Pulm Vein s 0.74 m/s Pulm Vein d 0.55 m/s Pulm Vein a 0.35 m/s Pulmonary Valve RVOT Vmax 1.10 m/s RVOT Peak Gr. 4.8 mmHg RVOT VTI 0.176 m RVOT Mean Gr. 2.8 mmHg Tricuspid Valve RA Pressure 3.00 mmHg TR Vmax 1.95 m/s TV S' 0.18 m/s TR Peak Grad 15.1 mmHg RVSP (TR) 18.2 mmHg Shunt Evaluation Pulmonic VTI (Qp) 21.2 cm Systemic VTI (Qs) 28.5 cm QP / QS 0.35 Pulmonic Diameter 1.4 cm Systemic Diameter 2.1 cm
[2023-06-01] MEDS: Acetaminophen 325 MG TAB PO (00:45)
--- NOTE | 2023-06-01 00:50 | NUR.NOTE ---
Nursing Note: Discussed with pt about whether he has been drinking recently which pt denies. He expressed that he would appreciate not being asked again this admission.
[2023-06-01] MEDS: dilTIAZem 30 MG TAB PO (01:54)
[2023-06-01] MEDS: ALPRAZolam 0.5 MG TAB 1 MG PO ×2 (01:54→08:54)
[2023-06-01] MEDS: Levothyroxine 50 MCG TAB PO (05:29)
[2023-06-01] MEDS: Normal Saline Flush 10 ML SYR IVP (05:30)
[2023-06-01 06:22] LABS: HCT 30.1 % (40.0-50.0); HGB 9.5 g/dL (13.5-17.5); MCH 26.6 pg (27.0-33.0); MCHC 31.6 % (32.0-36.0); MCV 84 fL (80-95); MPV 12.3 fL (8.0-11.0); RBC 3.57 10^6/uL (4.36-5.78); RDW 16.9 % (11.8-14.1); RDW-SD 51.8 fL; WBC 3.66 10^3/uL (4.4-10.8)
[2023-06-01 06:31] LABS: INR 1.4 (0.9-1.1); Magnesium 1.8 mg/dL (1.8-2.4)
[2023-06-01 06:36] LABS: ALT 34 U/L (16-63); AST 21 U/L (15-37); Albumin 2.6 g/dL (3.4-5.0); Alkaline Phosphatase 112 U/L (46-116); Anion Gap 8.3 mmol/L (3-11); BUN 5 mg/dL (7-18); Bilirubin, Total 1.8 mg/dL (0.2-1.0); CO2 24.7 mmol/L (21.0-32.0); CREATININE 0.6 mg/dL (0.70-1.30); Calcium 8.7 mg/dL (8.5-10.1); Chloride 107 mmol/L (98-107); Estimated GFR 116.87 (mL/min/1.73m2); Glucose 166 mg/dL (74-106); Sodium 140 mmol/L (136-145); Total Protein 6.2 g/dL (6.4-8.2)
[2023-06-01 06:56] LABS: Platelet Count 59 10^3/uL (130-400)
--- NOTE | 2023-06-01 08:14 | PDOC.CMIN ---
Date of service: 06/01/23 Time of Service: 08:14 Care Management Initial Assmt Initial Assessment REASON FOR HOSPITALIZATION:: new onset afib PREVIOUS FUNCTIONAL STATUS/SOCIAL/FAMILY SUPPORTS:: Won lives in a single family home in [place], [place] with his mother Graciela and father Maximiliano. He is an only child. Marek receives social security disability. He was formerly a [employer] client and lived at [facility] for about a year. He reported that his parents moved to [place] about 4 years ago and he has lived with them since. 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 He is independent with ADLs and receives [employer]. ADVANCE DIRECTIVES:: On file. Mother Graciela Monroy is listed as HCA. Maximiliano Monroy listed as alternate Has patient been provided with info about the portal/API?: Yes Did the patient sign up for the portal?: No CODE STATUS:: Full Code INSURANCE COVERAGE / FINANCIAL ISSUES:: Medicare Medicaid PRIMARY CARE PHYSICIAN:: Soraya Tomas POTENTIAL DISCHARGE NEEDS:: follow up with cardiology and PCP PATIENT/FAMILY EDUCATION NEEDS:: Review of discharge instructions, activity, limitations, follow up plan, discuss Ask me Three TRANSPORTATION:: via private vehicle PLAN:: Anticipate Won will be discharged home with no new services. He will follow up with his community providers and plan of care and transport with family. CM will continue to support Won and his discharge planning needs. PFSH All Active Problems (Updated 05/31/23 @ 12:22 by Pedro Horowitz MD) Hypomagnesemia (Acute) Atrial fibrillation with RVR (Acute) Excessive cerumen in both ear canals (Acute) Bankart lesion of left shoulder (Acute 10/18/22) Open wound of tongue due to bite (Acute) Fracture of glenoid process of left scapula (Acute) Hyperammonemia (Acute) Seizure (Acute) Foreign body of ear, left (Acute) Abdominal pain (Acute) Ascites (Acute) Abdominal ascites (Acute) Thrombocytopenia (Chronic) Alcohol intoxication (Acute) Cirrhosis (Chronic) Electrolyte and fluid disorder (Acute) Spondylosis of lumbar region without myelopathy or radiculopathy (Chronic) Depression (Acute) Suicidal ideations (Acute) Diabetes mellitus type 2 in obese (Chronic) Medical History Hypertension Hyperlipidemia History of appendicitis Alcohol abuse, in remission History of substance abuse Unspecified cirrhosis of liver Schizophrenia Hip pain, left COPD (chronic obstructive pulmonary disease) Nocturnal hypoxemia Discontinued smoking Chronic cough Chronic insomnia Constipation Rhinorrhea Petechiae Inguinal hernia Muscle cramps Rib pain on left side Other specified disorders of teeth and supporting structures Acute upper respiratory infection Tinea pedis Impacted cerumen, left ear Hearing loss Fracture of rib HCV infection Lumbar spondylosis Hypothyroid Heroin addiction Esophageal varices Suicidal ideations Diabetes Sleep apnea Surgical History EGD - MAC Social History Smoking/Tobacco Use Status: Former Tobacco Use Smoking risk assessment performed?: Yes Alcohol Intake: former Drug use: Current Sobriety Substance use type: does not use Details: denies drugs or alcohol for several months now Housing: house Current gender identity: male Do you feel safe at home: Yes Do you feel safe in your relationship?: Yes SDOH(Care Management) Screening Will the Patient Participate in the Screening?: Yes Do you worry about having a steady place to live?: no Problems where you live: no known problems In the past 12 months, have you had to go without electric, gas, oil or water in your home?: no Have you or anyone in your house had to go without enough food to eat?: no Has lack of transportation kept you from medical appointments or from doing things needed for daily living?: no Has anyone in your support network made you feel unsafe for any reason?: no
[2023-06-01] MEDS: Apixaban 2.5 MG TAB PO (08:44)
[2023-06-01] MEDS: buPROPion-XL 150 MG TABCR PO (08:45)
[2023-06-01] MEDS: Cholecalciferol (Vitamin D3) 1,000 UNIT TAB 5000 UNITS PO (08:45)
[2023-06-01] MEDS: Furosemide 40 MG TAB PO (08:45)
[2023-06-01] MEDS: dilTIAZem CD 120 MG CAPCR PO (08:45)
[2023-06-01] MEDS: Insulin Glargine 300 UNITS/3 ML PEN 14 UNITS SC (08:45)
[2023-06-01] MEDS: lamoTRIgine 100 MG TAB PO (08:46)
[2023-06-01] MEDS: Rifaximin 550 MG TAB PO (08:47)
[2023-06-01] MEDS: Omeprazole 20 MG CAPCR PO (08:47)
[2023-06-01] MEDS: metFORMIN 500 MG TAB 1000 MG PO (08:47)
[2023-06-01] MEDS: Spironolactone 50 MG TAB 100 MG PO (08:48)
--- NOTE | 2023-06-01 10:09 | NUR.NOTE ---
Echocardiogram is completed in patient room. Nursing Note:
--- NOTE | 2023-06-01 10:16 | W.PM.DS.N ---
Date of service: 06/01/23 Time of Service: 10:16 DS: Diagnosis Discharge Diagnosis (1) Atrial fibrillation with RVR: Status: Acute Asessment and Plan: - New onset, no known trigger -Initially given Dilt bolus and placed on diltiazem drip -However, EKG confirmed patient converted to normal sinus rhythm earlier in the afternoon -Has been transitioned to p.o. short acting Dilt 30 mg every 6 hours -Patient remained in normal sinus rhythm overnight, successfully transition to long-acting diltiazem 120 mg -Patient already on Eliquis 2.5 mg p.o. twice daily, will continue -TTE done this morning, follow-up result (2) Diabetes mellitus type 2 in obese: Status: Chronic Asessment and Plan: - Continue home and (3) Cirrhosis: Status: Chronic Asessment and Plan: - Continue home diuretic, Xifaxan (4) Thrombocytopenia: Status: Chronic Discharge Plan Disposition Patient Disposition: Home Condition: Good Discharge Details Reason For Visit: New a-fib w/ RVR Admit Date/Time: 05/31/23 11:39 Admit Provider: Arie Mahan Attending Provider: Arie Mahan Primary Care Provider: Soraya Tomas [facility] Course Hospital Course: Patient initially presented with with tachycardia found to be new onset A-fib RVR. She was given IV diltiazem bolus in the emergency department was briefly on IV diltiazem drip before converting to normal sinus rhythm. Since that time he was on 30 mg every 6 hours p.o. diltiazem and continued to maintain good rate control. This morning he was transition to 120 mg long-acting diltiazem and continue to have good rate control. He was already anticoagulated on Eliquis. Given the patient has had significant improvement of his symptoms and remains rate controlled, is determined he was stable for discharge Home Meds and New Rx's Prescriptions: New diltiazem HCl 120 mg Capsule,Extended Release 24hr 120 mg PO DAILY Qty: 90 0RF Continued insulin glargine [Lantus U-100 Insulin] 14 unit subcut DAILY AM alprazolam 2 mg Tablet Extended Release 24 Hr 2 mg PO DAILY levothyroxine 50 mcg Tablet 50 mcg PO DAILY cholecalciferol (vitamin D3) 1,000 UNITS tablet 5,000 units PO DAILY Eliquis 2.5 mg tablet 2.5 mg PO BID Patient Comments: TAKE ONE TABLET BY MOUTH TWICE A DAY haloperidol decanoate 100 mg/mL solution See Rx Instructions .ROUTE .COMPLEX Rx Instructions: 150 mg intramuscularly one a month furosemide 40 mg tablet 40 mg PO DAILY metformin 500 mg tablet 500 mg PO TID spironolactone 100 mg tablet 100 mg PO DAILY lamotrigine 100 mg tablet 100 mg PO DAILY omeprazole 20 mg capsule,delayed release(DR/EC) 20 mg PO DAILY Xifaxan 550 mg tablet 550 mg PO BID bupropion HCl 150 mg tablet extended release 24 hr 150 mg PO DAILY Discharge Instructions Instructions: A-fib (Atrial Fibrillation) (DC) Activity:: Activity as Tolerated Equipment/Supplies:: No Equipment Needed Diet:: As Tolerated Discharge Orders Discharge Orders: Discharge Order (Routine); Ordered 06/01/23 Ordered By: Arie Mahan DS: Summary Time Spent with Patient providing and/or coordinating discharge services: Greater than 30 minutes Status at Discharge Functional status at discharge: independent ambulation Overall status at discharge: patient is back to baseline Mental Status: mental status grossly normal Speech and Movement: speech and movement normal Mood: congruent mood Affect: normal affect Quality:SDOH Health Related Social Needs: No Data to Display Exam Narrative Exam Narrative: Well-appearing gentleman laying in bed in no acute distress, ANO x 4, heart regular rate rhythm as patient converted to normal sinus rhythm prior to my physical exam, lungs clear to auscultation bilaterally, abdomen soft, nontender, nondistended Psych Mental Status: mental status grossly normal Speech and Movement: speech and movement normal Mood: congruent mood Affect: normal affect DS: Data Vitals/I&O Vitals and I&O: Vital Signs Temperature 97.5 F L 06/01/23 08:58 Temperature Source Temporal Artery Scan 06/01/23 08:58 Pulse 79 06/01/23 08:58 Pulse 74 05/31/23 23:00 Respiratory Rate 19 06/01/23 08:58 Respiratory Effort Normal, Non-Labored 06/01/23 08:58 Respiratory Depth Normal 06/01/23 08:58 Respiratory Pattern Normal 06/01/23 08:58 Blood Pressure 121/65 06/01/23 08:58 Blood Pressure Mean 83 06/01/23 08:58 Blood Pressure Position Supine 06/01/23 08:58 Pulse Oximetry 94 06/01/23 08:58 Oxygen Delivery Method Room Air 06/01/23 08:58 Oxygen Flow Rate 0 06/01/23 08:58 Pain Level 0 06/01/23 08:58 Intake & Output 05/31/23 06/01/23 06/01/23 17:59 05:59 17:59 Intake Total 445.75 / 445.75 600 / 1045.75 240 / 240 Output Total 540 / 540 2025 / 2565 600 / 600 Balance -94.25 / -94.25 -1425 / -1519.25 -360 / -360 Weight 193 lb 5.526 oz 191 lb 12.835 oz Intake: IV 25.75 / 25.75 Oral 420 / 420 600 / 1020 240 / 240 Output: Urine 540 / 540 2025 / 2565 600 / 600 Other: Urine Color Yellow Straw Yellow Urine Appearance Clear Clear Clear Urine Odor None Strong Comment uses urinal indep Voiding Methods Urinal Urinal Data Completed and Pending Labs on day of discharge: Labs from last 24 hours 06/01/23 05/31/23 05/31/23 05:44 16:15 10:55 WBC 3.66 L 6.00 RBC 3.57 L 4.15 L Hgb 9.5 L 11.1 L Hct 30.1 L 35.8 L MCV 84 86 MCH 26.6 L 26.7 L MCHC 31.6 L 31.0 L RDW 16.9 H 17.3 H Plt Count 59 L 65 L MPV 12.3 H 11.5 H Immature Gran % 0.5 Neutrophils % 84.5 Lymphocytes % 5.5 Monocytes % 7.5 Eosinophils % 1.3 Basophils % 0.7 Nucleated RBC % 0.0 Absolute Neutrophils 5.07 Absolute Lymphocytes 0.33 L Absolute Monocytes 0.45 Absolute Eosinophils 0.08 Absolute Basophils 0.04 RBC Morphology Normal PT 14.0 H INR 1.4 H Sodium 140 137 Potassium 4.0 4.1 Chloride 107 102 Carbon Dioxide 24.7 22.1 Anion Gap 8.3 12.9 H BUN 5 L 6 L Creatinine 0.6 L 0.9 Est GFR (CKD-EPI 2020) 116.87 103.40 Glucose 166 H 263 H Calcium 8.7 8.4 L Magnesium 1.8 1.6 L Total Bilirubin 1.8 H 1.9 H AST 21 41 H ALT 34 51 Alkaline Phosphatase 112 164 H Troponin I < 50 < 50 Total Protein 6.2 L 7.4 Albumin 2.6 L 3.1 L Patient ABO/Rh A Positive Antibody Screen NEGATIVE PFSH All Active Problems (Updated 05/31/23 @ 12:22 by Pedro Horowitz MD) Hypomagnesemia (Acute) Atrial fibrillation with RVR (Acute) Excessive cerumen in both ear canals (Acute) Bankart lesion of left shoulder (Acute 10/18/22) Open wound of tongue due to bite (Acute) Fracture of glenoid process of left scapula (Acute) Hyperammonemia (Acute) Seizure (Acute) Foreign body of ear, left (Acute) Abdominal pain (Acute) Ascites (Acute) Abdominal ascites (Acute) Thrombocytopenia (Chronic) Alcohol intoxication (Acute) Cirrhosis (Chronic) Electrolyte and fluid disorder (Acute) Spondylosis of lumbar region without myelopathy or radiculopathy (Chronic) Depression (Acute) Suicidal ideations (Acute) Diabetes mellitus type 2 in obese (Chronic) Medical History Hypertension Hyperlipidemia History of appendicitis Alcohol abuse, in remission History of substance abuse Unspecified cirrhosis of liver Schizophrenia Hip pain, left COPD (chronic obstructive pulmonary disease) Nocturnal hypoxemia Discontinued smoking Chronic cough Chronic insomnia Constipation Rhinorrhea Petechiae Inguinal hernia Muscle cramps Rib pain on left side Other specified disorders of teeth and supporting structures Acute upper respiratory infection Tinea pedis Impacted cerumen, left ear Hearing loss Fracture of rib HCV infection Lumbar spondylosis Hypothyroid Heroin addiction Esophageal varices Suicidal ideations Diabetes Sleep apnea Surgical History EGD - MAC Social History Smoking/Tobacco Use Status: Former Tobacco Use Smoking risk assessment performed?: Yes Alcohol Intake: former Drug use: Current Sobriety Substance use type: does not use Details: denies drugs or alcohol for several months now Housing: house Current gender identity: male Do you feel safe at home: Yes Do you feel safe in your relationship?: Yes Time Spent with Patient Time Spent with Patient: <45 minutes Time was spent: preparing to see the patient(eg.review tests), obtaining and/or reviewing separately otained hiistory, ordering medications,tests, procedures, referring, communicating with other health day care center director, indepentently interpreting results, counseling the patient and care coordination
--- NOTE | 2023-06-01 11:56 | PDOC.CMPRO ---
Date of service: 06/01/23 Time of Service: 11:56 Care Management Progress Note Progress Note Text Progress Note Text: Won was admitted on 05/31/23 with new onset afib with RVR. He was treated with diltiazem and converted to normal sinus rhythm with a rate in the 70s. He was discharged home this morning with no new services. SDOH(Care Management) Screening Will the Patient Participate in the Screening?: Yes Do you worry about having a steady place to live?: no Problems where you live: no known problems In the past 12 months, have you had to go without electric, gas, oil or water in your home?: no Have you or anyone in your house had to go without enough food to eat?: no Has lack of transportation kept you from medical appointments or from doing things needed for daily living?: no Has anyone in your support network made you feel unsafe for any reason?: no
== END 2023-06-01 11:28 | disposition home or self-care (01) | DRG 310 ==
LOC: ER 12:22 → ICU 12:34
PROVIDERS: Family Medicine; Admitting Provider Family Medicine; Emergency Provider Student in an Organized Health Care Education/Training Program; PCP Family Medicine; Visit Provider Family Medicine
DX: I48.91 Unspecified atrial fibrillation (principal); E11.9 Type 2 diabetes mellitus without complications; D69.6 Thrombocytopenia, unspecified; K74.60 Unspecified cirrhosis of liver; M47.816 Spondylosis without myelopathy or radiculopathy, lumbar region; F32.A Depression, unspecified; I10 Essential (primary) hypertension; E78.5 Hyperlipidemia, unspecified; F10.11 Alcohol abuse, in remission; F20.9 Schizophrenia, unspecified; J44.9 Chronic obstructive pulmonary disease, unspecified; Z87.891 Personal history of nicotine dependence; R05.3 Chronic cough; F51.04 Psychophysiologic insomnia; K59.00 Constipation, unspecified; E03.9 Hypothyroidism, unspecified; Z86.19 Personal history of other infectious and parasitic diseases; Z79.84 Long term (current) use of oral hypoglycemic drugs; Z79.4 Long term (current) use of insulin
CPT/HCPCS: 00123; 36415; 80053; 85027; 86850; 86900; 86901; 93005; 96365; 96376; 99291; 83735; 84484; 85025; 85610; 93010; 93306; 99239; J1815; J3475

== ENCOUNTER 2023-06-06 14:17 | Outpatient (REF) | payer MEDICARE, MEDICAID, SELFPAY | END 2023-06-06 14:18 | disposition home or self-care (01) | LOC: NCHCN 14:17 | PROVIDERS: PCP Family Medicine; Visit Provider Family Medicine | DX: R30.0 Dysuria (principal) | CPT/HCPCS: 87077; 87086; 87186 ==

== ENCOUNTER 2023-06-07 13:51 | Outpatient (REF) | payer MEDICARE, MEDICAID, SELFPAY ==
[2023-06-07 22:12] LABS: FREE T4 0.93 ng/dL (0.76-1.46); TSH 1.84 uIU/mL (0.36-3.74)
== END 2023-06-07 13:52 | disposition home or self-care (01) ==
LOC: NCHCN 13:51
PROVIDERS: PCP Family Medicine; Visit Provider Family Medicine
DX: E03.9 Hypothyroidism, unspecified (principal)
CPT/HCPCS: 84439; 84443

== ENCOUNTER 2023-06-20 13:16 | Outpatient (REF) | payer MEDICARE, MEDICAID, SELFPAY | END 2023-06-20 13:17 | disposition home or self-care (01) | LOC: NCHCN 13:16 | PROVIDERS: PCP Family Medicine; Visit Provider Family Medicine | DX: R30.0 Dysuria (principal) | CPT/HCPCS: 87077; 87086; 87186 ==

== ENCOUNTER 2023-09-21 14:27 | Emergency (ER) | payer MEDICARE, MEDICAID, SELFPAY ==
[2023-09-21 14:43] VITALS: BP 127/67; PULSE 71; RESP 18; TEMP 36.5; O2SAT 96
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
--- NOTE | 2023-09-21 15:36 | DI.RAD_ITS ---
Exam(s) XR HIP LT COMPLETE AP PELVIS EXAM: XR HIP LT COMPLETE AP PELVIS CLINICAL HISTORY: pain post fall. TECHNIQUE: 2D digital imaging was performed. Two views. COMPARISON: No exams were available for comparison FINDINGS: BONES: No acute fracture is present. No bony destructive lesion is seen. Sacrum is partially obscur ed by stool and bowel gas. JOINTS: No dislocation present. Hip joint spaces are maintained. SI joints and pubic symphysis are unremarkable. SOFT TISSUE: Normal. IMPRESSION: Unremarkable radiographs of the left hip. Unremarkable radiographs of the pelvis DATA REPOSITORY: RADIATION DOSE DELIVERED:
--- NOTE | 2023-09-21 15:36 | DI.RAD_ITS ---
Exam(s) XR KNEE LT 3V AP,LAT,CORI EXAM: XR KNEE LT 3V AP,LAT,CORI CLINICAL HISTORY: pain post fall. TECHNIQUE: 2D digital imaging was performed. Three views. COMPARISON: No exams were available for comparison FINDINGS: BONES: No acute fracture is present. No bony destructive lesion is seen. JOINTS: The knee is normally aligned. No joint effusion is seen. SOFT TISSUE: Normal. IMPRESSION: Normal radiographs of the left knee. DATA REPOSITORY: RADIATION DOSE DELIVERED:
[2023-09-21] MEDS: Acetaminophen 325 MG TAB 650 MG PO (15:41)
[2023-09-21 16:18] VITALS: BP 120/71; PULSE 76; RESP 18; O2SAT 96
== END 2023-09-21 16:18 | disposition home or self-care (01) ==
PROVIDERS: Emergency Provider Physician Assistant; PCP Family Medicine
DX: S80.02XA Contusion of left knee, initial encounter (principal); S70.02XA Contusion of left hip, initial encounter; E11.9 Type 2 diabetes mellitus without complications; V18.0XXA Pedal cycle driver injured in noncollision transport accident in nontraffic accident, initial encounter
CPT/HCPCS: 36416; 73562; 82962; 90471; 90715; 99284; 73502; 99283

== ENCOUNTER 2024-05-28 04:05 | Outpatient (CLI) | payer MEDICARE, MEDICAID, SELFPAY ==
[2024-05-28 13:33] LABS: Abs Immature Grans 0.01 10^3/uL (0.0-0.06); Absolute Basophil Count 0.03 10^3/uL (0.0-0.2); Absolute Eosinophil Count 0.15 10^3/uL (0.0-0.7); Absolute Monocyte Count 0.28 10^3/uL (0.1-0.8); Absolute Neutrophil Count 2.88 10^3/uL (1.2-6.7); Basophils % 0.7 %; Eosinophils % 3.7 %; HCT 33.5 % (40.0-50.0); HGB 11.4 g/dL (13.5-17.5); Immature Grans % 0.2 %; Lymphocytes % 17.3 %; MCH 29.2 pg (27.0-33.0); MCV 86 fL (80-95); Monocytes % 6.9 %; Neutrophils % 71.2 %; RDW 14.9 % (11.8-14.1); WBC 4.05 10^3/uL (4.4-10.8)
[2024-05-28 13:46] LABS: Platelet Count 43 10^3/uL (130-400)
[2024-05-28 13:47] LABS: Ammonia 128 umol/L (11-32)
[2024-05-28 14:07] LABS: INR 1.3 (0.9-1.1); PTT Activated 27.6 sec (20.6-30.2); Prothrombin Time 12.9 sec (9.1-11.1)
[2024-05-28 14:08] LABS: ALT 32 U/L (16-63); AST 24 U/L (15-37); Albumin 3.2 g/dL (3.4-5.0); Alkaline Phosphatase 88 U/L (46-116); Bilirubin, Direct 0.5 mg/dL (0.0-0.2); Bilirubin, Total 1.31 mg/dL (0.2-1.0); Total Protein 6.2 g/dL (6.4-8.2)
== END 2024-05-28 04:06 | disposition home or self-care (01) ==
LOC: LBO 04:06
PROVIDERS: PCP Family Medicine; Visit Provider Family Medicine
DX: K74.60 Unspecified cirrhosis of liver (principal)
CPT/HCPCS: 36415; 80076; 82140; 85025; 85610; 85730

== ENCOUNTER 2024-06-27 16:37 | Outpatient (CLI) | payer MEDICARE, MEDICAID, SELFPAY ==
[2024-06-27 13:12] LABS: Ammonia 88 umol/L (11-32)
[2024-06-27 13:32] LABS: ALT 39 U/L (16-63); AST 44 U/L (15-37); Albumin 3.3 g/dL (3.4-5.0); Alkaline Phosphatase 79 U/L (46-116); Bilirubin, Direct 0.6 mg/dL (0.0-0.2); Bilirubin, Total 1.78 mg/dL (0.2-1.0); Total Protein 6.2 g/dL (6.4-8.2)
== END 2024-06-27 16:38 | disposition home or self-care (01) ==
LOC: LBO 16:39
PROVIDERS: PCP Family Medicine; Visit Provider Family Medicine
DX: K74.60 Unspecified cirrhosis of liver (principal)
CPT/HCPCS: 36415; 80076; 82140

== ENCOUNTER 2024-07-17 01:32 | Outpatient (CLI) | payer MEDICARE, MEDICAID, SELFPAY ==
[2024-07-17 12:38] LABS: Ammonia 57 umol/L (11-32)
[2024-07-17 12:42] LABS: ALT 37 U/L (16-63); AST 32 U/L (15-37); Albumin 3.5 g/dL (3.4-5.0); Alkaline Phosphatase 96 U/L (46-116); Bilirubin, Direct 0.5 mg/dL (0.0-0.2); Bilirubin, Total 1.6 mg/dL (0.2-1.0); Total Protein 6.8 g/dL (6.4-8.2)
== END 2024-07-17 01:33 | disposition home or self-care (01) ==
PROVIDERS: PCP Family Medicine; Visit Provider Family Medicine
DX: K74.60 Unspecified cirrhosis of liver (principal)
CPT/HCPCS: 36415; 80076; 82140

== ENCOUNTER 2024-10-13 18:36 | Outpatient (REF) | payer MEDICARE, MEDICAID, SELFPAY ==
[2024-10-13 22:24] LABS: PSA, Screening 0.2 ng/mL (<=3.5)
== END 2024-10-13 18:37 | disposition home or self-care (01) ==
LOC: NCHCN 18:36
PROVIDERS: PCP Family Medicine; Visit Provider Family Medicine
DX: Z12.5 Encounter for screening for malignant neoplasm of prostate (principal)
CPT/HCPCS: 84153

== ENCOUNTER 2024-12-10 14:43 | Outpatient (REF) | payer MEDICARE, MEDICAID, SELFPAY ==
[2024-12-11 17:20] LABS: COMMENT (LAB VIEW ONLY) 75.24 mg/dL; Microalb ug/mg Crea 19.7 ug/mg Cr
== END 2024-12-10 14:44 | disposition home or self-care (01) ==
LOC: NCHCN 14:43
PROVIDERS: PCP Family Medicine; Visit Provider Family Medicine
DX: E11.9 Type 2 diabetes mellitus without complications (principal)
CPT/HCPCS: 82043; 82570

== ENCOUNTER 2024-12-15 15:09 | Emergency (ER) | payer MEDICARE, MEDICAID, SELFPAY ==
[2024-12-15 15:11] VITALS: BP 156/79; PULSE 67; RESP 18; TEMP 36.5; O2SAT 98
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
== END 2024-12-15 15:56 ==
PROVIDERS: Emergency Provider Emergency Medicine; PCP Family Medicine
DX: F10.929 Alcohol use, unspecified with intoxication, unspecified (principal); E11.9 Type 2 diabetes mellitus without complications; E66.9 Obesity, unspecified
CPT/HCPCS: 99283; 99285; 36416; 82962

== ENCOUNTER 2024-12-22 12:49 | Outpatient (CLI) | payer MEDICARE, MEDICAID, SELFPAY ==
[2024-12-22 09:42] LABS: HCT 34.9 % (40.0-50.0); HGB 12.2 g/dL (13.5-17.5); MCH 30.1 pg (27.0-33.0); MCHC 35.0 % (32.0-36.0); MCV 86 fL (80-95); MPV 11.4 fL (8.0-11.0); RBC 4.05 10^6/uL (4.36-5.78); RDW 14.5 % (11.8-14.1); RDW-SD 45.4 fL; WBC 6.06 10^3/uL (4.4-10.8)
[2024-12-22 10:06] LABS: Platelet Count 46 10^3/uL (130-400)
[2024-12-22 10:16] LABS: Ammonia 93 umol/L (11-32)
[2024-12-22 10:21] LABS: ALT 33 U/L (16-63); AST 26 U/L (15-37); Albumin 3.3 g/dL (3.4-5.0); Alkaline Phosphatase 84 U/L (46-116); Bilirubin, Direct 0.5 mg/dL (0.0-0.2); Bilirubin, Total 2.0 mg/dL (0.2-1.0); Total Protein 6.6 g/dL (6.4-8.2)
== END 2024-12-22 12:50 | disposition home or self-care (01) ==
LOC: LBO 12:49
PROVIDERS: PCP Family Medicine; Visit Provider Family Medicine
DX: K74.60 Unspecified cirrhosis of liver (principal)
CPT/HCPCS: 36415; 80076; 85027; 82140

== ENCOUNTER 2025-01-12 18:04 | Observation (INO) | payer MEDICARE, MEDICAID, SELFPAY ==
[2025-01-12 18:14] VITALS: BP 185/90; PULSE 70; RESP 18; TEMP 36.4; O2SAT 98
[2025-01-12 19:48] LABS: Abs Immature Grans 0.01 10^3/uL (0.0-0.06); HCT 33.4 % (40.0-50.0); HGB 11.6 g/dL (13.5-17.5); Immature Grans % 0.2 %; MCH 28.9 pg (27.0-33.0); MCHC 34.7 % (32.0-36.0); MCV 83 fL (80-95); MPV 11.5 fL (8.0-11.0); RBC 4.02 10^6/uL (4.36-5.78); RDW 14.6 % (11.8-14.1); RDW-SD 43.8 fL; WBC 5.08 10^3/uL (4.4-10.8)
[2025-01-12 19:55] LABS: Ammonia 187 umol/L (11-32)
[2025-01-12 19:57] VITALS: BP 158/66; PULSE 68; RESP 16; O2SAT 100
[2025-01-12 20:01] LABS: INR 1.3 (0.9-1.1); PTT Activated 25.4 sec (20.6-30.2); Prothrombin Time 13.0 sec (9.1-11.1)
[2025-01-12 20:06] LABS: Platelet Count 51 10^3/uL (130-400)
[2025-01-12 20:38] LABS: ALT 34 U/L (16-63); AST 29 U/L (15-37); Albumin 3.4 g/dL (3.4-5.0); Alkaline Phosphatase 88 U/L (46-116); Anion Gap 8.4 mmol/L (3-11); BUN 5 mg/dL (7-18); Bilirubin, Total 2.1 mg/dL (0.2-1.0); CO2 23.6 mmol/L (21.0-32.0); Calcium 8.6 mg/dL (8.5-10.1); Chloride 103 mmol/L (98-107); Estimated GFR 121.96 (mL/min/1.73m2); Glucose 146 mg/dL (74-106); Potassium 3.7 mmol/L (3.5-5.1); Sodium 135 mmol/L (136-145); Total Protein 6.5 g/dL (6.4-8.2)
--- NOTE | 2025-01-12 21:36 | W.ED.GENAD ---
Discharge Plan Disposition Patient Disposition: Admit to [facility] Discharge Details Admit Date/Time: 01/12/25 22:02 Admit Provider: David Arnold Attending Provider: David Arnold Primary Care Provider: Soraya Tomas ED Provider: Sigifredo Graff Discharge Data Discharge Date/Time-TO BE ENTERED AT DEPARTURE: 01/12/25 23:11 HPI General Date/Time Provider Initiated Documentation: 01/12/25 18:21. HPI Narrative: MDM/Narrative: Initial Assessment: Confusion likely due to clonazepam withdrawal, diabetes mellitus with fluctuating blood sugar levels, and hepatic insufficiency affecting medication processing. Differential Diagnosis: - Clonazepam withdrawal: Confusion, anxiety, stopped medication last night, blood work for ammonia levels, telepsychiatrist consultation. - Hypoglycemia: Blood sugar level dropped to 44, glucometer replacement needed, consumed sugary foods, blood work for electrolytes. - Hepatic insufficiency/: Stage 4 liver disease, affecting medication processing, blood work for ammonia levels and electrolytes. ED Course: Blood work conducted to check ammonia levels and electrolytes. Labs notable for elevated ammonia levels. Telepsych consult ordered. Case discussed with Dr. Arnold agrees to admit patient for further monitoring. Final Assessment: Confusion likely due to clonazepam withdrawal, hypoglycemia managed with sugary foods, hepatic insufficiency affecting medication processing. Clinical Impression: - Clonazepam withdrawal - Hypoglycemia - Hepatic insufficiency Disposition: Admit to [facility] This document was created with assistance from [employer] The patient consented to its use. Hepatic encephalopathy HPI: The patient, who has a history of diabetes mellitus and stage 4 liver disease, presents with acute confusion. He is accompanied by his mother. The onset of acute confusion began on 01/15/2025, coinciding with the initiation of a new medication regimen. His primary care physician had advised against this medication due to concerns regarding hepatic function. The patient is under the care of a slitter helper at [facility]. He has been taking clonazepam for anxiety, prescribed by a new psychiatrist at [facility], which was discontinued last night. His mother reports unusual behavior, including attempting to urinate in the sink, grabbing a cactus, and asking where to urinate. No illness or pain has been reported. The patient experienced a fall last night but appears to be without injury. The patient experienced hypoglycemia with a blood glucose level dropping to 44 mg/dL tonight, despite consuming pasta, spaghetti, a white roll, and a blueberry bagel at 1530 hours. Administration of honey did not increase his blood glucose levels. He reported feeling cold and experiencing chills without diaphoresis or dizziness. His glucometer is malfunctioning and requires a new sensor. His blood glucose level was subsequently raised to 215 mg/dL after consuming cantaloupe and strawberries. The patient has diabetes mellitus and is on insulin and metformin therapy. He last saw his slitter helper last week, and his condition was reported as stable. He underwent an MRI and blood work. He is currently on lactulose and reports regular bowel movements. ROS: Negative besides as mentioned above Exam: Vital signs: Reviewed. General Appearance: Confused and anxious. HEENT: NCAT, EOMI, not icteric. External ears normal. No rhinorrhea. Moist mucous membranes. Neck: Supple, full range of motion, no observable masses, No meningeal sign. Respiratory: No Respiratory distress. No tachypnea. Cardiovascular: RRR, no edema. Gastrointestinal: Soft, nondistended, No rebound tenderness. Back: No midline tenderness to palpation or palpable step-offs of the C/T/L spine. Musculoskeletal: Mild tremor in hands. Skin: Warm and dry, no rash. Neurological:Mild tremor in hands. [facility] Psychiatric: Anxious and confused. Labs: Laboratory Tests Range/Units 01/12/25 01/12/25 19:33 22:00 WBC (4.4-10.8) 10^3/uL 5.08 RBC (4.36-5.78) 10^6/uL 4.02 L Hgb (13.5-17.5) g/dL 11.6 L Hct (40.0-50.0) % 33.4 L MCV (80-95) fL 83 MCH (27.0-33.0) pg 28.9 MCHC (32.0-36.0) % 34.7 RDW (11.8-14.1) % 14.6 H Plt Count (130-400) 10^3/uL 51 L MPV (8.0-11.0) fL 11.5 H Immature Gran % % 0.2 Neutrophils % % 65.8 Lymphocytes % % 21.7 Monocytes % % 8.7 Eosinophils % % 3.0 Basophils % % 0.6 Nucleated RBC % (0.0-0.3) % 0.0 Absolute Neutrophils (1.2-6.7) 10^3/uL 3.35 Absolute Lymphocytes (1.2-3.4) 10^3/uL 1.10 L Absolute Monocytes (0.1-0.8) 10^3/uL 0.44 Absolute Eosinophils (0.0-0.7) 10^3/uL 0.15 Absolute Basophils (0.0-0.2) 10^3/uL 0.03 PT (9.1-11.1) sec 13.0 H INR (0.9-1.1) 1.3 H APTT (20.6-30.2) sec 25.4 Sodium (136-145) mmol/L 135 L Potassium (3.5-5.1) mmol/L 3.7 Chloride (98-107) mmol/L 103 Carbon Dioxide (21.0-32.0) mmol/L 23.6 Anion Gap (3-11) mmol/L 8.4 BUN (7-18) mg/dL 5 L Creatinine (0.70-1.30) mg/dL 0.5 L Est GFR (CKD-EPI 2020) (mL/min/1.73m2) 121.96 Glucose (74-106) mg/dL 146 H Calcium (8.5-10.1) mg/dL 8.6 Total Bilirubin (0.2-1.0) mg/dL 2.1 H AST (15-37) U/L 29 ALT (16-63) U/L 34 Alkaline Phosphatase (46-116) U/L 88 Ammonia (11-32) umol/L 187 H Total Protein (6.4-8.2) g/dL 6.5 Albumin (3.4-5.0) g/dL 3.4 TSH (0.36-3.74) uIU/mL 3.80 H Free T4 (0.76-1.46) ng/dL 0.85 Urine Color (Yellow) Yellow Urine Clarity (Clear) Clear Urine pH (5-8) 7.0 Ur Specific Elizabeth (1.005-1.025) 1.010 Urine Protein (Neg-Trace) mg/dL Negative Urine Ketones (Negative) mg/dL Negative Urine Blood (Negative) Negative Urine Nitrite (Negative) Negative Urine Bilirubin (Negative) Negative Urine Urobilinogen (Up to 0.2) mg/dL 1.0 H Ur Leukocyte Esterase (Negative) Negative Urine Glucose (Negative) mg/dL 100 H Urine Opiates Screen (Negative) Negative Urine Methadone Screen (Negative) Negative Ur Barbiturates Screen (Negative) Negative Ur Tricyclics Screen (Negative) Negative Ur Amphetamines Screen (Negative) Negative U Benzodiazepines Scrn (Negative) Negative Urine Cocaine Screen (Negative) Negative Ur THC Screen (Negative) Negative Related Data Home Medications ?Medication ?Instructions ?Recorded ?Confirmed cholecalciferol (vitamin D3) 25 5,000 units PO DAILY 07/22/16 01/12/25 mcg (1,000 unit) tablet alprazolam 2 mg tablet,extended 2 mg PO DAILY 10/18/22 01/12/25 release 24 hr levothyroxine 50 mcg tablet 50 mcg PO DAILY 10/18/22 01/12/25 insulin glargine 14 unit subcut DAILY AM 03/21/23 01/12/25 bupropion HCl 150 mg 24 hr tablet, 150 mg PO DAILY 05/31/23 01/12/25 extended release furosemide 40 mg tablet 40 mg PO DAILY 05/31/23 01/12/25 metformin 500 mg tablet 500 mg PO TID 05/31/23 01/12/25 rifaximin 550 mg tablet (Xifaxan) 550 mg PO BID 05/31/23 01/12/25 spironolactone 100 mg tablet 100 mg PO DAILY 05/31/23 01/12/25 diltiazem HCl 120 mg 120 mg PO DAILY #90 caps 06/01/23 01/12/25 capsule,extended release 24 hr fluoxetine 40 mg capsule 40 mg PO PRN 12/15/24 01/12/25 Previous Rx's ?Medication ?Instructions ?Recorded diltiazem HCl 120 mg 120 mg PO DAILY #90 caps 06/01/23 capsule,extended release 24 hr Allergies Allergy/AdvReac Type Severity Reaction Status Date / Time No Known Allergies Allergy Unverified 01/12/25 18:18 General Stated Complaint: Diabetes MANISH: 3 Course Vital Signs Vital signs: Vital Signs Temperature 36.4 C L 01/12/25 18:14 Pulse 70 01/12/25 18:14 Respiratory Rate 18 01/12/25 18:14 Blood Pressure 185/90 H 01/12/25 18:14 Pulse Oximetry 98 01/12/25 18:14 Temperature 36.4 C L 01/12/25 18:14 Pulse 68 01/12/25 19:57 Respiratory Rate 16 01/12/25 19:57 Respiratory Pattern Normal 01/12/25 19:48 Blood Pressure 158/66 H 01/12/25 19:57 Blood Pressure Mean 96 01/12/25 19:57 Pulse Oximetry 100 01/12/25 19:57 Oxygen Delivery Method Room Air 01/12/25 19:57 Oxygen Flow Rate 0 01/12/25 19:57 Pain Level 0 01/12/25 18:14 Lab/Test Results Lab/Test Results: Laboratory Tests Range/Units 01/12/25 19:33 WBC (4.4-10.8) 10^3/uL 5.08 RBC (4.36-5.78) 10^6/uL 4.02 L Hgb (13.5-17.5) g/dL 11.6 L Hct (40.0-50.0) % 33.4 L MCV (80-95) fL 83 MCH (27.0-33.0) pg 28.9 MCHC (32.0-36.0) % 34.7 RDW (11.8-14.1) % 14.6 H Plt Count (130-400) 10^3/uL 51 L MPV (8.0-11.0) fL 11.5 H Immature Gran % % 0.2 Neutrophils % % 65.8 Lymphocytes % % 21.7 Monocytes % % 8.7 Eosinophils % % 3.0 Basophils % % 0.6 Nucleated RBC % (0.0-0.3) % 0.0 Absolute Neutrophils (1.2-6.7) 10^3/uL 3.35 Absolute Lymphocytes (1.2-3.4) 10^3/uL 1.10 L Absolute Monocytes (0.1-0.8) 10^3/uL 0.44 Absolute Eosinophils (0.0-0.7) 10^3/uL 0.15 Absolute Basophils (0.0-0.2) 10^3/uL 0.03 PT (9.1-11.1) sec 13.0 H INR (0.9-1.1) 1.3 H APTT (20.6-30.2) sec 25.4 Sodium (136-145) mmol/L 135 L Potassium (3.5-5.1) mmol/L 3.7 Chloride (98-107) mmol/L 103 Carbon Dioxide (21.0-32.0) mmol/L 23.6 Anion Gap (3-11) mmol/L 8.4 BUN (7-18) mg/dL 5 L Creatinine (0.70-1.30) mg/dL 0.5 L Est GFR (CKD-EPI 2020) (mL/min/1.73m2) 121.96 Glucose (74-106) mg/dL 146 H Calcium (8.5-10.1) mg/dL 8.6 Total Bilirubin (0.2-1.0) mg/dL 2.1 H AST (15-37) U/L 29 ALT (16-63) U/L 34 Alkaline Phosphatase (46-116) U/L 88 Ammonia (11-32) umol/L 187 H Total Protein (6.4-8.2) g/dL 6.5 Albumin (3.4-5.0) g/dL 3.4 PFSH All Active Problems (Updated 01/12/25 @ 22:17 by David Arnold MD) Confusion (Acute) Cirrhosis (Acute) Benzodiazepine abuse (Acute) Sensorineural hearing loss (SNHL) of both ears (Acute) Atrial fibrillation with RVR (Acute) Excessive cerumen in both ear canals (Acute) Bankart lesion of left shoulder (Acute 10/18/22) Open wound of tongue due to bite (Acute) Fracture of glenoid process of left scapula (Acute) Hyperammonemia (Acute) Seizure (Acute) Foreign body of ear, left (Acute) Abdominal pain (Acute) Ascites (Acute) Abdominal ascites (Acute) Thrombocytopenia (Chronic) Alcohol intoxication (Acute) Cirrhosis (Chronic) Electrolyte and fluid disorder (Acute) Spondylosis of lumbar region without myelopathy or radiculopathy (Chronic) Depression (Acute) Suicidal ideations (Acute) Diabetes mellitus type 2 in obese (Chronic) Medical History Hypertension Hyperlipidemia History of appendicitis Alcohol abuse, in remission History of substance abuse Unspecified cirrhosis of liver Schizophrenia Hip pain, left COPD (chronic obstructive pulmonary disease) Nocturnal hypoxemia Discontinued smoking Chronic cough Chronic insomnia Constipation Rhinorrhea Petechiae Inguinal hernia Muscle cramps Rib pain on left side Other specified disorders of teeth and supporting structures Acute upper respiratory infection Tinea pedis Impacted cerumen, left ear Hearing loss Fracture of rib HCV infection Lumbar spondylosis Hypothyroid Heroin addiction Esophageal varices Suicidal ideations Diabetes Sleep apnea Surgical History EGD - MAC Social History Smoking/Tobacco Use Status: Former Tobacco Use Smoking risk assessment performed?: Yes Alcohol Intake: former Drug use: Rarely Substance use type: does not use Details: denies drugs or alcohol for several months now Housing: house Current gender identity: male Do you feel safe at home: Yes Do you feel safe in your relationship?: Yes
[2025-01-12 21:38] VITALS: BP 145/78; PULSE 67; RESP 16; O2SAT 98
--- NOTE | 2025-01-12 22:06 | W.PM.HP.N ---
Date of service: 01/12/25 Time of Service: 22:06 Assessment and Plan Assessment and plan (1) Thrombocytopenia: Status: Chronic Assessment and plan: Most likely secondary to alcohol abuse. I will start the patient on Lovenox but will have to have close evaluations. (2) Alcohol intoxication: Status: Acute Assessment and plan: Urine drug screen is pending. (3) Diabetes mellitus type 2 in obese: Status: Chronic Assessment and plan: Patient does have a recent episode of hypoglycemia so we will hold his Lantus and continue sliding scale insulin until we have a better idea on how he responds to insulin. (4) Hyperammonemia: Status: Acute Assessment and plan: Patient is on rifaximin but will also add lactulose. His ammonia is elevated but this is a clinical diagnosis not sure how much of this can be contributing to hepatic encephalopathy. (5) Schizophrenia: Assessment and plan: Awaiting telepsych. (6) Benzodiazepine abuse: Status: Acute Assessment and plan: The patient is taking benzodiazepines for anxiety and it is my understanding that this is a short-term solution asked. Interested to see what telepsych has to say in regards to long-term treatment options for Mr. Null. At this point I will continue with his benzos as stopping this acutely can lead to significant withdrawal. (7) Cirrhosis: Status: Acute Assessment and plan: C/P score of 8/B (8) Confusion: Status: Acute Assessment and plan: Exact etiology is unknown but certainly could be abrupt w/d of benzos. UDS pending as well as urine c/s. Will order tsh although this is low yield. Will also order cxr History of Present Illness History of Present Illness Chief Complaint: mental status change Narrative: This is a 54-year-old gentleman who is accompanied by his mother who presents to the ED today with some mental status change. Evidently, last night his father was in the ED for fall and when they came home with a patient was very confused and his behavior was off including urinating in his flower bed. The patient's behavior was attributed to her his benzodiazepine use and this was subsequently stopped last night. Earlier today as well as this afternoon the patient continue to have significant anxiety and was finally brought into the ED for further evaluation and treatment. Per my discussion with the patient as well as his mother, it does appear that he had been taking more medication than was prescribed. Patient states he did last use the benzodiazepine last night though. A consultation to telepsych has been placed but not performed yet. Of note, the patient did have an elevated ammonia level but upon my discussion with the patient he seemed alert. I did ask the patient as well as the family member why they did not bring him in last time when he was having issues and could not get a clear answer. The patient's psychiatrist had given him the benzodiazepines against the wishes both his primary care physician as well as his desk maker. The patient was taking this medication for anxiety. Patient does have a history of recent self-reported episode of hypoglycemia. Review of Systems All systems reviewed & are unremarkable except as noted in HPI and below PFSH All Active Problems (Updated 01/12/25 @ 22:17 by David Arnold MD) Confusion (Acute) Cirrhosis (Acute) Benzodiazepine abuse (Acute) Sensorineural hearing loss (SNHL) of both ears (Acute) Atrial fibrillation with RVR (Acute) Excessive cerumen in both ear canals (Acute) Bankart lesion of left shoulder (Acute 10/18/22) Open wound of tongue due to bite (Acute) Fracture of glenoid process of left scapula (Acute) Hyperammonemia (Acute) Seizure (Acute) Foreign body of ear, left (Acute) Abdominal pain (Acute) Ascites (Acute) Abdominal ascites (Acute) Thrombocytopenia (Chronic) Alcohol intoxication (Acute) Cirrhosis (Chronic) Electrolyte and fluid disorder (Acute) Spondylosis of lumbar region without myelopathy or radiculopathy (Chronic) Depression (Acute) Suicidal ideations (Acute) Diabetes mellitus type 2 in obese (Chronic) Medical History Hypertension Hyperlipidemia History of appendicitis Alcohol abuse, in remission History of substance abuse Unspecified cirrhosis of liver Schizophrenia Hip pain, left COPD (chronic obstructive pulmonary disease) Nocturnal hypoxemia Discontinued smoking Chronic cough Chronic insomnia Constipation Rhinorrhea Petechiae Inguinal hernia Muscle cramps Rib pain on left side Other specified disorders of teeth and supporting structures Acute upper respiratory infection Tinea pedis Impacted cerumen, left ear Hearing loss Fracture of rib HCV infection Lumbar spondylosis Hypothyroid Heroin addiction Esophageal varices Suicidal ideations Diabetes Sleep apnea Surgical History EGD - MAC Social History Smoking/Tobacco Use Status: Former Tobacco Use Smoking risk assessment performed?: Yes Alcohol Intake: former Drug use: Rarely Substance use type: does not use Details: denies drugs or alcohol for several months now Housing: house Current gender identity: male Do you feel safe at home: Yes Do you feel safe in your relationship?: Yes Meds Allergies and Home Medications Allergies Allergy/AdvReac Type Severity Reaction Status Date / Time No Known Allergies Allergy Unverified 01/12/25 18:18 Home Medications ?Medication ?Instructions ?Recorded ?Confirmed ?Type cholecalciferol (vitamin D3) 25 5,000 units PO DAILY 07/22/16 01/12/25 History mcg (1,000 unit) tablet alprazolam 2 mg tablet,extended 2 mg PO DAILY 10/18/22 01/12/25 History release 24 hr levothyroxine 50 mcg tablet 50 mcg PO DAILY 10/18/22 01/12/25 History insulin glargine 14 unit subcut DAILY AM 03/21/23 01/12/25 History bupropion HCl 150 mg 24 hr tablet, 150 mg PO DAILY 05/31/23 01/12/25 History extended release furosemide 40 mg tablet 40 mg PO DAILY 05/31/23 01/12/25 History metformin 500 mg tablet 500 mg PO TID 05/31/23 01/12/25 History rifaximin 550 mg tablet (Xifaxan) 550 mg PO BID 05/31/23 01/12/25 History spironolactone 100 mg tablet 100 mg PO DAILY 05/31/23 01/12/25 History diltiazem HCl 120 mg 120 mg PO DAILY #90 caps 06/01/23 01/12/25 Rx capsule,extended release 24 hr fluoxetine 40 mg capsule 40 mg PO PRN 12/15/24 01/12/25 History Exam Narrative Exam Narrative: HEENT-normocephalic atraumatic mucous membranes moist oropharynx is clear extract motions are intact pupils are equal round and reactive to light. There is no horizontal nystagmus Neck-no lymphadenopathy no JVD no thyromegaly Cardiovascular-1 out of 6 systolic ejection murmur otherwise regular rate and rhythm Pulm-clear to auscultation bilaterally with good air exchange no accessory muscle use Abdomen-soft distended no tenderness to palpation Extremities-no sinus clubbing or edema Neurologic-cranial nerves II through XII are intact as tested reflexes not distorted normal as tested he does have mild asterixis bilaterally Psych-alert and orient x 3 Results Labs 01/12/25 19:33 01/12/25 19:33 Labs: Laboratory Results - last 24 hr 01/12/25 19:33 WBC 5.08 RBC 4.02 L Hgb 11.6 L Hct 33.4 L MCV 83 MCH 28.9 MCHC 34.7 RDW 14.6 H Plt Count 51 L MPV 11.5 H Immature Gran % 0.2 Neutrophils % 65.8 Lymphocytes % 21.7 Monocytes % 8.7 Eosinophils % 3.0 Basophils % 0.6 Nucleated RBC % 0.0 Absolute Neutrophils 3.35 Absolute Lymphocytes 1.10 L Absolute Monocytes 0.44 Absolute Eosinophils 0.15 Absolute Basophils 0.03 PT 13.0 H INR 1.3 H APTT 25.4 Sodium 135 L Potassium 3.7 Chloride 103 Carbon Dioxide 23.6 Anion Gap 8.4 BUN 5 L Creatinine 0.5 L Est GFR (CKD-EPI 2020) 121.96 Glucose 146 H Calcium 8.6 Total Bilirubin 2.1 H AST 29 ALT 34 Alkaline Phosphatase 88 Ammonia 187 H Total Protein 6.5 Albumin 3.4 Last Vital Signs Temp 36.4 C L 01/12/25 18:14 Pulse 67 01/12/25 21:38 Resp 16 01/12/25 21:38 BP 145/78 H 01/12/25 21:38 Pulse Ox 98 01/12/25 21:38 Time Spent Time spent with Patient: 40-54 minutes Time was spent: preparing to see the patient(eg.review tests), obtaining and/or reviewing separately otained hiistory, ordering medications,tests, procedures, referring, communicating with other health health care / medical job titles, indepentently interpreting results, counseling the patient and care coordination
[2025-01-12 22:15] LABS: Glucose 100 mg/dL (Negative)
[2025-01-12 22:31] LABS: Cannabinoids THC Negative (Negative); METHADONE URINE SCREEN Negative (Negative)
[2025-01-12 22:49] LABS: TSH (W/Ref FT4) 3.80 uIU/mL (0.36-3.74)
--- NOTE | 2025-01-12 22:56 | DI.RAD_ITS ---
Exam(s) XR CHEST 1V IN DI DEPT EXAM: XR CHEST 1V IN DI DEPT CLINICAL HISTORY: ams TECHNIQUE: 2D digital imaging was performed of the chest. One image was obtained. An AP view was obtained. COMPARISON: CR XR CHEST 2V PA LATERAL from 06/04/2020 CR XR RIBS LT W PA LAT CHEST from 10/20/2020 FINDINGS: MEDIASTINUM: Normal. HEART: Normal. PULMONARY VASCULATURE: Normal. LUNGS: There are no focal consolidating infiltrates. PLEURAL SPACE: No pleural effusion or pneumothorax. BONE:Within normal limits for the patient's age. OTHER FINDINGS:There is a stent seen in the right upper quadrant of the abdomen which may represent a TIPS. IMPRESSION: 1. There are no focal consolidating infiltrates. 2. The preliminary [facility] report was reviewed. DATA REPOSITORY: RADIATION DOSE DELIVERED:
[2025-01-12 23:00] VITALS: BP 129/90; PULSE 64; RESP 17; TEMP 36.2; O2SAT 97
--- NOTE | 2025-01-12 23:03 | W.PC.ACHO ---
Registration Status: REG ER Primary Language: Preferred Language: Kiswahili ED Information & Data Chief Complaint Diabetes 01/12/25 21:37 Triage Note pt had low blood sugar pt 01/12/25 18:14 states machine stated blg in the 40s Medical / Surgical History (Last Reviewed 05/31/23 @ 11:18 by Pedro Horowitz MD) Hypertension Hyperlipidemia History of appendicitis Alcohol abuse, in remission History of substance abuse Unspecified cirrhosis of liver Schizophrenia Hip pain, left COPD (chronic obstructive pulmonary disease) Nocturnal hypoxemia Discontinued smoking Chronic cough Chronic insomnia Constipation Rhinorrhea Petechiae Inguinal hernia Muscle cramps Rib pain on left side Other specified disorders of teeth and supporting structures Acute upper respiratory infection Tinea pedis Impacted cerumen, left ear Hearing loss Fracture of rib HCV infection Lumbar spondylosis Hypothyroid Heroin addiction Esophageal varices Suicidal ideations Diabetes Sleep apnea (Last Reviewed 05/31/23 @ 11:18 by Pedro Horowitz MD) EGD - MAC Most Recent Vital Signs Temperature 36.4 C L 01/12/25 18:14 Pulse 67 01/12/25 21:38 Respiratory Rate 16 01/12/25 21:38 Respiratory Pattern Normal 01/12/25 21:39 Blood Pressure 145/78 H 01/12/25 21:38 Blood Pressure Mean 100 01/12/25 21:38 Pulse Oximetry 98 01/12/25 21:38 Oxygen Delivery Method Room Air 01/12/25 21:38 Oxygen Flow Rate 0 01/12/25 21:38 Pain Level 0 01/12/25 18:14 Allergies No Known Allergies Allergy (Unverified 01/12/25 18:18) IV IV Catheter Type [Left Peripheral IV Antecubital] IV Catheter Gauge [Left 18 Antecubital] Diet Orders Category Date Time Status Regular/Normal [DIET] Nutrition 01/13/25 Breakfast Ordered Diagnostics 01/12/25 01/12/25 Range/Units 22:00 19:33 WBC 5.08 (4.4-10.8) 10^3/uL RBC 4.02 L (4.36-5.78) 10^6/uL Hgb 11.6 L (13.5-17.5) g/dL Hct 33.4 L (40.0-50.0) % MCV 83 (80-95) fL MCH 28.9 (27.0-33.0) pg MCHC 34.7 (32.0-36.0) % RDW 14.6 H (11.8-14.1) % Plt Count 51 L (130-400) 10^3/uL MPV 11.5 H (8.0-11.0) fL Immature Gran % 0.2 % Neutrophils % 65.8 % Lymphocytes % 21.7 % Monocytes % 8.7 % Eosinophils % 3.0 % Basophils % 0.6 % Nucleated RBC % 0.0 (0.0-0.3) % Absolute Neutrophils 3.35 (1.2-6.7) 10^3/uL Absolute Lymphocytes 1.10 L (1.2-3.4) 10^3/uL Absolute Monocytes 0.44 (0.1-0.8) 10^3/uL Absolute Eosinophils 0.15 (0.0-0.7) 10^3/uL Absolute Basophils 0.03 (0.0-0.2) 10^3/uL PT 13.0 H (9.1-11.1) sec INR 1.3 H (0.9-1.1) APTT 25.4 (20.6-30.2) sec Sodium 135 L (136-145) mmol/L Potassium 3.7 (3.5-5.1) mmol/L Chloride 103 (98-107) mmol/L Carbon Dioxide 23.6 (21.0-32.0) mmol/L Anion Gap 8.4 (3-11) mmol/L BUN 5 L (7-18) mg/dL Creatinine 0.5 L (0.70-1.30) mg/dL Est GFR (CKD-EPI 2020) 121.96 (mL/min/1.73m2) Glucose 146 H (74-106) mg/dL Calcium 8.6 (8.5-10.1) mg/dL Total Bilirubin 2.1 H (0.2-1.0) mg/dL AST 29 (15-37) U/L ALT 34 (16-63) U/L Alkaline Phosphatase 88 (46-116) U/L Ammonia 187 H (11-32) umol/L Total Protein 6.5 (6.4-8.2) g/dL Albumin 3.4 (3.4-5.0) g/dL TSH Pending Urine Color Yellow (Yellow) Urine Clarity Clear (Clear) Urine pH 7.0 (5-8) Ur Specific [place] 1.010 (1.005-1.025) Urine Protein Negative (Neg-Trace) mg/dL Urine Ketones Negative (Negative) mg/dL Urine Blood Negative (Negative) Urine Nitrite Negative (Negative) Urine Bilirubin Negative (Negative) Urine Urobilinogen 1.0 H (Up to 0.2) mg/dL Ur Leukocyte Esterase Negative (Negative) Urine Glucose 100 H (Negative) mg/dL Urine Opiates Screen Negative (Negative) Urine Methadone Screen Negative (Negative) Ur Barbiturates Screen Negative (Negative) Ur Tricyclics Screen Negative (Negative) Ur Amphetamines Screen Negative (Negative) U Benzodiazepines Scrn Negative (Negative) Urine Cocaine Screen Negative (Negative) Ur THC Screen Negative (Negative) [id number] Documentation Fingerstick Glucose Start: 01/12/25 18:14 Freq: Status: Complete Protocol: Activity Type Activity Date Activity User E-sign Co-sign Detail Recorded Client Recorded Date Recorded By Document 01/12/25 18:13 BKG DAEMON(3) NVT-BG05 01/12/25 18:14 BKG DAEMON(4) Intake and Output - 24 Hour Total 01/12/25 18:04 thru 01/12/25 18:14 Weight 97.522 kg Falls Risk Assessment History of Falls No History 01/12/25 19:43 Contributing Factors No Factors 01/12/25 19:43 Ambulatory Aids Independent 01/12/25 19:43 Tubes/Lines None 01/12/25 19:43 Gait Evaluation No gait disturbance 01/12/25 19:43 Cognition No cognitive impairment 01/12/25 19:43 Fall Total Score 0 01/12/25 19:43 Level of Risk Standard/Low Risk 01/12/25 19:43 Problems (Last Reviewed 05/31/23 @ 11:18 by Pedro Horowitz MD) Confusion (Acute) Cirrhosis (Acute) Benzodiazepine abuse (Acute) Hyperammonemia (Acute) Thrombocytopenia (Chronic) Alcohol intoxication (Acute) Diabetes mellitus type 2 in obese (Chronic) v v v v v v v v v Sending and/or Receiving Nurses: Please use comment section below to note any information pertinent to the patient hand-off not included above. Information / Comments: Received report from ED nurse deepthi manuel around [phone],pt to be admitted to room 226. Pt received from ED via wheelchair. With PIV on his Left AC gauge 18.Alert and oriented x 3.Complaning of being shaky and wanted some medications.VS taken and recorded.Situeated pt to bed comfortably. Report received from:Vincenzo
[2025-01-12 23:10] VITALS: BP 129/90; PULSE 64; RESP 17; TEMP 36.2; O2SAT 97
--- NOTE | 2025-01-13 00:35 | DI.VRAD_ITS ---
PROCEDURE INFORMATION: Exam: XR Chest Exam date and time: 01/12/2025 10:59 PM Age: 54 years old Clinical indication: Other: AMS TECHNIQUE: Imaging protocol: Radiologic exam of the chest. Views: 1 view. COMPARISON: CT CHEST/ABD/PEL W 10/17/2022 5:12 PM FINDINGS: Lungs: Unremarkable. No consolidation. Pleural spaces: Unremarkable. No pleural effusion. No pneumothorax. Heart/Mediastinum: Unremarkable. No cardiomegaly. Bones/joints: Unremarkable. IMPRESSION: No acute findings. Dictated and Authenticated by: Eron Coughlin MD. Orderin Clayton Hernandez MD
--- NOTE | 2025-01-13 05:01 | W.PC.ACHO ---
Registration Status: ADM TALIB Primary Language: Preferred Language: Canadian ED Information & Data Chief Complaint Diabetes 01/12/25 21:37 Triage Note pt had low blood sugar pt 01/12/25 18:14 states machine stated blg in the 40s Medical / Surgical History (Last Reviewed 05/31/23 @ 11:18 by Pedro Horowitz MD) Hypertension Hyperlipidemia History of appendicitis Alcohol abuse, in remission History of substance abuse Unspecified cirrhosis of liver Schizophrenia Hip pain, left COPD (chronic obstructive pulmonary disease) Nocturnal hypoxemia Discontinued smoking Chronic cough Chronic insomnia Constipation Rhinorrhea Petechiae Inguinal hernia Muscle cramps Rib pain on left side Other specified disorders of teeth and supporting structures Acute upper respiratory infection Tinea pedis Impacted cerumen, left ear Hearing loss Fracture of rib HCV infection Lumbar spondylosis Hypothyroid Heroin addiction Esophageal varices Suicidal ideations Diabetes Sleep apnea (Last Reviewed 05/31/23 @ 11:18 by Pedro Horowitz MD) EGD - MAC Most Recent Vital Signs Temperature 36.2 C L 01/12/25 23:10 Temperature Source Tympanic 01/12/25 23:00 Pulse 64 01/12/25 23:10 Pulse Rhythm Regular 01/12/25 23:10 Respiratory Rate 17 01/12/25 23:10 Respiratory Effort Normal 01/12/25 23:10 Respiratory Pattern Normal 01/12/25 23:10 Blood Pressure 129/90 01/12/25 23:10 Blood Pressure Mean 103 01/12/25 23:00 Pulse Oximetry 97 01/12/25 23:10 Oxygen Delivery Method Room Air 01/12/25 23:10 Oxygen Flow Rate 0 01/12/25 23:10 Pain Level 0 01/12/25 23:10 Allergies No Known Allergies Allergy (Unverified 01/12/25 18:18) IV IV Catheter Type [Left Peripheral IV Antecubital] IV Catheter Gauge [Left 18 Antecubital] Diet Orders Category Date Time Status Regular/Normal [DIET] Nutrition 01/13/25 Breakfast Active Diagnostics 01/13/25 01/13/25 01/12/25 Range/Units 05:35 00:07 22:00 WBC Pending (4.4-10.8) 10^3/uL RBC Pending (4.36-5.78) 10^6/uL Hgb Pending (13.5-17.5) g/dL Hct Pending (40.0-50.0) % MCV Pending (80-95) fL MCH Pending (27.0-33.0) pg MCHC Pending (32.0-36.0) % RDW Pending (11.8-14.1) % Plt Count Pending (130-400) 10^3/uL MPV Pending (8.0-11.0) fL Immature Gran % Pending % Neutrophils % Pending % Lymphocytes % Pending % Monocytes % Pending % Eosinophils % Pending % Basophils % Pending % Nucleated RBC % (0.0-0.3) % Absolute Neutrophils Pending (1.2-6.7) 10^3/uL Absolute Lymphocytes Pending (1.2-3.4) 10^3/uL Absolute Monocytes Pending (0.1-0.8) 10^3/uL Absolute Eosinophils Pending (0.0-0.7) 10^3/uL Absolute Basophils Pending (0.0-0.2) 10^3/uL PT (9.1-11.1) sec INR (0.9-1.1) APTT (20.6-30.2) sec Sodium Pending (136-145) mmol/L Potassium Pending (3.5-5.1) mmol/L Chloride Pending (98-107) mmol/L Carbon Dioxide Pending (21.0-32.0) mmol/L Anion Gap Pending (3-11) mmol/L BUN Pending (7-18) mg/dL Creatinine Pending (0.70-1.30) mg/dL Est GFR (CKD-EPI 2020) Pending (mL/min/1.73m2) Glucose Pending (74-106) mg/dL Calcium Pending (8.5-10.1) mg/dL Total Bilirubin Pending (0.2-1.0) mg/dL AST Pending (15-37) U/L ALT Pending (16-63) U/L Alkaline Phosphatase Pending (46-116) U/L Ammonia Pending (11-32) umol/L Total Protein Pending (6.4-8.2) g/dL Albumin Pending (3.4-5.0) g/dL TSH (0.36-3.74) uIU/mL Free T4 (0.76-1.46) ng/dL Urine Color Pending Yellow (Yellow) Urine Clarity Pending Clear (Clear) Urine pH Pending 7.0 (5-8) Ur Specific [place] Pending 1.010 (1.005-1.025) Urine Protein Pending Negative (Neg-Trace) mg/dL Urine Ketones Pending Negative (Negative) mg/dL Urine Blood Pending Negative (Negative) Urine Nitrite Pending Negative (Negative) Urine Bilirubin Pending Negative (Negative) Urine Urobilinogen Pending 1.0 H (Up to 0.2) mg/dL Ur Leukocyte Esterase Pending Negative (Negative) Urine Glucose Pending 100 H (Negative) mg/dL Urine Opiates Screen Negative (Negative) Urine Methadone Screen Negative (Negative) Ur Barbiturates Screen Negative (Negative) Ur Tricyclics Screen Negative (Negative) Ur Amphetamines Screen Negative (Negative) U Benzodiazepines Scrn Negative (Negative) Urine Cocaine Screen Negative (Negative) Ur THC Screen Negative (Negative) 01/12/25 Range/Units 19:33 WBC 5.08 (4.4-10.8) 10^3/uL RBC 4.02 L (4.36-5.78) 10^6/uL Hgb 11.6 L (13.5-17.5) g/dL Hct 33.4 L (40.0-50.0) % MCV 83 (80-95) fL MCH 28.9 (27.0-33.0) pg MCHC 34.7 (32.0-36.0) % RDW 14.6 H (11.8-14.1) % Plt Count 51 L (130-400) 10^3/uL MPV 11.5 H (8.0-11.0) fL Immature Gran % 0.2 % Neutrophils % 65.8 % Lymphocytes % 21.7 % Monocytes % 8.7 % Eosinophils % 3.0 % Basophils % 0.6 % Nucleated RBC % 0.0 (0.0-0.3) % Absolute Neutrophils 3.35 (1.2-6.7) 10^3/uL Absolute Lymphocytes 1.10 L (1.2-3.4) 10^3/uL Absolute Monocytes 0.44 (0.1-0.8) 10^3/uL Absolute Eosinophils 0.15 (0.0-0.7) 10^3/uL Absolute Basophils 0.03 (0.0-0.2) 10^3/uL PT 13.0 H (9.1-11.1) sec INR 1.3 H (0.9-1.1) APTT 25.4 (20.6-30.2) sec Sodium 135 L (136-145) mmol/L Potassium 3.7 (3.5-5.1) mmol/L Chloride 103 (98-107) mmol/L Carbon Dioxide 23.6 (21.0-32.0) mmol/L Anion Gap 8.4 (3-11) mmol/L BUN 5 L (7-18) mg/dL Creatinine 0.5 L (0.70-1.30) mg/dL Est GFR (CKD-EPI 2020) 121.96 (mL/min/1.73m2) Glucose 146 H (74-106) mg/dL Calcium 8.6 (8.5-10.1) mg/dL Total Bilirubin 2.1 H (0.2-1.0) mg/dL AST 29 (15-37) U/L ALT 34 (16-63) U/L Alkaline Phosphatase 88 (46-116) U/L Ammonia 187 H (11-32) umol/L Total Protein 6.5 (6.4-8.2) g/dL Albumin 3.4 (3.4-5.0) g/dL TSH 3.80 H (0.36-3.74) uIU/mL Free T4 0.85 (0.76-1.46) ng/dL Urine Color (Yellow) Urine Clarity (Clear) Urine pH (5-8) Ur Specific [place] (1.005-1.025) Urine Protein (Neg-Trace) mg/dL Urine Ketones (Negative) mg/dL Urine Blood (Negative) Urine Nitrite (Negative) Urine Bilirubin (Negative) Urine Urobilinogen (Up to 0.2) mg/dL Ur Leukocyte Esterase (Negative) Urine Glucose (Negative) mg/dL Urine Opiates Screen (Negative) Urine Methadone Screen (Negative) Ur Barbiturates Screen (Negative) Ur Tricyclics Screen (Negative) Ur Amphetamines Screen (Negative) U Benzodiazepines Scrn (Negative) Urine Cocaine Screen (Negative) Ur THC Screen (Negative) [id number] Documentation Fingerstick Glucose Start: 01/12/25 18:14 Freq: Status: Complete Protocol: Activity Type Activity Date Activity User E-sign Co-sign Detail Recorded Client Recorded Date Recorded By Document 01/12/25 18:13 BKG DAEMON(5) NVT-BG05 01/12/25 18:14 BKG DAEMON(6) Intake and Output - 24 Hour Total 01/12/25 18:04 thru 01/12/25 23:10 Intake Total 10 Balance 10 Weight 97.522 kg Intake: IV 10 Falls Risk Assessment History of Falls No History 01/12/25 23:10 Contributing Factors No Factors 01/12/25 23:10 Ambulatory Aids Independent 01/12/25 23:10 Tubes/Lines None 01/12/25 23:10 Gait Evaluation No gait disturbance 01/12/25 23:10 Cognition No cognitive impairment 01/12/25 23:10 Fall Total Score 0 01/12/25 23:10 Level of Risk Standard/Low Risk 01/12/25 23:10 Problems (Last Reviewed 05/31/23 @ 11:18 by Pedro Horowitz MD) Confusion (Acute) Cirrhosis (Acute) Benzodiazepine abuse (Acute) Hyperammonemia (Acute) Thrombocytopenia (Chronic) Alcohol intoxication (Acute) Diabetes mellitus type 2 in obese (Chronic) v v v v v v v v v Sending and/or Receiving Nurses: Please use comment section below to note any information pertinent to the patient hand-off not included above. Information / Comments: Received report from ED advertising agent named vincenzo around [phone],pt to be admitted to room 226. Pt received from ED via wheelchair. With PIV on his Left AC gauge 18.Alert and oriented x 3.Complaning of being shaky and wanted some medications.VS taken and recorded.Situated pt to bed comfortably. Report received from:Vincenzo Stephens(ED advertising agent)
[2025-01-13 05:45] LABS: Glucose 100 mg/dL (Negative)
[2025-01-13 07:39] VITALS: BP 142/79; PULSE 67; RESP 16; TEMP 36.8; O2SAT 99
[2025-01-13 07:52] LABS: Abs Immature Grans 0.02 10^3/uL (0.0-0.06); HCT 33.5 % (40.0-50.0); HGB 11.7 g/dL (13.5-17.5); Immature Grans % 0.4 %; MCH 29.3 pg (27.0-33.0); MCHC 34.9 % (32.0-36.0); MCV 84 fL (80-95); MPV 9.9 fL (8.0-11.0); RBC 4.00 10^6/uL (4.36-5.78); RDW 14.6 % (11.8-14.1); RDW-SD 44.8 fL; WBC 4.49 10^3/uL (4.4-10.8)
[2025-01-13] MEDS: metFORMIN 500 MG TAB PO ×2 (07:55→12:33)
[2025-01-13] MEDS: Lactulose 20 GM/30 ML CUP PO (07:55)
[2025-01-13] MEDS: buPROPion-XL 150 MG TABCR PO (07:55)
[2025-01-13] MEDS: Furosemide 40 MG TAB PO (07:56)
[2025-01-13] MEDS: dilTIAZem CD 120 MG CAPCR PO (07:56)
[2025-01-13] MEDS: Spironolactone 50 MG TAB 100 MG PO (07:56)
[2025-01-13] MEDS: Cholecalciferol (Vitamin D3) 1,000 UNIT TAB 5000 UNITS PO (07:56)
[2025-01-13] MEDS: Rifaximin 550 MG TAB PO (07:56)
[2025-01-13] MEDS: Enoxaparin 40 MG/0.4 ML SYR SC (07:57)
[2025-01-13 08:02] LABS: Ammonia 91 umol/L (11-32)
[2025-01-13 08:04] LABS: Platelet Count 52 10^3/uL (130-400); RBC Morphology Normal
[2025-01-13 08:12] LABS: ALT 34 U/L (16-63); AST 26 U/L (15-37); Albumin 3.2 g/dL (3.4-5.0); Alkaline Phosphatase 96 U/L (46-116); Anion Gap 8.3 mmol/L (3-11); BUN 6 mg/dL (7-18); Bilirubin, Total 2.0 mg/dL (0.2-1.0); CO2 22.7 mmol/L (21.0-32.0); Calcium 8.3 mg/dL (8.5-10.1); Chloride 104 mmol/L (98-107); Estimated GFR 115.43 (mL/min/1.73m2); Glucose 213 mg/dL (74-106); Potassium 3.9 mmol/L (3.5-5.1); Sodium 135 mmol/L (136-145); Total Protein 6.3 g/dL (6.4-8.2)
[2025-01-13] MEDS: Insulin Aspart 300 UNITS/3 ML PEN SC ×2 (09:13→12:32)
--- NOTE | 2025-01-13 09:26 | IN_ITS ---
PT Notes Visit Reasons: Benzo Withdrawal Physical Therapy Inpatient Initial Evaluation Date: 01/13/2025 Referring Doctor: Dr Arnold PT Orders: PT CONSULT: PT Evaluation and treatment Precautions:Standard Patient Profile/Admitting Diagnosis: Patient is 54-year-old male presented to the ED with altered mental status/odd behaviors and anxiety at home. Work up in ED included drug screen ( negative) . Pt noted with elevated ammonia level though alert, thrombocytopenia.Pt noted he took his last dose of Benzodiazipine on 01/11 for his anxiety; concern for Benzo withdrawal. Pt admitted for observation to the Med Surg unit for Psych Consult as well as PT Consult PMHX: Confusion (Acute) Cirrhosis (Acute) Benzodiazepine abuse (Acute) Sensorineural hearing loss (SNHL) of both ears (Acute) Atrial fibrillation with RVR (Acute) Excessive cerumen in both ear canals (Acute) Bankart lesion of left shoulder (Acute 10/18/22) Open wound of tongue due to bite (Acute) Fracture of glenoid process of left scapula (Acute) Hyperammonemia (Acute) Seizure (Acute) Foreign body of ear, left (Acute) Abdominal pain (Acute) Ascites (Acute) Abdominal ascites (Acute) Thrombocytopenia (Chronic) Alcohol intoxication (Acute) Cirrhosis (Chronic) Electrolyte and fluid disorder (Acute) Spondylosis of lumbar region without myelopathy or radiculopathy (Chronic) Depression (Acute) Suicidal ideations (Acute) Diabetes mellitus type 2 in obese (Chronic) Medical History Hypertension Hyperlipidemia History of appendicitis Alcohol abuse, in remission History of substance abuse Unspecified cirrhosis of liver Schizophrenia Hip pain, left COPD (chronic obstructive pulmonary disease) Nocturnal hypoxemia Discontinued smoking Chronic cough Chronic insomnia Constipation Rhinorrhea Petechiae Inguinal hernia Muscle cramps Rib pain on left side Other specified disorders of teeth and supporting structures Acute upper respiratory infection Tinea pedis Impacted cerumen, left ear Hearing loss Fracture of rib HCV infection Lumbar spondylosis Hypothyroid Heroin addiction Esophageal varices Suicidal ideations Diabetes Sleep apnea Surgical History EGD - MAC Social History/Home Situation: Patient reports he resides in his parents home with flight of stairs with 1 rail to his bedroom. Patient states he is independent with all ADLs and ambulation/mobility. Equipment Owned/DME: None Subjective: Patient reports he is a little anxious but agreeable to participate. Objective: [] General Observation: Presented supine in bed fully dressed. Mental Status: Alert and oriented x 4, able to follow instructions agreeable to participate in eval. Pain: Denies ROM: [] BUE :WFL BLE: WFL Strength: [] Right Upper Extremity: 5/5 Left Upper Extremity: 5/5 Right Lower Extremity: 5/5 Left Lower Extremity: 5/5 Sensation: Intact Bed Mobility/Transfers: [] Supine to sit independent Sit to stand [] independent Stand to sit independent Bed to chair independent Gait: Independent without device 600 feet reciprocal pattern , arm swing. Stairs flight of stairs with 1 rail independently reciprocal pattern Balance: [] Static Sitting: Normal Dynamic Sitting: Normal Static Standing: [] Normal Dynamic Standing: Normal Special Tests: [place] balance scale: 54/56 Mobility Limitations Standardized Measure [] [facility] AM-PAC 6 clicks Basic Mobility Inpatient Short Form: [] Raw Score: 24 CMS Score: 0% deficit Informed Consent/Education: Patient instructed in purpose of PT consult. Assessment: Patient is a 54-year-old male presents anxiousness. Patient awaiting psych consult at this time. He demonstrates no functional deficits. Patient is independent with all mobility including performing flight of stairs with rail independently. Patient made independent on the unit no further skilled PT services indicated inpatient or in community. Patient is assessed as a moderate complexity based on the following: History: 54-year-old male with impairment level findings, functional limitations, and past medical history as indicated above Examination: Demonstrable impairment in strength, balance, and mobility level with underlying impairments and functional limitations as documented above Presentation: Stable Decision Making: Moderate Goals: N/A. PT evaluation Plan of Care/Treatment Plan: N/A. PT evaluation DISCHARGE RECOMMENDATIONS: Home with no further PT services indicated. Pt is able to ambulate independently on the unit without device TREATMENT CODE/TIME: 94348/ [id number] Thank you for the opportunity to participate in the care of this patient. Stella Igancio,PT [facility]
[2025-01-13] MEDS: LORazepam 1 MG TAB PO ×2 (09:36→13:50)
--- NOTE | 2025-01-13 10:22 | PDOC.CMIN ---
Date of service: 01/13/25 Time of Service: 11:00 Care Management Initial Assmt Initial Assessment Reason for Hospitalization: Benzodiazepine withdrawal Functional Status/Living Situation Patient Presentation: Won was brought to the ER by his mom last night when he was found to have confusion. It is believed that this confusion was caused by clonazepam withdrawal, as he had just stopped the medication the night before. Won has a history of schizophrenia, and he was taking the medication for his anxiety. Won is connected with [facility]. He has a correctional casework specialist, Rebecca Escobar, a therapist, Krystin, and a psychiatrist, Dr. Munoz. CM spoke with Rebecca today, and she stated that Won is compliant with his meds and appointments. Won was sitting in the bedside chair, visiting with his friend, Martin. He was very pleasant with CM. He was noted to have to ask the same questions a couple of times before he seemed like he could take in the information given. CM reached out to the Psychologist Social at his PCP office today, too, to book a f/u appointment and give a heads up on the situation. Won was changed to a different medication, with less effects on his liver, and will slowly wean off of it. Town of Residence: [place] Resides with: Parent (Mom, Graciela) Employment Status: Disabled Instrumental Activities of Daily Living (ADLs): Independent Advance Directives Advance Directives: Do you have an Advance Directive: Y 08/17/22, 14:35 AD On File at [facility]: Y 08/17/22, 14:35 Date Asked 12/19/24 12/19/24, 13:19 AD Date Reviewed 12/22/24 12/22/24, 12:49 COLST On File at [facility] COLST Date Scanned Code Status Resuscitation Status Full Code Insurance Coverage/Financial Issues Insurance: Medicare Part A & B Medicaid of [place]? Care Team Visit Care Team Role Provider Type Eamon Edwards MD [facility] STAFF PHYSICIAN Soraya Tomas Primary Care Provider NON-[facility] STAFF PHYSICIAN Calli Palma RDN, [place] Other Providers [employer] Thuy [facility] Other Providers OTHER Paresh Stringer RDN Other Providers [employer] Sigifredo Graff MD Emergency Provider [facility] STAFF PHYSICIAN David Arnold MD Admit Provider [facility] STAFF PHYSICIAN Attending Provider Discharge Potential Discharge Needs: PCP F/U Appt and Other (Psych and therapy f/u) Anticipated Barriers to Discharge: None Identified Patient/Family Education Needs: Review discharge instructions, discuss Ask Me Three Transportation: Private vehicle (with family friend) Plan: Won will likely discharge this afternoon with no new home care services. He will f/u with his provider, Dr. Tomas on 01/21 at 2:30 and with his therapist on 01/29 at 1pm, and his med provider at 2pm. These appointments have been relayed to Won. He will transport home in a private vehicle with a friend. CM will continue to follow. Social Determinants of Health Screening Will the Patient Participate in the Screening?: Declined to provide Do you worry about having a steady place to live?: choose not to answer PFSH All Active Problems (Updated 01/12/25 @ 22:17 by David Arnold MD) Confusion (Acute) Cirrhosis (Acute) Benzodiazepine abuse (Acute) Sensorineural hearing loss (SNHL) of both ears (Acute) Atrial fibrillation with RVR (Acute) Excessive cerumen in both ear canals (Acute) Bankart lesion of left shoulder (Acute 10/18/22) Open wound of tongue due to bite (Acute) Fracture of glenoid process of left scapula (Acute) Hyperammonemia (Acute) Seizure (Acute) Foreign body of ear, left (Acute) Abdominal pain (Acute) Ascites (Acute) Abdominal ascites (Acute) Thrombocytopenia (Chronic) Alcohol intoxication (Acute) Cirrhosis (Chronic) Electrolyte and fluid disorder (Acute) Spondylosis of lumbar region without myelopathy or radiculopathy (Chronic) Depression (Acute) Suicidal ideations (Acute) Diabetes mellitus type 2 in obese (Chronic) Medical History Hypertension Hyperlipidemia History of appendicitis Alcohol abuse, in remission History of substance abuse Unspecified cirrhosis of liver Schizophrenia Hip pain, left COPD (chronic obstructive pulmonary disease) Nocturnal hypoxemia Discontinued smoking Chronic cough Chronic insomnia Constipation Rhinorrhea Petechiae Inguinal hernia Muscle cramps Rib pain on left side Other specified disorders of teeth and supporting structures Acute upper respiratory infection Tinea pedis Impacted cerumen, left ear Hearing loss Fracture of rib HCV infection Lumbar spondylosis Hypothyroid Heroin addiction Esophageal varices Suicidal ideations Diabetes Sleep apnea Surgical History EGD - MAC Social History Smoking/Tobacco Use Status: Former Tobacco Use Smoking risk assessment performed?: Yes Alcohol Intake: former Drug use: Rarely Substance use type: does not use Details: denies drugs or alcohol for several months now Housing: house Current gender identity: male Do you feel safe at home: Yes Do you feel safe in your relationship?: Yes
[2025-01-13] MEDS: Insulin Glargine 300 UNITS/3 ML PEN 14 UNITS SC (10:45)
--- NOTE | 2025-01-13 16:00 | W.PM.DS.N ---
Date of service: 01/13/25 Time of Service: 16:00 DS: Diagnosis Discharge Diagnosis (1) Thrombocytopenia: Status: Chronic (2) Alcohol intoxication: Status: Acute (3) Diabetes mellitus type 2 in obese: Status: Chronic (4) Hyperammonemia: Status: Acute (5) Schizophrenia: (6) Benzodiazepine abuse: Status: Acute (7) Cirrhosis: Status: Acute (8) Confusion: Status: Acute Discharge Plan Disposition Patient Disposition: Home Condition: Stable Discharge Details Reason For Visit: Benzo Withdrawal Admit Date/Time: 01/12/25 22:02 Admit Provider: David Arnold Attending Provider: David Arnold [facility] Hospital Course: 54 yo M with history of cirrhosis with ascites s/p TIPS, alcohol use disorder, atrial fibrillation not anticoagulated, depression, and anxiety disorder treated with chronic benzodiazapines who presented confused and sedated. He was previously on alprazolam 2mg extended release, but had been changed to clonezepam 1mg TID prior to presentation. He did have an elevated ammonia, but his mental status cleared overnight with simply holding benzodiazepine therapy. He had increased anxiety and tremors in the morning that responded well to lorazepam 1mg. It is likely that the clonezepam built up in his system as it is dependant on the liver for metabolism. Lorazepam is less liver-dependant in its metabolism and is less potent generally at 1mg. He was motivated to taper and come off benzodiazapines. We made a plan to taper every 2 weeks starting at 1mg TID lorazepam. We discussed cutting 0.5mg of the total daily dose every two weeks (1mg, 0.5mg, 1mg), which would be a relatively aggressive taper. The 1mg TID dosing schedule did seem to keep him relatively comfortable after the first dosing interval prior to discharge. His SSRI was continued. Of note, his last A1c was 5.4% at PCPs office. On presentation, his sugar was as low as 44 per report. His current dose listed was glargine 14 units ONCE daily (looks like PCP record has 15 units BID). For ease of use, once daily is reasonable, and to avoid hypoglycemia a lower dose seems to be indicated. It was recommended he decrease his dose to 10 units once daily. Metformin was continued. His liver status was at baseline. He did not have signs of active encephalopathy or tense ascites at the time of discharge. His diuretics and xifaxan were continued. It appears he is following at hepatology for liver imaging for hepatocellular carcinoma screening. Given his history of alcohol use disorder, alcohol metabolite testing such as phosphatidylethanol could be considered to document sobriety, especially if he would ever want to be considered for transplant. Of note, it does not appear that he was drinking prior to this presentation, though alcohol use was documented 12/15. He already has an appointment within [address] Tomas. She was not working on the day of discharge, so we weren't able to confirm the plan of tapering. We also did reach out to [facility] about the plan to taper as well. Recommendations for Follow Up Recommended tests to be ordered by follow up provider: follow up blood sugar will need another lorazepam prescription for taper by 01/27/25 Home Meds and New Rx's Prescriptions: New insulin glargine [Lantus Solostar U-100 Insulin] 100 unit/mL (3 mL) Insulin Pen 10 unit SC DAILY@0830 Qty: 0 0RF lorazepam 1 mg Tablet 1 mg PO TID Qty: 42 0RF Continued levothyroxine 50 mcg Tablet 50 mcg PO DAILY fluoxetine 40 mg capsule 40 mg PO PRN cholecalciferol (vitamin D3) 1,000 UNITS tablet 5,000 units PO DAILY furosemide 40 mg tablet 40 mg PO DAILY metformin 500 mg tablet 500 mg PO TID spironolactone 100 mg tablet 100 mg PO DAILY Xifaxan 550 mg tablet 550 mg PO BID bupropion HCl 150 mg tablet extended release 24 hr 150 mg PO DAILY diltiazem HCl 120 mg Capsule,Extended Release 24hr 120 mg PO DAILY Qty: 90 0RF Discontinued insulin glargine [Lantus U-100 Insulin] 14 unit subcut DAILY AM alprazolam 2 mg Tablet Extended Release 24 Hr 2 mg PO DAILY Discharge Instructions Additional Instructions: You had too much clonezepam in your system causing you to be sedated. We stopped this and changed it to lorazepam with a plan to slowly taper the dose every 2 weeks until you are able to come off sedatives. It is even more important that you avoid all alcohol with your liver disease. Activity:: Activity as Tolerated Equipment/Supplies:: No Equipment Needed Diet:: Carb Counting Discharge Orders Discharge Orders: Discharge Order (Routine); Ordered 01/13/25 Ordered By: Eamon Edwards DS: Summary Time Spent with Patient providing and/or coordinating discharge services: Greater than 30 minutes Status at Discharge Functional status at discharge: independent ambulation Overall status at discharge: patient is back to baseline Mental Status: mental status grossly normal Speech and Movement: speech and movement normal Mood: congruent mood Affect: normal affect Exam Narrative Exam Narrative: GEN: Alert and oriented x 4, NAD HEENT: no nystagmus, MMM, no icterus. Cardiovascular-1 out of 6 systolic ejection murmur otherwise regular rate and rhythm Pulm-clear to auscultation bilaterally with good air exchange no accessory muscle use Abdomen-soft distended no tenderness to palpation, no fluid wave or masses Extremities-no sinus clubbing or edema Neurologic- very slight tremor with hands extended, no asterixis Psych Mental Status: mental status grossly normal Speech and Movement: speech and movement normal Mood: congruent mood Affect: normal affect DS: Data Vitals/I&O Vitals and I&O: Vital Signs Temperature 36.8 C 01/13/25 07:39 Temperature Source Temporal Artery Scan 01/13/25 07:39 Pulse 67 01/13/25 07:39 Pulse Rhythm Regular 01/12/25 23:10 Respiratory Rate 16 01/13/25 07:39 Respiratory Effort Normal 01/12/25 23:10 Respiratory Pattern Normal 01/12/25 23:10 Blood Pressure 142/79 H 01/13/25 07:39 Blood Pressure Mean 100 01/13/25 07:39 Pulse Oximetry 99 01/13/25 07:39 Oxygen Delivery Method Room Air 01/13/25 07:39 Oxygen Flow Rate 0 01/13/25 07:39 Pain Level 0 01/13/25 08:04 Intake & Output 01/12/25 01/13/25 01/13/25 23:59 11:59 23:59 Intake Total Balance Weight 97.522 kg Intake: IV Other: Comment Independent with voiding without dysuria Data Completed and Pending Labs on day of discharge: Labs from last 24 hours 01/13/25 01/13/25 01/12/25 07:20 05:35 22:00 WBC 4.49 RBC 4.00 L Hgb 11.7 L Hct 33.5 L MCV 84 MCH 29.3 MCHC 34.9 RDW 14.6 H Plt Count 52 L MPV 9.9 Immature Gran % 0.4 Neutrophils % 72.0 Lymphocytes % 15.6 Monocytes % 8.9 Eosinophils % 2.7 Basophils % 0.4 Nucleated RBC % 0.0 Absolute Neutrophils 3.23 Absolute Lymphocytes 0.70 L Absolute Monocytes 0.40 Absolute Eosinophils 0.12 Absolute Basophils 0.02 RBC Morphology Normal PT INR APTT Sodium 135 L Potassium 3.9 Chloride 104 Carbon Dioxide 22.7 Anion Gap 8.3 BUN 6 L Creatinine 0.6 L Est GFR (CKD-EPI 2020) 115.43 Glucose 213 H Calcium 8.3 L Total Bilirubin 2.0 H AST 26 ALT 34 Alkaline Phosphatase 96 Ammonia 91 H Total Protein 6.3 L Albumin 3.2 L TSH Free T4 Urine Color Yellow Yellow Urine Clarity Clear Clear Urine pH 6.5 7.0 Ur Specific [place] 1.010 1.010 Urine Protein Negative Negative Urine Ketones Negative Negative Urine Blood Negative Negative Urine Nitrite Negative Negative Urine Bilirubin Negative Negative Urine Urobilinogen 1.0 H 1.0 H Ur Leukocyte Esterase Negative Negative Urine Glucose 100 H 100 H Urine Opiates Screen Negative Urine Methadone Screen Negative Ur Barbiturates Screen Negative Ur Tricyclics Screen Negative Ur Amphetamines Screen Negative U Benzodiazepines Scrn Negative Urine Cocaine Screen Negative Ur THC Screen Negative 01/12/25 19:33 WBC 5.08 RBC 4.02 L Hgb 11.6 L Hct 33.4 L MCV 83 MCH 28.9 MCHC 34.7 RDW 14.6 H Plt Count 51 L MPV 11.5 H Immature Gran % 0.2 Neutrophils % 65.8 Lymphocytes % 21.7 Monocytes % 8.7 Eosinophils % 3.0 Basophils % 0.6 Nucleated RBC % 0.0 Absolute Neutrophils 3.35 Absolute Lymphocytes 1.10 L Absolute Monocytes 0.44 Absolute Eosinophils 0.15 Absolute Basophils 0.03 RBC Morphology PT 13.0 H INR 1.3 H APTT 25.4 Sodium 135 L Potassium 3.7 Chloride 103 Carbon Dioxide 23.6 Anion Gap 8.4 BUN 5 L Creatinine 0.5 L Est GFR (CKD-EPI 2020) 121.96 Glucose 146 H Calcium 8.6 Total Bilirubin 2.1 H AST 29 ALT 34 Alkaline Phosphatase 88 Ammonia 187 H Total Protein 6.5 Albumin 3.4 TSH 3.80 H Free T4 0.85 Urine Color Urine Clarity Urine pH Ur Specific [place] Urine Protein Urine Ketones Urine Blood Urine Nitrite Urine Bilirubin Urine Urobilinogen Ur Leukocyte Esterase Urine Glucose Urine Opiates Screen Urine Methadone Screen Ur Barbiturates Screen Ur Tricyclics Screen Ur Amphetamines Screen U Benzodiazepines Scrn Urine Cocaine Screen Ur THC Screen PFSH All Active Problems (Updated 01/12/25 @ 22:17 by David Arnold MD) Confusion (Acute) Cirrhosis (Acute) Benzodiazepine abuse (Acute) Sensorineural hearing loss (SNHL) of both ears (Acute) Atrial fibrillation with RVR (Acute) Excessive cerumen in both ear canals (Acute) [place] lesion of left shoulder (Acute 10/18/22) Open wound of tongue due to bite (Acute) Fracture of glenoid process of left scapula (Acute) Hyperammonemia (Acute) Seizure (Acute) Foreign body of ear, left (Acute) Thrombocytopenia (Chronic) Abdominal ascites (Acute) Ascites (Acute) Abdominal pain (Acute) Alcohol intoxication (Acute) Electrolyte and fluid disorder (Acute) Cirrhosis (Chronic) Spondylosis of lumbar region without myelopathy or radiculopathy (Chronic) Diabetes mellitus type 2 in obese (Chronic) Suicidal ideations (Acute) Depression (Acute) Medical History Hypertension Hyperlipidemia History of appendicitis Alcohol abuse, in remission History of substance abuse Unspecified cirrhosis of liver Schizophrenia Hip pain, left COPD (chronic obstructive pulmonary disease) Nocturnal hypoxemia Discontinued smoking Chronic cough Chronic insomnia Constipation Rhinorrhea Petechiae Inguinal hernia Muscle cramps Rib pain on left side Other specified disorders of teeth and supporting structures Acute upper respiratory infection Tinea pedis Impacted cerumen, left ear Hearing loss Fracture of rib HCV infection Lumbar spondylosis Hypothyroid Heroin addiction Esophageal varices Suicidal ideations Diabetes Sleep apnea Surgical History EGD - MAC Social History Smoking/Tobacco Use Status: Former Tobacco Use Smoking risk assessment performed?: Yes Alcohol Intake: former Drug use: Rarely Substance use type: does not use Details: denies drugs or alcohol for several months now Housing: house Current gender identity: male Do you feel safe at home: Yes Do you feel safe in your relationship?: Yes Time Spent with Patient Time Spent with Patient: 45-69 minutes Time was spent: preparing to see the patient(eg.review tests), obtaining and/or reviewing separately otained hiistory, ordering medications,tests, procedures, referring, communicating with other health animal care attendant, indepentently interpreting results, counseling the patient and care coordination
--- NOTE | 2025-01-13 16:12 | PDOC.CMDIS ---
Date of service: 01/13/25 Time of Service: 16:13 LACE Index Scoring Tool Questions: Length of Stay (in days): 1 Was the patient admitted via the E.D.?: Yes Comorbidities: Diabetes w/o Complication, Chronic Pulmonary Disease and Liver or Renal Disease E.D. Visits: 2 Answers: Total Score: 11 Risk of Readmission: High Risk Care Management Discharge Plan Reason for Hospitalization: clonazepam withdrawal Discharge Plan: Won will discharge home this afternoon with no new services. He will f/u with his PCP on 01/21 and at [facility] with his therapist and med provider on 01/29. He will continue per his new plan of care. He will transport home in a private vehicle. Patient/Family Education Needs: Review of discharge instructions, activity, limitations, and discuss Ask me 3.
--- NOTE | 2025-01-14 09:12 | W.NUTRFU ---
Date of service: 01/13/25 Time of Service: 11:30 Nutrition Note NOTE: received diabetes education/mgt consult. reviewed pt chart and met with him briefly to offer outpatient services, as his discharge was anticipated shortly. He took my contact information and will call if interested in working on any nutrition-related goals. Time Spent in Nutritional Counseling and Treatment: 5 min
== END 2025-01-13 16:20 | disposition home or self-care (01) ==
LOC: ER 21:37 → MS 23:07
PROVIDERS: Admitting Provider Hospitalist; Emergency Provider General Practice; PCP Family Medicine; Responsible Provider Family Medicine; Visit Provider Hospitalist
DX: R41.0 Disorientation, unspecified (principal); F10.10 Alcohol abuse, uncomplicated; E11.649 Type 2 diabetes mellitus with hypoglycemia without coma; D69.59 Other secondary thrombocytopenia; Z79.4 Long term (current) use of insulin; T42.4X5A Adverse effect of benzodiazepines, initial encounter; Z79.84 Long term (current) use of oral hypoglycemic drugs; Z79.899 Other long term (current) drug therapy; E66.9 Obesity, unspecified; F20.9 Schizophrenia, unspecified; F13.10 Sedative, hypnotic or anxiolytic abuse, uncomplicated; F41.9 Anxiety disorder, unspecified; H90.3 Sensorineural hearing loss, bilateral; I48.91 Unspecified atrial fibrillation; R18.8 Other ascites; F32.A Depression, unspecified; E72.20 Disorder of urea cycle metabolism, unspecified; I10 Essential (primary) hypertension; E78.5 Hyperlipidemia, unspecified; J44.9 Chronic obstructive pulmonary disease, unspecified; E03.9 Hypothyroidism, unspecified; K59.00 Constipation, unspecified
CPT/HCPCS: 00123; 36415; 36416; 80053; 80307; 82962; 96372; 97162; 99285; J1650; 71045; 81003; 82140; 84439; 84443; 85025; 85610; 85730; 99222; 99239; G0378; J1815

== ENCOUNTER 2025-04-14 19:22 | Outpatient (REF) | payer MEDICARE, MEDICAID, SELFPAY ==
[2025-04-14 21:02] LABS: HCT 34.0 % (40.0-50.0); HGB 11.9 g/dL (13.5-17.5); MCH 30.4 pg (27.0-33.0); MCHC 35.0 % (32.0-36.0); MCV 87 fL (80-95); MPV 12.4 fL (8.0-11.0); RBC 3.92 10^6/uL (4.36-5.78); RDW 14.7 % (11.8-14.1); RDW-SD 46.5 fL; WBC 4.14 10^3/uL (4.4-10.8)
[2025-04-14 21:27] LABS: Platelet Count 43 10^3/uL (130-400)
[2025-04-14 22:01] LABS: INR 1.3 (0.9-1.1); Prothrombin Time 12.7 sec (9.1-11.1)
== END 2025-04-14 19:23 | disposition home or self-care (01) ==
LOC: NCHCN 19:22
PROVIDERS: PCP Family Medicine; Visit Provider Family Medicine
DX: D69.6 Thrombocytopenia, unspecified (principal)
CPT/HCPCS: 85027; 85610